=== PATIENT | female | born 1945 | race Caucasian/White ===

== ENCOUNTER 2018-10-02 12:26 | Emergency (ER) | payer MEDICARE, OTHER ==
[~2018-10-02] VITALS: Ht 167.6 cm; Wt 42.9 kg
[~2018-10-02 12:26] MED LIST: ACET325T9 PO; AMLO5TAB4 PO; ASCO500T2 PO; ASPI81TA50 PO; CHOL10003 PO; CHOL4POW2 PO; DIVA125C2 PO; ESCITALOPRAM OX10 MG PO; FOLI1TAB16 PO; LAMO25TA5 PO; LEVO25TA55 PO; MAG355OR17 PO; MAGN2400 PO; MEMA10TA PO; METH29OI TP; MIRT15TA PO; MIRT30TA3 PO; MULT-658 PO; OLAN10TA5 PO; OLAN5TAB5 PO; OLAN7.5T3 PO; POTA500T5 PO; TRAZ-85 PO; VIT1TABL32 PO; VITA1TAB3 PO; VITA80003 PO
[2018-10-02 13:27] LABS: BASO % 1 % (0-3); EOS # 0.1 x10^3/uL (0.0-0.7); EOS % 3 % (0-3); HEMATOCRIT 42.8 % (36.0-47.0); HEMOGLOBIN 14.3 g/dL (12.0-15.5); LYMPH # 0.8 x10^3/uL (1.0-4.8); LYMPH % 22 % (24-48); MEAN CORPUSCULAR HEMOGLOBIN 33 pg (25-35); MEAN CORPUSCULAR HGB CONC 33 g/dL (31-37); MEAN CORPUSCULAR VOLUME 99 fL (79-100); MONO # 0.4 x10^3/uL (0.0-1.1); MONO % 10 % (0-9); NEUT # 2.3 x10^3uL (1.8-7.7); NEUT % 65 % (31-73); PLATELET COUNT 147 x10^3/uL (140-400); RED BLOOD COUNT 4.32 x10^6/uL (3.50-5.40); RED CELL DISTRIBUTION WIDTH 12.6 % (11.5-14.5); WHITE BLOOD COUNT 3.6 x10^3/uL (4.0-11.0)
[2018-10-02 13:37] LABS: BACTERIA,URINE FEW /HPF (0-FEW); BILIRUBIN,URINE NEG (NEG); CLARITY,URINE CLEAR; COLOR,URINE YELLOW; GLUCOSE,URINE NEG (NEG); HYALINE CASTS, URINE OCC /HPF; NITRITE,URINE NEG (NEG); RBC,URINE RARE /HPF (0-2); SQUAMOUS EPITHELIAL CELL,UR OCC /LPF; UROBILINOGEN,URINE 0.2 mg/dL (0.2 mg/dL); WBC,URINE RARE /HPF (0-4)
[2018-10-02 13:40] LABS: ALBUMIN 2.8 g/dL (3.4-5.0); ALBUMIN/GLOBULIN RATIO 0.8 (1.0-1.7); CALCIUM 8.6 mg/dL (8.5-10.1); CREATININE 1.7 mg/dL (0.6-1.0); GFR 29.5; MAGNESIUM 1.6 mg/dL (1.8-2.4); POTASSIUM 3.5 mmol/L (3.5-5.1); TOTAL BILIRUBIN 0.4 mg/dL (0.2-1.0); TOTAL PROTEIN 6.4 g/dL (6.4-8.2)
--- NOTE | 2018-10-02 14:31 | PHYS DOC ---
Past History Past Medical History: Dementia, GERD, High Cholesterol, Hypertension, P.U.D Alcohol Use: None Adult General Chief Complaint Chief Complaint: ALTERED MENTAL STATUS HPI HPI Patient is a 73 year old female patient with history of dementia brought in by her because of increasing confusion for the last few days. Patient called her daughter and her sister more than 20 times yesterday and asking to go home while she was at her home. Patient called her psychiatric recommended to come to ER for evaluation and possible UTI. Patient denies any problem and wants to go home. Review of Systems Review of Systems Constitutional: Denies fever or chills [] Eyes: Denies change in visual acuity, redness, or eye pain [] HENT: Denies nasal congestion or sore throat [] Respiratory: Denies cough or shortness of breath [] Cardiovascular: No additional information not addressed in HPI [] GI: Denies abdominal pain, nausea, vomiting, bloody stools or diarrhea [] : Denies dysuria or hematuria [] Musculoskeletal: Denies back pain or joint pain [] Integument: Denies rash or skin lesions [] Neurologic: Denies headache, focal weakness or sensory changes [] Endocrine: Denies polyuria or polydipsia [] All other systems were reviewed and found to be within normal limits, except as documented in this note. Allergies Allergies Allergies Coded Allergies Type Severity Reaction Last Updated Verified No Known Drug Allergies 11/16/15 No Physical Exam Physical Exam Constitutional: No acute distress, non-toxic appearance, thin. [] HENT: Normocephalic, atraumatic, oropharynx moist, no oral exudates, nose normal. [] Eyes: PERRLA, EOMI, conjunctiva normal, no discharge. [] Neck: Normal range of motion, no tenderness, supple, no stridor. [] Cardiovascular:Heart rate regular rhythm, no murmur [] Lungs & Thorax: Bilateral breath sounds clear to auscultation [] Abdomen: Bowel sounds normal, soft, no tenderness, no masses, no pulsatile masses. [] Skin: Warm, dry, no erythema, no rash. [] Back: No tenderness, no CVA tenderness. [] Extremities: No tenderness, no cyanosis, no clubbing, ROM intact, no edema. [] Neurologic: Alert and oriented X 2, normal motor function, normal sensory function, no focal deficits noted. [] Psychologic: Affect anxious Current Patient Data Vital Signs Vital Signs Date Time Temp Pulse Resp B/P (MAP) Pulse Ox O2 Delivery O2 Flow Rate FiO2 10/02/18 12:26 97.9 66 18 95 Room Air Lab Results Laboratory Tests Test 10/02/18 13:05 White Blood Count 3.6 x10^3/uL (4.0-11.0) L Red Blood Count 4.32 x10^6/uL (3.50-5.40) Hemoglobin 14.3 g/dL (12.0-15.5) Hematocrit 42.8 % (36.0-47.0) Mean Corpuscular Volume 99 fL (79-100) Mean Corpuscular Hemoglobin 33 pg (25-35) Mean Corpuscular Hemoglobin Concent 33 g/dL (31-37) Red Cell Distribution Width 12.6 % (11.5-14.5) Platelet Count 147 x10^3/uL (140-400) Neutrophils (%) (Auto) 65 % (31-73) Lymphocytes (%) (Auto) 22 % (24-48) L Monocytes (%) (Auto) 10 % (0-9) H Eosinophils (%) (Auto) 3 % (0-3) Basophils (%) (Auto) 1 % (0-3) Neutrophils # (Auto) 2.3 x10^3uL (1.8-7.7) Lymphocytes # (Auto) 0.8 x10^3/uL (1.0-4.8) L Monocytes # (Auto) 0.4 x10^3/uL (0.0-1.1) Eosinophils # (Auto) 0.1 x10^3/uL (0.0-0.7) Basophils # (Auto) 0.0 x10^3/uL (0.0-0.2) Urine Collection Type Void Urine Color Yellow Urine Clarity Clear Urine pH 6.0 Urine Specific [place] 1.020 Urine Protein 30 mg/dl (NEG-TRACE) Urine Glucose (UA) Neg mg/dL (NEG) Urine Ketones (Stick) Trace mg/dL (NEG) Urine Blood Neg (NEG) Urine Nitrite Neg (NEG) Urine Bilirubin Neg (NEG) Urine Urobilinogen Dipstick 0.2 mg/dL (0.2 mg/dL) Urine Leukocyte Esterase Neg (NEG) Urine RBC Rare /HPF (0-2) Urine WBC Rare /HPF (0-4) Urine Squamous Epithelial Cells Occ /LPF Urine Bacteria Few /HPF (0-FEW) Urine Hyaline Casts Occ /HPF Urine Mucus Slight /LPF Sodium Level 144 mmol/L (136-145) Potassium Level 3.5 mmol/L (3.5-5.1) Chloride Level 107 mmol/L (98-107) Carbon Dioxide Level 32 mmol/L (21-32) Anion Gap 5 (6-14) L Blood Urea Nitrogen 17 mg/dL (7-20) Creatinine 1.7 mg/dL (0.6-1.0) H Estimated GFR (Cockcroft-Gault) 29.5 BUN/Creatinine Ratio 10 (6-20) Glucose Level 131 mg/dL (70-99) H Lactic Acid Level 1.8 mmol/L (0.4-2.0) Calcium Level 8.6 mg/dL (8.5-10.1) Magnesium Level 1.6 mg/dL (1.8-2.4) L Total Bilirubin 0.4 mg/dL (0.2-1.0) Aspartate Amino Transferase (AST) 22 U/L (15-37) Alanine Aminotransferase (ALT) 15 U/L (14-59) Alkaline Phosphatase 79 U/L (46-116) Total Protein 6.4 g/dL (6.4-8.2) Albumin 2.8 g/dL (3.4-5.0) L Albumin/Globulin Ratio 0.8 (1.0-1.7) L EKG EKG EKG interpreted by me. EKG at 1327 showed normal sinus rhythm at the time of 61 , no acute ST or T-wave abnormalities. Radiology/Procedures Radiology/Procedures [] Course & Med Decision Making Course & Med Decision Making Pertinent Labs reviewed. (See chart for details) Evaluation of patient in ER showed 72-year-old female patient brought in by her because of increasing confusion. Patient had history of dementia and was alert and oriented 2. Labs was unremarkable. After talking to patient and her daughter, they decided to take her home and follow with her psychiatric Dr Singh who increased the dose of Depakote after patient's talked to him by the phone while the patient was in ER. Dragon Disclaimer Dragon Disclaimer This electronic medical record was generated, in whole or in part, using a voice recognition dictation system. Departure Departure: Impression: Primary Impression: Dementia Additional Impressions: Confusion Renal insufficiency Leukopenia Disposition: HOME, SELF-CARE (at 1429) Condition: STABLE Referrals: BANDAR HORTON MD (PCP) Patient Instructions: Dementia Additional Instructions: Follow-up with your primary care physician in 3-5 days Return to ER if not getting better Problem Qualifiers BYRON BRAMBILA MD Oct 02, 2018 14:31
[2018-10-02 14:46] VITALS: BP 140/101
--- NOTE | 2018-10-02 19:31 | EKG ---
[address] [address] Test Date: 2018-10-02 Test Time: 13:27:53 Pat Name: MAXIMUS OJEDA Department: Room: Gender: F Etiologist: : 1945 Requested By: BYRON BRAMBILA Order Number: [id number] Reading MD: Juan Carlos Thrasher Measurements Intervals [place] Rate: 61 P: 75 [place]: 136 QRS: 75 QRSD: 72 T: 85 QT: 368 QTc: 372 Interpretive Statements SINUS RHYTHM NONSPECIFIC ST-T WAVE CHANGES Electronically Signed On 10-07-2018 15:18:04 ASSISTANT PROFESSOR NURSE EDUCATION by Juan Carlos Thrasher
== END 2018-10-02 14:48 | disposition home or self-care (01) ==
LOC: ER 12:26
DX: R41.0 Disorientation, unspecified (principal); F03.90 Unspecified dementia, unspecified severity, without behavioral disturbance, psychotic disturbance, mood disturbance, and anxiety; N28.9 Disorder of kidney and ureter, unspecified; D72.819 Decreased white blood cell count, unspecified; K21.9 Gastro-esophageal reflux disease without esophagitis; E78.00 Pure hypercholesterolemia, unspecified; I10 Essential (primary) hypertension; Z87.11 Personal history of peptic ulcer disease
CPT/HCPCS: 36415; 80053; 81001; 83605; 83735; 85025; 93005; 99284

== ENCOUNTER 2019-08-14 14:23 | Inpatient (IN) | payer MEDICARE, OTHER ==
[~2019-08-14] VITALS: Ht 167.6 cm; Wt 41.7 kg
[~2019-08-14 14:23] MED LIST changes: +TRAZ-120 PO; -TRAZ-85 PO
[2019-08-14] MEDS ORDERED: IV NORMAL SALINE 1,000ML 1,000 ML IV ONE (14:45)
[2019-08-14 15:11] LABS: BASO % 0 % (0-3); EOS # 0.2 x10^3/uL (0.0-0.7); EOS % 3 % (0-3); HEMATOCRIT 46.6 % (36.0-47.0); HEMOGLOBIN 15.1 g/dL (12.0-15.5); LYMPH # 1.5 x10^3/uL (1.0-4.8); LYMPH % 27 % (24-48); MEAN CORPUSCULAR HEMOGLOBIN 32 pg (25-35); MEAN CORPUSCULAR HGB CONC 32 g/dL (31-37); MEAN CORPUSCULAR VOLUME 100 fL (79-100); MONO # 0.4 x10^3/uL (0.0-1.1); MONO % 7 % (0-9); NEUT # 3.6 x10^3uL (1.8-7.7); NEUT % 64 % (31-73); PLATELET COUNT 102 x10^3/uL (140-400); RED BLOOD COUNT 4.66 x10^6/uL (3.50-5.40); RED CELL DISTRIBUTION WIDTH 13.3 % (11.5-14.5); WHITE BLOOD COUNT 5.7 x10^3/uL (4.0-11.0)
[2019-08-14 15:35] LABS: ALBUMIN 3.4 g/dL (3.4-5.0); ALBUMIN/GLOBULIN RATIO 0.9 (1.0-1.7); CALCIUM 9.2 mg/dL (8.5-10.1); CREATININE 1.4 mg/dL (0.6-1.0); GFR 36.8; MAGNESIUM 1.9 mg/dL (1.8-2.4); TOTAL BILIRUBIN 0.6 mg/dL (0.2-1.0); TOTAL PROTEIN 7.3 g/dL (6.4-8.2)
[2019-08-14] MEDS ORDERED: IOHEXOL 350 MG/ML 100 ML VIAL. IV ONE (15:45)
[2019-08-14 15:58] LABS: VAL ACID 35 mcg/mL (50-100)
--- NOTE | 2019-08-14 16:34 | RAD ---
EXAM: CT HEAD WITHOUT IV CONTRAST CLINICAL HISTORY: Headache, dizziness and pain COMPARISON: None. TECHNIQUE: Routine CT of the head without contrast. Soft tissues and bone windows were reviewed. PQRS compliance statement - One or more of the following individualized dose reduction techniques were utilized for this study: 1. Automated exposure control 2. Adjustment of the mA and/or kV according to patient size 3. Use of iterative reconstruction technique FINDINGS: There is no evidence of hemorrhage, mass or extra-axial fluid collection. Subcortical, periventricular and deep white matter hypoattenuation likely changes of chronic small vessel disease. [place]-white differentiation is grossly preserved. There is no mass effect or shift of the intracranial structures. There is prominence of the ventricles and sulci bilaterally consistent with generalized atrophy. The cerebellum and brainstem are unremarkable. The calvarium demonstrates no evidence of fracture or focal lesion. There is normal aeration of the visualized paranasal sinuses and mastoid air cells. The visualized portions of the orbits are normal. Atherosclerotic calcifications of the intracranial internal carotid and vertebral arteries is seen. IMPRESSION: 1. No evidence for acute intracranial process. 2. White matter changes likely from chronic small vessel disease. EXAM: CT CERVICAL SPINE WITHOUT IV CONTRAST CLINICAL HISTORY: Headache, dizziness, pain COMPARISON: None available. TECHNIQUE: Helical CT of the cervical spine was performed. Axial, coronal and sagittal reformatted images were also performed. PQRS compliance statement - One or more of the following individualized dose reduction techniques were utilized for this study: 1. Automated exposure control 2. Adjustment of the mA and/or kV according to patient size 3. Use of iterative reconstruction technique FINDINGS: Vertebral body heights are preserved. Moderate C2-3 disc height loss. Moderate to severe C4-5, C5-6 and C6-7 as well as C7-T1 disc height loss. No evidence for acute fracture. Straightening of the normal cervical lordosis. No spondylolisthesis. Endplate osteophytes are seen at multiple levels most prominent at C4-5 and C5-6. IMPRESSION: 1. No acute fracture or subluxation. 2. Multilevel spondylosis as above C4-5. 3. Biapical emphysematous changes are seen. Electronically signed by: Jayce Lazo MD (08/14/2019 4:31 PM) [place] [id number]
--- NOTE | 2019-08-14 17:02 | RAD ---
CT ANGIO CHEST W ABD PEL W/ Indication: Shortness of breath. Hypoxia. Diarrhea. Technique: After intravenous contrast administration, CT imaging was performed of the chest. MIP reconstructions were obtained. Exposure: One or more of the following individualized dose reduction techniques were utilized for this examination: 1. Automated exposure control 2. Adjustment of the mA and/or kV according to patient size 3. Use of iterative reconstruction technique. CTA chest: No evidence of pulmonary embolism. The ascending thoracic aorta is ectatic at 3.7 cm transverse diameter. No gross aneurysm. The aorta is suboptimally opacified with contrast, cannot evaluate for dissection. Atherosclerotic calcification is seen. No significant lymph node enlargement. No evidence of significant pericardial effusion or pleural effusion. No evidence of thyroid mass. Lungs demonstrate no evidence of consolidating infiltrate. Mild linear markings are identified, likely atelectatic or fibrotic. No evidence of pneumothorax. Mainstem bronchi and trachea are intact. Mild central endplate concavities of thoracic vertebrae may be due to osteoporosis. No acute appearing fracture. Degenerative spondylosis is identified. IMPRESSION: No evidence of pulmonary embolism. Abdomen and pelvis: Right lobe of liver is elongated slightly. No gross hepatomegaly. No evidence of hepatic lesion. Small low-density lesion of the spleen too small to characterize measuring less than 1 cm. Spleen not enlarged. Pancreas unremarkable. No evidence of adrenal mass. Mild gallbladder wall thickening but could be accentuated by nondistention. No evidence of calcified gallstone. Small saccular aneurysm of the infrarenal abdominal aorta measuring about 2 cm wide. No significant lymph node enlargement. No significant pneumoperitoneum. No evidence of ascites. No significant small bowel distention. Mild distal colonic wall thickening could be due to submucosal edema versus mild colitis. No gross focal inflammatory type changes are identified. Bowel evaluation is limited due to the lack of oral contrast. Appendix is not clearly visualized. Urinary bladder demonstrates mild wall thickening. No evidence of pelvic mass. Degenerative changes of the spine. IMPRESSION: 1. Mild gallbladder wall thickening. This could be accentuated by nondistention, but correlate for cholecystitis. 2. No small subcentimeter lesion of the spleen cannot be further characterized but could be a cyst. 3. Small saccular aneurysm of the infrarenal abdominal aorta, measures up to 2 m wide. 4. Mild distal colonic wall thickening, could be due to some mucosal edema or mild colitis. 5. Mild urinary bladder wall thickening, correlate for acute or chronic cystitis. Electronically signed by: Kannan Wong MD (08/14/2019 5:00 PM) [facility]
[2019-08-14 17:08] LABS: BACTERIA,URINE 0 /HPF (0-FEW); BILIRUBIN,URINE NEG (NEG); CLARITY,URINE CLEAR; COLOR,URINE STRAW; GLUCOSE,URINE NEG (NEG); NITRITE,URINE NEG (NEG); RBC,URINE 0 /HPF (0-2); SQUAMOUS EPITHELIAL CELL,UR OCC /LPF; UROBILINOGEN,URINE 0.2 mg/dL (0.2 mg/dL); WBC,URINE OCC /HPF (0-4)
[2019-08-14] MEDS ORDERED: CIPROFLOXACIN HCL 500 MG TABLET PO ONE (17:30)
[2019-08-14] MEDS ORDERED: metroNIDAZOLE 500 MG TABLET PO ONE (17:30)
[2019-08-14] MEDS ORDERED: DEXAMETHASONE SOD PHOS 10 MG/ML VIAL ONE (17:33)
--- NOTE | 2019-08-14 17:40 | PHYS DOC ---
Past History Past Medical History: Bipolar, Dementia, High Cholesterol, Hypertension, Hypothyroid, [place] Additional Past Medical Histor: Limited secondary to dementia Past Surgical History: Appendectomy, Hysterectomy Additional Past Surgical Histo: Limited secondary to dementia Smoking: Non-smoker Alcohol Use: None Drug Use: None Social History Narrative: Limited secondary to dementia Adult General Chief Complaint Chief Complaint: SHORTNESS OF BREATH HPI HPI 74-year-old female presents with 2 day history of generalized weakness, dizziness, dyspnea with exertion, and headache. She has had several day history of diarrhea. Patient is a poor historian secondary to dementia. Family concerned as patient seemed very weak today and felt like she was about to pass out. Patient denies any significant pain. Denies fever or chills. Denies known sick contacts. Denies trauma. Patient also with pmh of COPD. History of present illness limited secondary to dementia Review of Systems Review of Systems Constitutional: Denies fever or chills; reports generalized malaise Respiratory: Denies cough; reports dyspnea on exertion Cardiovascular: Denies chest pain or palpitations GI: Denies nausea or vomiting; reports diarrhea : Denies dysuria or hematuria Integument: Denies rash or skin lesions Neurologic: Reports headache and dizziness Review of systems limited secondary to dementia Current Medications Current Medications Current Medications Medications (Trade) Dose Ordered Sig/Judd Start Time Stop Time Status Last Admin Dose Admin Albuterol/ Ipratropium (Duoneb) 3 ml 1X ONCE 08/14/19 17:45 08/14/19 17:46 Ciprofloxacin (Cipro) 500 mg 1X ONCE 08/14/19 17:30 08/14/19 17:31 DC Dexamethasone Sodium Phosphate (Decadron) 10 mg STK-MED ONCE 08/14/19 17:33 08/14/19 17:33 DC Iohexol (Omnipaque 350 Mg/ml) 75 ml 1X ONCE 08/14/19 15:45 08/14/19 15:46 DC 08/14/19 16:00 75 ML Metronidazole (Flagyl) 500 mg 1X ONCE 08/14/19 17:30 08/14/19 17:31 DC Sodium Chloride 1,000 ml @ 1,000 mls/hr 1X ONCE 08/14/19 14:45 08/14/19 15:44 DC 08/14/19 15:17 1,000 MLS/HR Allergies Allergies Allergies Coded Allergies Type Severity Reaction Last Updated Verified No Known Drug Allergies 11/16/15 No Physical Exam Physical Exam Constitutional: Well developed, well nourished, frail, no acute distress HENT: Normocephalic, atraumatic, oropharynx moist Eyes: PERRL, EOMI, conjunctiva normal, no discharge, no nystagmus Neck: Normal range of motion, no tenderness, supple, no meningeal signs Cardiovascular: Heart rate normal, regular rhythm Lungs & Thorax: Bilateral breath sounds clear to auscultation, no wheezing Abdomen: Soft, diffuse tenderness, no rebound tenderness Skin: Warm, dry, no erythema, no rash Extremities: No tenderness, ROM intact, no edema Neurologic: Alert and oriented X 2, normal motor function, normal sensory function, no focal deficits noted Psychologic: Affect normal, judgement abnormal Current Patient Data Vital Signs Vital Signs Date Time Temp Pulse Resp B/P (MAP) Pulse Ox O2 Delivery O2 Flow Rate FiO2 08/14/19 15:06 98.9 67 18 93 Room Air Lab Results Laboratory Tests Test 08/14/19 14:38 08/14/19 14:41 08/14/19 16:17 White Blood Count 5.7 x10^3/uL (4.0-11.0) Red Blood Count 4.66 x10^6/uL (3.50-5.40) Hemoglobin 15.1 g/dL (12.0-15.5) Hematocrit 46.6 % (36.0-47.0) Mean Corpuscular Volume 100 fL (79-100) Mean Corpuscular Hemoglobin 32 pg (25-35) Mean Corpuscular Hemoglobin Concent 32 g/dL (31-37) Red Cell Distribution Width 13.3 % (11.5-14.5) Platelet Count 102 x10^3/uL (140-400) L Neutrophils (%) (Auto) 64 % (31-73) Lymphocytes (%) (Auto) 27 % (24-48) Monocytes (%) (Auto) 7 % (0-9) Eosinophils (%) (Auto) 3 % (0-3) Basophils (%) (Auto) 0 % (0-3) Neutrophils # (Auto) 3.6 x10^3uL (1.8-7.7) Lymphocytes # (Auto) 1.5 x10^3/uL (1.0-4.8) Monocytes # (Auto) 0.4 x10^3/uL (0.0-1.1) Eosinophils # (Auto) 0.2 x10^3/uL (0.0-0.7) Basophils # (Auto) 0.0 x10^3/uL (0.0-0.2) Sodium Level 148 mmol/L (136-145) H Potassium Level 4.0 mmol/L (3.5-5.1) Chloride Level 106 mmol/L (98-107) Carbon Dioxide Level 31 mmol/L (21-32) Anion Gap 11 (6-14) Blood Urea Nitrogen 20 mg/dL (7-20) Creatinine 1.4 mg/dL (0.6-1.0) H Estimated GFR (Cockcroft-Gault) 36.8 BUN/Creatinine Ratio 14 (6-20) Glucose Level 132 mg/dL (70-99) H Lactic Acid Level 1.6 mmol/L (0.4-2.0) Calcium Level 9.2 mg/dL (8.5-10.1) Magnesium Level 1.9 mg/dL (1.8-2.4) Total Bilirubin 0.6 mg/dL (0.2-1.0) Aspartate Amino Transferase (AST) 39 U/L (15-37) H Alanine Aminotransferase (ALT) 34 U/L (14-59) Alkaline Phosphatase 91 U/L (46-116) Creatine Kinase 51 U/L (26-192) Creatine Kinase MB (Mass) 1.3 ng/mL (0.0-3.6) Creatine Kinase MB Relative Index 2.5 % (0-4) Troponin I Quantitative < 0.017 ng/mL (0-0.055) QR-Ysw-[id number]-Type Natriuretic Peptide 217 pg/mL (0-124) H Total Protein 7.3 g/dL (6.4-8.2) Albumin 3.4 g/dL (3.4-5.0) Albumin/Globulin Ratio 0.9 (1.0-1.7) L Lipase 585 U/L (73-393) H Valproic Acid Level 35 mcg/mL (50-100) L Valproic Acid Last Dose Date 08/14/19 Valproic Acid Last Dose Time 0800 Urine Collection Type Unknown Urine Color Straw Urine Clarity Clear Urine pH 6.5 Urine Specific Orient 1.015 Urine Protein Neg (NEG-TRACE) Urine Glucose (UA) Neg mg/dL (NEG) Urine Ketones (Stick) Neg mg/dL (NEG) Urine Blood Neg (NEG) Urine Nitrite Neg (NEG) Urine Bilirubin Neg (NEG) Urine Urobilinogen Dipstick 0.2 mg/dL (0.2 mg/dL) Urine Leukocyte Esterase Neg (NEG) Urine RBC 0 /HPF (0-2) Urine WBC Occ /HPF (0-4) Urine Squamous Epithelial Cells Occ /LPF Urine Bacteria 0 /HPF (0-FEW) Urine Mucus Slight /LPF EKG EKG @1515 NSR at 60bpm, NO ST elevation, QRS 68ms, QT/QTc 424/428ms Radiology/Procedures Radiology/Procedures PROCEDURE: CT HEAD AND CERVICAL SPINE WO EXAM: CT HEAD WITHOUT IV CONTRAST CLINICAL HISTORY: Headache, dizziness and pain COMPARISON: None. TECHNIQUE: Routine CT of the head without contrast. Soft tissues and bone windows were reviewed. PQRS compliance statement - One or more of the following individualized dose reduction techniques were utilized for this study: 1. Automated exposure control 2. Adjustment of the mA and/or kV according to patient size 3. Use of iterative reconstruction technique FINDINGS: There is no evidence of hemorrhage, mass or extra-axial fluid collection. Subcortical, periventricular and deep white matter hypoattenuation likely changes of chronic small vessel disease. York-white differentiation is grossly preserved. There is no mass effect or shift of the intracranial structures. There is prominence of the ventricles and sulci bilaterally consistent with generalized atrophy. The cerebellum and brainstem are unremarkable. The calvarium demonstrates no evidence of fracture or focal lesion. There is normal aeration of the visualized paranasal sinuses and mastoid air cells. The visualized portions of the orbits are normal. Atherosclerotic calcifications of the intracranial internal carotid and vertebral arteries is seen. IMPRESSION: 1. No evidence for acute intracranial process. 2. White matter changes likely from chronic small vessel disease. EXAM: CT CERVICAL SPINE WITHOUT IV CONTRAST CLINICAL HISTORY: Headache, dizziness, pain COMPARISON: None available. TECHNIQUE: Helical CT of the cervical spine was performed. Axial, coronal and sagittal reformatted images were also performed. PQRS compliance statement - One or more of the following individualized dose reduction techniques were utilized for this study: 1. Automated exposure control 2. Adjustment of the mA and/or kV according to patient size 3. Use of iterative reconstruction technique FINDINGS: Vertebral body heights are preserved. Moderate C2-3 disc height loss. Moderate to severe C4-5, C5-6 and C6-7 as well as C7-T1 disc height loss. No evidence for acute fracture. Straightening of the normal cervical lordosis. No spondylolisthesis. Endplate osteophytes are seen at multiple levels most prominent at C4-5 and C5-6. IMPRESSION: 1. No acute fracture or subluxation. 2. Multilevel spondylosis as above C4-5. 3. Biapical emphysematous changes are seen. Electronically signed by: Jayce Lazo MD (08/14/2019 4:31 PM) [facility] PROCEDURE: CT ANGIO CHEST W ABD PEL W/ CT ANGIO CHEST W ABD PEL W/ Indication: Shortness of breath. Hypoxia. Diarrhea. Technique: After intravenous contrast administration, CT imaging was performed of the chest. MIP reconstructions were obtained. Exposure: One or more of the following individualized dose reduction techniques were utilized for this examination: 1. Automated exposure control 2. Adjustment of the mA and/or kV according to patient size 3. Use of iterative reconstruction technique. CTA chest: No evidence of pulmonary embolism. The ascending thoracic aorta is ectatic at 3.7 cm transverse diameter. No gross aneurysm. The aorta is suboptimally opacified with contrast, cannot evaluate for dissection. Atherosclerotic calcification is seen. No significant lymph node enlargement. No evidence of significant pericardial effusion or pleural effusion. No evidence of thyroid mass. Lungs demonstrate no evidence of consolidating infiltrate. Mild linear markings are identified, likely atelectatic or fibrotic. No evidence of pneumothorax. Mainstem bronchi and trachea are intact. Mild central endplate concavities of thoracic vertebrae may be due to osteoporosis. No acute appearing fracture. Degenerative spondylosis is identified. IMPRESSION: No evidence of pulmonary embolism. Abdomen and pelvis: Right lobe of liver is elongated slightly. No gross hepatomegaly. No evidence of hepatic lesion. Small low-density lesion of the spleen too small to characterize measuring less than 1 cm. Spleen not enlarged. Pancreas unremarkable. No evidence of adrenal mass. Mild gallbladder wall thickening but could be accentuated by nondistention. No evidence of calcified gallstone. Small saccular aneurysm of the infrarenal abdominal aorta measuring about 2 cm wide. No significant lymph node enlargement. No significant pneumoperitoneum. No evidence of ascites. No significant small bowel distention. Mild distal colonic wall thickening could be due to submucosal edema versus mild colitis. No gross focal inflammatory type changes are identified. Bowel evaluation is limited due to the lack of oral contrast. Appendix is not clearly visualized. Urinary bladder demonstrates mild wall thickening. No evidence of pelvic mass. Degenerative changes of the spine. IMPRESSION: 1. Mild gallbladder wall thickening. This could be accentuated by nondistention, but correlate for cholecystitis. 2. No small subcentimeter lesion of the spleen cannot be further characterized but could be a cyst. 3. Small saccular aneurysm of the infrarenal abdominal aorta, measures up to 2 m wide. 4. Mild distal colonic wall thickening, could be due to some mucosal edema or mild colitis. 5. Mild urinary bladder wall thickening, correlate for acute or chronic cystitis. Electronically signed by: Kannan Wong MD (08/14/2019 5:00 PM) [facility] Course & Med Decision Making Course & Med Decision Making Pertinent Labs and Imaging studies reviewed. (See chart for details) Patient with past medical history of dementia and COPD presents with report of generalized weakness, dizziness, dyspnea with exertion and headache. Patient noted to drop O2 sats with exertion. Patient also with history of diarrhea. CT head/cervical spine without acute process. CT chest/abdomen/pelvis with findings of mild colitis. Empiric antibiotics initiated. Labs obtained and posted to chart. EKG stable. Patient requiring supplemental O2 to maintain normal sat despite DuoNeb treatments. Patient requiring admission for further evaluation and treatment. Discussed with Dr. Spring(hospitalist) who is in agreement with admission. Discussed findings and plan with patient and family, who acknowledge understanding and agreement. Dragon Disclaimer Dragon Disclaimer This electronic medical record was generated, in whole or in part, using a voice recognition dictation system. Departure Departure: Impression: Primary Impression: Colitis Additional Impressions: COPD exacerbation Hypoxia Dizziness Disposition: ADMITTED INPATIENT Admitting Physician: Salo Spring Condition: GUARDED Referrals: BANDAR HORTON MD (PCP) Critical Care Time Critical care time was 30 minutes which includes time at bedside, spent in discussion of patient's care with specialists and/or family members, with interpretation of laboratory and/or radiological studies and is exclusive of procedures. Problem Qualifiers KANNAN CASAREZ DO Aug 14, 2019 17:40
[2019-08-14] MEDS ORDERED: ACETAMINOPHEN 325 MG TABLET PO PRN (17:45)
[2019-08-14] MEDS ORDERED: DEXAMETHASONE SOD PHOS 10 MG/ML VIAL IV ONE (17:45)
[2019-08-14] MEDS ORDERED: ONDANSETRON PF 4 MG/2 ML VIAL. IV PRN (17:45)
[2019-08-14] MEDS ORDERED: IPRATRPIUM/ALBUTEROL 0.5/2.5MG 3 ML NEBU. NEB ONE (17:45)
--- NOTE | 2019-08-14 18:02 | EKG ---
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
[2019-08-14 18:28] VITALS: BP 152/88
[2019-08-14 19:30] VITALS: BP 146/81
[2019-08-14] MEDS ORDERED: DONE10TA7 PO (20:52)
[2019-08-14] MEDS ORDERED: VITA80003 PO (20:52)
[2019-08-14] MEDS ORDERED: CARV6.2541 PO (20:52)
[2019-08-14] MEDS ORDERED: SOLI5TAB2 PO (20:52)
--- NOTE | 2019-08-14 21:08 | NUR ---
The patient, MAXIMUS OJEDA, 74 y/o, F admitted by JEREMIE DONNELLY MD, was given written information regarding hospital policies, unit procedures and contact persons. cardiac monitor applied, normal sinus rhythm. Bed locked and in lowest position, call light within reach. Valuables were checked and left in room .
[2019-08-14] MEDS: IPRATRPIUM/ALBUTEROL 0.5/2.5MG 3 ML NEBU. NEB SCH (21:32)
[2019-08-14 23:09] VITALS: BP 93/58
[2019-08-15 03:03] VITALS: BP 143/71
[2019-08-15 03:05] VITALS: BP 95/59
[2019-08-15] MEDS: IPRATRPIUM/ALBUTEROL 0.5/2.5MG 3 ML NEBU. NEB SCH ×3 (05:37→16:54)
[2019-08-15 06:20] VITALS: BP 116/79
[2019-08-15 11:48] VITALS: BP 102/62
[2019-08-15 15:49] LABS: CALCIUM 8.8 mg/dL (8.5-10.1); CREATININE 1.3 mg/dL (0.6-1.0); POTASSIUM 4.6 mmol/L (3.5-5.1)
[2019-08-15 16:16] VITALS: BP 116/63
--- NOTE | 2019-08-15 17:27 | HP ---
ADMIT DATE: 08/14/2019 HISTORY OF PRESENT ILLNESS: The patient is a 74-year-old female patient, who was brought to the Emergency Room with 2 days history of generalized weakness, dizziness, dyspnea with exertion and headache. She has had several day history of diarrhea. The patient is a poor historian secondary to dementia. Family is concerned that the patient seemed to be very weak, felt like she was about to pass out. The patient herself is demented, does not give any useful information. She was extensively investigated and was found to have hypernatremia, impaired kidney function. Also, serum lipase was high at 585. Urinalysis was unremarkable and toxic screen was negative. Her imaging studies showed that her CT scan of the head and neck were unremarkable; however, her CT angio of the chest, abdomen and pelvis showed mild gallbladder wall thickening. This could be accentuated by non-distention, but correlates for cholecystitis. She has small subcentimeter lesion in the spleen cannot be further characterized, small saccular aneurysm of the infrarenal abdominal aorta measures up to 2 cm. Mild distal colonic wall thickening could be due to some mucosal edema and mild colitis, mild urinary bladder wall thickening, correlate for acute on chronic cystitis. The patient was admitted with acute colitis, COPD exacerbation, hypoxia and dizziness. She also had probably acute pancreatitis, although the patient denied any abdominal pain. PAST MEDICAL HISTORY: Significant for chronic obstructive pulmonary disease, hypertension. She has coronary artery disease, status post myocardial infarction, according to her she has dementia, hypothyroidism, overactive bladder. PAST SURGICAL HISTORY: Significant for total abdominal hysterectomy, bilateral salpingo-oophorectomy, appendectomy, tonsillectomy. She has esophagogastroduodenoscopy as well as colonoscopy. ALLERGIES: She has no known drug allergies. MEDICATIONS: She is currently on following medications: She is on Aricept 10 mg at bedtime, carvedilol 6.25 mg twice a day, amlodipine 5 mg once a day, aspirin 81 mg once a day, Tylenol 650 every 6 hours, divalproex for Depakote Sprinkles 500 mg at bedtime, mirtazapine 15 mg at bedtime, olanzapine for Zyprexa Zydis 10 mg at bedtime, Namenda 10 mg twice a day, levothyroxine sodium for Synthroid 25 mcg once a day, solifenacin succinate for VESIcare 1 tablet p.o. daily, vitamin A 8000 units, she takes 3 capsules daily, vitamin B complex 1 tablet once a day, ascorbic acid 1000 mg once a day, vitamin D 50 mcg p.o. daily and multivitamin with mineral 1 tablet once a day. FAMILY HISTORY: She has 3 sisters, 1 at age of 85 because of cerebral aneurysm and 1 brother of Alzheimer disease. Her mother of Alzheimer. Father of throat cancer. SOCIAL HISTORY: She is , has 1 daughter. Quit smoking about 5-10 years ago. She does not drink alcohol or use any recreational drugs. 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 REVIEW OF SYSTEMS: The patient denied any blurring of vision. She has bilateral cataract extraction, but denied any glaucoma or macular degeneration. Denied any earache, tinnitus or sensorineural deafness. Denied any nosebleeds, stuffy nose or postnasal drip. Denied any sore throat, sore tongue, toothache, hoarseness of voice or difficulty swallowing. Denied any nausea or vomiting. Did have diarrhea. Denies any hematemesis, melena or hematochezia. Denies any dysuria or frequency. She does have frequency, but denies any hematuria. Denies any chest pain, did complain of shortness of breath. No cough or phlegm. PHYSICAL EXAMINATION: GENERAL: On arrival to the Emergency Room, the patient looked well and pale, extremely cachectic, but no jaundice, cyanosis or thyromegaly. No jugular venous distention. No limb edema. VITAL SIGNS: Her heart rate was 67, blood pressure was 152/88, temperature was 98.9, respiratory rate was 18 and oxygen saturation was 93% on room air. HEAD, EYES, EARS, NOSE AND THROAT: Showed normocephalic, atraumatic. NECK: Supple. HEART: Showed normal first and second heart sounds with no gallop, rub or murmur. CHEST: Clear to auscultation. No crepitation or rhonchi. ABDOMEN: Distended, soft, nontender. No guarding or rigidity. No organomegaly. All hernial orifice intact. Bowel sounds normal. NEUROLOGIC: She is demented, but without any obvious lateralizing sign. All her cranial nerves intact. EXTREMITIES: She moves extremities without difficulty. LABORATORY DATA: Her lab work on admission showed that her white cell count was 5,700, hemoglobin 15, hematocrit 46, MCV 100, and platelet count of 102,000. Her serum sodium was 148, potassium 4, chloride 106, bicarbonate 31, anion gap of 11, BUN 20, creatinine 1.4, estimated GFR was 37 mL per minute. Her glucose 132, lactic acid was 1.6, calcium was 9.2, magnesium was 1.9. Total bilirubin, AST, ALT, alkaline phosphatase were normal. Total protein was 7.3, albumin was 3.4. Serum lipase was high at 585. Urinalysis was essentially unremarkable. The urine was straw colored, clear with a pH of 6.5, specific gravity 1.015, the urine was negative for protein, glucose, ketones, blood, nitrite and leukocyte esterase. There are no rbc's, no wbc's, and no bacteria. Her toxic screen showed her valproic acid was 35 mcg/mL, which is below the therapeutic range of 50-100. [address] CT scan of the head and cervical spine showed that the patient has no evidence of hemorrhage, mass, or extraaxial fluid collection, subcortical periventricular and deep white matter hypoattenuation likely changes of chronic small vessel disease. York-white differentiation is grossly preserved. There is no mass effect or shift of the intracranial structures. There is prominence of the ventricles and sulci bilaterally consistent with generalized atrophy. The cerebellum and brainstem are unremarkable. The calvarium demonstrates no evidence of fracture or focal lesion. There is normal aeration of the visualized paranasal sinuses and mastoid air cells. The visualized portion of the orbits are normal. Atherosclerotic calcification of the intracranial internal carotid and vertebral arteries seen and examination of the cervical spine showed that the vertebral body heights are preserved. Moderate C2-C3 disk height loss, moderate to severe C4-C5, C5-C6 and C6-C7 as well as C7-T1 disk height loss, no evidence of acute fractures or straightening of the normal cervical lordosis and spondylolisthesis, endplate osteophytes are seen at multiple levels, most prominent at C4-C5, C5-C6. The CT angio of the chest, abdomen and pelvis showed no evidence of pulmonary embolism. The ascending thoracic aorta is ectatic at 3.7 cm transverse diameter. No gross aneurysm. The aorta is suboptimally opacified with contrast cannot evaluate for dissection. Atherosclerotic calcification is seen. No significant lymph node enlargement. No evidence of significant pericardial effusion or pleural effusion, no evidence of thyroid mass. Lungs demonstrate no evidence of consolidating infiltrate, mild linear markings identified, likely atelectatic or fibrotic. No evidence of pneumothorax. Main stem bronchi and trachea are intact. Mild central endplate concavity of the thoracic vertebrae may be due to osteoporosis. No acute appearing fracture, degenerative spondylosis identified. The CT angio of the abdomen and pelvis showed the right lobe of the liver is enlarged slightly, no gross hepatomegaly, no evidence of hepatic lesion. A small low density lesion in the spleen, too small to characterize measuring less than 1 cm. Spleen is not enlarged. Pancreas unremarkable. No evidence of adrenal masses, mild gallbladder wall thickening, which could be accentuated by non-distention. No evidence of calcified gallstones. She has small saccular aneurysm of the infrarenal abdominal aorta measuring about 2 cm wide. No significant lymph node enlargement. No significant pneumoperitoneum, no evidence of ascites. No significant small bowel distention. Mild distal colonic wall thickening could be due to submucosal edema versus mild colitis. No gross focal inflammatory type changes are identified. Bowel evaluation is limited due to lack of oral contrast. Appendix not clearly visualized. Urinary bladder demonstrates mild wall thickening. No evidence of pelvic mass, degenerative changes of the spine. IMPRESSION: Mild gallbladder wall thickening could be accentuated by non-distention, but correlates for cholecystitis. Small subcentimeter lesion in the spleen cannot be further characterized, but could be a cyst. So, in summary, this is a 74-year-old lady who was admitted with acute colitis, questionable acute hypoxic respiratory failure and chronic obstructive pulmonary disease exacerbation as well as she was also found to have hypernatremia, acute kidney injury as well as pancreatitis and thrombocytopenia. PLAN: My plan is to continue with oral antibiotic for her acute colitis. Continue with albuterol and I will repeat her serum lipase as well as arrange for her to have abdominal ultrasound to rule out possibility of acute cholecystitis. JEREMIE DONNELLY MD DR: LILLY/papa JOB#: [id number] / [id number]
[2019-08-15 19:10] VITALS: BP 131/71
[2019-08-15] MEDS: CIPROFLOXACIN HCL 250 MG TABLET PO SCH (20:33)
[2019-08-15] MEDS: methylPREDNISolone SOD SUCC PF 40 MG/ML VIAL. IV SCH (20:34)
[2019-08-15] MEDS: metroNIDAZOLE 250 MG TABLET PO SCH (21:15)
--- NOTE | 2019-08-15 22:42 | PN ---
DATE: 08/15/2019 SUBJECTIVE: The patient is resting slightly propped up in bed, in no apparent respiratory distress. She did have loose bowel movement this morning. Did complain of shortness of breath. No cough or phlegm. PHYSICAL EXAMINATION: GENERAL: When I examined her this afternoon, she looked well and was clearly in no apparent respiratory distress. No pallor, jaundice, cyanosis or thyromegaly. No jugular venous distention. No limb edema. VITAL SIGNS: Her heart rate was 64, blood pressure was 102/62, temperature was 98.1, respiratory rate was 10 and oxygen saturation was 99% on room air. HEAD, EYES, EARS, NOSE AND THROAT: Showed normocephalic, atraumatic. NECK: Supple. HEART: Showed normal first and second heart sounds. No gallop or murmur. CHEST: Clear to auscultation. No crepitation or rhonchi. ABDOMEN: Distended, soft, nontender. NEUROLOGIC: She is awake, alert, although she is demented without any obvious lateralizing sign. All cranial nerves intact. She moves extremities without difficulty. She ambulates without assistance or assistive devices. LABORATORY DATA: No lab works were done this morning. ASSESSMENT: 1. Chronic obstructive pulmonary disease exacerbation. 2. Acute colitis. 3. Acute pancreatitis. 4. Thrombocytopenia. 5. Acute kidney injury. 6. Hypernatremia. PLAN: My plan is to repeat her stat BMP and serum lipase. We will keep her n.p.o. from midnight tonight and we will check a limited abdominal ultrasound. We will continue with oral ciprofloxacin as well as Flagyl and continue with Solu-Medrol. We will evaluate her tomorrow and if she remains stable, she can be discharged on a tapering course of steroids. JEREMIE DONNELLY MD DR: LILLY/papa JOB#: [id number] / [id number]
[2019-08-16] VITALS (9 sets, daily range): BP systolic 98–165; BP diastolic 49–89
[2019-08-16] MEDS: metroNIDAZOLE 250 MG TABLET PO SCH ×3 (05:54→21:48)
[2019-08-16 06:43] LABS: HEMATOCRIT 37.5 % (36.0-47.0); HEMOGLOBIN 12.1 g/dL (12.0-15.5); RED BLOOD COUNT 3.74 x10^6/uL (3.50-5.40); RED CELL DISTRIBUTION WIDTH 13.1 % (11.5-14.5); WHITE BLOOD COUNT 8.2 x10^3/uL (4.0-11.0)
[2019-08-16 06:58] LABS: ALBUMIN 2.9 g/dL (3.4-5.0); ALBUMIN/GLOBULIN RATIO 0.9 (1.0-1.7); CALCIUM 8.9 mg/dL (8.5-10.1); CREATININE 1.3 mg/dL (0.6-1.0); POTASSIUM 5.5 mmol/L (3.5-5.1); TOTAL BILIRUBIN 0.2 mg/dL (0.2-1.0); TOTAL PROTEIN 6.2 g/dL (6.4-8.2)
--- NOTE | 2019-08-16 08:39 | RAD ---
STUDY: Realtime grayscale and color Doppler ultrasonography of the right upper quadrant INDICATION: Abnormal CT. Questioned acute cholecystitis. COMPARISON: CT abdomen/pelvis 08/14/2019. Findings: The gallbladder wall is within normal limits for thickness measuring 3 mm. No gallstones or sludge visualized. 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 The common bile duct is mildly dilated 8 mm without choledocholithiasis or other visualized obstructing process. The pancreas is not well evaluated but the visualized portion is unremarkable. The right kidney is within normal limits measuring up to 10 cm in length and without hydronephrosis. The liver measures up to 19 cm. Parenchymal echogenicity is within normal limits. The main portal vein is patent with hepatopedal flow. The visualized inferior vena cava is patent. There appears to be a small right pleural effusion. Impression: 1. No sonographic evidence for acute cholecystitis. The common bile duct is mildly dilated at 8 mm and at the upper limits of normal taking into consideration patient's age. No choledocholithiasis or other obstructing process identified. 2. There appears to be a small right pleural effusion which was not seen on the 08/14/2019 CT. Electronically signed by: JAQUAN MOLINA MD (08/16/2019 8:37 AM) [facility]
[2019-08-16] MEDS: methylPREDNISolone SOD SUCC PF 40 MG/ML VIAL. IV SCH ×2 (09:37→20:34)
[2019-08-16] MEDS: CIPROFLOXACIN HCL 250 MG TABLET PO SCH ×2 (09:38→20:33)
[2019-08-16 15:11] LABS: CALCIUM 8.6 mg/dL (8.5-10.1); CREATININE 1.3 mg/dL (0.6-1.0); POTASSIUM 4.7 mmol/L (3.5-5.1)
[2019-08-16] MEDS ORDERED: ONDANSETRON ODT 4 MG TAB.RAPDIS PO PRN (16:00)
[2019-08-16] MEDS: IV DEXTROSE 5 %-0.45 % NACL 1,000 ML IV SCH (20:34)
[2019-08-17] MEDS: metroNIDAZOLE 250 MG TABLET PO SCH (05:28)
[2019-08-17 06:30] LABS: HEMATOCRIT 36.3 % (36.0-47.0); RED BLOOD COUNT 3.61 x10^6/uL (3.50-5.40); RED CELL DISTRIBUTION WIDTH 13.1 % (11.5-14.5); WHITE BLOOD COUNT 8.7 x10^3/uL (4.0-11.0)
[2019-08-17 06:36] VITALS: BP 144/78
[2019-08-17 06:45] LABS: ALBUMIN 2.8 g/dL (3.4-5.0); ALBUMIN/GLOBULIN RATIO 0.9 (1.0-1.7); CALCIUM 8.6 mg/dL (8.5-10.1); CREATININE 1.2 mg/dL (0.6-1.0); GFR 43.9; POTASSIUM 4.9 mmol/L (3.5-5.1); TOTAL BILIRUBIN 0.3 mg/dL (0.2-1.0)
--- NOTE | 2019-08-17 08:12 | NUR ---
NURSING NOTE PT DAUGHTER CALLED AND STATED THAT SHE WORKED HERE FOR 11 YEARS AND THAT HER MOTHER IS BEYOND OUR SCOPE OF PRACTICE AND THAT SHE WANTS HER TRANSFERRED TO [facility] TODAY. SPOKE WITH DR DONNELLY, WAITING FOR RESULTS OF HER TESTS THIS AM AND WILL DISCUSS PLAN. GAURANG GARCIA.
[2019-08-17] MEDS ORDERED: NORMAL SALINE IV ONE (08:45)
[2019-08-17] MEDS ORDERED: SINCALIDE IV ONE (08:45)
[2019-08-17] MEDS: methylPREDNISolone SOD SUCC PF 40 MG/ML VIAL. IV SCH (09:52)
[2019-08-17] MEDS: CIPROFLOXACIN HCL 250 MG TABLET PO SCH (09:52)
[2019-08-17] MEDS: IV DEXTROSE 5 %-0.45 % NACL 1,000 ML IV SCH (09:59)
--- NOTE | 2019-08-17 10:12 | RAD ---
Examination: NM HEPATOBILIARY SCAN W PHARM History: Dilated common bile duct and elevated serum lipase, intermittent abdominal pain for one month Comparison/Correlation: 08/24/2019 CTA of the chest abdomen and pelvis Findings: 5.5 mCi technetium 99m Choletec was intravenously administered for purposes of hepatobiliary scintigraphy. Uptake of radiotracer by liver is normal. No significant biliary dilatation. Radiotracer is present within small bowel by 15 minutes. Gallbladder is visualized at 20 minutes. After 60 minutes, 0.83 mcg Kinevac was intravenously administered. Gallbladder ejection fraction is 74 percent. Impression: Normal hepatobiliary scintigraphy. Normal gallbladder ejection fraction. Electronically signed by: Bashir Acuña MD (08/17/2019 10:09 AM) [facility]
[2019-08-17 11:22] VITALS: BP 114/64
--- NOTE | 2019-08-17 11:58 | DS ---
DATE OF DISCHARGE: 08/17/2019 HOSPITAL COURSE: The patient is a 74-year-old female patient who was admitted originally through the Emergency Room with complaint of generalized weakness, dizziness, dyspnea with exertion headache. She has also several days of the history of diarrhea. She was evaluated in the Emergency Room, was found to have hypernatremia, impaired kidney function, serum lipase was high at 585. Urinalysis and tox screen was negative. Her imaging studies showed that CT scans of the head and neck were unremarkable. CT angio of the chest, abdomen and pelvis showed mild gallbladder wall thickening. The patient was denied any abdominal pain, denied any nausea and vomiting and we did start her on Cipro and Flagyl. Unfortunately, her serum lipase continued to rise steadily and has risen from 585 to 695, 1190 and today went up to 1749 despite the fact the patient had not complained of any pain. Her kidney function has steadily improved from 1.4 to 1.2. Her serum sodium also came down 148 to 141. However because of the rising serum lipase, we did actually abdominal ultrasound, which showed no sonographic evidence of acute cholecystitis. The common bile duct is mildly dilated at 8 mm. The upper limit of normal. Taking into consideration the patient's age, no choledocholithiasis or other obstructing process identified. There appeared to be small right-sided pleural effusion, which was not seen on the 08/14/2019. Given that the serum lipase continued to rise, I did also a HIDA scan, which showed that the uptake radiotracer by liver is normal. No significant biliary dilatation. Radiotracer is present within the small bowel by 15 minutes, gallbladder is visualized at 20 minutes. After 60 minutes, 0.83 mcg of Kinevac was intravenously administered and gallbladder ejection fraction was 74%. IMPRESSION: The patient has normal hepatobiliary scintigraphy normal gallbladder ejection fraction. Given that her serum lipase continued to rise, a decision was made to transfer her to [facility] to perhaps arrange for MRCP to see if there is any blockage in the biliary pancreatic duct and to consult the Gastroenterology team. The patient herself is demented; however, she denied any abdominal pain. Did complain of some nausea, has had no further episodes of diarrhea. She did have a very small bowel movement this morning and large liquid stool yesterday. PHYSICAL EXAMINATION: GENERAL: When I examined her, she was pale, but no jaundice or cyanosis. No lymphadenopathy, no thyromegaly. No jugular venous distention. No limb edema. VITAL SIGNS: Her heart rate was 59, blood pressure 144/78, temperature was 98, respiratory rate was 20 and oxygen saturation was 94%. HEAD, EYES, EARS, NOSE AND THROAT: Showed normocephalic, atraumatic. NECK: Supple. HEART: Showed normal first and second heart sounds with no gallop or murmur. CHEST: Clear to auscultation. No crepitation or rhonchi. ABDOMEN: Distended, soft, nontender. No guarding or rigidity. No organomegaly. All hernial orifice intact. Bowel sounds normal. NEUROLOGIC: She is awake, alert, responding appropriately. All her cranial nerves intact. She moves extremities without difficulty. She ambulates without assistance or assistive devices. Her intake was 08/25/2019, no output was recorded. LABORATORY DATA: This morning showed a white cell count of 8700, hemoglobin 12, hematocrit 36, MCV 101 and platelet count of 131,000. Her chemistry showed a serum sodium 141, potassium 4.9, chloride 105, bicarbonate 31, anion gap of 5, BUN 24, creatinine 1.2, estimated GFR was 43 mL per minute. Her glucose 125, calcium was 8.6. Total bilirubin, AST, ALT, alkaline phosphatase were normal. Total protein was 6, albumin was 2.8. Her serum lipase has risen further today to 1749. Her urinalysis was essentially unremarkable, toxic screen was unremarkable and her blood cultures showed no growth after 2 days. DISCHARGE MEDICATIONS: The patient was transferred to [facility] to continue on her lactobacillus, rhamnosus 1 capsule twice a day and D5W with half normal saline at 175 mL per hour, ondansetron 4 mg, Flagyl 250 mg every 8 hours, methylprednisone 40 mg IV q. 8 hourly, ciprofloxacin 250 mg twice a day. FINAL DISCHARGE DIAGNOSES: 1. Worsening pancreatitis that is painless with serum lipase has risen today further to almost 1700. 2. Acute colitis. 3. Chronic obstructive pulmonary disease exacerbation. 4. Thrombocytopenia. 5. Acute kidney injury. 6. Hypernatremia, this improved. JEREMIE DONNELLY MD DR: LILLY/papa JOB#: [id number] / [id number]
--- NOTE | 2019-08-17 12:39 | NUR ---
NURSING NOTE PT TRANSFERRED TO [facility] FOR GI CONSULT VIA EMS AT 1238. REPORT CALLED TO [facility]. WRITTEN COPY OF CHART SENT WITH EMS. NO COMPLICATIONS. GAURANG GARCIA.
[2019-08-17] MEDS ORDERED: LACTOBACILLUS RHAMNOSUS GG 1 CAPSULE. PO SCH (21:00)
== END 2019-08-17 12:38 | disposition short-term general hospital (02) | DRG 438 ==
LOC: ER 14:23 → ICU 17:43 → 1 SOUTH 08-16 19:00
PROVIDERS: ADMIT Internal Medicine; ATTEND Internal Medicine
DX: K85.90 Acute pancreatitis without necrosis or infection, unspecified (principal); J96.01 Acute respiratory failure with hypoxia; N17.9 Acute kidney failure, unspecified; J44.1 Chronic obstructive pulmonary disease with (acute) exacerbation; E87.0 Hyperosmolality and hypernatremia; K52.9 Noninfective gastroenteritis and colitis, unspecified; E03.9 Hypothyroidism, unspecified; E78.00 Pure hypercholesterolemia, unspecified; F03.90 Unspecified dementia, unspecified severity, without behavioral disturbance, psychotic disturbance, mood disturbance, and anxiety; F31.9 Bipolar disorder, unspecified; I25.2 Old myocardial infarction; I10 Essential (primary) hypertension; I25.10 Atherosclerotic heart disease of native coronary artery without angina pectoris; D69.6 Thrombocytopenia, unspecified; K83.8 Other specified diseases of biliary tract; Z90.49 Acquired absence of other specified parts of digestive tract; Z90.710 Acquired absence of both cervix and uterus; Z82.0 Family history of epilepsy and other diseases of the nervous system; Z80.0 Family history of malignant neoplasm of digestive organs; Z87.891 Personal history of nicotine dependence
CPT/HCPCS: 36415; 70450; 71275; 72125; 74177; 76705; 78227; 80048; 80053; 80164; 81001; 82553; 83605; 83690; 83735; 83880; 84484; 85025; 85027; 87040; 93005; 94640; 96361; 96374; A9537; J1100; J2805; J2920; J7620; Q0162; Q9967; 99285-25; J7030

== ENCOUNTER 2019-08-20 15:21 | Emergency (ER) | payer MEDICARE, OTHER ==
[~2019-08-20] VITALS: Ht 167.6 cm; Wt 54.4 kg
[~2019-08-20 15:21] MED LIST changes: +CARV6.2541 PO; +DONE10TA7 PO; +SOLI5TAB2 PO
[2019-08-20] MEDS ORDERED: IV NORMAL SALINE 1,000ML 1,000 ML IV SCH (16:07)
[2019-08-20] MEDS ORDERED: TETANUS AND DIPHTHERIA TOX/PF 0.5 ML VIAL. VAX IM ONE (16:30)
[2019-08-20] MEDS ORDERED: NEOMY/BACITR/POLYMYXIN OINT PACKET. TP ONE (16:30)
[2019-08-20 16:41] LABS: BASO % 0 % (0-3); EOS % 0 % (0-3); HEMATOCRIT 41.5 % (36.0-47.0); HEMOGLOBIN 13.2 g/dL (12.0-15.5); LYMPH # 0.3 x10^3/uL (1.0-4.8); LYMPH % 5 % (24-48); MEAN CORPUSCULAR HEMOGLOBIN 32 pg (25-35); MEAN CORPUSCULAR HGB CONC 32 g/dL (31-37); MEAN CORPUSCULAR VOLUME 101 fL (79-100); MONO # 0.3 x10^3/uL (0.0-1.1); MONO % 4 % (0-9); NEUT # 6.2 x10^3uL (1.8-7.7); NEUT % 91 % (31-73); PLATELET COUNT 164 x10^3/uL (140-400); RED BLOOD COUNT 4.09 x10^6/uL (3.50-5.40); RED CELL DISTRIBUTION WIDTH 13.6 % (11.5-14.5); WHITE BLOOD COUNT 6.8 x10^3/uL (4.0-11.0)
--- NOTE | 2019-08-20 17:02 | RAD ---
PORTABLE CHEST 1V History: Fall, pain Comparison: June 21, 2012 Findings: Single view of the chest is submitted. There is suspected emphysema. There is no pneumothorax or dependent pleural fluid. Heart size is within normal limits. There is mild left base opacity likely mild atelectasis. There is atherosclerotic calcification near the aortic arch. Impression: 1. No acute radiographic abnormality is identified although than likely mild left base atelectasis. Electronically signed by: Shawn Gerardo MD (08/20/2019 4:58 PM) [facility]
--- NOTE | 2019-08-20 17:06 | PHYS DOC ---
Past History Past Medical History: Bipolar, COPD, Dementia, High Cholesterol, Hypertension, Hypothyroid, PR, Pancreatitis Additional Past Medical Histor: Limited secondary to dementia Past Surgical History: Appendectomy, Hysterectomy Additional Past Surgical Histo: Limited secondary to dementia Smoking: Non-smoker Alcohol Use: None Drug Use: None Social History Narrative: Limited secondary to dementia Adult General Chief Complaint Chief Complaint: LOWER EXT PAIN HPI HPI Patient is a 74 y/o female with a history of Alzheimer's Dz, COPD, bipolar, PR, and recent admission for 4-5 days (08/16/15) at [facility] for pancreatitis who p resents to the ED w/ left hip and left elbow pain after she fell earlier today. Per pt's they were getting out of the car when she fell with her waist up on the grass and waist down on concrete. Pt's reports that she is acting at her baseline and does not know if she had LOC. Pt was on her way home from her admission to the hospital from pancreatitis when this fall occurred. HPI limited secondary to dementia. Review of Systems Review of Systems Musculoskeletal: Endorses left hip pain, left elbow pain. Integument: Left elbow abrasion Neurologic: Denies headache, focal weakness or sensory changes Review of systems limited due to dementia. Current Medications Current Medications Current Medications Medications (Trade) Dose Ordered Sig/Judd Start Time Stop Time Status Last Admin Dose Admin Fentanyl Citrate (Fentanyl 2ml Vial) 50 mcg 1X ONCE 08/20/19 16:30 08/20/19 16:31 DC 08/20/19 16:34 50 MCG Neomycin/ Polymyxin/ Bacitracin (Triple Antibiotic Ointment) 1 pkt 1X ONCE 08/20/19 16:30 08/20/19 16:31 DC 08/20/19 16:34 1 PKT Sodium Chloride 1,000 ml @ 1,000 mls/hr Q1H 08/20/19 16:07 08/20/19 17:06 08/20/19 16:33 1,000 MLS/HR Tetanus/ Diphtheria Toxoids Adsorbed (Tenivac Vial) 0.5 ml ONCE ONCE 08/20/19 16:30 08/20/19 16:31 DC 08/20/19 16:40 0.5 ML Allergies Allergies Allergies Coded Allergies Type Severity Reaction Last Updated Verified No Known Drug Allergies 11/16/15 No Physical Exam Physical Exam Constitutional: Well developed, well nourished, no acute distress, non-toxic appearance HENT: Normocephalic, atraumatic, oropharynx moist Cardiovascular: Heart rate normal, regular rhythm Lungs & Thorax: Bilateral breath sounds clear to auscultation, no wheezing Abdomen: Soft, no tenderness Skin: Warm, dry: left elbow abrasion Back: No tenderness, no CVA tenderness Extremities: Left hip and leg externally rotated with pain on movement, DP and PT +2, CR < 2 sec Psychologic: Affect normal, judgement normal Current Patient Data Vital Signs Vital Signs Date Time Temp Pulse Resp B/P (MAP) Pulse Ox O2 Delivery O2 Flow Rate FiO2 08/20/19 16:00 97.7 60 16 93 Room Air Lab Results Laboratory Tests Test 08/20/19 16:22 White Blood Count 6.8 x10^3/uL (4.0-11.0) Red Blood Count 4.09 x10^6/uL (3.50-5.40) Hemoglobin 13.2 g/dL (12.0-15.5) Hematocrit 41.5 % (36.0-47.0) Mean Corpuscular Volume 101 fL (79-100) H Mean Corpuscular Hemoglobin 32 pg (25-35) Mean Corpuscular Hemoglobin Concent 32 g/dL (31-37) Red Cell Distribution Width 13.6 % (11.5-14.5) Platelet Count 164 x10^3/uL (140-400) Neutrophils (%) (Auto) 91 % (31-73) H Lymphocytes (%) (Auto) 5 % (24-48) L Monocytes (%) (Auto) 4 % (0-9) Eosinophils (%) (Auto) 0 % (0-3) Basophils (%) (Auto) 0 % (0-3) Neutrophils # (Auto) 6.2 x10^3uL (1.8-7.7) Lymphocytes # (Auto) 0.3 x10^3/uL (1.0-4.8) L Monocytes # (Auto) 0.3 x10^3/uL (0.0-1.1) Eosinophils # (Auto) 0.0 x10^3/uL (0.0-0.7) Basophils # (Auto) 0.0 x10^3/uL (0.0-0.2) EKG EKG @1840 NSR at 61bpm, NO ST elevation, low limb lead voltage Radiology/Procedures Radiology/Procedures PROCEDURE: CT HEAD AND CERVICAL SPINE WO Exam: CT head and cervical spine without contrast INDICATION: Fall TECHNIQUE: Sequential axial images through the head and cervical spine 08/14/2019 were obtained without the administration of IV contrast. Comparisons: None FINDINGS: Head: No focal parenchymal lesion or hemorrhage is identified. There is no midline shift or sulcal effacement. Patchy hypodensity in the periventricular white matter which is similar when compared to the prior exam. No acute vascular territory infarction is identified. York-white distinction is preserved. The ventricular system is within normal limits without compression hydrocephalus. The basal cisterns are well maintained. The visualized portions of the paranasal sinuses and mastoid air cells are well-pneumatized. No acute fractures. Cervical spine: Vertebral body heights and alignment are well-maintained. Fracture through the cervical spine is not identified. There is a mildly displaced fracture through the proximal left clavicle. Surrounding soft tissue edema and likely hematoma is noted. Hematoma extends up the left lateral neck. Multilevel spondylotic change in the cervical spine with degenerative disc disease greatest at C4-C5, C5-C6 and C6-C7. There is mild bilateral facet arthropathy noted throughout the cervical spine. Varying degrees of neural foraminal and spinal canal stenosis is noted greatest at C5-C6 with at least moderate right-sided neural foraminal stenosis. Visualized soft tissues are otherwise unremarkable. IMPRESSION: 1. No acute intracranial abnormality. 2. Mildly displaced fracture through the medial left clavicle with surrounding edema and hematoma which extends up into the left lateral neck superficial subcutaneous fat. 3. Otherwise, no fracture or malalignment identified in the cervical spine. Exposure: One or more of the following in the visualized dose reduction techniques were utilized for this examination: 1. Automated exposure control 2. Adjustment of the MA and/or KV according to patient size Use of iterative of reconstructive technique Electronically signed by: Yvette Maradiaga MD (08/20/2019 5:34 PM) [facility] PROCEDURE: ELBOW LEFT 3V Examination: 2 views of the left elbow HISTORY: History of fall COMPARISON: None available. Findings/ impression: There is elevation of the anterior fat pad of the elbow likely elbow joint effusion probably occult fracture possibly of the radius head. Electronically signed by: Jose Campos MD (08/20/2019 5:29 PM) [facility] PROCEDURE: PORTABLE CHEST 1V PORTABLE CHEST 1V History: Fall, pain Comparison: June 21, 2012 Findings: Single view of the chest is submitted. There is suspected emphysema. There is no pneumothorax or dependent pleural fluid. Heart size is within normal limits. There is mild left base opacity likely mild atelectasis. There is atherosclerotic calcification near the aortic arch. Impression: 1. No acute radiographic abnormality is identified although than likely mild left base atelectasis. Electronically signed by: Shawn Gerardo MD (08/20/2019 4:58 PM) [facility] PROCEDURE: HIP LEFT 2V WITH PELVIS Examination: 2 views of the left hip with frontal view the pelvis HISTORY: History of pain, deformity COMPARISON: None available. FINDINGS: The bilateral femoral heads within the acetabula. There is mild lateral posterior displaced intertrochanteric fracture of the left femur. IMPRESSION: Mild displaced intertrochanteric fracture left femur. Electronically signed by: Jose Campos MD (08/20/2019 5:26 PM) [facility] Course & Med Decision Making Course & Med Decision Making Pt presents w/ left hip pain and left elbow abrasion status post a fall when getting out of the car. Due to pt's history of Alzheimer she does not know if she had LOC. Hip x-ray shows mild displaced intertrochanteric fracture left femur will plan for admission to [facility] for surgery. Pain addressed. Labs obtained and posted to chart. CT head/cervical spine without acute process. Discussed case with Dr. Sprign (hospitalist) who is in agreement with admission to [facility]. Discussed findings and plan with patient and family, who acknowledge understanding and agreement. Dragon Disclaimer Dragon Disclaimer This electronic medical record was generated, in whole or in part, using a voice recognition dictation system. Departure Departure: Impression: Primary Impression: Femoral neck fracture Additional Impressions: Fall Dementia Skin tear Closed left clavicular fracture Disposition: 05 TRANSFER OTHER ([facility]) Admitting Physician: [place] Condition: STABLE Referrals: BANDAR HORTON MD (PCP) Problem Qualifiers Primary Impression: Femoral neck fracture Encounter type: initial encounter Fracture type: closed Laterality: left Qualified Codes: S72.002A - Fracture of unspecified part of neck of left femur, initial encounter for closed fracture Additional Impressions: Fall Encounter type: initial encounter Qualified Codes: W19.XXXA - Unspecified fall, initial encounter Dementia Dementia type: unspecified type Dementia behavioral disturbance: without behavioral disturbance Qualified Codes: F03.90 - Unspecified dementia without behavioral disturbance Closed left clavicular fracture Encounter type: initial encounter Clavicle location: sternal end Fracture alignment: anteriorly displaced Qualified Codes: S42.012A - Anterior displaced fracture of sternal end of left clavicle, initial encounter for closed fracture PEDRO CASAREZ DO Aug 20, 2019 17:06
--- NOTE | 2019-08-20 17:08 | EKG ---
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
[2019-08-20 17:17] LABS: ALBUMIN 2.8 g/dL (3.4-5.0); ALBUMIN/GLOBULIN RATIO 0.9 (1.0-1.7); CALCIUM 8.7 mg/dL (8.5-10.1); CREATININE 1.7 mg/dL (0.6-1.0); GFR 29.4; POTASSIUM 5.1 mmol/L (3.5-5.1); TOTAL BILIRUBIN 0.3 mg/dL (0.2-1.0)
--- NOTE | 2019-08-20 17:29 | RAD ---
Examination: 2 views of the left hip with frontal view the pelvis HISTORY: History of pain, deformity COMPARISON: None available. FINDINGS: The bilateral femoral heads within the acetabula. There is mild lateral posterior displaced intertrochanteric fracture of the left femur. IMPRESSION: Mild displaced intertrochanteric fracture left femur. Electronically signed by: Jose Campos MD (08/20/2019 5:26 PM) [facility]
--- NOTE | 2019-08-20 17:32 | RAD ---
Examination: 2 views of the left elbow HISTORY: History of fall COMPARISON: None available. Findings/ impression: There is elevation of the anterior fat pad of the elbow likely elbow joint effusion probably occult fracture possibly of the radius head. Electronically signed by: Jose Campos MD (08/20/2019 5:29 PM) [facility]
--- NOTE | 2019-08-20 17:37 | RAD ---
Exam: CT head and cervical spine without contrast INDICATION: Fall TECHNIQUE: Sequential axial images through the head and cervical spine 08/14/2019 were obtained without the administration of IV contrast. Comparisons: None FINDINGS: Head: No focal parenchymal lesion or hemorrhage is identified. There is no midline shift or sulcal effacement. Patchy hypodensity in the periventricular white matter which is similar when compared to the prior exam. No acute vascular territory infarction is identified. York-white distinction is preserved. The ventricular system is within normal limits without compression hydrocephalus. The basal cisterns are well maintained. The visualized portions of the paranasal sinuses and mastoid air cells are well-pneumatized. No acute fractures. Cervical spine: Vertebral body heights and alignment are well-maintained. Fracture through the cervical spine is not identified. There is a mildly displaced fracture through the proximal left clavicle. Surrounding soft tissue edema and likely hematoma is noted. Hematoma extends up the left lateral neck. Multilevel spondylotic change in the cervical spine with degenerative disc disease greatest at C4-C5, C5-C6 and C6-C7. There is mild bilateral facet arthropathy noted throughout the cervical spine. Varying degrees of neural foraminal and spinal canal stenosis is noted greatest at C5-C6 with at least moderate right-sided neural foraminal stenosis. Visualized soft tissues are otherwise unremarkable. IMPRESSION: 1. No acute intracranial abnormality. 2. Mildly displaced fracture through the medial left clavicle with surrounding edema and hematoma which extends up into the left lateral neck superficial subcutaneous fat. 3. Otherwise, no fracture or malalignment identified in the cervical spine. Exposure: One or more of the following in the visualized dose reduction techniques were utilized for this examination: 1. Automated exposure control 2. Adjustment of the MA and/or KV according to patient size Use of iterative of reconstructive technique Electronically signed by: Yvette Maradiaga MD (08/20/2019 5:34 PM) [facility]
--- NOTE | 2019-08-20 19:22 | RAD ---
Exam: Left clavicle 2 views INDICATION: Pain TECHNIQUE: Frontal and axillary views of the right clavicle Comparisons: CT same day FINDINGS: There is redemonstration of a mildly displaced fracture through the medial left clavicle. No other fractures are seen. Soft tissues are unremarkable. Joint spaces are well-maintained. IMPRESSION: Redemonstration of mildly displaced fracture through the medial left clavicle. Electronically signed by: Yvette Maradiaga MD (08/20/2019 7:19 PM) [facility]
[2019-08-20 20:16] LABS: BACTERIA,URINE 0 /HPF (0-FEW); BILIRUBIN,URINE NEG (NEG); CLARITY,URINE HAZY; COLOR,URINE YELLOW; GLUCOSE,URINE NEG (NEG); NITRITE,URINE NEG (NEG); RBC,URINE RARE /HPF (0-2); SQUAMOUS EPITHELIAL CELL,UR OCC /LPF; UROBILINOGEN,URINE 0.2 mg/dL (0.2 mg/dL); WBC,URINE OCC /HPF (0-4)
[2019-08-20 20:17] LABS: AMORPHOUS SEDIMENT,UR PRESENT /HPF
[2019-08-20 20:44] VITALS: BP 131/83
[2019-10-02] MEDS ORDERED: AMOX1TAB58 PO (14:08)
== END 2019-08-20 20:56 | disposition short-term general hospital (02) ==
LOC: ER 15:21
DX: S72.002A Fracture of unspecified part of neck of left femur, initial encounter for closed fracture (principal); S42.002A Fracture of unspecified part of left clavicle, initial encounter for closed fracture; S50.312A Abrasion of left elbow, initial encounter; F03.90 Unspecified dementia, unspecified severity, without behavioral disturbance, psychotic disturbance, mood disturbance, and anxiety; F31.9 Bipolar disorder, unspecified; J44.9 Chronic obstructive pulmonary disease, unspecified; E78.00 Pure hypercholesterolemia, unspecified; I10 Essential (primary) hypertension; E03.9 Hypothyroidism, unspecified; I25.2 Old myocardial infarction; W17.89XA Other fall from one level to another, initial encounter; Y93.89 Activity, other specified; Y92.89 Other specified places as the place of occurrence of the external cause; Y99.8 Other external cause status
CPT/HCPCS: 36415; 51702; 70450; 71045; 72125; 73000; 73080; 73502; 80053; 81001; 82553; 83690; 83735; 84484; 85025; 85610; 85730; 87086; 90471; 90714; 93005; 96361; 96374; 96376; 99285; J3010; J7030

== ENCOUNTER 2019-09-01 16:51 | Emergency (ER) | payer MEDICARE, OTHER ==
[~2019-09-01] VITALS: Ht 167.6 cm; Wt 42.9 kg
--- NOTE | 2019-09-01 17:09 | PHYS DOC ---
Past History Past Medical History: Bipolar, COPD, Dementia, High Cholesterol, Hypertension, Hypothyroid, [place], Pancreatitis Additional Past Medical Histor: Limited secondary to dementia Past Surgical History: Appendectomy, Hysterectomy Additional Past Surgical Histo: Limited secondary to dementia Smoking: Non-smoker Alcohol Use: None Drug Use: None Adult General Chief Complaint Chief Complaint: MECHANICAL FALL HPI HPI Patient is a 74-year-old female who presents with report of left elbow pain after falling this evening at rehabilitation facility. Patient reportedly had been hospitalized and put in rehabilitation after fracturing her left hip and left clavicle. Patient's daughter indicates that she also has a radial head fracture on the left. Patient reportedly had been trying to get out of bed when she took the fall. long term staff indicates that they went in and found her on her knees in the room. Patient does not recall how injury occurred.[] Review of Systems Review of Systems Constitutional: Denies fever or chills [] Respiratory: Denies cough or shortness of breath [] Cardiovascular: No additional information not addressed in HPI [] Musculoskeletal: Positive left elbow pain [] Integument: Denies rash or skin lesions [] Allergies Allergies Allergies Coded Allergies Type Severity Reaction Last Updated Verified No Known Drug Allergies 11/16/15 No Physical Exam Physical Exam Constitutional: Well developed, well nourished, no acute distress, non-toxic appearance. [] Neck: Normal range of motion, no tenderness, supple, no stridor. [] Cardiovascular:Heart rate regular rhythm, no murmur [] Lungs & Thorax: Bilateral breath sounds clear to auscultation [] Extremities: Left arm is in sling. Patient does have tenderness to palpation around the bilateral epicondylar region of the elbow. [] Neurologic: Awake and alert, no focal deficits noted. [] EKG EKG [] Radiology/Procedures Radiology/Procedures [] Impressions: X-ray imaging of left humerus, elbow and forearm demonstrate no acute bony abnormalities. Course & Med Decision Making Course & Med Decision Making Pertinent Labs and Imaging studies reviewed. (See chart for details) [] Dragon Disclaimer Dragon Disclaimer This electronic medical record was generated, in whole or in part, using a voice recognition dictation system. Departure Departure: Impression: Primary Impression: Contusion of left elbow Disposition: 01 HOME, SELF-CARE Condition: STABLE Referrals: BANDAR HORTON MD (PCP) Patient Instructions: Elbow Contusion Problem Qualifiers Primary Impression: Contusion of left elbow Encounter type: initial encounter Qualified Codes: S50.02XA - Contusion of left elbow, initial encounter CAROLANN WILLIS Jr. DO Sep 01, 2019 17:09
[2019-09-01 18:02] VITALS: BP 115/75
--- NOTE | 2019-09-01 20:10 | RAD ---
Exam: Left elbow 3 views INDICATION: Fall TECHNIQUE: Frontal, lateral and oblique views of the left elbow Comparisons: None FINDINGS: Bone mineralization is normal. No acute or healed fractures. Soft tissues are unremarkable. Joint spaces are well-maintained. IMPRESSION: No acute osseous abnormality. Electronically signed by: Yvette Maradiaga MD (09/01/2019 8:07 PM) [facility]
--- NOTE | 2019-09-01 20:11 | RAD ---
Exam: Left forearm 2 views INDICATION: Fall TECHNIQUE: Frontal and lateral views of the left forearm Comparisons: None FINDINGS: Bone mineralization is normal. No acute or healed fractures. Soft tissues are unremarkable. Joint spaces are well-maintained. IMPRESSION: No acute osseous abnormality. Electronically signed by: Yvette Maradiaga MD (09/01/2019 8:08 PM) [facility]
--- NOTE | 2019-09-01 20:13 | RAD ---
Exam: Left humerus 2 views INDICATION: Fall TECHNIQUE: Frontal and lateral views the left humerus Comparisons: None FINDINGS: Bone mineralization is normal. No acute or healed fractures. Soft tissues are unremarkable. Joint spaces are well-maintained. IMPRESSION: No acute osseous abnormality. Electronically signed by: Yvette Maradiaga MD (09/01/2019 8:10 PM) [facility]
== END 2019-09-01 18:40 | disposition home or self-care (01) ==
LOC: ER 16:51
DX: S50.02XA Contusion of left elbow, initial encounter (principal); J44.9 Chronic obstructive pulmonary disease, unspecified; E78.00 Pure hypercholesterolemia, unspecified; I10 Essential (primary) hypertension; E03.9 Hypothyroidism, unspecified; I25.2 Old myocardial infarction; F03.90 Unspecified dementia, unspecified severity, without behavioral disturbance, psychotic disturbance, mood disturbance, and anxiety; W18.39XA Other fall on same level, initial encounter; Y93.89 Activity, other specified; Y92.89 Other specified places as the place of occurrence of the external cause; Y99.8 Other external cause status
CPT/HCPCS: 73060; 73080; 73090; 99284

== ENCOUNTER 2019-09-07 19:24 | Emergency (ER) | payer MEDICARE, OTHER ==
[~2019-09-07] VITALS: Ht 167.6 cm; Wt 42.9 kg
--- NOTE | 2019-09-07 20:05 | PHYS DOC ---
Past History Past Medical History: CAD, COPD, Dementia, Heart Disease, Hip Fracture, Hypertension, Hypothyroid, [place], Pancreatitis Additional Past Medical Histor: Limited secondary to dementia, kidney disease, mi 2008 Past Surgical History: Appendectomy, Hysterectomy, Other Additional Past Surgical Histo: left hip repair Smoking: Non-smoker Alcohol Use: None Drug Use: None Adult General Chief Complaint Chief Complaint: SHORTNESS OF BREATH HPI HPI 74-year-old female presents to EMS with increasing shortness of breath. The patient is on 2 L of oxygen at baseline. For the last 2 days, the patient has been feeling more short of breath. Today seems to be a little bit worse. She does have dementia, but is aware of her surroundings and seems to have more difficulty with long-term memory. Her family at accompanies her and is concerned that she has looked more short of breath today and yesterday. They've been visiting her daily. She recently had a fall which resulted in a hip fracture, possible fracture, and radius fracture. She was placed on Coumadin, but her INR did not stabilize. She was started on Lovenox yesterday. Family is concerned about possible PE. She does have increased lower extremity swelling of the left leg, but this is also the leg that had surgery. She denies fever or chills. Review of Systems Review of Systems Constitutional: Denies fever or chills [] Eyes: Denies change in visual acuity, redness, or eye pain [] HENT: Denies nasal congestion or sore throat [] Respiratory: shortness of breath [] Cardiovascular: No additional information not addressed in HPI [] GI: Denies abdominal pain, nausea, vomiting, bloody stools or diarrhea [] : Denies dysuria or hematuria [] Musculoskeletal: Recent left hip fracture, clavicle fracture, radius fracture[] Integument: Denies rash or skin lesions [] Neurologic: Denies headache, focal weakness or sensory changes [] Endocrine: Denies polyuria or polydipsia [] All other systems were reviewed and found to be within normal limits, except as documented in this note. Allergies Allergies Allergies Coded Allergies Type Severity Reaction Last Updated Verified No Known Drug Allergies 11/16/15 No Physical Exam Physical Exam Constitutional: Well developed, well nourished, no acute distress, non-toxic appearance. [] HENT: Normocephalic, atraumatic, bilateral external ears normal, oropharynx moist, no oral exudates, nose normal. [] Eyes: PERRLA, EOMI, conjunctiva normal, no discharge. [] Neck: Normal range of motion, no tenderness, supple, no stridor. [] Cardiovascular:Heart rate regular rhythm, no murmur [] Lungs & Thorax: Bilateral breath sounds clear to auscultation [] Abdomen: Bowel sounds normal, soft, no tenderness, no masses, no pulsatile masses. [] Skin: Warm, dry, no erythema, no rash. [] Back: No tenderness, no CVA tenderness. [] Extremities: In a left shoulder sling, 2+ pitting edema left lower leg, 1+ pitting edema right lower leg.[] Neurologic: Alert and oriented X 3, normal motor function, normal sensory function, no focal deficits noted. [] Psychologic: Affect normal, judgement normal, mood normal. [] Current Patient Data Vital Signs Vital Signs Date Time Temp Pulse Resp B/P (MAP) Pulse Ox O2 Delivery O2 Flow Rate FiO2 09/07/19 19:24 98.6 64 22 97 Room Air EKG EKG Sinus rhythm, rate 65, normal axis, no ST elevations or depressions.[] Radiology/Procedures Radiology/Procedures [] Impressions: Exam: CTA chest INDICATION: Shortness of breath TECHNIQUE: Sequential axial images through the chest obtained following the administration of 75 mL of Omni 350 IV contrast. Sagittal and coronal reformatted images were reconstructed from the axial data and reviewed. 3-D reformatted images were reconstructed from the axial data and reviewed. Comparisons: None FINDINGS: Visualized portions of the thyroid are unremarkable. No enlarged mediastinal lymph nodes are identified. Heart size is normal. No pericardial effusion. Thoracic aorta has a normal course and caliber. Pulmonary artery is not enlarged. No pulmonary embolus identified within the main, lobar or segmental pulmonary arteries. Airways are patent. No consolidation or pneumothorax. There is mild to moderate centrilobular emphysematous change noted predominantly at the upper lungs. No suspicious lung nodules are identified. No pleural effusion or thickening. No suspicious osseous lesions or acute fractures. IMPRESSION: 1. No pulmonary embolus identified within the main, lobar or segmental pulmonary arteries. 2. Moderate centrilobular emphysematous change. Consider annual lung cancer screening. Exposure: One or more of the following in the visualized dose reduction techniques were utilized for this examination: 1. Automated exposure control 2. Adjustment of the MA and/or KV according to patient size 3. Use of iterative of reconstructive technique Electronically signed by: Geovanna Copeland MD (09/07/2019 10:45 PM) [facility] DICTATED AND SIGNED BY: GEOVANNA COPELAND MD DATE: 09/07/19 2240 CC: DAVID MISTRY DO; BANDAR HORTON MD ~ Course & Med Decision Making Course & Med Decision Making Pertinent Labs and Imaging studies reviewed. (See chart for details) The patient's labs are significant for anemia. This is a decrease from her previous hemoglobins. This could be due to recent surgery. I do not have evidence of an active bleed. She also has an elevated alkaline phosphatase. Her INR is 1.8. This is nearly therapeutic. Her urinalysis is unremarkable. CT angiography of the chest is pending. The CT angiogram of the chest was negative for PE. She does have moderate emphysematous change. See official report for more details. I suspect the patient's shortness of breath and decreased energy is more related to her anemia then a lung finding. She is stable for discharge at this time to collect her rehabilitation facility. [] Dragon Disclaimer Dragon Disclaimer This electronic medical record was generated, in whole or in part, using a voice recognition dictation system. Departure Departure: Impression: Primary Impression: Shortness of breath Additional Impression: Anemia Disposition: HOME/RESIDENCE PRIOR TO ADM Condition: STABLE Referrals: BANDAR HORTON MD (PCP) Patient Instructions: Hemolytic Anemia Problem Qualifiers Additional Impression: Anemia Anemia type: acquired or hereditary hemolytic anemia Hemolytic anemia type: acquired, other Qualified Codes: D59.8 - Other acquired hemolytic anemias DAVID MISTRY DO Sep 07, 2019 20:05
[2019-09-07 21:06] LABS: BASO % 1 % (0-3); EOS # 0.2 x10^3/uL (0.0-0.7); EOS % 4 % (0-3); HEMATOCRIT 28.4 % (36.0-47.0); HEMOGLOBIN 9.2 g/dL (12.0-15.5); LYMPH # 1.5 x10^3/uL (1.0-4.8); LYMPH % 41 % (24-48); MEAN CORPUSCULAR HEMOGLOBIN 33 pg (25-35); MEAN CORPUSCULAR HGB CONC 33 g/dL (31-37); MEAN CORPUSCULAR VOLUME 101 fL (79-100); MONO # 0.4 x10^3/uL (0.0-1.1); MONO % 12 % (0-9); NEUT # 1.5 x10^3uL (1.8-7.7); NEUT % 42 % (31-73); PLATELET COUNT 292 x10^3/uL (140-400); RED BLOOD COUNT 2.82 x10^6/uL (3.50-5.40); RED CELL DISTRIBUTION WIDTH 13.7 % (11.5-14.5); WHITE BLOOD COUNT 3.7 x10^3/uL (4.0-11.0)
[2019-09-07 21:23] LABS: ALBUMIN 2.8 g/dL (3.4-5.0); ALBUMIN/GLOBULIN RATIO 0.8 (1.0-1.7); CALCIUM 8.7 mg/dL (8.5-10.1); CREATININE 0.9 mg/dL (0.6-1.0); GFR 61.2; POTASSIUM 4.7 mmol/L (3.5-5.1); TOTAL BILIRUBIN 0.4 mg/dL (0.2-1.0); TOTAL PROTEIN 6.4 g/dL (6.4-8.2)
[2019-09-07] MEDS ORDERED: IV NORMAL SALINE 1,000ML 1,000 ML IV ONE (21:30)
[2019-09-07] MEDS ORDERED: IOHEXOL 350 MG/ML 100 ML VIAL. IV ONE (21:45)
[2019-09-07 22:42] LABS: BACTERIA,URINE FEW /HPF (0-FEW); BILIRUBIN,URINE NEG (NEG); CLARITY,URINE CLEAR; COLOR,URINE YELLOW; GLUCOSE,URINE NEG (NEG); HYALINE CASTS, URINE OCC /HPF; NITRITE,URINE NEG (NEG); RBC,URINE 0 /HPF (0-2); SQUAMOUS EPITHELIAL CELL,UR OCC /LPF; UROBILINOGEN,URINE 0.2 mg/dL (0.2 mg/dL)
--- NOTE | 2019-09-07 22:47 | RAD ---
Exam: CTA chest INDICATION: Shortness of breath TECHNIQUE: Sequential axial images through the chest obtained following the administration of 75 mL of Omni 350 IV contrast. Sagittal and coronal reformatted images were reconstructed from the axial data and reviewed. 3-D reformatted images were reconstructed from the axial data and reviewed. Comparisons: None FINDINGS: Visualized portions of the thyroid are unremarkable. No enlarged mediastinal lymph nodes are identified. Heart size is normal. No pericardial effusion. Thoracic aorta has a normal course and caliber. Pulmonary artery is not enlarged. No pulmonary embolus identified within the main, lobar or segmental pulmonary arteries. Airways are patent. No consolidation or pneumothorax. There is mild to moderate centrilobular emphysematous change noted predominantly at the upper lungs. No suspicious lung nodules are identified. No pleural effusion or thickening. No suspicious osseous lesions or acute fractures. IMPRESSION: 1. No pulmonary embolus identified within the main, lobar or segmental pulmonary arteries. 2. Moderate centrilobular emphysematous change. Consider annual lung cancer screening. Exposure: One or more of the following in the visualized dose reduction techniques were utilized for this examination: 1. Automated exposure control 2. Adjustment of the MA and/or KV according to patient size 3. Use of iterative of reconstructive technique Electronically signed by: Yvette Maradiaga MD (09/07/2019 10:45 PM) [facility]
[2019-09-07 23:34] VITALS: BP 144/96
--- NOTE | 2019-09-08 07:48 | RAD ---
CHEST AP ONLY INDICATION: Dyspnea. COMPARISON STUDY: 08/20/2019. FINDINGS: Lungs: Hyperinflated lung volume. No pulmonary mass or consolidation. The tracheobronchial tree and hilar structures are normal. Pleura: No pleural effusion or pneumothorax. Heart and Mediastinum: The cardiomediastinal silhouette is normal. Atherosclerotic thoracic aorta. IMPRESSION: Hyperinflated lung volume. No consolidation. Electronically signed by: Shawn Silverman MD (09/08/2019 7:45 AM) [facility]
--- NOTE | 2019-09-10 08:13 | EKG ---
[address] [address] Test Date: 2019-09-07 Test Time: 20:42:35 Pat Name: MAXIMUS OJEDA Department: Room: Gender: F Roller Skater: : 1945 Requested By: DAVID MISTRY Order Number: [id number] Reading MD: Measurements Intervals [place] Rate: 65 P: 90 DC: 140 QRS: 81 QRSD: 68 T: 74 QT: 390 QTc: 406 Interpretive Statements SINUS RHYTHM NORMAL ECG RI6.01 No previous ECG available for comparison
== END 2019-09-07 23:20 | disposition home or self-care (01) ==
LOC: ER 19:24
DX: D59.8 Other acquired hemolytic anemias (principal); R06.02 Shortness of breath; I25.10 Atherosclerotic heart disease of native coronary artery without angina pectoris; J44.9 Chronic obstructive pulmonary disease, unspecified; F03.90 Unspecified dementia, unspecified severity, without behavioral disturbance, psychotic disturbance, mood disturbance, and anxiety; I11.0 Hypertensive heart disease with heart failure; E03.9 Hypothyroidism, unspecified; I25.2 Old myocardial infarction; R22.42 Localized swelling, mass and lump, left lower limb
CPT/HCPCS: 36415; 71045; 71275; 80053; 81001; 84484; 85025; 85610; 85730; 93005; 99285; Q9967; J7030

== ENCOUNTER 2019-09-20 18:16 | Inpatient (IN) | payer MEDICARE, OTHER ==
[~2019-09-20] VITALS: Ht 167.6 cm; Wt 43.7 kg
[2019-09-20] MEDS ORDERED: IV NORMAL SALINE 1,000ML 1,000 ML IV SCH (18:37)
--- NOTE | 2019-09-20 18:43 | PHYS DOC ---
Past History Past Medical History: CAD, COPD, Dementia, Heart Disease, Hip Fracture, Hypertension, Hypothyroid, [place], Pancreatitis Additional Past Medical Histor: Limited secondary to dementia, kidney disease, mi 2008 Past Surgical History: Appendectomy, Hysterectomy, Other Additional Past Surgical Histo: left hip repair Smoking: Non-smoker Alcohol Use: None Drug Use: None Adult General Chief Complaint Chief Complaint: WEAKNESS/GENERALIZED HPI HPI Patient is a 74-year-old female presents from rehabilitation facility with fever, tachycardia, cough, and shortness of breath. History is limited from the patient due to her known history of dementia. History from nathalie and daughter, she has had a cough today. She did receive the flu vaccine this season. Patient is denying any complaints. Family reports the patient is DNR.[] Review of Systems Review of Systems Constitutional: See history of present illness[] Eyes: Denies change in visual acuity, redness, or eye pain [] HENT: Denies nasal congestion or sore throat [] Respiratory: Denies hemoptysis or shortness of breath [] Cardiovascular: No chest pain or palpitations[] GI: Denies abdominal pain, nausea, vomiting, bloody stools or diarrhea [] : Denies dysuria or hematuria [] Musculoskeletal: Denies back pain or joint pain [] Integument: Denies rash or skin lesions [] Neurologic: Denies headache, focal weakness or sensory changes [] Endocrine: Denies polyuria or polydipsia [] All other systems were reviewed and found to be within normal limits, except as documented in this note. Allergies Allergies Allergies Coded Allergies Type Severity Reaction Last Updated Verified No Known Drug Allergies 11/16/15 No Physical Exam Physical Exam Constitutional: Well developed, well nourished, no acute distress, non-toxic appearance. [] HENT: Normocephalic, atraumatic, bilateral external ears normal, oropharynx moist, no oral exudates, nose normal. [] Eyes: PERRLA, EOMI, conjunctiva normal, no discharge. [] Neck: Normal range of motion, no tenderness, supple, no stridor. [] Cardiovascular:Heart rate regular rhythm, no murmur [] Lungs & Thorax: Bilateral breath sounds clear to auscultation [] Abdomen: Bowel sounds normal, soft, no tenderness, no masses, no pulsatile masses. [] Skin: Warm, dry, no erythema, no rash. [] Back: No tenderness, no CVA tenderness. [] Extremities: Left arm sling in place due to recent elbow fracture. No tenderness, no cyanosis, no clubbing, ROM intact, no edema. [] Neurologic: Alert and oriented X 2, normal motor function, normal sensory function, no focal deficits noted. [] Psychologic: Affect normal, mood normal. [] Current Patient Data Lab Results Laboratory Tests Test 09/20/19 18:42 09/20/19 19:30 09/20/19 19:45 White Blood Count 10.7 x10^3/uL Red Blood Count 3.47 x10^6/uL Hemoglobin 11.1 g/dL Hematocrit 34.4 % Mean Corpuscular Volume 99 fL Mean Corpuscular Hemoglobin 32 pg Mean Corpuscular Hemoglobin Concent 32 g/dL Red Cell Distribution Width 14.0 % Platelet Count 193 x10^3/uL Neutrophils (%) (Auto) 79 % Lymphocytes (%) (Auto) 13 % Monocytes (%) (Auto) 7 % Eosinophils (%) (Auto) 0 % Basophils (%) (Auto) 1 % Neutrophils # (Auto) 8.5 x10^3uL Lymphocytes # (Auto) 1.4 x10^3/uL Monocytes # (Auto) 0.8 x10^3/uL Eosinophils # (Auto) 0.0 x10^3/uL Basophils # (Auto) 0.1 x10^3/uL Sodium Level 138 mmol/L Potassium Level 4.1 mmol/L Chloride Level 102 mmol/L Carbon Dioxide Level 29 mmol/L Anion Gap 7 Blood Urea Nitrogen 19 mg/dL Creatinine 1.4 mg/dL Estimated GFR (Cockcroft-Gault) 36.8 BUN/Creatinine Ratio 14 Glucose Level 101 mg/dL Lactic Acid Level 1.3 mmol/L Calcium Level 8.4 mg/dL Total Bilirubin 0.5 mg/dL Aspartate Amino Transf (AST/SGOT) 32 U/L Alanine Aminotransferase (ALT/SGPT) 27 U/L Alkaline Phosphatase 189 U/L Troponin I Quantitative < 0.017 ng/mL Total Protein 7.0 g/dL Albumin 3.3 g/dL Albumin/Globulin Ratio 0.9 Influenza Type A (Rapid) Negative Influenza Type B (Rapid) Negative Urine Collection Type U cath Urine Color Yellow Urine Clarity Clear Urine pH 5.5 Urine Specific [place] >=1.030 Urine Protein 30 mg/dl Urine Glucose (UA) Neg mg/dL Urine Ketones (Stick) Neg mg/dL Urine Blood Neg Urine Nitrite Neg Urine Bilirubin Neg Urine Urobilinogen Dipstick 0.2 mg/dL Urine Leukocyte Esterase Neg Urine RBC 1-2 /HPF Urine WBC Occ /HPF Urine Squamous Epithelial Cells Few /LPF Urine Transitional Epithelial Cells Few /LPF Urine Amorphous Sediment Present /HPF Urine Bacteria 0 /HPF Urine Hyaline Casts Occ /HPF Current Medications Medications (Trade) Dose Ordered Sig/Judd Route PRN Reason Start Time Stop Time Status Last Admin Dose Admin Acetaminophen (Tylenol) 650 mg 1X ONCE PO 09/20/19 18:45 09/20/19 18:46 DC 09/20/19 19:53 Sodium Chloride 1,000 ml @ 1,000 mls/hr Q1H IV 09/20/19 18:37 09/20/19 19:36 DC 09/20/19 19:53 EKG EKG EKG shows a sinus rhythm at 78 bpm, normal axis, QTC of 423 ms, no ST elevations. Interpreted by me at 1906[] Radiology/Procedures Radiology/Procedures X-ray shows no evidence of an infiltrate, no effusion, no pneumothorax[] Course & Med Decision Making Course & Med Decision Making Pertinent Labs and Imaging studies reviewed. (See chart for details) Emergency department course: Patient arrived, was placed in bed, and tolerated exam well. After the return of laboratory and imaging finds, these were discussed with the patient and family who voiced understanding. Options including discharge and aggressive oral hydration and follow up as an outpatient versus admission were discussed with family. They elected for admission. Patient was admitted in improved condition after discussion with the hospitalist who graciously accepted. Medical decision making: There is no evidence of pneumonia, no urinary tract infection. Patient appears to have had a acute febrile illness. This is not influenza. No evidence of meningitis or encephalitis. Potentially as a result of dehydration with the febrile illness appears that acute kidney injury has happened. This was compared with old records, earlier this month.[] Dragon Disclaimer Dragon Disclaimer This electronic medical record was generated, in whole or in part, using a voice recognition dictation system. Departure Departure: Impression: Primary Impression: Weakness Additional Impressions: Acute kidney injury Febrile illness Dementia Disposition: ADMITTED INPATIENT Admitting Physician: Raghav Grande Condition: IMPROVED Referrals: BANDAR HORTON MD (PCP) Problem Qualifiers Additional Impressions: Dementia Dementia type: unspecified type Dementia behavioral disturbance: without behavioral disturbance Qualified Codes: F03.90 - Unspecified dementia without behavioral disturbance POLLY MORALES DO Sep 20, 2019 18:43
[2019-09-20] MEDS ORDERED: ACETAMINOPHEN 325 MG TABLET PO ONE (18:45)
[2019-09-20 18:58] LABS: BASO # 0.1 x10^3/uL (0.0-0.2); BASO % 1 % (0-3); EOS % 0 % (0-3); HEMATOCRIT 34.4 % (36.0-47.0); HEMOGLOBIN 11.1 g/dL (12.0-15.5); LYMPH # 1.4 x10^3/uL (1.0-4.8); LYMPH % 13 % (24-48); MEAN CORPUSCULAR HEMOGLOBIN 32 pg (25-35); MEAN CORPUSCULAR HGB CONC 32 g/dL (31-37); MEAN CORPUSCULAR VOLUME 99 fL (79-100); MONO # 0.8 x10^3/uL (0.0-1.1); MONO % 7 % (0-9); NEUT # 8.5 x10^3uL (1.8-7.7); NEUT % 79 % (31-73); PLATELET COUNT 193 x10^3/uL (140-400); RED BLOOD COUNT 3.47 x10^6/uL (3.50-5.40); WHITE BLOOD COUNT 10.7 x10^3/uL (4.0-11.0)
[2019-09-20 19:14] LABS: ALBUMIN 3.3 g/dL (3.4-5.0); ALBUMIN/GLOBULIN RATIO 0.9 (1.0-1.7); CALCIUM 8.4 mg/dL (8.5-10.1); CREATININE 1.4 mg/dL (0.6-1.0); GFR 36.8; POTASSIUM 4.1 mmol/L (3.5-5.1); TOTAL BILIRUBIN 0.5 mg/dL (0.2-1.0)
[2019-09-20 20:12] LABS: INFLUENZA A PATIENT NEGATIVE (NEGATIVE); INFLUENZA B PATIENT NEGATIVE (NEGATIVE)
[2019-09-20 20:22] LABS: BILIRUBIN,URINE NEG (NEG); CLARITY,URINE CLEAR; COLOR,URINE YELLOW; GLUCOSE,URINE NEG (NEG)
[2019-09-20 20:23] LABS: BACTERIA,URINE 0 /HPF (0-FEW); NITRITE,URINE NEG (NEG); SQUAMOUS EPITHELIAL CELL,UR FEW /LPF; UROBILINOGEN,URINE 0.2 mg/dL (0.2 mg/dL); WBC,URINE OCC /HPF (0-4)
[2019-09-20 20:24] LABS: AMORPHOUS SEDIMENT,UR PRESENT /HPF; HYALINE CASTS, URINE OCC /HPF
[2019-09-20] MEDS: IV NORMAL SALINE 1,000ML 1,000 ML IV SCH (21:02)
[2019-09-20] MEDS ORDERED: ACETAMINOPHEN 325 MG TABLET PO PRN (21:15)
[2019-09-20] MEDS ORDERED: ONDANSETRON PF 4 MG/2 ML VIAL. IV PRN (21:15)
[2019-09-20 23:10] VITALS: BP 100/64
[2019-09-20] MEDS ORDERED: TRAZ-120 PO (23:41)
[2019-09-20] MEDS ORDERED: ONDA4TAB7 PO (23:41)
[2019-09-20] MEDS ORDERED: HYDR-3165 PO (23:41)
[2019-09-20] MEDS ORDERED: BUSP10TA PO (23:41)
[2019-09-20] MEDS ORDERED: MELA3TAB56 PO (23:41)
[2019-09-20] MEDS ORDERED: FERR325T14 PO (23:41)
[2019-09-20] MEDS ORDERED: SODI104S NS (23:41)
--- NOTE | 2019-09-21 02:04 | RAD ---
PORTABLE CHEST 1V INDICATION: Fever, cough. COMPARISON STUDY: 09/07/2019. FINDINGS: Lungs: Hyperexpanded lung volume. No pulmonary mass or consolidation. The tracheobronchial tree and hilar structures are normal. Pleura: No pleural effusion or pneumothorax. Heart and Mediastinum: The cardiomediastinal silhouette is normal. The great vessels of the thorax are normal. Bones and Soft Tissues: The bones and soft tissues are within normal limits. IMPRESSION: Hyperexpanded lung volume. No consolidation. Electronically signed by: Shawn Silverman MD (09/21/2019 2:02 AM) [facility]
[2019-09-21] MEDS: IV NORMAL SALINE 1,000ML 1,000 ML IV SCH (05:07)
[2019-09-21 05:16] VITALS: BP 128/78
[2019-09-21 06:14] LABS: CALCIUM 8.2 mg/dL (8.5-10.1); CREATININE 1.2 mg/dL (0.6-1.0); GFR 43.9; POTASSIUM 3.7 mmol/L (3.5-5.1)
[2019-09-21 06:18] LABS: BASO % 0 % (0-3); EOS % 0 % (0-3); HEMATOCRIT 30.1 % (36.0-47.0); HEMOGLOBIN 9.8 g/dL (12.0-15.5); LYMPH % 27 % (24-48); MEAN CORPUSCULAR HEMOGLOBIN 32 pg (25-35); MEAN CORPUSCULAR HGB CONC 33 g/dL (31-37); MEAN CORPUSCULAR VOLUME 99 fL (79-100); MONO # 0.7 x10^3/uL (0.0-1.1); MONO % 9 % (0-9); NEUT # 4.8 x10^3uL (1.8-7.7); NEUT % 64 % (31-73); PLATELET COUNT 149 x10^3/uL (140-400); RED BLOOD COUNT 3.04 x10^6/uL (3.50-5.40); RED CELL DISTRIBUTION WIDTH 13.9 % (11.5-14.5); WHITE BLOOD COUNT 7.6 x10^3/uL (4.0-11.0)
[2019-09-21] MEDS ORDERED: SODIUM CHLORIDE 0.65% NASAL SPRAY 45ML BOTTLE. NS PRN (08:45)
[2019-09-21] MEDS ORDERED: HYDROcodone/APAP 5/325MG 1 TAB TABLET PO PRN (08:45)
[2019-09-21] MEDS ORDERED: ACETAMINOPHEN 325 MG TABLET PO PRN (08:45)
[2019-09-21] MEDS ORDERED: MELATONIN 3 MG TABLET PO PRN (08:45)
[2019-09-21] MEDS ORDERED: ONDANSETRON ODT 4 MG TAB.RAPDIS PO PRN (09:00)
[2019-09-21] MEDS: LEVOTHYROXINE 25 MCG TABLET. PO SCH (09:00)
[2019-09-21] MEDS ORDERED: FERROUS SULFATE 325 MG TABLET. PO SCH (09:00)
[2019-09-21] MEDS: VITAMIN B COMPLEX CAPSULE. PO SCH (09:10)
[2019-09-21] MEDS: ASCORBIC ACID 500 MG TABLET PO SCH ×2 (09:10→21:24)
[2019-09-21] MEDS: amLODIPine BESYLATE 5 MG TABLET PO SCH (09:10)
[2019-09-21] MEDS: MULTIVITAMIN with MINERAL TABLET. PO SCH (09:10)
[2019-09-21] MEDS: CARVEDILOL 6.25 MG TABLET PO SCH ×2 (09:11→16:30)
[2019-09-21] MEDS: busPIRone 10 MG TABLET. PO SCH ×2 (09:11→21:23)
[2019-09-21] MEDS: IPRATRPIUM/ALBUTEROL 0.5/2.5MG 3 ML NEBU. NEB SCH ×4 (09:16→20:44)
[2019-09-21 10:38] VITALS: BP 106/62
--- NOTE | 2019-09-21 11:04 | HP ---
ADMIT DATE: HISTORY OF PRESENT ILLNESS: This is a 74-year-old female patient, a resident at [facility], who apparently was noted to be very lethargic, sleepy. She also complained of a sore throat, shortness of breath, cough and her temperature went up to 103 Fahrenheit according to nursing staff there when they checked her temperature around 5:00 in the afternoon. Her was there and he requested the patient to be transferred to the hospital for further evaluation and treatment. The patient herself is very demented and the history is limited from her point of view. She was extensively investigated in the Emergency Room. Her lab work showed a white cell count was 10,700. Her chemistry showed that her creatinine was slightly elevated to 1.4. His coagulation was normal. Urinalysis was essentially unremarkable and her influenza A and B were negative. She did have a chest x-ray, which also showed hyperexpanded lung volumes, but no consolidation. She was started on IV fluid and continued on all her other medications and was admitted for further evaluation and treatment. PAST MEDICAL HISTORY: Significant for chronic obstructive pulmonary disease; hypertension; coronary artery disease, status post myocardial infarction. According to , she has dementia, hypothyroidism, and overactive bladder. PAST SURGICAL HISTORY: Significant for total abdominal hysterectomy, bilateral salpingo-oophorectomy, appendectomy, tonsillectomy. She did have also history of esophagogastroduodenoscopy and colonoscopy and most recently fall with left hip fracture, status post open reduction and internal fixation. She also has pancreatitis attributed to her dementia medicine including Aricept and Namenda as well as Depakote. ALLERGIES: She has no known drug allergies. MEDICATIONS: She is currently on following medications: She is on ferrous sulfate 325 mg twice a day, carvedilol 6.25 mg twice a day with meals, amlodipine 5 mg once a day, aspirin 81 mg once a day, hydrocodone/APAP 5/325 one tablet every 6 hours, Tylenol 650 mg every 4 hours, trazodone 50 mg at bedtime, buspirone 10 mg twice a day. She is on Ness spray every 4 hours to both nostrils, ondansetron 4 mg every 6 hours, levothyroxine sodium 25 mcg daily, vitamin B complex one tablet p.o. daily, ascorbic acid 500 mg twice a day, multivitamin with mineral for Centrum Silver tablet 1 tablet once a day, melatonin 3 mg tablet p.o. at bedtime. FAMILY HISTORY: Noncontributory. SOCIAL HISTORY: She is , has 1 daughter. She does not smoke, drink alcohol or use any recreational drugs. PHYSICAL EXAMINATION: GENERAL: On arrival to the Emergency Room, she looked somewhat pale, but no jaundice, cyanosis or thyromegaly. No jugular venous distention. She has mild bilateral lower limb edema, mostly around the ankle joint. VITAL SIGNS: Her heart rate on arrival was 91, blood pressure was 116/70, temperature was 98.6, respiratory rate was 18 and oxygen saturation was 97% on 2 liters of oxygen. HEAD, EYES, EARS, NOSE AND THROAT: Showed normocephalic, atraumatic. NECK: Supple. HEART: Showed normal first and second heart sounds. No gallop or murmur. CHEST: Clear to auscultation. No crepitation or rhonchi. ABDOMEN: Distended, soft, nontender. NEUROLOGIC: She was demented, but without any obvious lateralizing sign. All her cranial nerves intact. She moves extremities without difficulty; however, she continued to have difficulty walking given her recent hip surgery, although she is weightbearing as tolerated. LABORATORY DATA: Her lab work on admission showed a white cell count of 10,700, hemoglobin 11, hematocrit 34, MCV 99 and platelet count of 193,000 with normal manual differential. Her chemistry showed a serum sodium of 138, potassium 4.1, chloride 102, bicarbonate 29, anion gap of 7, BUN 19, creatinine was 1.4, estimated GFR was 37 mL per minute. Her glucose 101, calcium was 8.4. Total bilirubin and AST were normal. Alkaline phosphatase slightly elevated. Her first set of cardiac enzymes showed troponin to be less than 0.017. Her total protein was 7, albumin 3.3. Her prothrombin time was 13, INR 1.3. Urinalysis showed the urine was yellow, clear with a pH of 5.5, specific gravity more than 1.030. There is small amount of protein. The urine was negative for glucose, ketones, blood, nitrite, leukocyte esterase, 1-2 rbc's, occasional wbc's, and no bacteria. Her influenza A and B were negative. Her chest x-ray showed that the lungs are hyperexpanded. No pulmonary mass or consolidation. The tracheobronchial tree and hilar structures are normal. There is no pleural effusion or pneumothorax. The cardiomediastinal silhouette is normal. The great vessels of the thorax are normal. Bones and soft tissues are within normal limits. ASSESSMENT AND PLAN: The patient was actually admitted for altered mental status, cough, shortness of breath and fever up to 103 Fahrenheit. She was started on IV fluid in the form of normal saline and continued on all her other medications. We will monitor her closely and she was afebrile by the time she arrived to the Emergency Room, her white cell count was normal, her urinalysis was bland and her chest x-ray was unremarkable. JEREMIE DONNELLY MD DR: LILLY/papa JOB#: [id number] / [id number]
--- NOTE | 2019-09-21 12:54 | PN ---
DATE: 09/21/2019 SUBJECTIVE: The patient is resting flat comfortably, in no apparent distress. She is awake, alert, continued to complain of a sore throat. Unfortunately, the rapid streptococcus test was not done yesterday; however, she continued to be afebrile and her white cell count was actually if anything normal this morning. PHYSICAL EXAMINATION: GENERAL: On examining her, she looked pale, but no jaundice, cyanosis. No lymphadenopathy or thyromegaly. No jugular venous distension. She has bilateral lower limb edema, more so on the left than the right. VITAL SIGNS: Her heart rate was 74, blood pressure was 100/57, temperature was 98.6, respiratory rate was 18 and oxygen saturation was 98% on 2 liters of oxygen. HEAD, EYES, EARS, NOSE AND THROAT: Normocephalic, atraumatic. NECK: Supple. HEART: Showed normal first and second heart sounds with no gallop or murmur. CHEST: Clear to auscultation. No crepitation or rhonchi. ABDOMEN: Distended, soft, nontender. No guarding or rigidity. No organomegaly. All hernial orifice intact. Bowel sounds normal. NEUROLOGIC: She was demented, but without any obvious lateralizing sign. All her cranial nerves intact. She moves extremities without difficulty. I did examine the surgical incisions on the upper outer aspect of the left thigh, showed that they are healing nicely with no redness, tenderness or discharge. Her intake and output are incompletely recorded. LABORATORY DATA: Her lab work this morning showed a white cell count 7600, hemoglobin 9.8, hematocrit 30, MCV 99, and platelet count of 149,000. Her chemistry showed a serum sodium 140, potassium 3.7, chloride 105, bicarbonate 28, anion gap of 7, BUN 20, creatinine 1.2, estimated GFR was 43 mL per minute. Glucose was 77 and calcium was 8.2. Her prothrombin time and INR are normal at 13 and 1.3 respectively. ASSESSMENT: Altered mental status, resolved. The patient continued to have complaint of sore throat, although she continued to be afebrile with normal white cell count and she seemed to be hemodynamically stable. PLAN: My plan is to get the throat swab for rapid strep test and also a venous Doppler ultrasound in the left lower extremity. I will cut down or discontinue her IV fluid. This seemed to be probably fluid overloaded. We will consult physical and occupational therapy. JEREMIE DONNELLY MD DR: LILLY/papa JOB#: [id number] / [id number]
--- NOTE | 2019-09-21 14:05 | RAD ---
EXAM: Left lower extremity venous Doppler. HISTORY: Left lower extremity pain/swelling. COMPARISON: None. FINDINGS: Grayscale and Doppler analysis of the left lower extremity deep venous system was performed with graded compression and augmentation. The common femoral, greater saphenous, superficial femoral, popliteal and calf veins were assessed. There is no evidence of deep venous thrombosis. IMPRESSION: 1. No evidence of deep venous thrombosis. Electronically signed by: Haydee Seth MD (09/21/2019 2:02 PM) [facility]
[2019-09-21 14:52] VITALS: BP 114/61
[2019-09-21 18:42] VITALS: BP 129/75
--- NOTE | 2019-09-21 20:49 | PDOC ---
Exam Note: Piyush Note: Please also refer to the separate dictated note~for this date of service dictated separately.~Patient seen individually. Discussed the patient with Nursing staff reviewed the chart.~Reviewed interim history and current functioning. Reviewed vital signs,~Labs/ Radiology~and current medications noted below. Continue current treatment with the changes noted in the dictated addendum note Assessment: Vital Signs/I&O: Vital Signs Date Time Temp Pulse Resp B/P (MAP) Pulse Ox O2 Delivery O2 Flow Rate FiO2 09/21/19 19:50 Room Air 09/21/19 18:42 97.8 67 20 129/75 (93) 96 2.0 I & O 09/20/19 09/20/19 09/21/19 14:59 22:59 06:59 Intake Total 200 ml 100 ml Balance 200 ml 100 ml Labs: Laboratory Tests Test 09/20/19 23:20 09/21/19 05:42 09/21/19 08:30 09/21/19 10:40 Nasal Screen MRSA (PCR) Negative (Negative) White Blood Count 7.6 x10^3/uL (4.0-11.0) Red Blood Count 3.04 x10^6/uL (3.50-5.40) L Hemoglobin 9.8 g/dL (12.0-15.5) L Hematocrit 30.1 % (36.0-47.0) L Mean Corpuscular Volume 99 fL (79-100) Mean Corpuscular Hemoglobin 32 pg (25-35) Mean Corpuscular Hemoglobin Concent 33 g/dL (31-37) Red Cell Distribution Width 13.9 % (11.5-14.5) Platelet Count 149 x10^3/uL (140-400) Neutrophils (%) (Auto) 64 % (31-73) Lymphocytes (%) (Auto) 27 % (24-48) Monocytes (%) (Auto) 9 % (0-9) Eosinophils (%) (Auto) 0 % (0-3) Basophils (%) (Auto) 0 % (0-3) Neutrophils # (Auto) 4.8 x10^3uL (1.8-7.7) Lymphocytes # (Auto) 2.0 x10^3/uL (1.0-4.8) Monocytes # (Auto) 0.7 x10^3/uL (0.0-1.1) Eosinophils # (Auto) 0.0 x10^3/uL (0.0-0.7) Basophils # (Auto) 0.0 x10^3/uL (0.0-0.2) Sodium Level 140 mmol/L (136-145) Potassium Level 3.7 mmol/L (3.5-5.1) Chloride Level 105 mmol/L (98-107) Carbon Dioxide Level 28 mmol/L (21-32) Anion Gap 7 (6-14) Blood Urea Nitrogen 20 mg/dL (7-20) Creatinine 1.2 mg/dL (0.6-1.0) H Estimated GFR (Cockcroft-Gault) 43.9 Glucose Level 77 mg/dL (70-99) Calcium Level 8.2 mg/dL (8.5-10.1) L Prothrombin Time 13.0 SEC (9.4-11.4) H Prothrombin Time INR 1.3 (0.9-1.1) H Group A Streptococcus Rapid Negative (NEGATIVE) Current Medications: Meds: Current Medications Medications (Trade) Dose Ordered Sig/Judd Route PRN Reason Start Time Stop Time Status Last Admin Dose Admin Sodium Chloride 1,000 ml @ 125 mls/hr Q8H IV 09/20/19 21:02 09/21/19 10:37 DC 09/21/19 05:07 Acetaminophen (Tylenol) 650 mg PRN Q4HRS PRN PO PAIN / TEMP 09/21/19 08:45 09/21/19 09:12 Amlodipine Besylate (Norvasc) 5 mg DAILY PO 09/21/19 09:00 09/21/19 09:10 Ascorbic Acid (Vitamin C) 1,000 mg BID PO 09/21/19 09:00 09/21/19 09:10 Buspirone HCl (Buspar) 10 mg BID PO 09/21/19 09:00 09/21/19 09:11 Carvedilol (Coreg) 6.25 mg BIDWMEALS PO 09/21/19 09:00 09/21/19 16:30 Multivitamins/ Calcium (Thera-M Plus) 1 tab DAILY PO 09/21/19 09:00 09/21/19 09:10 Vitamin B Complex 1 cap DAILY PO 09/21/19 09:00 09/21/19 09:10 Albuterol/ Ipratropium (Duoneb) 3 ml RTQID NEB 09/21/19 09:00 09/21/19 20:44 Olanzapine (ZyPREXA ZYDIS) 2.5 mg PRN Q4HRS PRN PO ANXIETY / AGITATION 09/21/19 16:15 09/21/19 16:29 I have reviewed the current psychotropics carefully including drug interactions. Risk benefit ratio favors no change other than as noted in my dictated progress note. Diagnosis: Problems: (1) Femoral neck fracture (2) Fall (3) Skin tear (4) Closed left clavicular fracture (5) Weakness (6) Febrile illness (7) Acute kidney injury (8) Dementia DEB BELL MD Sep 21, 2019 20:49
[2019-09-21] MEDS ORDERED: ASPIRIN ENTERIC COATED 81 MG TABLET.DR. PO SCH (21:00)
[2019-09-21] MEDS ORDERED: traZODone 50 MG TABLET. PO SCH (21:00)
[2019-09-21] MEDS: FERROUS SULFATE 325 MG TABLET. PO SCH (21:24)
[2019-09-21 23:12] VITALS: BP 159/70
[2019-09-22 05:41] VITALS: BP 120/78
[2019-09-22 06:43] LABS: RED BLOOD COUNT 3.43 x10^6/uL (3.50-5.40); RED CELL DISTRIBUTION WIDTH 13.4 % (11.5-14.5); WHITE BLOOD COUNT 6.9 x10^3/uL (4.0-11.0)
[2019-09-22 06:50] LABS: GFR 54.2; POTASSIUM 3.7 mmol/L (3.5-5.1)
[2019-09-22] MEDS: VITAMIN B COMPLEX CAPSULE. PO SCH (08:51)
[2019-09-22] MEDS: amLODIPine BESYLATE 5 MG TABLET PO SCH (08:53)
[2019-09-22] MEDS: MULTIVITAMIN with MINERAL TABLET. PO SCH (08:54)
[2019-09-22] MEDS: ASCORBIC ACID 500 MG TABLET PO SCH (08:54)
[2019-09-22] MEDS: LEVOTHYROXINE 25 MCG TABLET. PO SCH (08:54)
[2019-09-22] MEDS: CARVEDILOL 6.25 MG TABLET PO SCH (08:55)
[2019-09-22] MEDS: IPRATRPIUM/ALBUTEROL 0.5/2.5MG 3 ML NEBU. NEB SCH ×2 (08:55→09:04)
[2019-09-22] MEDS: busPIRone 10 MG TABLET. PO SCH (08:55)
[2019-09-22] MEDS: FERROUS SULFATE 325 MG TABLET. PO SCH (08:55)
[2019-09-22 10:45] VITALS: BP 124/85
--- NOTE | 2019-09-22 15:15 | DISCH ---
DISCHARGE ORDERS DISCHARGE DATE: Sep 22, 2019 FINAL DIAGNOSIS generalized weakness febrile illness resolved CONDITION AT DISCHARGE: Stable Code Status: DNR/DNI SNF STAY <30 DAYS: Yes POST DISCHARGE ORDERS: ACTIVITY ORDERS: Resume previous activity DIET AFTER DISCHARGE: Regular DISCHARGE MEDICATIONS: Home Meds Reported Medications Ondansetron Hcl (ZOFRAN) 4 Mg Tablet, 1 TAB PO Q6HRS for NAUSEA, #20 TAB 09/20/19 Trazodone Hcl (TRAZODONE HCL) 50 Mg Tablet, 1 TAB PO QHS for INSOMNIA, #30 TAB 1 Refill 09/20/19 Hydrocodone Bit/Acetaminophen (NORCO 5-325 TABLET) 1 Each Tablet, 1 TAB PO PRN Q6HRS PRN for PAIN, TAB 0 Refills 09/20/19 Melatonin (MELATONIN) 3 Mg Tablet, 1 TAB PO PRN QHS PRN for INSOMNIA, #30 TAB 2 Refills 09/20/19 Ferrous Sulfate (FERROUS SULFATE) 325 Mg Tablet, 1 TAB PO BID for SUPPLEMENT, #60 TAB 3 Refills 09/20/19 Sodium Chloride (OCEAN) 104 Ml [place], 104 ML NS PRN Q4HRS PRN for , SPRAY 09/20/19 Buspirone Hcl (BUSPIRONE HCL) 10 Mg Tablet, 1 TAB PO BID for depression, #60 TAB 1 Refill 09/20/19 Carvedilol (CARVEDILOL ) 6.25 Mg Tablet, 6.25 MG PO BIDWMEALS for CARDIAC, TAB 08/14/19 Levothyroxine Sodium (SYNTHROID) 25 Mcg Tablet, 25 MCG PO DAILYAC for thyroid, #30 TAB 0 Refills 11/27/15 Acetaminophen (TYLENOL) 325 Mg Tablet, 650 MG PO PRN Q4HRS PRN for PAIN / TEMP 11/27/15 Aspirin (ASPIR-LOW) 81 Mg Tablet.dr, 81 MG PO QHS for Heart Health 11/16/15 Amlodipine Besylate (NORVASC) 5 Mg Tablet, 5 MG PO DAILY for HTN 11/16/15 Vitamin B Complex (VITAMIN B COMPLEX) 1 Each Tablet, 1 TAB PO DAILY for Supplement 11/16/15 Ascorbic Acid (VITAMIN C) 500 Mg Tablet, 1000 MG PO BID for Supplement 11/16/15 Multivits-Min/Fa/Lycopene/Lut (CENTRUM SILVER TABLET) 1 Each Tablet, 1 TAB PO DAILY for Supplement 11/16/15 Discontinued Reported Medications Vitamin A (VITAMIN A) 8,000 Unit Capsule, 3 CAP PO DAILY for supplement, CAP 0 Refills 08/14/19 Solifenacin Succinate (VESICARE) 5 Mg Tablet, 1 TAB PO DAILY for overactive bladder for 30 Days, #30 TAB 0 Refills 08/14/19 Donepezil Hcl (DONEPEZIL HCL) 10 Mg Tablet, 1 TAB PO QHS for memory 08/14/19 Olanzapine (ZYPREXA ZYDIS) 10 Mg Tab.rapdis, 10 MG PO QHS for PSYCHOSIS 11/27/15 Mirtazapine (REMERON) 15 Mg Tablet, 15 MG PO QHS for INSOMNIA 11/27/15 Divalproex Sodium (DEPAKOTE SPRINKLE) 125 Mg Cap.sprink, 500 MG PO QHS for mood stabilizer 11/27/15 Memantine Hcl (NAMENDA) 10 Mg Tablet, 10 MG PO BID for Dementia 11/16/15 Cholecalciferol (Vitamin D3) (VITAMIN D3) 1,000 Unit Tablet, 50 MCG PO DAILY for Supplement 11/16/15 JEREMIE DONNELLY MD Sep 22, 2019 15:15
--- NOTE | 2019-09-22 17:54 | DS ---
DATE OF DISCHARGE: 09/22/2019 HOSPITAL COURSE: The patient is a 74-year-old female patient who was admitted from [facility] where she was noted to have fever with temperature up to 103. She also complained of a sore throat, shortness of breath, cough according to nursing staff, they checked her temperature and her was there and requested the patient be transferred to the hospital for further evaluation and treatment. The patient herself is very demented and does not give any useful information. She was extensively investigated in the Emergency Room and her lab work was unrevealing. Her chest x-ray also showed hyperexpanded lung volumes, but no consolidation. She was started on IV fluid, continued all her other medications. Her urinalysis was unremarkable. Her influenza A and B as well as group A streptococcus rapid testing was negative. Nasal screen for MRSA with PCR was negative. Her white cell count was normal throughout her stay here and she initially was dehydrated; however, her kidney function has improved such that her BUN came down from 19 to 15, creatinine 1.4-1. The patient was very restless, agitated and we did consider transferring up to [facility]; however, her does not have the DPOA and she is demented, cannot sign herself in and therefore, a decision was made to transfer her to the [facility] and for her to work on DPOA so that she can be admitted directly from there to [facility] if he has completed all his DPOA paperwork. PHYSICAL EXAMINATION: GENERAL: When I saw her this afternoon, she was pale, somewhat cachectic, but no jaundice, cyanosis, or thyromegaly. No jugular venous distention. No limb edema. VITAL SIGNS: Her heart rate was 75, blood pressure was 124/85, temperature was 97.9, respiratory rate was 18 and oxygen saturation was 96% on room air. HEAD, EYES, EARS, NOSE AND THROAT: Showed normocephalic, atraumatic. NECK: Supple. HEART: Showed normal first and second heart sounds. No gallop, rub or murmur. CHEST: Clear to auscultation. No crepitation or rhonchi. ABDOMEN: Distended, soft, nontender. No guarding or rigidity. No organomegaly. All hernial orifices intact. Bowel sounds normal. NEUROLOGIC: She was demented, but without any obvious lateralizing sign. She has recently fell and broke her hip and she continued to have poor mobility. She is mostly wheelchair bound. LABORATORY DATA: Showed a white cell count of 6900, hemoglobin 11, hematocrit 34, MCV 99 and platelet count of 160,000. Her chemistry showed a serum sodium 140, potassium 3.7, chloride 104, bicarbonate 28, anion gap of 8, BUN 15, creatinine 1, estimated GFR was 54 mL per minute. Her glucose was 89, calcium was 9. Her prothrombin time was 13, INR 1.3. Urinalysis was unremarkable. DISCHARGE MEDICATIONS: She will be discharged back to [facility] to continue on Tylenol 650 mg every 4 hours, amlodipine 5 mg once a day, ascorbic acid 1000 mg twice a day, aspirin 81 mg once a day, buspirone 10 mg twice a day, carvedilol 6.25 mg twice a day, ferrous sulfate 325 mg twice a day, hydrocodone/APAP 5/325 one tablet every 6 hours, levothyroxine sodium 25 mcg once a day, melatonin 3 mg at bedtime as needed, multivitamin with mineral 1 tablet once a day, ondansetron 4 mg every 6 hours, sodium chloride, [place] spray one spray to each nostril every 4 hours, trazodone 50 mg once a day at bedtime, vitamin B complex 1 tablet once a day. FINAL DISCHARGE DIAGNOSES: Febrile illness, resolved. All her cultures, urinalysis, chest x-ray were unrevealing. She has multiple other medical problems including chronic obstructive pulmonary disease, hypertension, coronary artery disease, status post myocardial infarction. She has dementia, hypothyroidism, and overactive bladder. JEREMIE DONNELLY MD DR: LILLY/papa JOB#: [id number] / [id number]
--- NOTE | 2019-09-22 22:25 | CONS ---
DATE OF CONSULTATION: 09/21/2019 PSYCHIATRIC CONSULATION This late entry date of service 09/21/2019 covers elements not covered in my initial note. I met with the patient evening of 09/21/2019, room 125, [facility], for a psychiatric consult requested by Dr. Spring/Dr. Grande on account of the patient's confusion, anxiety, being exit seeking, restless, agitated within the context of her diagnosis of dementia and a past diagnosis of bipolar disorder. IDENTIFYING DATA: The patient is a 74-year-old female. CHIEF COMPLAINT: "Nice to see you again. Yes, I get confused." HISTORY OF PRESENT ILLNESS: The patient has a history of dementia, Alzheimer's vascular type and a prior diagnosis of bipolar disorder. I have followed her at my office and she has been an inpatient on the Psychiatry Service in the past. She is a resident currently at [facility] and was noted to be very lethargic and sleepy. She also complained of sore throat, shortness of breath and was febrile and then brought to the hospital. She has been extremely confused, restless, agitated, anxious, exit seeking, thus prompting this referral. No active suicidal or homicidal ideation. She does have a history of mood swings, consistent with her prior diagnosis of bipolar disorder. PAST PSYCHIATRIC HISTORY: As above. MEDICAL HISTORY: Positive for COPD, hypertension, coronary artery disease, status post RI, hypothyroidism, overactive bladder. PAST SURGICAL HISTORY: Total abdominal hysterectomy, appendectomy, tonsillectomy, history of EGD and colonoscopy, status post hip fracture, treated surgically. Also has a history of pancreatitis. ALLERGIES: Negative. CURRENT PSYCHOTROPICS: Trazodone 50 mg at bedtime, BuSpar 10 mg twice a day, melatonin 3 mg at bedtime. FAMILY HISTORY: Noncontributory. SOCIAL HISTORY: The patient is , has 1 daughter. No alcohol or drug abuse. MENTAL STATUS EXAMINATION: The patient was seen individually evening of 09/21/2019. She is lying in bed, oriented to herself, pleasant. Insight, judgment, recent and remote memory, attention, concentration, fund of knowledge poor, consistent with her diagnosis. REVIEW OF SYSTEMS: No CV, , pulmonary, eye system symptoms on review. Reliability poor. IMPRESSION: Major neurocognitive disorder, Alzheimer, vascular with delusion, depression, behavioral disturbance; anxiety disorder, unspecified; impulse control disorder, unspecified. Rest as above. RECOMMENDATIONS: From a psychiatric standpoint, I would not change anything, just at this time. When she is medically stable if the above behaviors persist, we may adjust her psychotropics. Dr. Spring/Dr. Grande, thank you for the opportunity to participate in your patient's care. We will follow with you. DEB BELL MD DR: DINORA/nts JOB#: [id number] / [id number]
== END 2019-09-22 15:49 | DRG 682 ==
LOC: ER 18:16 → 1 SOUTH 20:58
PROVIDERS: ADMIT Family Medicine; ATTEND Internal Medicine
DX: N17.0 Acute kidney failure with tubular necrosis (principal); G93.41 Metabolic encephalopathy; J44.9 Chronic obstructive pulmonary disease, unspecified; N17.9 Acute kidney failure, unspecified; I25.10 Atherosclerotic heart disease of native coronary artery without angina pectoris; I10 Essential (primary) hypertension; E03.9 Hypothyroidism, unspecified; I25.2 Old myocardial infarction; F02.80 Dementia in other diseases classified elsewhere, unspecified severity, without behavioral disturbance, psychotic disturbance, mood disturbance, and anxiety; F01.50 Vascular dementia, unspecified severity, without behavioral disturbance, psychotic disturbance, mood disturbance, and anxiety; Z66 Do not resuscitate; F41.9 Anxiety disorder, unspecified; F31.9 Bipolar disorder, unspecified; G30.9 Alzheimer's disease, unspecified; N32.81 Overactive bladder; E86.0 Dehydration; F63.9 Impulse disorder, unspecified; Z90.710 Acquired absence of both cervix and uterus; Z90.49 Acquired absence of other specified parts of digestive tract
CPT/HCPCS: 36415; 71045; 80048; 80053; 81001; 83605; 84484; 85025; 85027; 85610; 87040; 87070; 87641; 87804; 87880; 93971; 94640; 96360; 96361; J7620; P9612; 97530; 99285-25; J7030

== ENCOUNTER 2019-09-23 13:32 | Inpatient (IN) | payer MEDICARE, OTHER ==
[~2019-09-23] VITALS: Ht 167.6 cm; Wt 41.7 kg
[~2019-09-23 13:32] MED LIST changes: +BUSP10TA PO; +FERR325T14 PO; +HYDR-3165 PO; +MELA3TAB56 PO; +ONDA4TAB7 PO; +SODI104S NS
--- NOTE | 2019-09-23 14:24 | PHYS DOC ---
Past History Past Medical History: Dementia, Hypertension Additional Past Medical Histor: Limited secondary to dementia, kidney disease, mi 2008 Past Surgical History: Appendectomy, Hysterectomy, Other Additional Past Surgical Histo: unknown Smoking: Non-smoker Alcohol Use: None Drug Use: None Adult General Chief Complaint Chief Complaint: MEDICAL CLEARANCE [facility] HPI Patient is a 74-year-old female presents for mental health clearance. Patient has been increasingly aggressive and agitated at the assisted care facility/ rehabilitation where she is currently residing. She is been accusing staff of stealing. They have tried redirection and treating her with trazodone. This has not worked. She has recently been admitted due to hip and elbow injury. Most recently she was admitted to the hospital on Friday, 3 days ago, for acute kidney injury. History is limited from the patient due to her history of d ementia.[] Review of Systems Review of Systems Constitutional: Denies fever or chills [] Eyes: Denies change in visual acuity, redness, or eye pain [] HENT: Denies nasal congestion or sore throat [] Respiratory: Denies cough or shortness of breath [] Cardiovascular: No additional information not addressed in HPI [] GI: Denies abdominal pain, nausea, vomiting, bloody stools or diarrhea [] : Denies dysuria or hematuria [] Musculoskeletal: Denies back pain or joint pain [] Integument: Denies rash or skin lesions [] Neurologic: Denies headache, focal weakness or sensory changes [] Endocrine: Denies polyuria or polydipsia [] All other systems were reviewed and found to be within normal limits, except as documented in this note. Allergies Allergies Allergies Coded Allergies Type Severity Reaction Last Updated Verified No Known Drug Allergies 11/16/15 No Physical Exam Physical Exam Constitutional: Well developed, well nourished, no acute distress, non-toxic appearance. [] HENT: Normocephalic, atraumatic, bilateral external ears normal, oropharynx dry, no oral exudates, nose normal. [] Eyes: PERRLA, EOMI, conjunctiva normal, no discharge. [] Neck: Normal range of motion, no tenderness, supple, no stridor. [] Cardiovascular:Heart rate regular rhythm, no murmur [] Lungs & Thorax: Bilateral breath sounds clear to auscultation [] Abdomen: Bowel sounds normal, soft, no tenderness, no masses, no pulsatile masses. [] Skin: Warm, dry, no erythema, no rash. [] Back: No tenderness, no CVA tenderness. [] Extremities: No tenderness, no cyanosis, no clubbing, ROM intact, no edema. [] Neurologic: Alert and oriented X person and place, normal motor function, normal sensory function, no focal deficits noted. [] Psychologic: Affect normal, judgement normal, mood normal. [] EKG EKG EKG shows a sinus rhythm with some premature atrial complexes. Rate of 96 bpm, normal axis, QTC of 443 ms, no ST elevations. Interpreted by me at 1554[] Radiology/Procedures Radiology/Procedures [] Course & Med Decision Making Course & Med Decision Making Pertinent Labs and Imaging studies reviewed. (See chart for details) ED course: Patient arrived, was placed in bed, and tolerated exam well. She was evaluated by remote/tele-psychiatry. They also felt the patient meets criteria for possible involuntary commitment. The recommendation was to admit for inpatient psychiatry service. Patient was medically stable for admission. She was oral intake tolerant while in the emergency department but did not want much to drink. She was admitted in improved condition. Medical decision makin-year-old female with dementia who is been having behavioral issues. She is noted to be mildly hypomagnesemic. Do not believe that that is causing today's issues. She does not have any other significant electrolyte abnormality. No evidence of a urinary tract infection.[] Dragon Disclaimer Dragon Disclaimer This electronic medical record was generated, in whole or in part, using a voice recognition dictation system. Departure Departure: Impression: Primary Impression: Dementia Additional Impression: Medical clearance for psychiatric admission Disposition: ADMITTED INPATIENT Admitting Physician: Other Condition: IMPROVED Referrals: BANDAR HORTON MD (PCP) Problem Qualifiers POLLY MORALES DO Sep 23, 2019 14:24
[2019-09-23 14:44] LABS: BASO % 0 % (0-3); EOS % 0 % (0-3); HEMOGLOBIN 12.2 g/dL (12.0-15.5); LYMPH # 1.5 x10^3/uL (1.0-4.8); LYMPH % 17 % (24-48); MEAN CORPUSCULAR HEMOGLOBIN 32 pg (25-35); MEAN CORPUSCULAR HGB CONC 33 g/dL (31-37); MEAN CORPUSCULAR VOLUME 96 fL (79-100); MONO # 0.6 x10^3/uL (0.0-1.1); MONO % 7 % (0-9); NEUT # 6.6 x10^3uL (1.8-7.7); NEUT % 76 % (31-73); PLATELET COUNT 193 x10^3/uL (140-400); RED BLOOD COUNT 3.84 x10^6/uL (3.50-5.40); WHITE BLOOD COUNT 8.7 x10^3/uL (4.0-11.0)
[2019-09-23 14:51] LABS: CALCIUM 9.6 mg/dL (8.5-10.1); CREATININE 1.1 mg/dL (0.6-1.0); GFR 48.6; POTASSIUM 3.6 mmol/L (3.5-5.1)
[2019-09-23 15:00] LABS: ALBUMIN 3.7 g/dL (3.4-5.0); ALBUMIN/GLOBULIN RATIO 0.8 (1.0-1.7); MAGNESIUM 1.6 mg/dL (1.8-2.4); TOTAL BILIRUBIN 0.7 mg/dL (0.2-1.0); TOTAL PROTEIN 8.1 g/dL (6.4-8.2)
[2019-09-23 15:06] LABS: BACTERIA,URINE 0 /HPF (0-FEW); BILIRUBIN,URINE NEG (NEG); CLARITY,URINE CLEAR; COLOR,URINE YELLOW; GLUCOSE,URINE NEG (NEG); NITRITE,URINE NEG (NEG); SQUAMOUS EPITHELIAL CELL,UR FEW /LPF; UROBILINOGEN,URINE 0.2 mg/dL (0.2 mg/dL); WBC,URINE OCC /HPF (0-4)
[2019-09-23 16:20] LABS: % ATYL 2 % (0-0); % BANDS 1 % (0-9); % EOS 1 % (0-5); % LYMPHS 7 % (24-48); % MONOS 9 % (0-10); % SEGS 80 % (35-66)
[2019-09-23 16:22] LABS: PLT ESTIMATE ADEQUATE (ADEQUATE)
--- NOTE | 2019-09-23 16:45 | NUR ---
Admission Note with Justification for Admission to [facility] Patient admitted to [facility] for protective oversight for emergency stabilization of acute psychiatric crisis. Pt admitted from: SNF Mode of arrival: EMS Accompanied By: Family Precipitating behaviors that initiated intake and admission:Verbally aggressive, manic, agitated, delusional, thinks she needs to go home and will call her mom, restless, anxious, exit seeking, accusing staff of stealing Description of failure of out patient attempts at stabilization in previous setting list behavior and medication trials: recent medical hospitalization, trazadone, prn trazadone Behaviors and assessment findings upon admission: Patient was accompanied by her . She is pleasant and cooperative. Disorganized, confused. Speaks in a whisper. Hard of hearing but does not wear hearing aids. Patient has an old healing bruise on her left hip from a recent fracture and surgical repair. Also has fractured left elbow and clavicle. Plan: Admit for protective oversight for adjustment and stabilization of medications, behaviors and mood. Intense treatment regimen including groups, medication adjustments, therapy, consistent regimen for ADL's, self care, and sleep hygiene. Daily monitoring by Inpatient staff, Psychiatry, and Medical Physician.
[2019-09-23] MEDS ORDERED: MELATONIN 3 MG TABLET PO PRN (19:45)
[2019-09-23] MEDS ORDERED: ACETAMINOPHEN 325 MG TABLET PO PRN (20:00)
[2019-09-23] MEDS ORDERED: SODIUM CHLORIDE 0.65% NASAL SPRAY 45ML BOTTLE. NS PRN (20:00)
--- NOTE | 2019-09-23 20:48 | PDOC ---
Exam Note: Piyush Note: Please also refer to the separate dictated note~for this date of service dictated separately. Discussed the patient with Nursing staff reviewed the chart.~Reviewed interim history and current functioning. Reviewed vital signs,~Labs/ Radiology~and current medications noted below. Continue current treatment with the changes noted in the dictated addendum note Assessment: Vital Signs/I&O: Vital Signs Date Time Temp Pulse Resp B/P (MAP) Pulse Ox O2 Delivery O2 Flow Rate FiO2 09/23/19 14:00 98.0 96 20 97 Room Air Labs: Laboratory Tests Test 09/23/19 14:00 09/23/19 14:10 Urine Collection Type Unknown Urine Color Yellow Urine Clarity Clear Urine pH 6.0 Urine Specific [place] >=1.030 Urine Protein 100 mg/dl (NEG-TRACE) Urine Glucose (UA) Neg mg/dL (NEG) Urine Ketones (Stick) 15 mg/dL (NEG) Urine Blood Neg (NEG) Urine Nitrite Neg (NEG) Urine Bilirubin Neg (NEG) Urine Urobilinogen Dipstick 0.2 mg/dL (0.2 mg/dL) Urine Leukocyte Esterase Neg (NEG) Urine RBC 1-2 /HPF (0-2) Urine WBC Occ /HPF (0-4) Urine Squamous Epithelial Cells Few /LPF Urine Bacteria 0 /HPF (0-FEW) Sodium Level 141 mmol/L (136-145) Potassium Level 3.6 mmol/L (3.5-5.1) Chloride Level 102 mmol/L (98-107) Carbon Dioxide Level 29 mmol/L (21-32) Anion Gap 10 (6-14) Blood Urea Nitrogen 14 mg/dL (7-20) Creatinine 1.1 mg/dL (0.6-1.0) H Estimated GFR (Cockcroft-Gault) 48.6 BUN/Creatinine Ratio 13 (6-20) Glucose Level 92 mg/dL (70-99) Calcium Level 9.6 mg/dL (8.5-10.1) Magnesium Level 1.6 mg/dL (1.8-2.4) L Total Bilirubin 0.7 mg/dL (0.2-1.0) Aspartate Amino Transferase (AST) 35 U/L (15-37) Alanine Aminotransferase (ALT) 26 U/L (14-59) Alkaline Phosphatase 188 U/L (46-116) H Total Protein 8.1 g/dL (6.4-8.2) Albumin 3.7 g/dL (3.4-5.0) Albumin/Globulin Ratio 0.8 (1.0-1.7) L White Blood Count 8.7 x10^3/uL (4.0-11.0) Red Blood Count 3.84 x10^6/uL (3.50-5.40) Hemoglobin 12.2 g/dL (12.0-15.5) Hematocrit 37.0 % (36.0-47.0) Mean Corpuscular Volume 96 fL (79-100) Mean Corpuscular Hemoglobin 32 pg (25-35) Mean Corpuscular Hemoglobin Concent 33 g/dL (31-37) Red Cell Distribution Width 14.0 % (11.5-14.5) Platelet Count 193 x10^3/uL (140-400) Neutrophils (%) (Auto) 76 % (31-73) H Lymphocytes (%) (Auto) 17 % (24-48) L Monocytes (%) (Auto) 7 % (0-9) Eosinophils (%) (Auto) 0 % (0-3) Basophils (%) (Auto) 0 % (0-3) Neutrophils # (Auto) 6.6 x10^3uL (1.8-7.7) Lymphocytes # (Auto) 1.5 x10^3/uL (1.0-4.8) Monocytes # (Auto) 0.6 x10^3/uL (0.0-1.1) Eosinophils # (Auto) 0.0 x10^3/uL (0.0-0.7) Basophils # (Auto) 0.0 x10^3/uL (0.0-0.2) Segmented Neutrophils % 80 % (35-66) H Band Neutrophils % 1 % (0-9) Lymphocytes % 7 % (24-48) L Atypical Lymphocytes % (Manual) 2 % (0-0) H Monocytes % 9 % (0-10) Eosinophils % 1 % (0-5) Platelet Estimate Adequate (ADEQUATE) Current Medications: I have reviewed the current psychotropics carefully including drug interactions. Risk benefit ratio favors no change other than as noted in my dictated progress note. Diagnosis: Problems: (1) Anxiety disorder (2) Dementia, vascular, with depression (3) Dementia, vascular, with delusions (4) Dementia in Alzheimer's disease with depression (5) Dementia in Alzheimer's disease with delusions (6) Impulse control disorder DEB BELL MD Sep 23, 2019 20:48
[2019-09-23] MEDS ORDERED: ONDANSETRON ODT 4 MG TAB.RAPDIS PO PRN (21:00)
[2019-09-23] MEDS: ASPIRIN ENTERIC COATED 81 MG TABLET.DR. PO SCH (21:20)
[2019-09-23] MEDS: traZODone 50 MG TABLET. PO SCH (21:20)
[2019-09-23] MEDS: FERROUS SULFATE 325 MG TABLET. PO SCH (21:20)
[2019-09-23] MEDS: ASCORBIC ACID 500 MG TABLET PO SCH (21:20)
[2019-09-23] MEDS: busPIRone 10 MG TABLET. PO SCH (21:20)
--- NOTE | 2019-09-23 22:32 | NUR ---
Nursing Note The patient was located in the day room for her medication pass and assessment. The patient was very disoriented and confused about cares and medication. The patient was initially hesitant to take her medications but complied after this nurse explained what they were. The patient is currently located in her room awake.
[2019-09-24] MEDS ORDERED: ACETAMINOPHEN 325 MG TABLET PO PRN (01:15)
[2019-09-24] MEDS ORDERED: METHYL SALICYLATE/MENTHOL TOPICAL OINTMENT 57GM TUBE. TP PRN (01:15)
[2019-09-24] MEDS ORDERED: MAGNESIUM HYDROXIDE 2,400 MG/30 ML ORAL.SUSP. PO PRN (01:15)
[2019-09-24] MEDS ORDERED: MAG HYDROX/AL HYDROX/SIMETH 30 ML ORAL.SUSP PO PRN (01:15)
[2019-09-24 05:04] VITALS: BP 124/84
[2019-09-24] MEDS: LEVOTHYROXINE 25 MCG TABLET. PO SCH (05:33)
[2019-09-24] MEDS: CARVEDILOL 6.25 MG TABLET PO SCH ×2 (08:02→17:00)
[2019-09-24] MEDS: VITAMIN B COMPLEX CAPSULE. PO SCH (08:02)
[2019-09-24] MEDS: FERROUS SULFATE 325 MG TABLET. PO SCH ×2 (08:02→20:41)
[2019-09-24] MEDS: ASCORBIC ACID 500 MG TABLET PO SCH ×2 (08:02→20:41)
[2019-09-24] MEDS: busPIRone 10 MG TABLET. PO SCH ×2 (08:02→20:41)
[2019-09-24] MEDS: MULTIVITAMIN with MINERAL TABLET. PO SCH (08:03)
[2019-09-24] MEDS: amLODIPine BESYLATE 5 MG TABLET PO SCH (08:03)
[2019-09-24 13:11] LABS: THYROID STIM HORMONE (TSH) 5.305 uIU/mL (0.358-3.740)
[2019-09-24 16:17] VITALS: BP 153/88
[2019-09-24 18:06] LABS: THYROXINE 8.9 ug/dL (4.5-12.0)
--- NOTE | 2019-09-24 19:00 | NUR ---
Pt up for meals. Restless after lunch. Order received for PRN zydis. Pt keeps pulling off O2 and sats at 88/89%. pt has significant COPD. Attached canula to face. mitts applied. Pt calmer by supper.
--- NOTE | 2019-09-24 20:10 | HP ---
ADMIT DATE: 09/23/2019 ADMISSION HISTORY AND EVALUATION This late entry 09/23/2019 covers elements not covered in my initial note, met with the patient evening of 09/23/2019. Discussed with nursing staff, reviewed the chart. Also discussed with Ora Hines, emergency preparedness coordinator. IDENTIFYING DATA: The patient is a 74-year-old female referred to us from [facility] where she returned to after a brief inpatient hospitalization on the medical/surgical floor. She has a history of progressive dementia, Alzheimer's vascular type and has been getting increasingly agitated, delusional, exit seeking, restless, needing to go home, verbally aggressive, unmanageable at the facility. Behaviors have failed outpatient psychiatric interventions resulting in this referral. CHIEF COMPLAINT: "I am okay." HISTORY OF PRESENT ILLNESS: The patient has a history of bipolar disorder, major neurocognitive disorder, Alzheimer vascular, with delusion, depression. I have followed her as an outpatient, but recently, she has deteriorated to a point where she had to be in a nursing facility and has been at [facility] for some time. She has been increasingly agitated, anxious, restless, paranoid, delusional even more confused. She has had some sleep and appetite changes. No active suicidal or homicidal ideation. PAST PSYCHIATRIC HISTORY: As above. MEDICAL HISTORY: Positive for status post femoral neck fracture, repeated falls, closed left clavicular fracture, hypertension, COPD, hypothyroidism. She has been an inpatient on this unit in the past, diagnosed with bipolar disorder at that time and the dementia has progressed progressively since then. . ACCU-CHEKS: None. CODE STATUS: DNR. ALLERGIES: Negative. DIET: Regular. Takes medications whole, ambulates in wheelchair. UA was positive on 09/23/2019, culture is pending. CURRENT PSYCHOTROPICS: BuSpar 10 mg b.i.d., trazodone 50 mg at bedtime, melatonin p.r.n. FAMILY HISTORY: Noncontributory. SOCIAL HISTORY: No history of alcohol, drug abuse, physical, sexual or elder abuse. She is not known to be a perpetrator. MENTAL STATUS EXAMINATION: The patient was seen individually evening of 09/23/2019. She is oriented to herself, anxious, restless. Insight, judgment, recent and remote memory, attention, concentration, fund of knowledge poor, consistent with her diagnoses. IMPRESSION: Major neurocognitive disorder, Alzheimer, vascular with delusion, depression, behavioral disturbance; bipolar disorder, unspecified; anxiety disorder, unspecified; probable urinary tract infection. Rest diagnoses as above. PLAN: Admit to Geropsychiatry Unit at [facility]. I will see the patient daily individually from a psychiatric standpoint. Medical followup with Dr. Spring. Continue the patient on her current psychotropics. Observe baseline, then adjust as clinically indicated. Estimated length of stay 10-12 days. DISPOSITION: Plans back to group home when stable. MAN Clay BELL MD DR: DINORA/papa JOB#: [id number] / [id number]
[2019-09-24] MEDS: traZODone 50 MG TABLET. PO SCH (20:41)
[2019-09-24] MEDS: ASPIRIN ENTERIC COATED 81 MG TABLET.DR. PO SCH (20:41)
--- NOTE | 2019-09-24 21:37 | PDOC ---
Exam Note: Piyush Note: Please also refer to the separate dictated note~for this date of service dictated separately.~Patient seen individually. Discussed the patient with Nursing staff reviewed the chart.~Reviewed interim history and current functioning. Reviewed vital signs,~Labs/ Radiology~and current medications noted below. Continue current treatment with the changes noted in the dictated addendum note Assessment: Vital Signs/I&O: Vital Signs Date Time Temp Pulse Resp B/P (MAP) Pulse Ox O2 Delivery O2 Flow Rate FiO2 09/24/19 17:00 105 153/88 09/24/19 16:17 97.8 20 92 2.0 09/24/19 05:04 Room Air I & O 09/23/19 09/23/19 09/24/19 15:00 23:00 07:00 Intake Total 60 ml Balance 60 ml Current Medications: Meds: Current Medications Medications (Trade) Dose Ordered Sig/Judd Route PRN Reason Start Time Stop Time Status Last Admin Dose Admin Amlodipine Besylate (Norvasc) 5 mg DAILY PO 09/24/19 09:00 09/24/19 08:03 Carvedilol (Coreg) 6.25 mg BIDWMEALS PO 09/24/19 08:00 09/24/19 17:00 Levothyroxine Sodium (Synthroid) 25 mcg DAILY06 PO 09/24/19 06:00 09/24/19 05:33 Multivitamins/ Calcium (Thera-M Plus) 1 tab DAILY PO 09/24/19 09:00 09/24/19 08:03 Vitamin B Complex 1 cap DAILY PO 09/24/19 09:00 09/24/19 08:02 Olanzapine (ZyPREXA ZYDIS) 2.5 mg PRN Q2HR PRN PO PSYCHOSIS 09/24/19 15:00 09/24/19 15:01 I have reviewed the current psychotropics carefully including drug interactions. Risk benefit ratio favors no change other than as noted in my dictated progress note. Diagnosis: Problems: (1) Anxiety disorder (2) Dementia, vascular, with depression (3) Dementia, vascular, with delusions (4) Dementia in Alzheimer's disease with depression (5) Dementia in Alzheimer's disease with delusions (6) Impulse control disorder DEB BELL MD Sep 24, 2019 21:37
--- NOTE | 2019-09-24 22:16 | NUR ---
Nursing Note The patient was resistive with medications again this shift and attempted to spit her medications into her water cup several times. The patient did eventually take her mediations whole. The patient was compliant with HS cares. The patient is currently sleeping in her room.
[2019-09-25 00:06] LABS: HEMOGLOBIN A1C 4.7 % (4.8-5.6)
[2019-09-25 04:58] VITALS: BP 165/95
[2019-09-25] MEDS: LEVOTHYROXINE 25 MCG TABLET. PO SCH (05:25)
--- NOTE | 2019-09-25 05:40 | CONS ---
DATE OF CONSULTATION: REASON FOR CONSULTATION: Medical management. HISTORY OF PRESENT ILLNESS: The patient is a 74-year-old female patient, resident at [facility], who was noted by the nursing staff there to being increasingly aggressive, agitated at the facility where she is currently residing. She has been accusing staff of stealing, difficult to redirect her. She has been recently admitted for hip and elbow fracture, and more recently, admitted for acute kidney injury. All these behaviors are on a background of advanced dementia. PAST MEDICAL HISTORY: Her past medical history is significant for hypertension and chronic obstructive pulmonary disease. She also has hypothyroidism as well as anemia. PAST SURGICAL HISTORY: Significant for total abdominal hysterectomy, bilateral salpingo-oophorectomy, appendectomy, and tonsillectomy. She also has history of esophagogastroduodenoscopy and colonoscopy and most recently fall with left hip fracture, status post open reduction and internal fixation. She also has pancreatitis attributed to her dementia. MEDICATIONS: Including Aricept and Namenda as well as Depakote. ALLERGIES: She has no known drug allergies. FAMILY HISTORY: Noncontributory. SOCIAL HISTORY: She is , has 1 daughter. She does not smoke, drink alcohol, or use any recreational drugs. MEDICATIONS: She is currently on the following medications: She is on ferrous sulfate 325 mg twice a day, carvedilol 6.25 mg twice a day, amlodipine besylate 5 mg daily, aspirin 81 mg once a day, hydrocodone/APAP 5/325 one tablet every 6 hours, Tylenol 650 mg every 4 hours, trazodone 50 mg at bedtime, buspirone 10 mg twice a day, nasal [place] spray one spray to each nostril every 4 hours, ondansetron 4 mg every 6 hours, levothyroxine sodium 25 mcg once a day and vitamin B complex 1 tablet once a day, ascorbic acid 500 mg once a day, multivitamin with mineral one tablet once a day and melatonin 3 mg at bedtime. PHYSICAL EXAMINATION: GENERAL: On examining her, she was pale, extremely cachectic, but no jaundice, cyanosis, or thyromegaly. No jugular venous distension. No limb edema. VITAL SIGNS: Her heart rate was 105, blood pressure 153/88, temperature was 97.8, respiratory rate 20, and oxygen saturation was 92% on 2 liters of oxygen. HEAD, EYES, EARS, NOSE AND THROAT: Showed normocephalic, atraumatic. NECK: Supple. HEART: Showed normal first and second heart sounds. No gallop, rub or murmur. CHEST: Shows central trachea, equal bilateral expansion air entry. No crepitation or rhonchi. ABDOMEN: Scaphoid, soft, and nontender. NEUROLOGIC: She is demented, but without any obvious lateralizing sign. Her left upper extremity is in a sling. She is mostly bedbound, chair bound. She has recently had fracture of the left hip, status post open reduction and internal fixation. LABORATORY DATA: Showed a white cell count of 8700, hemoglobin 12, hematocrit 37, MCV 96, and platelet count of 193,000. Her chemistry showed a serum sodium 141, potassium 3.6, chloride 102, bicarbonate 29, anion gap of 10, BUN 14, creatinine 1.1, estimated GFR was 48 mL per minute. Her glucose 92, calcium was 9.6, magnesium was 1.6. Serum iron, TIBC and iron saturation are all consistent with anemia of chronic disease. Total bilirubin, AST, ALT were normal. Alkaline phosphatase slightly elevated. Her total protein was 8.1, albumin was 3.7. Her serum triglycerides were 87, total cholesterol was 203, LDL was 115, VLDL was 17, HDL cholesterol was 71, the ratio was 2. Her vitamin B12 was 541 pg/mL, 25-hydroxyvitamin D was 41, and TSH was 5.3, was slightly elevated. Urinalysis was essentially unremarkable and treponema pallidum antibodies were nonreactive. Her chest x-ray done on about 4 days ago showed that there is hyperexpanded lung volume with no consolidation. IMPRESSION AND PLAN: In summary, this is a 74-year-old female patient who was admitted on account of being increasingly aggressive and agitated at the [facility]. She has been accusing staff of stealing and was difficult to direct and all this in a background of advanced dementia, and therefore, she was admitted for inpatient psychiatric stabilization. Medically, she is known to have hypertension, hypothyroidism, chronic obstructive pulmonary disease, osteoporosis, and osteoarthritis. She has recently had fracture of her left hip and left shoulder. Her vital signs are stable. I reviewed all her medications and seemed to be appropriate and her lab works are all within acceptable range. I will obviously follow all her lab work. I will order T3, T4, and free T4. I might have to increase her Synthroid to perhaps to 50 mcg if deemed necessary. Thank you, Dr. Alva, for allowing me to participate in the care of this patient. JEREMIE DONNELLY MD DR: LILLY/papa JOB#: [id number] / [id number]
[2019-09-25] MEDS: ASCORBIC ACID 500 MG TABLET PO SCH ×2 (08:31→20:17)
[2019-09-25] MEDS: amLODIPine BESYLATE 5 MG TABLET PO SCH (08:31)
[2019-09-25] MEDS: FERROUS SULFATE 325 MG TABLET. PO SCH ×2 (08:31→20:17)
[2019-09-25] MEDS: CARVEDILOL 6.25 MG TABLET PO SCH ×2 (08:31→17:00)
[2019-09-25] MEDS: busPIRone 10 MG TABLET. PO SCH ×2 (08:31→20:16)
[2019-09-25] MEDS: VITAMIN B COMPLEX CAPSULE. PO SCH (08:31)
[2019-09-25] MEDS: MULTIVITAMIN with MINERAL TABLET. PO SCH (08:31)
[2019-09-25] MEDS: HYDROcodone/APAP 5/325MG 1 TAB TABLET PO PRN (15:45)
[2019-09-25 16:13] VITALS: BP 137/89
--- NOTE | 2019-09-25 16:52 | NUR ---
Pt up in wc for meals. compliant with meds. appetite poor. Pt spoke with dtr on phone. Pt told dtr that she has been in pain all day and no one has given her any meds. Pt has no asked for any meds per staff. Lortab given at that time.
[2019-09-25] MEDS: ASPIRIN ENTERIC COATED 81 MG TABLET.DR. PO SCH (20:16)
[2019-09-25] MEDS: ACETAMINOPHEN 500 MG TABLET PO SCH (20:17)
[2019-09-25] MEDS: traZODone 50 MG TABLET. PO SCH (20:17)
--- NOTE | 2019-09-25 21:34 | PDOC ---
Exam Note: Piyush Note: Please also refer to the separate dictated note~for this date of service dictated separately.~Patient seen individually. Discussed the patient with Nursing staff reviewed the chart.~Reviewed interim history and current functioning. Reviewed vital signs,~Labs/ Radiology~and current medications noted below. Continue current treatment with the changes noted in the dictated addendum note Assessment: Vital Signs/I&O: Vital Signs Date Time Temp Pulse Resp B/P (MAP) Pulse Ox O2 Delivery O2 Flow Rate FiO2 09/25/19 17:00 91 137/89 09/25/19 16:13 97.6 16 88 09/25/19 04:58 Nasal Cannula 2.0 I & O 0 09/24/19 09/24/19 09/25/19 15:00 23:00 07:00 Intake Total 480 ml 360 ml Balance 480 ml 360 ml Current Medications: Meds: Current Medications Medications (Trade) Dose Ordered Sig/Judd Route PRN Reason Start Time Stop Time Status Last Admin Dose Admin Acetaminophen (Tylenol) 1,000 mg BID PO 09/25/19 21:00 09/25/19 20:17 I have reviewed the current psychotropics carefully including drug interactions. Risk benefit ratio favors no change other than as noted in my dictated progress note. Diagnosis: Problems: (1) Anxiety disorder (2) Dementia, vascular, with depression (3) Dementia, vascular, with delusions (4) Dementia in Alzheimer's disease with depression (5) Dementia in Alzheimer's disease with delusions (6) Impulse control disorder (7) Dementia DEB BELL MD Sep 25, 2019 21:34
--- NOTE | 2019-09-25 21:45 | EKG ---
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
--- NOTE | 2019-09-25 23:40 | NUR ---
Pt located in the dayroom this evening. Pt A/O to name and . Pt has poor STM. Circular conversations. Pt compliant with whole medications with much resistance. Pt stating that she needs to leave tonight and will only take her pills if she can leave. Pt encouraged to speak with Dr. Alva during rounds.
[2019-09-26 05:38] VITALS: BP 116/73
[2019-09-26] MEDS: LEVOTHYROXINE 25 MCG TABLET. PO SCH (06:02)
[2019-09-26] MEDS: busPIRone 10 MG TABLET. PO SCH ×2 (08:15→19:49)
[2019-09-26] MEDS: CARVEDILOL 6.25 MG TABLET PO SCH ×2 (08:15→17:08)
[2019-09-26] MEDS: FERROUS SULFATE 325 MG TABLET. PO SCH ×2 (08:15→19:49)
[2019-09-26] MEDS: VITAMIN B COMPLEX CAPSULE. PO SCH (08:15)
[2019-09-26] MEDS: ACETAMINOPHEN 500 MG TABLET PO SCH ×2 (08:16→19:50)
[2019-09-26] MEDS: ASCORBIC ACID 500 MG TABLET PO SCH ×2 (08:16→19:50)
[2019-09-26] MEDS: amLODIPine BESYLATE 5 MG TABLET PO SCH (08:16)
[2019-09-26] MEDS: MULTIVITAMIN with MINERAL TABLET. PO SCH (08:16)
[2019-09-26] MEDS: SERTRALINE 25 MG TABLET. PO SCH (08:16)
--- NOTE | 2019-09-26 10:48 | NUR ---
Patient was in the dining room during morning rounding, took medications whole, mentioned to the nurse that she "needed to leave." Patient is now sitting quietly in the dayroom. No agitation noted, pt denies pain. Will continue to monitor.
[2019-09-26 15:39] VITALS: BP 136/86
[2019-09-26] MEDS: ASPIRIN ENTERIC COATED 81 MG TABLET.DR. PO SCH (19:49)
[2019-09-26] MEDS: traZODone 50 MG TABLET. PO SCH (19:50)
--- NOTE | 2019-09-26 21:09 | PDOC ---
Exam Note: Piyush Note: Please also refer to the separate dictated note~for this date of service dictated separately.~Patient seen individually. Discussed the patient with Nursing staff reviewed the chart.~Reviewed interim history and current functioning. Reviewed vital signs,~Labs/ Radiology~and current medications noted below. Continue current treatment with the changes noted in the dictated addendum note Assessment: Vital Signs/I&O: Vital Signs Date Time Temp Pulse Resp B/P (MAP) Pulse Ox O2 Delivery O2 Flow Rate FiO2 09/26/19 17:08 73 136/86 09/26/19 15:39 97.0 16 98 09/26/19 05:38 2.0 09/25/19 04:58 Nasal Cannula I & O 09/25/19 09/25/19 09/26/19 14:59 22:59 06:59 Intake Total 600 ml 120 ml 180 ml Balance 600 ml 120 ml 180 ml Current Medications: Meds: Current Medications Medications (Trade) Dose Ordered Sig/Judd Route PRN Reason Start Time Stop Time Status Last Admin Dose Admin Sertraline HCl (Zoloft) 25 mg DAILY PO 09/26/19 09:00 09/28/19 09:01 09/26/19 08:16 I have reviewed the current psychotropics carefully including drug interactions. Risk benefit ratio favors no change other than as noted in my dictated progress note. Diagnosis: Problems: (1) Anxiety disorder (2) Dementia, vascular, with depression (3) Dementia, vascular, with delusions (4) Dementia in Alzheimer's disease with depression (5) Dementia in Alzheimer's disease with delusions (6) Impulse control disorder DEB BELL MD Sep 26, 2019 21:09
--- NOTE | 2019-09-26 23:52 | NUR ---
Pt has been highly confused this evening. Pt repeatedly taking off her oxygen and asking staff members for her keys. Pt stating that she is leaving tonight and becomes agitated when told that her keys are not here. Pt stated "You guys are going to be in trouble. Dadwilliam's going to be really mad when he can't drive his Buick tomorrow." Pt argumentative, sarcastic and snarky. Once in bed, pt restless. PRN Lortab and Zydis administered at 0100. Will continue to monitor.
[2019-09-27] MEDS: HYDROcodone/APAP 5/325MG 1 TAB TABLET PO PRN (01:06)
--- NOTE | 2019-09-27 04:13 | NUR ---
Pt has been restless and slept very little throughout the night. Pt delusional; stating that she needs to get to [place] because she is singing in a wedding. Pt also appears to be hallucinating. Pt has been seen laying in bed talking to the ceiling. Pt also states that she sees a little girl. Pt states that the little girl is looking for her father and we need to help her find him. Will continue to monitor.
[2019-09-27] MEDS: LEVOTHYROXINE 25 MCG TABLET. PO SCH (05:05)
[2019-09-27 05:35] VITALS: BP 134/84
[2019-09-27] MEDS: SERTRALINE 25 MG TABLET. PO SCH (07:51)
[2019-09-27] MEDS: FERROUS SULFATE 325 MG TABLET. PO SCH ×2 (07:51→20:49)
[2019-09-27] MEDS: ACETAMINOPHEN 500 MG TABLET PO SCH ×2 (07:51→20:49)
[2019-09-27] MEDS: MULTIVITAMIN with MINERAL TABLET. PO SCH (07:52)
[2019-09-27] MEDS: ASCORBIC ACID 500 MG TABLET PO SCH ×2 (07:52→20:49)
[2019-09-27] MEDS: CARVEDILOL 6.25 MG TABLET PO SCH ×2 (07:53→17:36)
[2019-09-27] MEDS: busPIRone 10 MG TABLET. PO SCH ×2 (07:53→20:46)
[2019-09-27] MEDS: amLODIPine BESYLATE 5 MG TABLET PO SCH (07:53)
[2019-09-27] MEDS: VITAMIN B COMPLEX CAPSULE. PO SCH (07:53)
--- NOTE | 2019-09-27 10:36 | NUR ---
PSYCHOSOCIAL ASSESSMENT ADMISSION DATE: 09/23/19 CONTACT INFORMATION: DPOA/Guardian Contact Name: Shiva Huffman YI Contact Address: [address] Contact Phone #: [phone] or [phone] ETHNIC ORIGIN: REASONS FOR ADMISSION: Aggressive, Agitated. Anxiety/Panic, Delusions, ADDITIONAL ADMISSION COMMENTS: Per pt. intake, pt. was manic, agitated, delusional, thinks she needs to go home and call her mom, restless, anxious, exit seeking, accusing staff of stealing, and verbally aggressive. REASON FOR ADMISSION IN PATIENT/FAMILY'S OWN WORDS: Per pt. "You know I can't remember." "It's been while." Pt. then said something about her left foot. Pt. shared pt. had "pancreatitis" and was at "[place]" for several days. When pt. returned home, she fell and broke her "left hip, left elbow, and left collar bone." Pt. then went to rehab where she "started getting a little manic." She "started going juan high." PATIENT/FAMILY EXPECTATIONS FOR ADMISSION: Per. pt., "To get out." "You wouldn't want to know them." Pt. stated, "I hope they get some good drugs in her" to help with her behaviors. He also hopes "physical therapy" can "get her to walk" "to get her home." LIVING SITUATION: Patient lives with: Spouse Contact Name: Shiva Huffman Contact Address: [address] Contact Phone #: [phone] or [phone] FAMILY RELATIONS: Marital Status: # of Marriages: 1 Pt. has been to her for 50 years. Pt. and her twice. Pt. shared "a few years ago pt. got really manic" and him. After about 5 years they were remarried. # of Children: 1 Pt. has one daughter, Danielle Salinas, and three grandchildren. [facility] Family Support: Concerned and Cooperative Additional Comments r/t Family: Pt. would like to be contacted for treatment team. SIGNIFICANT PSYCHIATRIC/MEDICAL HISTORY: Psychiatric/Treatment History: According to pt. she was "never" given any psychiatric diagnoses. Pt. then went on to shared she was once treated "for my depression." "It's been so long ago." Pt. reports pt. was diagnosed with "Bipolar" disorder "years ago" and is also diagnosed with "Alzheimers" "three to three and a half years ago". According to pt. intake pt. has Dementia and Bipolar Disorder. Pt. was inpatient in [facility] in November 2015. Pertinent Family History: Per pt. "My mom had" pt. couldn't recall what her mother's diagnosis was. Pt. shared pt. "mother and brother" were diagnosed with "Alzheimers", and her "older sister exhibited signs of Alzheimer" prior to passing away. HISTORICAL DATA: Childhood Environment: Per pt. "good." Pt. grew up with her mother, father, one older brother, and three older sisters. Psychological Abuse: None Drug Abuse History last 12 months: No PERSONAL HISTORY: Vocational history: Pt. 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 graduated from high school. Past/Present Interests/Hobbies: Pt. stated, "I like all hobbies." According to pt. , pt. enjoyed "knitting" and "painting." Financial support/resources: Social Security Monthly income: $684.20 Person handling finances: Shiva Huffman Do you have a history of legal problems: N Cultural considerations: "No" SOCIAL RELATIONSHIPS-CURRENT/PAST: Psychiatrist: Dr. Alva PCP: Dr. Spring Counselor/Therapist: None Veterans[facility] Administration: None Support Group: None Maintenance Mechanic Technician/Physician Underwriter: None Other relationships: None STRENGTHS & WEAKNESSES: Patient's strengths: Good family support and Stable living arrangement Patient's weaknesses: Verbally Aggressive and Delusional PRELIMINARY PLAN OF TREATMENT: Preliminary plan: Decrease Anxiety/Panic, Decrease Hallucination/Delusions, Promote Coping Skill, Medication Stabilization, Monitor Med Effects, Decrease Aggression DISCHARGE PLANNING: Discharge planning/disposition: Current Living Arrangement Additional discharge needs identified: Pt. will either return to [place] to continue rehab or return home. ADDITIONAL INFORMATION: Pt. was able to supply some of the information for this assessment. Pt. , Shiva, was contacted for clarification and verification of the information. Pt. stated, "I would like you to try to get her to eat more." "She likes to snack."
--- NOTE | 2019-09-27 14:39 | PN ---
DATE: 09/26/2019 PSYCHIATRIC PROGRESS NOTE This late entry 09/26/2019 covers elements not covered in my initial note. SUBJECTIVE: I met with the patient in the evening. The patient slept 6-3/4 hours previous night. She remains somewhat confused, anxious, irritable, obsessive, looking for . REVIEW OF SYSTEMS: Shortness of breath, impaired ambulation in wheelchair. No CV, GI, system symptoms on review. Reliability poor. She has been restless, wanting to leave, does redirect. MENTAL STATUS EXAM: Oriented to herself. Insight, judgment, recent and remote memory, attention, concentration, fund of knowledge poor, consistent with her diagnosis mentioned in my initial note. PLAN: No change from initial note. MAN Clay BELL MD DR: DINORA/papa JOB#: [id number] / [id number]
--- NOTE | 2019-09-27 14:43 | PN ---
DATE: 09/25/2019 PSYCHIATRIC PROGRESS NOTE This late entry 09/25/2019 covers the elements not covered in my initial note. SUBJECTIVE: I met with the patient in the evening. The patient slept 5 hours previous night. Previous night, she was resistive to medications, but oriented to her date of , unaware of where she is or the date, who the president is, as I questioned her. REVIEW OF SYSTEMS: Shortness of breath on O2 supplements, impaired ambulation in wheelchair. No CV, GI, , ENT system symptoms on review. MENTAL STATUS EXAM: Oriented to herself. Insight, judgment, recent and remote memory, attention, concentration, fund of knowledge poor, consistent with her diagnoses. IMPRESSION: Major neurocognitive disorder, Alzheimer, vascular with delusion, depression, behavioral disturbance; bipolar disorder, unspecified. Rest unchanged. PLAN: Start Zoloft 25 mg a day for 3 days, then 50 mg a day; maintain BuSpar, trazodone, melatonin for now. DEB BELL MD DR: DINORA/papa JOB#: [id number] / [id number]
--- NOTE | 2019-09-27 14:51 | PN ---
DATE: 09/24/2019 This late entry, 09/24/2019, covers the elements not covered in my initial note. SUBJECTIVE: I met with the patient on evening of 09/24/2019 and staffed at a treatment team meeting earlier in the day on 09/24/2019. The patient slept for 3/4 hours previous night, per GAURANG Wiseman. Appetite 50-75%, remains confused, and resistive to medications. REVIEW OF SYSTEMS: Ambulation is impaired. No CV, , pulmonary, or eye system symptoms on review. Does have shortness of breath, on O2 supplements. Reliability is poor. MENTAL STATUS EXAM: Oriented to herself. Insight, judgment, and recent and remote memory, attention, concentration, and fund of knowledge are poor, consistent with her diagnoses. IMPRESSION: Major neurocognitive disorder, Alzheimer, vascular with delusion, depression, behavioral disturbance; bipolar 1 disorder, mixed; anxiety disorder, unspecified; and impulse control disorder, unspecified. Rest is unchanged. PLAN: No change from initial note. Maintain BuSpar, trazodone, and melatonin for now. Consider adding Zoloft as an antidepressant and antianxiety agent to help her agitation. DEB BELL MD DR: DINORA/papa JOB#: [id number] / [id number]
--- NOTE | 2019-09-27 15:21 | TX PLAN ---
Interdisciplinary Tx Plan Admission Information Sep 23, 2019 at 16:33 Legal Status (on Admission): Voluntary, DPOA DPOA/Guardian Name: Shiva Huffman, DPAUDRA Contact or [phone] Verified Code Status: DNR Allergies: Coded Allergies: No Known Drug Allergies (Unverified , 11/16/15) Estimated Length of Stay: 10 Diagnoses Primary Diagnosis: Major Neurocognitive Disorder, Vascular Alzheimers with Delusions, Depression BD, Anxiety Disorder Unspecified, and Impulse Control Disorder Reasons for Admission: Aggressive, Delusions, Agitated, Anxiety/Panic Problem in Patient's Words: Per pt. "You know I can't remember." "It's been while." Pt. then said something about her left foot. Pt. shared pt. had "pancreatitis" and was a "[place]" for several days. When pt. returned home, she fell and broke her "left hip, left elbow, and left collar bone." Pt. then went to rehab where she "started getting a little manic." She "started going juan high." Problems Active Problems: Per pt. intake, pt. was manic, agitated, delusional, things she needs to go home and call her mom, restless, anxious, exit seeking, accusing staff of stealing, and verbally aggressive. Inactive Problems: Pt. is compliant with medications. Pt Strengths/Limitations Ability for [place]: Poor Cognitive Functioning/Ability: Poor Communication Skills/Ability: Fair Financial Resources: Fair Insight/Judgement: Poor Intellectual Ability: Fair Physical Health: Poor Social Skills: Fair Stability in Family: Good Verbal Skills: Fair Discharge Criteria Discharge Criteria: Able meet basic life need, Able to meet health needs, OP monitor medical prob, Adequate arrangements @DC, Improved behavior, Improved mood/thought Preliminary Discharge Plan Preliminary DC Plan: Current Living Arrange. Special Precautions Special Precautions: Agitation/Assault Fall Risk: High Initial D/C Plan Pt. with either return to [place] for rehab or home with . Identified Discharge Needs: Pt. may need home health if returning home. Currently Utilized Resources Currently Utilized Resources/P: PCP Jayro Atkinson Identified Problems/Hx/Goals Objectives/Short-Term Goals Short Term Goals: Dec. Aggression, Dec. Anxiety/Panic, Dec. Hallucination/Delus, Medication Stabilization, Monitor Med Effects, Promote Coping Skill Short Term Goals in Patient's: Per. pt., "To get out." "You wouldn't want to know them." Pt. stated, "I hope they get some good drugs in her" to help with her behaviors. He also hopes "physical therapy" can "get her to walk" "to get her home." Interventions/Frequency Staff Interventions/Frequency&: Psychatrist - Daily Nursing - Daily RT - 2 to 3 times weekly SW - 2 to 3 times weekly History Vocational History: Pt. 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 graduated from high school. Community Follow-up Follow up with PCP and Jayro Atkinson Treatment Plan Explained Patient/Call Center Agent had this treatment plan explained to him/her as indicated by the signature below and has been given the opportunity to ask questions and make suggestions: Date: Patient/Call Center Agent Signature: Patient/Call Center Agent Decline: No Additional Comments Pt. would like to be contacted for treatment team. LISHA WREN Sep 27, 2019 15:21
--- NOTE | 2019-09-27 15:33 | NUR ---
Patient is in the dining room for assessment and medications. She is confused, disorganized, suspicious. Given her meds crushed and mixed with pudding, which she spit out. She continues to take off her nasal cannula repeatedly. PRN Zydis given at 0800 for agitation, with moderate effect. Patient is hyperverbal, speaks in a whisper. She does not retain any information [facility], asking the same things over and over again. Denies pain and discomfort. Denies SI.
--- NOTE | 2019-09-27 15:54 | NUR ---
Patient is in the day room, continuously removing her nasal cannula. She is delusional, stating "You need to get out of this house, it's time for us to go. My parents are here to get me." Despite multiple attempts at redirection, she continues to perseverate on leaving with her parents. Refuses to leave her oxygen on. Medicated with PRN Zydis 2.5mg at 1545, pending effect at this time.
[2019-09-27 16:20] VITALS: BP 140/79
[2019-09-27] MEDS ORDERED: traZODone 50 MG TABLET. PO PRN (17:45)
[2019-09-27] MEDS: traZODone 50 MG TABLET. PO SCH (20:46)
[2019-09-27] MEDS: ASPIRIN ENTERIC COATED 81 MG TABLET.DR. PO SCH (20:49)
[2019-09-27] MEDS ORDERED: MIRTAZAPINE 7.5 MG TABLET. PO SCH (21:00)
--- NOTE | 2019-09-27 21:31 | PDOC ---
Exam Note: Piyush Note: Please also refer to the separate dictated note~for this date of service dictated separately.~Patient seen individually. Discussed the patient with Nursing staff reviewed the chart.~Reviewed interim history and current functioning. Reviewed vital signs,~Labs/ Radiology~and current medications noted below. Continue current treatment with the changes noted in the dictated addendum note Assessment: Vital Signs/I&O: Vital Signs Date Time Temp Pulse Resp B/P (MAP) Pulse Ox O2 Delivery O2 Flow Rate FiO2 09/27/19 17:36 93 140/79 09/27/19 16:20 97.5 16 81 09/26/19 05:38 2.0 09/25/19 04:58 Nasal Cannula I & O 09/26/19 09/26/19 09/27/19 15:00 23:00 07:00 Intake Total 600 ml 120 ml Balance 600 ml 120 ml Current Medications: Meds: Current Medications Medications (Trade) Dose Ordered Sig/Judd Route PRN Reason Start Time Stop Time Status Last Admin Dose Admin Mirtazapine (Remeron) 7.5 mg QHS PO 09/27/19 21:00 09/27/19 20:50 I have reviewed the current psychotropics carefully including drug interactions. Risk benefit ratio favors no change other than as noted in my dictated progress note. Diagnosis: Problems: (1) Anxiety disorder (2) Dementia, vascular, with depression (3) Dementia, vascular, with delusions (4) Dementia in Alzheimer's disease with depression (5) Dementia in Alzheimer's disease with delusions (6) Impulse control disorder DEB BELL MD Sep 27, 2019 21:31
--- NOTE | 2019-09-27 23:17 | NUR ---
Nursing Note The patient was located in the day room for her medication and assessment. the patient took her medication whole and was compliant with HS cares. The patient was very disorganized and was unable to hold a coherent conversation during interactions. The patient is currently sleeping in her room.
[2019-09-28] MEDS: LEVOTHYROXINE 25 MCG TABLET. PO SCH (05:18)
[2019-09-28 05:35] VITALS: BP 157/89
[2019-09-28] MEDS: CARVEDILOL 6.25 MG TABLET PO SCH ×2 (08:00→12:29)
--- NOTE | 2019-09-28 08:17 | NUR ---
SOBEIDA spoke to pt. , Shiva, regarding treatment team on 10/01/2019. Shiva would like to be contacted for this meeting. SOBEIDA and Shiva also discussed pt. going back to [facility] and the hospitalist possibly being able to consult with Dr. Atkinson (Ortho) regarding pt. weight bearing status.
[2019-09-28] MEDS: MULTIVITAMIN with MINERAL TABLET. PO SCH (09:00)
[2019-09-28] MEDS: FERROUS SULFATE 325 MG TABLET. PO SCH (09:00)
[2019-09-28] MEDS: ASCORBIC ACID 500 MG TABLET PO SCH (09:00)
[2019-09-28] MEDS: ACETAMINOPHEN 500 MG TABLET PO SCH (09:00)
[2019-09-28] MEDS: busPIRone 10 MG TABLET. PO SCH ×2 (09:00→12:29)
[2019-09-28] MEDS: SERTRALINE 25 MG TABLET. PO SCH ×2 (09:00→12:29)
[2019-09-28] MEDS: VITAMIN B COMPLEX CAPSULE. PO SCH (09:00)
[2019-09-28] MEDS: amLODIPine BESYLATE 5 MG TABLET PO SCH ×2 (09:00→12:30)
[2019-09-28 09:03] LABS: BASO # 0.1 x10^3/uL (0.0-0.2); BASO % 1 % (0-3); EOS # 0.1 x10^3/uL (0.0-0.7); EOS % 1 % (0-3); HEMATOCRIT 36.7 % (36.0-47.0); HEMOGLOBIN 11.8 g/dL (12.0-15.5); LYMPH # 1.9 x10^3/uL (1.0-4.8); LYMPH % 18 % (24-48); MEAN CORPUSCULAR HEMOGLOBIN 32 pg (25-35); MEAN CORPUSCULAR HGB CONC 32 g/dL (31-37); MEAN CORPUSCULAR VOLUME 98 fL (79-100); MONO # 0.7 x10^3/uL (0.0-1.1); MONO % 7 % (0-9); NEUT # 7.9 x10^3uL (1.8-7.7); NEUT % 75 % (31-73); PLATELET COUNT 369 x10^3/uL (140-400); RED BLOOD COUNT 3.73 x10^6/uL (3.50-5.40); WHITE BLOOD COUNT 10.6 x10^3/uL (4.0-11.0)
[2019-09-28 09:15] LABS: CALCIUM 9.4 mg/dL (8.5-10.1); CREATININE 1.1 mg/dL (0.6-1.0); GFR 48.6; POTASSIUM 3.9 mmol/L (3.5-5.1)
[2019-09-28 09:18] LABS: ALBUMIN 3.4 g/dL (3.4-5.0); ALBUMIN/GLOBULIN RATIO 0.7 (1.0-1.7); TOTAL BILIRUBIN 0.8 mg/dL (0.2-1.0); TOTAL PROTEIN 8.1 g/dL (6.4-8.2)
--- NOTE | 2019-09-28 09:34 | RAD ---
CHEST AP ONLY 09/28/2019 8:20 AM INDICATION: Wheezing, shortness of breath COMPARISON: 09/20/2019 TECHNIQUE: Portable frontal view of the chest is provided. FINDINGS: The cardiomediastinal silhouette is similar in appearance. Lungs are clear. Portions of the left hemithorax are excluded from this radiograph. There is persistent hyperexpansion of the lungs. There are no significant pleural effusions. There is no pulmonary vascular congestion. No pneumothorax. IMPRESSION: Aeration of the lungs appears similar to the prior examination. Electronically signed by: Adriana Gaona MD (09/28/2019 9:31 AM) [id number]
--- NOTE | 2019-09-28 09:48 | NUR ---
Activity Therapy Assessment Complete based on observation and notes, as patient is unable to answer assessment questions at this time. Pt. uses a wheelchair to ambulate due to a broken hip, has her arm in a sling, and uses oxygen. Pt. is confused, disoriented, restless, and experiencing hallucinations. Pt. continually tries to take of her oxygen and stand up from her wheelchair. Pt. speaks rapidly in a whisper and is very difficult to understand. Her sentences are nonsensical or seem 'stuck' in memories, often making her conversations circular. Pt. is also hard of hearing and has very limited short term memory. Pt. responds to her name and knows her date of but she is unaware of the hospital or her reason for admission. Pt. is resistant to her medication and is often fixated on leaving with her parents. Pt. does not sleep or eat well either. Pt. , Shiva, is DPOA. Pt. has one daughter, Danielle Salinas, and three grandchildren. 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 Pt. is often around group but has yet to engage as her focus is on leaving or standing unassisted. Initial goal aimed to increase engagement: Pt. will engage in one Activity Therapy group or individual session before discharge.
[2019-09-28] MEDS ORDERED: IOHEXOL 350 MG/ML 100 ML VIAL. IV ONE (10:00)
[2019-09-28 10:06] LABS: % ATYL 2 % (0-0); % BANDS 1 % (0-9); % LYMPHS 12 % (24-48); % MONOS 10 % (0-10); % SEGS 75 % (35-66); PLT ESTIMATE ADEQUATE (ADEQUATE)
--- NOTE | 2019-09-28 11:49 | RAD ---
Examination: CT angiography chest HISTORY: History of shortness of breath, wheezing COMPARISON: 09/07/2019 Technique: Axial CT and radiographic images of chest were performed with IV contrast. Coronal and sagittal 3-D MIP reformats are performed. Exposure: One or more of the following individualized dose reduction techniques were utilized for this examination: 1. Automated exposure control 2. Adjustment of the mA and/or kV according to patient size 3. Use of iterative reconstruction technique FINDINGS: The central airways are patent. The ascending aorta measures 3.2 cm in transverse dimension. There is no evidence of filling defect identified in the main pulmonary arterial trunk and right and left main pulmonary arteries and the visualized lobar, segmental branches of the pulmonary arteries. Moderate lung emphysematous changes. Patchy airspace opacities identified in the right middle lobe, right lower lobe and left lower lobe of the lung likely atelectasis or infiltrates there is filling and opacification of the right lower lobe bronchial branches could be secondary to secretions. The liver, spleen, adrenals grossly appears unremarkable. Mild aortic atherosclerosis. Mild degenerative changes identified in the thoracic spine. There is cortical step-off identified in the proximal sternum probably due to motion artifact or sternal fracture. Prominent nodule or breast tissue identified in the right breast in the retroareolar region measuring 2.2 cm. IMPRESSION: 1. No evidence of pulmonary embolism. 2. Patchy airspace opacities identified in the right middle lobe, right lower lobe and left lower lobe of the lung likely atelectasis or infiltrates. Follow-up to resolution. There is filling and opacification of the right lower lobe bronchial branches could be secondary to secretions. 3. There is cortical step-off identified in the proximal sternum probably due to motion artifact or sternal fracture. Correlate clinically. 4. Prominent nodule or breast tissue identified in the right breast in the retroareolar region measuring 2.2 cm. Recommend follow-up nonemergent mammogram and ultrasound. Electronically signed by: Jose Campos MD (09/28/2019 11:45 AM) [id number]
[2019-09-28 12:30] VITALS: BP 157/89
--- NOTE | 2019-09-28 13:54 | NUR ---
Patient was in the dining room during morning rounding, told staff she felt SOB. Pulse ox applied, pt's SP02% was 76. The nurse paged Dr. Spring, stat labs and imaging ordered. The results came back normal. Morning medications were held until lunch time.The nurse will let Dr. Spring know upon rounding. Patient is currently on 3 L NC and is sating around 85%. Patient is asymptomatic and is resting listening to group in the day room. No agitation noted, pt was a little anxious this am, PRN zyprexa given @1037. Will continue to monitor.
[2019-09-28] MEDS ORDERED: ACET500T68 PO (14:30)
[2019-09-28] MEDS ORDERED: MAG355OR11 PO (14:33)
[2019-09-28] MEDS ORDERED: METH28OI2 TP (14:34)
[2019-09-28] MEDS ORDERED: MAGN2400 PO (14:34)
[2019-09-28] MEDS ORDERED: MIRT15TA PO (14:35)
[2019-09-28] MEDS ORDERED: OLAN5TAB5 PO (14:37)
[2019-09-28] MEDS ORDERED: SERT50TA PO (14:38)
[2019-09-28] MEDS ORDERED: TRAZ-120 PO (14:38)
[2019-09-28] MEDS ORDERED: MIRT7.5T8 PO (14:39)
--- NOTE | 2019-09-28 15:00 | NUR ---
Transition Record was faxed to follow-up provider with the following elements: Reason for admission, procedures, tests, principal diagnosis, pending studies, patient instructions, 28/04 contact information for unit, phone number to obtain pending test results, plan for follow-up care, physician follow-up, advanced directive information, and medication list with dose, duration and instructions. This information was included in the following documents: History and physical, lab results, study results, progress notes, social work planning form, DC instruction form, patient visit summary, and medication reconciliation form. Date & time record faxed: 09/28/19 @1444 Record faxed to: 1 [facility] Record discussed with/ report given to: Tuan
--- NOTE | 2019-09-28 21:22 | PDOC ---
Exam Note: Piyush Note: Please also refer to the separate dictated note~for this date of service dictated separately.~Patient seen individually. Discussed the patient with Nursing staff reviewed the chart.~Reviewed interim history and current functioning. Reviewed vital signs,~Labs/ Radiology~and current medications noted below. Continue current treatment with the changes noted in the dictated addendum note Assessment: Vital Signs/I&O: Vital Signs Date Time Temp Pulse Resp B/P (MAP) Pulse Ox O2 Delivery O2 Flow Rate FiO2 09/28/19 12:30 81 157/89 09/28/19 05:35 97.8 20 90 09/26/19 05:38 2.0 09/25/19 04:58 Nasal Cannula I & O 09/27/19 09/27/19 09/28/19 15:00 23:00 07:00 Intake Total 0 ml 240 ml Balance 0 ml 240 ml Labs: Laboratory Tests Test 09/28/19 08:50 White Blood Count 10.6 x10^3/uL (4.0-11.0) Red Blood Count 3.73 x10^6/uL (3.50-5.40) Hemoglobin 11.8 g/dL (12.0-15.5) L Hematocrit 36.7 % (36.0-47.0) Mean Corpuscular Volume 98 fL (79-100) Mean Corpuscular Hemoglobin 32 pg (25-35) Mean Corpuscular Hemoglobin Concent 32 g/dL (31-37) Red Cell Distribution Width 14.0 % (11.5-14.5) Platelet Count 369 x10^3/uL (140-400) Neutrophils (%) (Auto) 75 % (31-73) H Lymphocytes (%) (Auto) 18 % (24-48) L Monocytes (%) (Auto) 7 % (0-9) Eosinophils (%) (Auto) 1 % (0-3) Basophils (%) (Auto) 1 % (0-3) Neutrophils # (Auto) 7.9 x10^3uL (1.8-7.7) H Lymphocytes # (Auto) 1.9 x10^3/uL (1.0-4.8) Monocytes # (Auto) 0.7 x10^3/uL (0.0-1.1) Eosinophils # (Auto) 0.1 x10^3/uL (0.0-0.7) Basophils # (Auto) 0.1 x10^3/uL (0.0-0.2) Segmented Neutrophils % 75 % (35-66) H Band Neutrophils % 1 % (0-9) Lymphocytes % 12 % (24-48) L Atypical Lymphocytes % (Manual) 2 % (0-0) H Monocytes % 10 % (0-10) Platelet Estimate Adequate (ADEQUATE) D-Dimer (Grace) 0.95 mg/L (0.00-0.50) H Sodium Level 142 mmol/L (136-145) Potassium Level 3.9 mmol/L (3.5-5.1) Chloride Level 102 mmol/L (98-107) Carbon Dioxide Level 29 mmol/L (21-32) Anion Gap 11 (6-14) Blood Urea Nitrogen 30 mg/dL (7-20) H Creatinine 1.1 mg/dL (0.6-1.0) H Estimated GFR (Cockcroft-Gault) 48.6 BUN/Creatinine Ratio 27 (6-20) H Glucose Level 89 mg/dL (70-99) Calcium Level 9.4 mg/dL (8.5-10.1) Total Bilirubin 0.8 mg/dL (0.2-1.0) Aspartate Amino Transferase (AST) 31 U/L (15-37) Alanine Aminotransferase (ALT) 28 U/L (14-59) Alkaline Phosphatase 159 U/L (46-116) H Total Protein 8.1 g/dL (6.4-8.2) Albumin 3.4 g/dL (3.4-5.0) Albumin/Globulin Ratio 0.7 (1.0-1.7) L Current Medications: Meds: Current Medications Medications (Trade) Dose Ordered Sig/Judd Route PRN Reason Start Time Stop Time Status Last Admin Dose Admin Iohexol (Omnipaque 350 Mg/ml) 100 ml 1X ONCE IV 09/28/19 10:00 09/28/19 10:01 DC 09/28/19 11:14 I have reviewed the current psychotropics carefully including drug interactions. Risk benefit ratio favors no change other than as noted in my dictated progress note. 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
[2019-09-29] MEDS ORDERED: SERTRALINE 25 MG TABLET. PO SCH (09:00)
--- NOTE | 2019-09-29 18:14 | DS ---
DATE OF DISCHARGE: 09/28/2019 DISCHARGE SUMMARY/PSYCHIATRIC PROGRESS NOTE This late entry 09/28/2019 covers elements not covered in my initial note. REASON FOR ADMISSION: Please refer to the admission history for details. Briefly, the patient is a 74-year-old female referred from [facility] by her primary care physician, Dr. Spring after she returned there post-medical stabilization from [address] [place] [address]. She was verbally aggressive, agitated, delusional, needing to go home, exit seeking, restless, unmanageable at the facility within the context of her dementia, Alzheimer's, vascular with delusion, depression, behavioral disturbance. She had failed outpatient psychiatric interventions resulting in this admission. SIGNIFICANT FINDINGS AND CLINICAL COURSE: Following admission, the patient was seen daily individually by myself from a psychiatric standpoint, medical followup with Dr. Spring. The patient remained confused, anxious, restless, remained on O2 supplements and she would repeatedly remove her O2. She was obsessive, anxious, confused. Adjustments were made in her psychotropics. She seemed to be responding to a combination of BuSpar 10 mg b.i.d., trazodone 50 mg at bedtime, Remeron 7.5 mg at bedtime, Zoloft 25 mg a day, trazodone 50 mg at bedtime, may repeat x 1 for insomnia. At this stage, she developed pneumonia, was transferred to the Medical/Surgical floor per Dr. Spring. We would be happy to reassess whether she needs repeat admission on the inpatient psychiatry service when she is medically stable. REVIEW OF SYSTEMS: Prior to discharge, 09/28/2019, ambulation impaired, in wheelchair, difficulty breathing, on O2 supplements. No CV, GI, system symptoms on review. Reliability poor. MENTAL STATUS EXAM: Oriented to herself. Insight, judgment, recent and remote memory, attention, concentration, fund of knowledge poor, consistent with her diagnosis mentioned in my initial note. CONDITION AT DISCHARGE: Improved from a psychiatric standpoint, medically compromised. FINAL DIAGNOSES: Major neurocognitive disorder, Alzheimer, vascular with delusion, depression, behavioral disturbance; anxiety disorder, unspecified; impulse control disorder, unspecified; pneumonia. Rest unchanged from admission. DISCHARGE MEDICATIONS: Please refer to MRAD. DISCHARGE INSTRUCTIONS: Psychiatric medical followup on . Time for discharge day management greater than 30 minutes. MAN Clay BELL MD DR: Juan Jose JOB#: [id number] / [id number]
--- NOTE | 2019-09-29 18:49 | PN ---
DATE: 09/27/2019 PSYCHIATRIC PROGRESS NOTE This late entry 09/27/2019 covers elements not covered in my initial note. SUBJECTIVE: I met with the patient in the evening. The patient slept 4 hours previous night per GAURANG Cardenas. She does have significant short-term memory deficits, repeatedly takes her oxygen off, refused the a.m. medications, spit them out, took them later. She slept poorly. We will start Remeron 7.5 mg at bedtime, trazodone 50 mg at bedtime, may repeat x 1 for insomnia. REVIEW OF SYSTEMS: Shortness of breath on O2 supplements, impaired ambulation in wheelchair. No CV, GI, , eye system symptoms on review. Reliability poor. MENTAL STATUS EXAM: Oriented to herself. Insight, judgment, recent and remote memory, attention, concentration, fund of knowledge poor, consistent with her diagnosis mentioned in my initial note. PLAN: No change from initial note. DEB BELL MD DR: DINORA/papa JOB#: [id number] / [id number]
--- NOTE | 2019-09-29 21:55 | PDOC ---
Exam Note: Piyush Note: Please also refer to the separate dictated note~for this date of service dictated separately.~Patient seen individually. Discussed the patient with Nursing staff reviewed the chart.~Reviewed interim history and current functioning. Reviewed vital signs,~Labs/ Radiology~and current medications noted below. Continue current treatment with the changes noted in the dictated addendum note Assessment: Vital Signs/I&O: Vital Signs Date Time Temp Pulse Resp B/P (MAP) Pulse Ox O2 Delivery O2 Flow Rate FiO2 09/28/19 12:30 81 157/89 09/28/19 05:35 97.8 20 90 09/26/19 05:38 2.0 09/25/19 04:58 Nasal Cannula I & O 09/28/19 09/28/19 09/29/19 15:00 23:00 07:00 Intake Total 120 ml Balance 120 ml Current Medications: I have reviewed the current psychotropics carefully including drug interactions. Risk benefit ratio favors no change other than as noted in my dictated progress note. 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
[2019-10-02] MEDS ORDERED: AMOX1TAB58 PO (14:08)
== END 2019-09-28 15:01 | disposition short-term general hospital (02) | DRG 886 ==
LOC: ER 13:32 → 1 SOUTH 16:33 → UNDOADMIN 16:33 → GEROPSY 16:33
PROVIDERS: ADMIT Psychiatry & Neurology Psychiatry; ATTEND Psychiatry & Neurology Psychiatry
DX: F63.9 Impulse disorder, unspecified (principal); J18.9 Pneumonia, unspecified organism; F01.51 Vascular dementia, unspecified severity, with behavioral disturbance; F02.81 Dementia in other diseases classified elsewhere, unspecified severity, with behavioral disturbance; J44.0 Chronic obstructive pulmonary disease with (acute) lower respiratory infection; F31.60 Bipolar disorder, current episode mixed, unspecified; E03.9 Hypothyroidism, unspecified; E83.42 Hypomagnesemia; F41.9 Anxiety disorder, unspecified; G30.9 Alzheimer's disease, unspecified; I10 Essential (primary) hypertension; M19.90 Unspecified osteoarthritis, unspecified site; Z66 Do not resuscitate; R29.6 Repeated falls; I25.2 Old myocardial infarction; Z79.899 Other long term (current) drug therapy; Z90.49 Acquired absence of other specified parts of digestive tract; Z90.710 Acquired absence of both cervix and uterus; Z90.722 Acquired absence of ovaries, bilateral
CPT/HCPCS: 36415; 71045; 71275; 80053; 80061; 81001; 82306; 82607; 83036; 83540; 83550; 83735; 84436; 84439; 84443; 84480; 85007; 85025; 85379; 86592; 93005; Q9967; 97110; 97116; 97535; 99285-25

== ENCOUNTER 2019-09-28 15:22 | Inpatient (IN) | payer MEDICARE, OTHER ==
[~2019-09-28] VITALS: Ht 165.1 cm; Wt 47.6 kg
[~2019-09-28 15:22] MED LIST changes: +ACET500T68 PO; +MAG355OR11 PO; +METH28OI2 TP; +MIRT7.5T8 PO; +SERT50TA PO
[2019-09-28] MEDS ORDERED: ALBUTEROL SULFATE 2.5 MG/3 ML NEBU. NEB PRN (15:30)
[2019-09-28 15:35] VITALS: BP 169/82
[2019-09-28 15:39] LABS: BGAS PH 7.39 (7.35-7.45)
[2019-09-28] MEDS: IPRATRPIUM/ALBUTEROL 0.5/2.5MG 3 ML NEBU. NEB SCH ×2 (15:39→20:01)
[2019-09-28] MEDS ORDERED: SODIUM CHLORIDE 0.65% NASAL SPRAY 45ML BOTTLE. NS PRN (15:45)
[2019-09-28] MEDS ORDERED: MAG HYDROX/AL HYDROX/SIMETH 30 ML ORAL.SUSP PO PRN (15:45)
[2019-09-28] MEDS ORDERED: traZODone 50 MG TABLET. PO PRN (15:45)
[2019-09-28] MEDS ORDERED: MAGNESIUM HYDROXIDE 2,400 MG/30 ML ORAL.SUSP. PO PRN (15:45)
[2019-09-28] MEDS ORDERED: ACETAMINOPHEN 325 MG TABLET PO PRN (15:45)
[2019-09-28] MEDS ORDERED: ONDANSETRON ODT 4 MG TAB.RAPDIS PO PRN (16:00)
[2019-09-28] MEDS: METHYL SALICYLATE/MENTHOL TOPICAL OINTMENT 57GM TUBE. TP SCH ×2 (16:21→20:04)
[2019-09-28] MEDS: CARVEDILOL 6.25 MG TABLET PO SCH (16:34)
[2019-09-28] MEDS: ENOXAPARIN 30 MG/0.3 ML SYRINGE. SQ SCH (16:35)
[2019-09-28] MEDS: IV NORMAL SALINE 1,000ML 1,000 ML IV SCH (16:35)
[2019-09-28] MEDS: PIPERACILLIN/TAZOBACTAM 3.375 GM in IV NORMAL SALINE 50ML 50 ML IV SCH ×2 (16:35→22:08)
--- NOTE | 2019-09-28 17:06 | HP ---
ADMIT DATE: 09/28/2019 HISTORY OF PRESENT ILLNESS: The patient is a 74-year-old female patient, who was at [facility] for inpatient psychiatric stabilization. The nursing staff stated that she has been markedly hypoxic and short of breath. Her oxygen saturation was 76% and even with 3 liters of oxygen, she continued to be hypoxic at 85%. So, we did actually order lab work as well as the imaging studies. Her white cell count was slightly high at 10,600. Her chemistry showed that her BUN was slightly elevated, however, is generally unremarkable. Her D-dimer was high at 0.95. Urinalysis was essentially unremarkable. We did a CT angio of the chest. Her chest x-ray was read as remarkable. The cardiomediastinal silhouette is similar in appearance. Lungs are clear. Portion of the left hemithorax were excluded from the radiograph. There is resistant hyperexpansion of the lungs. However, given her hypoxia and elevated D-dimer and the fact that she has been nonweightbearing. Had a recent hip surgery. We did CT angiography of the chest, which basically showed no evidence of pulmonary embolism; however, she has patchy airspace opacities identified in the right middle lobe, right lower lobe, and left lower lobe of the lung, likely atelectasis or infiltrate. Followup the resolution. There is a filling and opacification of the right lower lobe bronchial branches and could be secondary to secretions. There is cortical step-off identified in the proximal sternum, probably due to motion artifact or sternal fracture. She has prominent nodule of her breast tissue identified in the right breast in the retroareolar region, measuring 2.2 cm. Recommend followup nonemergent mammogram and ultrasound. Given she has hypoxia and the finding of infiltrate in her right middle and lower lobe and left lower lobe, the patient was transferred to [address] [place] [address] with diagnosis of the healthcare-associated pneumonia, COPD exacerbation, and acute hypoxic respiratory failure, she was started on IV antibiotic in the form of vancomycin and Zosyn as well as Solu-Medrol and bronchodilator. PAST MEDICAL HISTORY: Significant for hypertension and chronic obstructive pulmonary disease. She also has hypothyroidism as well as anemia and dementia. PAST SURGICAL HISTORY: Significant for total abdominal hysterectomy, bilateral salpingo-oophorectomy, appendectomy, and tonsillectomy. She also has a history of esophagogastroduodenoscopy and colonoscopy and most recently fall with left hip fracture, status post the open reduction and internal fixation. She also has pancreatitis attributed to her dementia medication. ALLERGIES: She is allergic to ARICEPT and NAMENDA as well as the DEPAKOTE, as they have caused her pancreatitis, but she has no known drug allergy in the pure technical terms. FAMILY HISTORY: Noncontributory. SOCIAL HISTORY: She is and has 1 daughter. She does not smoke, drink alcohol, or use recreational drugs. MEDICATIONS: She is currently on following medications: She is on ferrous sulfate 325 mg twice a day, carvedilol 6.25 mg twice a day, amlodipine besylate 5 mg daily, aspirin 81 mg once a day, analgesic balm 1 gram topically 4 times a day, hydrocodone/APAP 5/325 one tablet every 6 hours, and acetaminophen 650 mg every 4 hours. She is on mirtazapine 7.5 mg at bedtime and sertraline 50 mg daily. She is on trazodone 50 mg at bedtime as needed. She is on olanzapine 2.5 mg every 2 hours as needed for anxiety and agitation and buspirone 10 mg twice a day. She is on Starke nasal spray one spray to each nostril every 4 hours, Maalox 15 mL after meals and as needed, milk of magnesia 30 mL p.o. daily p.r.n. for constipation, ondansetron 4 mg p.o. every 6 hours as needed, levothyroxine sodium 25 mcg once a day, vitamin B complex 1 tablet once a day, ascorbic acid 500 mg twice a day, multivitamin once a day, and melatonin 3 mg at bedtime. PHYSICAL EXAMINATION: GENERAL: When I examined her, the patient was sitting in her wheelchair, pale. No jaundice, cyanosis, or thyromegaly. No jugular venous distention. No limb edema. VITAL SIGNS: Her heart rate was 81, blood pressure was 157/89, temperature was 97.8, respiratory rate was 20, and oxygen saturation was 81% on 3 liters of oxygen, it was 98% on 12 liters by nonrebreather mask. HEAD, EYES, EARS, NOSE, AND THROAT: Showed normocephalic and atraumatic. NECK: Supple. HEART: Normal first and second heart sounds. There were no gallop or murmur. CHEST: Clear to auscultation. No crepitation. No rhonchi. Chest shows central trachea, equally reduced expansion, reduced air entry, vesicular sounds, bilateral basal crepitation. I could not appreciate any rhonchi. ABDOMEN: Distended, soft, and nontender. NEUROLOGIC: She is demented, but without any obvious lateralizing sign. She is mostly bedbound. She has been nonweightbearing, as she recently underwent the open reduction and internal fixation of her right hip fracture. LABORATORY WORK: Before she was transferred to [address] [place] [address], showed the white cell count of 10,600, hemoglobin 11.8, hematocrit 36, MCV at 98, and platelet count was 369,000. Her chemistry showed a serum sodium of 142, potassium 3.9, chloride 102, bicarbonate 29, an anion gap of 11, BUN 30, and creatinine 1.1. Estimated GFR was 48 mL per minute. Her glucose was 89 and calcium was 9.4. Total bilirubin, AST, and ALT were normal. Alkaline phosphatase was slightly elevated. Total protein was 8.1 and albumin was 3.4. Her vitamin B12 was 541 and 25-hydroxy vitamin D was 41. TSH was 1.29 and total T4 and total T3 are normal. Her blood gases showed a pH of 7.39, a pCO2 of 48, pO2 of 73, bicarbonate 29, oxygen saturation was 94 on FiO2 of 100%. Urinalysis was essentially unremarkable and her D-dimer was elevated at 0.95. CT angio of the chest showed that it was negative for pulmonary emboli; however, she has patchy airspace opacities identified in the right middle lobe, right lower lobe, and left lower lobe of the lung, likely atelectasis or infiltrate. She does have a cortical step-off identified in the proximal sternum, probably due to motion artifact versus sternal fracture and she has a prominent nodule or breast tissue identified in the right breast in the retroareolar region, measuring 2.2 cm. Recommended follow up with nonemergent mammogram and/or ultrasound. We will obviously continue with IV antibiotic, continue with IV Solu-Medrol, nebulized therapy, Mucinex, Singulair, and DVT prophylaxis with Lovenox. I will also continue with the normal saline at perhaps 75 mL, as she has had a CT angio and her BUN was slightly elevated as well as her creatinine. JEREMIE DONNELLY MD DR: Janett JOB#: [id number] / [id number]
[2019-09-28 19:25] VITALS: BP 153/82
[2019-09-28] MEDS: LACTOBACILLUS RHAMNOSUS GG 1 CAPSULE. PO SCH (20:03)
[2019-09-28] MEDS: ASCORBIC ACID 500 MG TABLET PO SCH (20:03)
[2019-09-28] MEDS: ASPIRIN ENTERIC COATED 81 MG TABLET.DR. PO SCH (20:03)
[2019-09-28] MEDS: FERROUS SULFATE 325 MG TABLET. PO SCH (20:03)
[2019-09-28] MEDS: MELATONIN 3 MG TABLET PO PRN (20:03)
[2019-09-28] MEDS: MONTELUKAST 10 MG TABLET. PO SCH (20:03)
[2019-09-28] MEDS: ACETAMINOPHEN 500 MG TABLET PO SCH (20:04)
[2019-09-28] MEDS ORDERED: busPIRone 10 MG TABLET. PO SCH (21:00)
[2019-09-28] MEDS ORDERED: MIRTAZAPINE 7.5 MG TABLET. PO SCH (21:00)
[2019-09-28] MEDS ORDERED: traZODone 50 MG TABLET. PO SCH (21:00)
[2019-09-28] MEDS: methylPREDNISolone SOD SUCC PF 40 MG/ML VIAL. IV SCH (22:09)
[2019-09-28 22:45] VITALS: BP 108/59
[2019-09-29] MEDS: IPRATRPIUM/ALBUTEROL 0.5/2.5MG 3 ML NEBU. NEB SCH ×4 (05:16→20:00)
[2019-09-29] MEDS: methylPREDNISolone SOD SUCC PF 40 MG/ML VIAL. IV SCH ×3 (05:53→21:44)
[2019-09-29] MEDS: LEVOTHYROXINE 25 MCG TABLET. PO SCH (05:53)
[2019-09-29] MEDS: IV NORMAL SALINE 1,000ML 1,000 ML IV SCH ×2 (05:53→20:11)
[2019-09-29] MEDS: PIPERACILLIN/TAZOBACTAM 3.375 GM in IV NORMAL SALINE 50ML 50 ML IV SCH ×3 (05:53→21:44)
[2019-09-29 06:05] VITALS: BP 108/68
[2019-09-29 06:43] LABS: HEMATOCRIT 30.8 % (36.0-47.0); HEMOGLOBIN 9.8 g/dL (12.0-15.5); RED BLOOD COUNT 3.14 x10^6/uL (3.50-5.40); RED CELL DISTRIBUTION WIDTH 13.5 % (11.5-14.5); WHITE BLOOD COUNT 14.4 x10^3/uL (4.0-11.0)
[2019-09-29 07:29] LABS: ALBUMIN 2.3 g/dL (3.4-5.0); ALBUMIN/GLOBULIN RATIO 0.6 (1.0-1.7); CALCIUM 8.1 mg/dL (8.5-10.1); CREATININE 1.3 mg/dL (0.6-1.0); POTASSIUM 3.9 mmol/L (3.5-5.1); TOTAL BILIRUBIN 0.7 mg/dL (0.2-1.0)
[2019-09-29] MEDS: VITAMIN B COMPLEX CAPSULE. PO SCH (08:29)
[2019-09-29] MEDS: LACTOBACILLUS RHAMNOSUS GG 1 CAPSULE. PO SCH ×2 (08:29→20:13)
[2019-09-29] MEDS: FERROUS SULFATE 325 MG TABLET. PO SCH ×2 (08:29→20:13)
[2019-09-29] MEDS: CARVEDILOL 6.25 MG TABLET PO SCH ×2 (08:29→17:00)
[2019-09-29] MEDS: ACETAMINOPHEN 500 MG TABLET PO SCH ×2 (08:30→20:13)
[2019-09-29] MEDS: amLODIPine BESYLATE 5 MG TABLET PO SCH (08:30)
[2019-09-29] MEDS: MULTIVITAMIN with MINERAL TABLET. PO SCH (08:30)
[2019-09-29] MEDS: METHYL SALICYLATE/MENTHOL TOPICAL OINTMENT 57GM TUBE. TP SCH ×2 (09:00→13:00)
[2019-09-29] MEDS ORDERED: SERTRALINE 50 MG TABLET. PO SCH (09:00)
[2019-09-29] MEDS: ASCORBIC ACID 500 MG TABLET PO SCH ×2 (09:10→20:12)
--- NOTE | 2019-09-29 11:28 | PN ---
DATE: 09/29/2019 SUBJECTIVE: The patient is resting slightly propped up in bed, in no apparent distress, awake, alert, continued to be confused, questioning her, denied any complaint. Nursing staff did not voice any concerns that she has an uneventful night. PHYSICAL EXAMINATION: GENERAL: When I examined her, she was pale, cachectic, no jaundice or cyanosis. No lymphadenopathy, no thyromegaly. No jugular venous distension. No lower limb edema. VITAL SIGNS: Her heart rate was 73, blood pressure was 108/68, temperature was 98, respiratory rate was 18 and oxygen saturation was 96% on 4 liters of oxygen. HEAD, EYES, EARS, NOSE AND THROAT: Showed normocephalic, atraumatic. NECK: Supple. HEART: Showed normal first and second heart sounds. No gallop or murmur. CHEST: Shows central trachea, equally reduced expansion, reduced air entry, vesicular sounds with crepitation mostly in the right side posteriorly and a very few scattered rhonchi. ABDOMEN: Scaphoid, soft, nontender. NEUROLOGICALLY: She is demented without any obvious lateralizing sign. Her intake over the last 24 hours and output incompletely recorded. LABORATORY DATA: Her lab work this morning showed a white cell count 14,400, hemoglobin 10, hematocrit 30, MCV 98 and platelet count 253,000. Serum sodium was 144, potassium 3.9, chloride 105, bicarbonate 29, anion gap of 10, BUN 26, creatinine 1.3, estimated GFR was 40 mL per minute. Her glucose was 135, calcium was 8.1. Total bilirubin, AST, ALT, alkaline phosphatase were normal. Total protein 6, albumin 2.3. Blood gases as of yesterday showed a pH of 7.39, pCO2 of 48, pO2 of 73, bicarbonate 29, oxygen saturation was 94%. ASSESSMENT: 1. Acute hypoxic respiratory failure. 2. Chronic obstructive pulmonary disease exacerbation. 3. Healthcare-associated pneumonia. 4. Hypertension. 5. Hypothyroidism. 6. Anemia. 7. Dementia. Plan is to continue with IV antibiotic, continue with IV Solu-Medrol, continue with bronchodilator, continue with DVT prophylaxis. JEREMIE DONNELLY MD DR: LILLY/papa JOB#: [id number] / [id number]
[2019-09-29] MEDS ORDERED: METHYL SALICYLATE/MENTHOL TOPICAL OINTMENT 57GM TUBE. TP PRN (14:00)
[2019-09-29 15:11] VITALS: BP 85/50
[2019-09-29] MEDS: ENOXAPARIN 30 MG/0.3 ML SYRINGE. SQ SCH (16:57)
[2019-09-29 19:00] VITALS: BP 101/62
[2019-09-29] MEDS: MONTELUKAST 10 MG TABLET. PO SCH (20:12)
[2019-09-29] MEDS: ASPIRIN ENTERIC COATED 81 MG TABLET.DR. PO SCH (20:13)
[2019-09-29] MEDS: MELATONIN 3 MG TABLET PO PRN (20:13)
[2019-09-29 22:36] VITALS: BP 95/59
[2019-09-30] MEDS: IPRATRPIUM/ALBUTEROL 0.5/2.5MG 3 ML NEBU. NEB SCH ×4 (05:20→21:35)
[2019-09-30 06:08] VITALS: BP 118/71
[2019-09-30] MEDS: methylPREDNISolone SOD SUCC PF 40 MG/ML VIAL. IV SCH ×3 (06:19→21:59)
[2019-09-30] MEDS: PIPERACILLIN/TAZOBACTAM 3.375 GM in IV NORMAL SALINE 50ML 50 ML IV SCH ×3 (06:19→21:59)
[2019-09-30] MEDS: LEVOTHYROXINE 25 MCG TABLET. PO SCH (06:20)
[2019-09-30] MEDS: MULTIVITAMIN with MINERAL TABLET. PO SCH (07:46)
[2019-09-30] MEDS: LACTOBACILLUS RHAMNOSUS GG 1 CAPSULE. PO SCH ×2 (07:46→21:58)
[2019-09-30] MEDS: ASCORBIC ACID 500 MG TABLET PO SCH ×2 (07:47→21:57)
[2019-09-30] MEDS: VITAMIN B COMPLEX CAPSULE. PO SCH (07:47)
[2019-09-30] MEDS: ACETAMINOPHEN 500 MG TABLET PO SCH ×2 (07:47→21:58)
[2019-09-30] MEDS: FERROUS SULFATE 325 MG TABLET. PO SCH ×2 (07:47→21:57)
[2019-09-30] MEDS: CARVEDILOL 6.25 MG TABLET PO SCH ×2 (08:00→17:00)
[2019-09-30] MEDS: amLODIPine BESYLATE 5 MG TABLET PO SCH (09:00)
[2019-09-30] MEDS: IV NORMAL SALINE 1,000ML 1,000 ML IV SCH ×2 (12:59→21:20)
[2019-09-30 16:00] VITALS: BP 128/71
[2019-09-30] MEDS: ENOXAPARIN 30 MG/0.3 ML SYRINGE. SQ SCH (17:05)
[2019-09-30 19:14] VITALS: BP 128/81
--- NOTE | 2019-09-30 20:51 | PDOC ---
Exam Note: Piyush Note: Please also refer to the separate dictated note~for this date of service dictated separately.~Patient seen individually. Discussed the patient with Nursing staff reviewed the chart.~Reviewed interim history and current functioning. Reviewed vital signs,~Labs/ Radiology~and current medications noted below. Continue current treatment with the changes noted in the dictated addendum note Assessment: Vital Signs/I&O: Vital Signs Date Time Temp Pulse Resp B/P (MAP) Pulse Ox O2 Delivery O2 Flow Rate FiO2 09/30/19 19:14 97.4 80 18 128/81 (97) 93 Nasal Cannula 3.5 I & O 09/29/19 09/29/19 09/30/19 15:00 23:00 07:00 Intake Total 1470 ml 733 ml Balance 1470 ml 733 ml Current Medications: I have reviewed the current psychotropics carefully including drug interactions. Risk benefit ratio favors no change other than as noted in my dictated progress note. Diagnosis: Problems: (1) Anxiety disorder (2) Dementia, vascular, with depression (3) Dementia, vascular, with delusions (4) Dementia in Alzheimer's disease with depression (5) Dementia in Alzheimer's disease with delusions (6) Impulse control disorder DEB BELL MD Sep 30, 2019 20:51
[2019-09-30] MEDS ORDERED: traZODone 50 MG TABLET. PO PRN ×2 (21:30)
[2019-09-30] MEDS: ASPIRIN ENTERIC COATED 81 MG TABLET.DR. PO SCH (21:57)
[2019-09-30] MEDS: traZODone 50 MG TABLET. PO PRN (21:58)
[2019-09-30] MEDS: MELATONIN 3 MG TABLET PO PRN (21:58)
[2019-09-30] MEDS: MONTELUKAST 10 MG TABLET. PO SCH (21:58)
--- NOTE | 2019-09-30 22:47 | PN ---
DATE: 09/30/2019 SUBJECTIVE: The patient is resting slightly propped up in bed, extremely confused, very forgetful; however, she denied any chest pain or shortness of breath, cough, phlegm. PHYSICAL EXAMINATION: GENERAL: When I examined her, she was resting slightly propped up in bed, in no apparent distress, pale, cachectic, but no jaundice, cyanosis, or thyromegaly. No jugular venous distension. No limb edema. VITAL SIGNS: Her heart rate was 81, blood pressure was 157/89, temperature was 97.8, respiratory rate 20, and oxygen saturation was 90%. HEAD, EYES, EARS, NOSE AND THROAT: Normocephalic, atraumatic. NECK: Supple. HEART: Showed normal first and second heart sounds. No gallop, rub or murmur. CHEST: Shows central trachea, equally reduced expansion, reduced air entry, vesicular sounds with crepitation mostly on the right side and to less extent to the left side posteriorly. I could not appreciate any rhonchi. ABDOMEN: Scaphoid, soft, nontender. NEUROLOGIC: She is demented, but without any obvious lateralizing sign. All her cranial nerves intact. She moves extremities without difficulty. Her intake and output incompletely recorded. LABORATORY DATA: Her most recent lab work showed her white cell count was 14,400, hemoglobin 10, hematocrit 30, MCV 98 and platelet count 253,000. Her serum sodium 144, potassium 3.9, chloride 105, bicarbonate 29, anion gap of 10, BUN 26, creatinine 1.3, estimated GFR was 40 mL per minute. Her glucose 135, calcium was 8.1. Total bilirubin, AST, ALT, alkaline phosphatase were normal. Total protein 6, albumin 2.3. Blood gases showed that her pH was normal at 7.39, pCO2 of 48, pO2 of 73, bicarbonate 29, oxygen saturation was 94% on FiO2 of 100%. ASSESSMENT: 1. Acute hypoxic respiratory failure. 2. Chronic obstructive pulmonary disease exacerbation. 3. Healthcare-associated pneumonia. 4. Hypertension. 5. Hypothyroidism. 6. Anemia. 7. Dementia. PLAN: To continue with IV antibiotic. Continue IV Solu-Medrol. Continue with bronchodilator. Continue with DVT prophylaxis. Continue with all other medications. I will add incentive spirometry and flutter valve if available. JEREMIE DONNELLY MD DR: LILLY/papa JOB#: [id number] / [id number]
[2019-09-30 22:52] VITALS: BP 101/66
--- NOTE | 2019-10-01 00:55 | PN ---
DATE: 09/29/2019 This late entry, 09/29, covers elements not covered in my initial note. SUBJECTIVE: I met with the patient evening of 09/29, room [address], [address] [place] [address]. I have been asked to follow the patient from a psychiatric standpoint at request of Dr. Spring after the patient was transferred to [address] [place] [address] Medical/Surgical floor from [facility] due to pneumonia. While on the unit, the patient remains confused, anxious, restless, forgetful, somewhat intrusive and I have been asked to consult to follow her and make suggestions for changes in her psychotropics. REVIEW OF SYSTEMS: No CV, , pulmonary, eye system symptoms on review. Gait unsteady. MENTAL STATUS EXAM: Oriented to herself. Insight, judgment, recent and remote memory, attention, concentration, fund of knowledge poor, consistent with her diagnosis. IMPRESSION: Major neurocognitive disorder, Alzheimer, vascular with delusion, depression, behavioral disturbance; anxiety disorder, unspecified; impulse control disorder, unspecified. Rest unchanged. PLAN: We will continue current psychotropics. We will make changes as clinically indicated. DEB BELL MD DR: DINORA/papa JOB#: [id number] / [id number]
[2019-10-01] MEDS: IPRATRPIUM/ALBUTEROL 0.5/2.5MG 3 ML NEBU. NEB SCH ×4 (05:13→23:14)
[2019-10-01 05:38] VITALS: BP 132/70
[2019-10-01] MEDS: PIPERACILLIN/TAZOBACTAM 3.375 GM in IV NORMAL SALINE 50ML 50 ML IV SCH ×3 (06:15→22:00)
[2019-10-01] MEDS: LEVOTHYROXINE 25 MCG TABLET. PO SCH (06:15)
[2019-10-01] MEDS: methylPREDNISolone SOD SUCC PF 40 MG/ML VIAL. IV SCH ×3 (06:15→16:49)
[2019-10-01] MEDS: IV NORMAL SALINE 1,000ML 1,000 ML IV SCH (06:33)
[2019-10-01 07:49] LABS: HEMATOCRIT 29.3 % (36.0-47.0); HEMOGLOBIN 9.6 g/dL (12.0-15.5); RED BLOOD COUNT 3.03 x10^6/uL (3.50-5.40); RED CELL DISTRIBUTION WIDTH 13.9 % (11.5-14.5)
[2019-10-01] MEDS: CARVEDILOL 6.25 MG TABLET PO SCH ×2 (08:00→17:00)
[2019-10-01 08:02] LABS: CALCIUM 8.2 mg/dL (8.5-10.1); CREATININE 1.4 mg/dL (0.6-1.0); GFR 36.8
[2019-10-01 08:15] LABS: POTASSIUM 2.7 mmol/L (3.5-5.1)
[2019-10-01] MEDS: ASCORBIC ACID 500 MG TABLET PO SCH ×2 (08:20→20:43)
[2019-10-01] MEDS: VITAMIN B COMPLEX CAPSULE. PO SCH (08:20)
[2019-10-01] MEDS: LACTOBACILLUS RHAMNOSUS GG 1 CAPSULE. PO SCH ×2 (08:20→20:42)
[2019-10-01] MEDS: FERROUS SULFATE 325 MG TABLET. PO SCH ×2 (08:20→20:42)
[2019-10-01] MEDS: amLODIPine BESYLATE 5 MG TABLET PO SCH (08:21)
[2019-10-01] MEDS: ACETAMINOPHEN 500 MG TABLET PO SCH ×2 (08:21→20:42)
[2019-10-01] MEDS: MULTIVITAMIN with MINERAL TABLET. PO SCH (08:21)
[2019-10-01] MEDS ORDERED: POTASSIUM CHLORIDE 10MEQ 100 ML IV SCH (08:30)
[2019-10-01] MEDS ORDERED: POTASSIUM CHLORIDE 20 MEQ TABLET.ER. PO ONE ×2 (09:45→18:45)
[2019-10-01 11:00] VITALS: BP 115/68
[2019-10-01 14:38] VITALS: BP 131/74
[2019-10-01] MEDS: ENOXAPARIN 30 MG/0.3 ML SYRINGE. SQ SCH (17:01)
[2019-10-01 17:50] LABS: CALCIUM 8.4 mg/dL (8.5-10.1); CREATININE 1.5 mg/dL (0.6-1.0); GFR 33.9
[2019-10-01 19:00] VITALS: BP 128/72
--- NOTE | 2019-10-01 20:14 | PN ---
DATE: 09/30/2019 PSYCHIATRIC PROGRESS NOTE SUBJECTIVE: The patient was seen on rounds evening of 09/30/2019. I met with her individually, discussed with nursing staff, reviewed the chart. Overall, per nursing staff, the patient remains confused, forgetful, anxious, unaware of where she is, but does redirect. She was quite repetitive as I met with her, wanting me to sit down with her as she had "many" things to talk about. REVIEW OF SYSTEMS: Ambulation impaired, some shortness of breath. No CV, GI, system symptoms on review. MENTAL STATUS EXAM: Oriented to herself. Insight, judgment, recent and remote memory, attention, concentration, fund of knowledge poor, consistent with her diagnosis mentioned in my initial note. PLAN: No change from initial note. MAN Clay BELL MD DR: DINORA/papa JOB#: [id number] / [id number]
[2019-10-01] MEDS: ASPIRIN ENTERIC COATED 81 MG TABLET.DR. PO SCH (20:42)
[2019-10-01] MEDS: MONTELUKAST 10 MG TABLET. PO SCH (20:43)
[2019-10-01] MEDS: traZODone 50 MG TABLET. PO PRN (20:43)
[2019-10-01] MEDS: MELATONIN 3 MG TABLET PO PRN (20:43)
--- NOTE | 2019-10-01 21:15 | PDOC ---
Exam Note: Piyush Note: Please also refer to the separate dictated note~for this date of service dictated separately.~Patient seen individually. Discussed the patient with Nursing staff reviewed the chart.~Reviewed interim history and current functioning. Reviewed vital signs,~Labs/ Radiology~and current medications noted below. Continue current treatment with the changes noted in the dictated addendum note Assessment: Vital Signs/I&O: Vital Signs Date Time Temp Pulse Resp B/P (MAP) Pulse Ox O2 Delivery O2 Flow Rate FiO2 10/01/19 17:00 67 131/74 10/01/19 16:01 Nasal Cannula 4.0 10/01/19 14:38 97.6 18 95 I & O 0 09/30/19 09/30/19 10/01/19 15:00 23:00 07:00 Intake Total 350 ml 470 ml 300 ml Balance 350 ml 470 ml 300 ml Labs: Laboratory Tests Test 10/01/19 06:37 10/01/19 17:20 White Blood Count 11.0 x10^3/uL (4.0-11.0) Red Blood Count 3.03 x10^6/uL (3.50-5.40) L Hemoglobin 9.6 g/dL (12.0-15.5) L Hematocrit 29.3 % (36.0-47.0) L Mean Corpuscular Volume 97 fL (79-100) Mean Corpuscular Hemoglobin 32 pg (25-35) Mean Corpuscular Hemoglobin Concent 33 g/dL (31-37) Red Cell Distribution Width 13.9 % (11.5-14.5) Platelet Count 326 x10^3/uL (140-400) Sodium Level 141 mmol/L (136-145) 141 mmol/L (136-145) Potassium Level 2.7 mmol/L (3.5-5.1) *L 3.0 mmol/L (3.5-5.1) L Chloride Level 106 mmol/L (98-107) 107 mmol/L (98-107) Carbon Dioxide Level 23 mmol/L (21-32) 23 mmol/L (21-32) Anion Gap 12 (6-14) 11 (6-14) Blood Urea Nitrogen 27 mg/dL (7-20) H 25 mg/dL (7-20) H Creatinine 1.4 mg/dL (0.6-1.0) H 1.5 mg/dL (0.6-1.0) H Estimated GFR (Cockcroft-Gault) 36.8 33.9 Glucose Level 110 mg/dL (70-99) H 140 mg/dL (70-99) H Calcium Level 8.2 mg/dL (8.5-10.1) L 8.4 mg/dL (8.5-10.1) L Current Medications: Meds: Current Medications Medications (Trade) Dose Ordered Sig/Judd Route PRN Reason Start Time Stop Time Status Last Admin Dose Admin Trazodone HCl (Desyrel) 50 mg PRN QHS PRN PO INSOMNIA, MAY REPEAT X1 09/30/19 21:30 10/01/19 20:43 Potassium Chloride (Klor-Con) 40 meq 1X ONCE PO 10/01/19 09:45 10/01/19 09:46 DC 10/01/19 09:44 Potassium Chloride (Klor-Con) 40 meq 1X ONCE PO 10/01/19 18:45 10/01/19 18:46 DC 10/01/19 20:42 I have reviewed the current psychotropics carefully including drug interactions. Risk benefit ratio favors no change other than as noted in my dictated progress note. Diagnosis: Problems: (1) Anxiety disorder (2) Dementia, vascular, with depression (3) Dementia, vascular, with delusions (4) Dementia in Alzheimer's disease with depression (5) Dementia in Alzheimer's disease with delusions (6) Impulse control disorder DEB BELL MD Oct 01, 2019 21:15
[2019-10-01 23:00] VITALS: BP 147/84
--- NOTE | 2019-10-02 00:12 | PN ---
DATE: SUBJECTIVE: The patient is resting slightly propped up in bed, in no apparent distress. She continued to be hypoxic on room air, requiring more than 4 liters to keep oxygen saturation more than 90%. She is very confused with very poor memory, but denied any chest pain, denied any cough, phlegm or hemoptysis. PHYSICAL EXAMINATION: GENERAL: When I examined her, she looked well and was clearly in no apparent respiratory distress. No pallor, jaundice, cyanosis or thyromegaly. No jugular venous distention. No limb edema. VITAL SIGNS: Her heart rate was 67, blood pressure was 131/74, temperature was 97.6, respiratory rate was 18 and oxygen saturation was 95% on 3.5 liters of oxygen. HEAD, EYES, EARS, NOSE AND THROAT: Showed normocephalic, atraumatic. NECK: Supple. HEART: Showed normal first and second heart sounds with no gallop, rub or murmur. CHEST: Clear to auscultation. No crepitation or rhonchi. ABDOMEN: Distended, soft, nontender. No guarding or rigidity. No organomegaly. All hernial orifice intact. Bowel sounds normal. NEUROLOGIC: She was demented, but without any obvious lateralizing sign. She moves extremities without difficulty. She ambulates with a walker. LABORATORY DATA: Her lab work this morning showed a white cell count of 11,000, hemoglobin 9.6, hematocrit 29, MCV 97, platelet count 326,000. Her chemistry showed a serum sodium 141, potassium 2.7, chloride 106, bicarbonate 23, anion gap of 12, BUN 27, creatinine 1.4, estimated GFR was 36.8. Blood glucose 110 and calcium was 8.2. ASSESSMENT: 1. Acute on chronic hypoxic respiratory failure. 2. Chronic obstructive pulmonary disease exacerbation. 3. Healthcare-associated pneumonia. 4. Hypertension. 5. Hypothyroidism. 6. Anemia. 7. Dementia. PLAN: My plan is to continue with antibiotics and steroids today. We will check her BMP this evening and hopefully tomorrow switch her to Augmentin and discharge her [facility]. JEREMIE DONNELLY MD DR: LILLY/papa JOB#: [id number] / [id number]
[2019-10-02] MEDS: IPRATRPIUM/ALBUTEROL 0.5/2.5MG 3 ML NEBU. NEB SCH ×2 (05:18→10:57)
[2019-10-02] MEDS: PIPERACILLIN/TAZOBACTAM 3.375 GM in IV NORMAL SALINE 50ML 50 ML IV SCH (05:39)
[2019-10-02] MEDS: LEVOTHYROXINE 25 MCG TABLET. PO SCH (05:39)
[2019-10-02 06:21] VITALS: BP 152/82
[2019-10-02 07:36] LABS: CALCIUM 8.2 mg/dL (8.5-10.1); CREATININE 1.4 mg/dL (0.6-1.0); GFR 36.8; POTASSIUM 3.3 mmol/L (3.5-5.1)
[2019-10-02] MEDS: ASCORBIC ACID 500 MG TABLET PO SCH (07:42)
[2019-10-02] MEDS: LACTOBACILLUS RHAMNOSUS GG 1 CAPSULE. PO SCH (07:42)
[2019-10-02] MEDS: MULTIVITAMIN with MINERAL TABLET. PO SCH (07:42)
[2019-10-02] MEDS: FERROUS SULFATE 325 MG TABLET. PO SCH (07:42)
[2019-10-02] MEDS: VITAMIN B COMPLEX CAPSULE. PO SCH (07:42)
[2019-10-02] MEDS: CARVEDILOL 6.25 MG TABLET PO SCH (07:43)
[2019-10-02] MEDS: amLODIPine BESYLATE 5 MG TABLET PO SCH (07:43)
[2019-10-02] MEDS: ACETAMINOPHEN 500 MG TABLET PO SCH (07:43)
[2019-10-02] MEDS ORDERED: POTASSIUM BICARB 20 MEQ EFFERVESCENT TABLET. FT ONE (08:00)
[2019-10-02] MEDS ORDERED: predniSONE 20 MG TABLET PO SCH (09:00)
[2019-10-02 10:05] VITALS: BP 119/78
[2019-10-02] MEDS ORDERED: AMOX1TAB58 PO (14:08)
[2019-10-02 14:23] VITALS: BP 160/91
--- NOTE | 2019-10-02 14:30 | DS ---
DATE OF DISCHARGE: 10/02/2019 HOSPITAL COURSE: The patient is a 74-year-old female patient who was transferred from [facility] on account of worsening hypoxia. We did actually CT angio of the chest, which showed no evidence of pulmonary emboli, but has bilateral infiltrate involving right middle, right lower lobe, and left lower lobe and therefore, she was transferred to [address] [place] [address] and was started on IV antibiotic for healthcare-associated pneumonia including both linezolid as well as Zosyn. She did actually very well. She remained afebrile throughout her stay here. Her white cell count remained normal. All her have not grown any organisms after 5 days and therefore, a decision was to switch to oral Augmentin to continue to complete the course of antibiotic therapy and was discharged to [facility] for continued inpatient psychiatric stabilization. PHYSICAL EXAMINATION: GENERAL: When I saw her today, she was sitting comfortably in her wheelchair, in no apparent distress. She continues obviously to be confused with very poor short-term memory,. She was pale, but no jaundice, cyanosis, or thyromegaly. No jugular venous distention or limb edema. VITAL SIGNS: Her heart rate was 63, blood pressure was 119/78, temperature was 97.5, respiratory rate was 20, and oxygen saturation was 96% on 3 liters of oxygen. HEAD, EYES, EARS, NOSE, AND THROAT: Showed normocephalic, atraumatic. NECK: Supple. HEART: Showed normal first and second heart sounds with no gallop, rub, or murmur. CHEST: Clear to auscultation. No crepitation or rhonchi. ABDOMEN: Distended, soft, nontender. No guarding or rigidity. No organomegaly. All hernial orifice intact. Bowel sounds normal. NEUROLOGIC: She is demented without any obvious lateralizing sign. All her cranial nerves intact. She moves extremities without difficulty; however, she is mostly bedbound, wheelchair-bound. She has recent left hip fracture and she continued to require more rehabilitation. Her intake over the last 24 hours was 1120, no output was recorded. LABORATORY DATA: Her lab work as of yesterday showed a white cell count of 11,000, hemoglobin 9.6, hematocrit 29, and platelet 326. Her chemistry showed a serum sodium 143, potassium 3.3, chloride 109, bicarbonate 24, anion gap of 10, BUN 23, creatinine 1.4, estimated GFR was 36 mL per minute. Her glucose was 97 and calcium was 8.2. DISCHARGE MEDICATIONS: She was [facility] to [facility] to continue on following medications: Augmentin 500/125 one tablet twice a day with food for 5 more days, prednisone taper, start at 40 mg once a day, trazodone 50 mg at bedtime, analgesic balm applied topically 4 times a day, vitamin B complex 1 capsule once a day, multivitamin 1 tablet once a day, amlodipine besylate 5 mg once a day, levothyroxine sodium 25 mcg daily, lactobacillus rhamnosus 1 capsule twice a day, ferrous sulfate 325 mg twice a day, aspirin 81 mg once a day, ascorbic acid 1000 mg twice a day, Tylenol 1000 mg twice a day, montelukast sodium 10 mg at bedtime, Mucinex 600 mg twice a day, carvedilol 6.25 mg twice a day, Lovenox 30 mg subcutaneously once a day, DuoNeb 3 mL by nebulizer 4 times a day, olanzapine 2.5 mg every 2 hours, melatonin 3 mg at bedtime. FINAL DISCHARGE DIAGNOSES: 1. [id number] hypoxic respiratory failure. 2. Chronic obstructive pulmonary disease exacerbation. 3. Healthcare-associated pneumonia. 4. Hypertension. 5. Hypothyroidism. 6. Anemia. 7. Dementia. 8. Hypokalemia. JEREMIE DONNELLY MD DR: LILLY/papa JOB#: [id number] / [id number]
[2019-10-02 15:11] VITALS: BP 160/83
[2019-10-02] MEDS ORDERED: POTASSIUM CHLORIDE 20 MEQ TABLET.ER. PO ONE (15:45)
[2019-10-02] MEDS ORDERED: ALBU2.5V14 NEB (16:45)
[2019-10-02] MEDS ORDERED: ENOX30DI3 SQ (16:45)
[2019-10-02] MEDS ORDERED: GUAI600T6 PO (16:45)
[2019-10-02] MEDS ORDERED: IPRA3AMP29 NEB (16:45)
[2019-10-02] MEDS ORDERED: LACT1CAP19 PO (16:45)
[2019-10-02] MEDS ORDERED: PRED20TA PO (16:45)
[2019-10-02] MEDS ORDERED: MONT10TA80 PO (16:45)
[2019-10-02] MEDS ORDERED: AMOXICILLIN/K CLAV 500/125MG TABLET. PO SCH (21:00)
--- NOTE | 2019-10-04 21:09 | PN ---
DATE: 10/01/2019 PSYCHIATRIC PROGRESS NOTE This late entry 10/01/2019 covers elements not covered in my initial note. SUBJECTIVE: Per nursing report, the patient remains confused, gets somewhat anxious, distractable, paranoid, but does redirect. She is still being treated for her pneumonia and we will have to see how her cognition and agitation does post-resolution of pneumonia. REVIEW OF SYSTEMS: Shortness of breath. No CV, GI, , eye system symptoms on review. Reliability poor. MENTAL STATUS EXAM: Oriented to herself. Insight, judgment, recent and remote memory, attention, concentration, fund of knowledge poor, consistent with her diagnosis mentioned in my initial note. PLAN: No change from initial note. MAN Clay BELL MD DR: DINORA/papa JOB#: [id number] / [id number]
== END 2019-10-02 15:55 | DRG 177 ==
LOC: 1 SOUTH 15:22
PROVIDERS: ADMIT Internal Medicine; ATTEND Internal Medicine
DX: J15.6 Pneumonia due to other Gram-negative bacteria (principal); J96.21 Acute and chronic respiratory failure with hypoxia; J44.0 Chronic obstructive pulmonary disease with (acute) lower respiratory infection; J44.1 Chronic obstructive pulmonary disease with (acute) exacerbation; J15.9 Unspecified bacterial pneumonia; D64.9 Anemia, unspecified; E03.9 Hypothyroidism, unspecified; E87.6 Hypokalemia; F01.50 Vascular dementia, unspecified severity, without behavioral disturbance, psychotic disturbance, mood disturbance, and anxiety; F02.80 Dementia in other diseases classified elsewhere, unspecified severity, without behavioral disturbance, psychotic disturbance, mood disturbance, and anxiety; F32.9 Major depressive disorder, single episode, unspecified; F41.9 Anxiety disorder, unspecified; F63.9 Impulse disorder, unspecified; G30.9 Alzheimer's disease, unspecified; I10 Essential (primary) hypertension; Y95 Nosocomial condition; Z90.710 Acquired absence of both cervix and uterus; Z88.8 Allergy status to other drugs, medicaments and biological substances
CPT/HCPCS: 36415; 80048; 80053; 82803; 85027; 94640; 94760; J1650; J2020; J2543; J2920; J7512; J7620; 97110; 97530; J7030

== ENCOUNTER 2019-10-02 15:35 | Inpatient (IN) | payer MEDICARE, OTHER ==
[~2019-10-02] VITALS: Ht 167.6 cm; Wt 47.8 kg
[~2019-10-02 15:35] MED LIST changes: +AMOX1TAB58 PO
[2019-10-02] MEDS ORDERED: GUAI600T6 PO (16:45)
[2019-10-02] MEDS ORDERED: ENOX30DI3 SQ (16:45)
[2019-10-02] MEDS ORDERED: IPRA3AMP29 NEB (16:45)
[2019-10-02] MEDS ORDERED: ALBU2.5V14 NEB (16:45)
[2019-10-02] MEDS ORDERED: PRED20TA PO (16:45)
[2019-10-02] MEDS ORDERED: MONT10TA80 PO (16:45)
[2019-10-02] MEDS ORDERED: LACT1CAP19 PO (16:45)
[2019-10-02] MEDS ORDERED: SODIUM CHLORIDE 0.65% NASAL SPRAY 45ML BOTTLE. NS PRN (17:00)
[2019-10-02] MEDS ORDERED: NON FORMULARY ITEM (Albuterol Sulfate (Albuterol Sulfate Conc Neb Soln) 2.5 MG) NEB PRN (17:00)
[2019-10-02] MEDS ORDERED: ACETAMINOPHEN 325 MG TABLET PO PRN (17:00)
[2019-10-02 17:43] VITALS: BP 160/93
[2019-10-02] MEDS ORDERED: MAGNESIUM HYDROXIDE 2,400 MG/30 ML ORAL.SUSP. PO PRN (17:45)
[2019-10-02] MEDS ORDERED: METHYL SALICYLATE/MENTHOL TOPICAL OINTMENT 57GM TUBE. TP PRN (17:45)
[2019-10-02] MEDS ORDERED: ALBUTEROL SULFATE 2.5 MG/3 ML NEBU. NEB PRN (17:45)
[2019-10-02] MEDS ORDERED: ONDANSETRON ODT 4 MG TAB.RAPDIS PO PRN (18:00)
[2019-10-02] MEDS ORDERED: ONDANSETRON ODT 4 MG TAB.RAPDIS PO SCH (18:00)
[2019-10-02] MEDS: CARVEDILOL 6.25 MG TABLET PO SCH (18:18)
[2019-10-02 19:12] VITALS: BP 164/107
[2019-10-02 19:30] VITALS: BP 165/100
[2019-10-02] MEDS: LACTOBACILLUS RHAMNOSUS GG 1 CAPSULE. PO SCH (19:55)
[2019-10-02] MEDS: ASPIRIN ENTERIC COATED 81 MG TABLET.DR. PO SCH (19:55)
[2019-10-02] MEDS: AMOXICILLIN/K CLAV 500/125MG TABLET. PO SCH (19:55)
[2019-10-02] MEDS: ASCORBIC ACID 500 MG TABLET PO SCH (19:56)
[2019-10-02] MEDS: MONTELUKAST 10 MG TABLET. PO SCH (19:56)
[2019-10-02] MEDS: ACETAMINOPHEN 500 MG TABLET PO SCH (19:56)
[2019-10-02] MEDS: FERROUS SULFATE 325 MG TABLET. PO SCH (19:56)
[2019-10-02] MEDS: IPRATRPIUM/ALBUTEROL 0.5/2.5MG 3 ML NEBU. NEB SCH (20:37)
[2019-10-02] MEDS: MELATONIN 3 MG TABLET PO PRN (22:46)
[2019-10-02] MEDS: traZODone 50 MG TABLET. PO PRN (22:46)
[2019-10-03] MEDS: LEVOTHYROXINE 25 MCG TABLET. PO SCH (04:39)
[2019-10-03] MEDS: IPRATRPIUM/ALBUTEROL 0.5/2.5MG 3 ML NEBU. NEB SCH ×4 (05:04→21:04)
[2019-10-03 05:34] VITALS: BP 144/83
[2019-10-03 08:18] LABS: BASO % 1 % (0-3); EOS # 0.1 x10^3/uL (0.0-0.7); EOS % 1 % (0-3); HEMATOCRIT 34.9 % (36.0-47.0); HEMOGLOBIN 11.2 g/dL (12.0-15.5); LYMPH # 1.1 x10^3/uL (1.0-4.8); LYMPH % 11 % (24-48); MEAN CORPUSCULAR HEMOGLOBIN 32 pg (25-35); MEAN CORPUSCULAR HGB CONC 32 g/dL (31-37); MEAN CORPUSCULAR VOLUME 99 fL (79-100); MONO # 0.3 x10^3/uL (0.0-1.1); MONO % 4 % (0-9); NEUT # 8.3 x10^3uL (1.8-7.7); NEUT % 85 % (31-73); PLATELET COUNT 405 x10^3/uL (140-400); RED BLOOD COUNT 3.54 x10^6/uL (3.50-5.40); RED CELL DISTRIBUTION WIDTH 14.1 % (11.5-14.5); WHITE BLOOD COUNT 9.8 x10^3/uL (4.0-11.0)
[2019-10-03 08:28] LABS: ALBUMIN 2.9 g/dL (3.4-5.0); ALBUMIN/GLOBULIN RATIO 0.7 (1.0-1.7); CALCIUM 8.9 mg/dL (8.5-10.1); CREATININE 1.2 mg/dL (0.6-1.0); GFR 43.9; POTASSIUM 3.6 mmol/L (3.5-5.1); TOTAL BILIRUBIN 0.5 mg/dL (0.2-1.0); TOTAL PROTEIN 6.9 g/dL (6.4-8.2)
[2019-10-03] MEDS: ACETAMINOPHEN 500 MG TABLET PO SCH ×2 (09:25→19:55)
[2019-10-03] MEDS: FERROUS SULFATE 325 MG TABLET. PO SCH ×2 (09:26→19:54)
[2019-10-03] MEDS: CARVEDILOL 6.25 MG TABLET PO SCH ×2 (09:26→17:49)
[2019-10-03] MEDS: LACTOBACILLUS RHAMNOSUS GG 1 CAPSULE. PO SCH ×2 (09:26→19:54)
[2019-10-03] MEDS: AMOXICILLIN/K CLAV 500/125MG TABLET. PO SCH ×2 (09:26→19:54)
[2019-10-03] MEDS: ASCORBIC ACID 500 MG TABLET PO SCH ×2 (09:26→19:54)
[2019-10-03] MEDS: MULTIVITAMIN I-VITE TABLET. PO SCH (09:26)
[2019-10-03] MEDS: VITAMIN B COMPLEX CAPSULE. PO SCH (09:26)
[2019-10-03] MEDS: predniSONE 20 MG TABLET PO SCH (09:27)
[2019-10-03] MEDS: ENOXAPARIN 30 MG/0.3 ML SYRINGE. SQ SCH (09:27)
[2019-10-03] MEDS: amLODIPine BESYLATE 5 MG TABLET PO SCH (09:30)
[2019-10-03 16:06] VITALS: BP 156/72
[2019-10-03] MEDS: ASPIRIN ENTERIC COATED 81 MG TABLET.DR. PO SCH (19:54)
[2019-10-03] MEDS: MONTELUKAST 10 MG TABLET. PO SCH (19:54)
[2019-10-03] MEDS: traZODone 50 MG TABLET. PO PRN (21:29)
[2019-10-03] MEDS: MELATONIN 3 MG TABLET PO PRN (21:29)
[2019-10-04] MEDS: IPRATRPIUM/ALBUTEROL 0.5/2.5MG 3 ML NEBU. NEB SCH ×4 (04:14→20:24)
[2019-10-04] MEDS: LEVOTHYROXINE 25 MCG TABLET. PO SCH (05:12)
[2019-10-04 05:46] VITALS: BP 162/88
[2019-10-04] MEDS: ASCORBIC ACID 500 MG TABLET PO SCH ×2 (08:39→19:54)
[2019-10-04] MEDS: predniSONE 20 MG TABLET PO SCH (08:39)
[2019-10-04] MEDS: VITAMIN B COMPLEX CAPSULE. PO SCH (08:39)
[2019-10-04] MEDS: FERROUS SULFATE 325 MG TABLET. PO SCH ×2 (08:40→19:54)
[2019-10-04] MEDS: MULTIVITAMIN I-VITE TABLET. PO SCH (08:40)
[2019-10-04] MEDS: AMOXICILLIN/K CLAV 500/125MG TABLET. PO SCH ×2 (08:40→19:54)
[2019-10-04] MEDS: amLODIPine BESYLATE 5 MG TABLET PO SCH (08:40)
[2019-10-04] MEDS: LACTOBACILLUS RHAMNOSUS GG 1 CAPSULE. PO SCH ×2 (08:40→19:54)
[2019-10-04] MEDS: CARVEDILOL 6.25 MG TABLET PO SCH ×2 (08:40→17:32)
[2019-10-04] MEDS: ACETAMINOPHEN 500 MG TABLET PO SCH ×2 (08:41→19:54)
[2019-10-04] MEDS: ENOXAPARIN 30 MG/0.3 ML SYRINGE. SQ SCH (08:41)
--- NOTE | 2019-10-04 11:32 | PSYEV ---
DATE OF SERVICE: 10/02/2019 REASON FOR ADMISSION: This 74-year-old female was readmitted to unit 6 from the medical floor at [place], [place] after treatment for pneumonia with antibiotics. The patient apparently was an inpatient on the [facility] from 11/16/2015 and discharged on 11/28/2015. HISTORY OF PRESENT ILLNESS: The patient has a long history of bipolar disorder with periods of depression and manic behaviors and was seen by Dr. Hutchison for several years and then she was transferred to the psychiatrist at [place] because of the distance involved traveling. The patient apparently did fairly well over a period of time. The patient was lately having increased behavior problems, manic behaviors and apparently she went to [facility] and referred to [facility]. The patient is beginning to show symptoms of dementia. The patient also has induction of impulsive behaviors, apparently took off in her sister's car to [place]. She was barefoot and was found in the store. The patient apparently lost a lot of weight, not sleeping. The patient apparently was maintained fairly well on Lamictal for a period of time and also she was on antipsychotic drugs. The patient also had multiple physical complaints in the past including eating disorder. The patient apparently had several hospitalizations to [facility] because of not eating and having abdominal discomfort and she was at one time diagnosed with ulcerative colitis. PAST PSYCHIATRIC HISTORY: The patient had been hospitalized to [facility] several years ago with the depression and the patient has been under psychiatric care for the past 15 years. CURRENT MEDICATIONS: Include Lamictal 50 mg at bedtime, Remeron 30 mg at bedtime as needed and Zyprexa 7.5 mg at bedtime and Lexapro 10 mg daily. PAST MEDICAL HISTORY: Abdominal hysterectomy, bilateral salpingo-oophorectomy, appendectomy and tonsillectomy. The patient apparently was seeing a ore dressing engineer for her abdominal problems. Apparently at one time, she was diagnosed with ulcerative colitis. Alcohol and substance abuse, denies. PSYCHOSOCIAL HISTORY: The patient is . is very supportive. SOCIAL HISTORY: The patient has one daughter. She is an ex-smoker. Denies of any alcohol or substance abuse. 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 FAMILY HISTORY: The patient has 1 brother and 3 sisters and both parents are . No history of bipolar disorder. MENTAL STATUS EXAMINATION: The patient appeared to be of her stated age, currently on wheelchair and also on oxygen. The patient apparently has lost a lot of weight. The patient is able to recognize the undersigned by the name. The patient admits that she has been having problems with memory fairly significant and she did know that she was in the hospital. The patient also is not sleeping well, decreased appetite. The patient's speech is clear, monotone, decreased rate and rhythm. Her affect and mood showed she is pleasant, not depressed. No manic symptoms. No evidence of any delusional thinking, but significant cognitive deficits. She is disoriented to her surroundings. Her memory is impaired for both past and present, but she is able to recall few things from the past. The patient's judgment is impaired. Insight limited. The patient appears to be functioning on an average level of intelligence. STRENGTHS: Fairly in good health for her age. Supportive family. WEAKNESSES: The patient apparently has been noncompliant with treatment in the past. There is lot of anxiety about taking medications, but she was able to stay on it fairly regularly in the past few years. DIAGNOSTIC IMPRESSION: AXIS I: 1. Bipolar disorder, in partial remission. 2. Major neurocognitive disorder, most likely vascular with confusion and behavior problems. 3. Generalized anxiety disorder. AXIS II: None. AXIS III: Hypertension, hypothyroidism, anemia, recent treatment for pneumonia, history of ulcerative colitis. INITIAL TREATMENT PLAN: The patient will be involved in the treatment program including individual therapy, group therapy, and activity therapy. CURRENT MEDICATIONS: Include prednisone 40 mg daily that she has been on for several years. The patient is also on Lovenox 30 mg daily, amlodipine 5 mg daily, levothyroxine 25 mcg daily, Singulair 10 mg at night, ferrous sulfate 325 mg b.i.d., aspirin 81 mg daily, trazodone 50 mg at bedtime p.r.n., Zyprexa 2.5 mg q. 2 hours p.r.n., melatonin 3 mg at night p.r.n., carvedilol 6.25 mg b.i.d. LENGTH OF STAY: 7-10 days. FLAVIA HUTCHISON MD DR: Fritz JOB#: [id number] / [id number]
[2019-10-04 15:48] VITALS: BP 140/90
[2019-10-04] MEDS: ASPIRIN ENTERIC COATED 81 MG TABLET.DR. PO SCH (19:54)
[2019-10-04] MEDS: MONTELUKAST 10 MG TABLET. PO SCH (19:54)
[2019-10-04] MEDS: OXYBUTYNIN CHLORIDE 5 MG TABLET PO SCH (19:54)
--- NOTE | 2019-10-04 21:05 | PDOC ---
Exam Note: Piyush Note: Please also refer to the separate dictated note~for this date of service dictated separately. Discussed the patient with Nursing staff reviewed the chart.~Reviewed interim history and current functioning. Reviewed vital signs,~Labs/ Radiology~and current medications noted below. Continue current treatment with the changes noted in the dictated addendum note Assessment: Vital Signs/I&O: Vital Signs Date Time Temp Pulse Resp B/P (MAP) Pulse Ox O2 Delivery O2 Flow Rate FiO2 10/04/19 20:25 98 Room Air 10/04/19 17:32 83 140/90 10/04/19 15:48 97.4 16 10/03/19 11:48 1.0 I & O 10/03/19 10/03/19 10/04/19 14:59 22:59 06:59 Intake Total 200 ml 240 ml 120 ml Balance 200 ml 240 ml 120 ml Current Medications: Meds: Current Medications Medications (Trade) Dose Ordered Sig/Judd Route PRN Reason Start Time Stop Time Status Last Admin Dose Admin Oxybutynin Chloride (Ditropan) 5 mg BID PO 10/04/19 21:00 10/04/19 19:54 I have reviewed the current psychotropics carefully including drug interactions. Risk benefit ratio favors no change other than as noted in my dictated progress note. Diagnosis: Problems: (1) Impulse control disorder (2) Dementia, vascular, with delusions (3) Dementia, vascular, with depression (4) Anxiety disorder (5) Dementia in Alzheimer's disease with depression DEB BELL MD Oct 04, 2019 21:05
[2019-10-04] MEDS: traZODone 50 MG TABLET. PO PRN ×2 (21:31→23:43)
[2019-10-04] MEDS: MELATONIN 3 MG TABLET PO PRN ×2 (21:31→23:43)
[2019-10-05] MEDS: IPRATRPIUM/ALBUTEROL 0.5/2.5MG 3 ML NEBU. NEB SCH ×4 (05:04→21:00)
[2019-10-05 05:12] VITALS: BP 165/91
[2019-10-05] MEDS: LEVOTHYROXINE 25 MCG TABLET. PO SCH (05:52)
[2019-10-05] MEDS: ENOXAPARIN 30 MG/0.3 ML SYRINGE. SQ SCH (08:31)
[2019-10-05] MEDS: MULTIVITAMIN I-VITE TABLET. PO SCH (08:32)
[2019-10-05] MEDS: predniSONE 20 MG TABLET PO SCH (08:32)
[2019-10-05] MEDS: amLODIPine BESYLATE 5 MG TABLET PO SCH (08:32)
[2019-10-05] MEDS: OXYBUTYNIN CHLORIDE 5 MG TABLET PO SCH ×2 (08:32→19:35)
[2019-10-05] MEDS: VITAMIN B COMPLEX CAPSULE. PO SCH (08:32)
[2019-10-05] MEDS: ASCORBIC ACID 500 MG TABLET PO SCH ×2 (08:32→19:37)
[2019-10-05] MEDS: LACTOBACILLUS RHAMNOSUS GG 1 CAPSULE. PO SCH ×2 (08:32→19:36)
[2019-10-05] MEDS: AMOXICILLIN/K CLAV 500/125MG TABLET. PO SCH ×2 (08:32→19:36)
[2019-10-05] MEDS: FERROUS SULFATE 325 MG TABLET. PO SCH ×2 (08:32→19:35)
[2019-10-05] MEDS: ACETAMINOPHEN 500 MG TABLET PO SCH ×2 (08:33→19:37)
[2019-10-05] MEDS: CARVEDILOL 6.25 MG TABLET PO SCH ×2 (08:33→16:29)
--- NOTE | 2019-10-05 14:51 | TX PLAN ---
Interdisciplinary Tx Plan Admission Information Oct 02, 2019 at 15:55 Legal Status (on Admission): Voluntary, DPOA DPOA/Guardian Name: Shiva Huffman, DPOA Contact or [phone] Verified Code Status: DNR Allergies: Coded Allergies: No Known Drug Allergies (Unverified , 11/16/15) Estimated Length of Stay: 10 Diagnoses Primary Diagnosis: Major Neurocognitive Disorder, Alzheimer Vascular with Delusions, Depression BD Reasons for Admission: Aggressive, Delusions, Agitated, Anxiety/Panic Problem in Patient's Words: Per pt. "You know I can't remember." "It's been while." Pt. then said something about her left foot. Pt. shared pt. had "pancreatitis" and was at "[facility]" for several days. When pt. returned home, she fell and broke her "left hip, left elbow, and left collar bone." Pt. then went to rehab where she "started getting a little manic." She "started going juan high." Problems Active Problems: Updated pt. intake, pt. had insomnia, visual hallucinations, resistive with cares, increased agitation, paranoia, and yelling out. Orginal intake, pt. was manic, agitated, delusional, thinks she needs to go home and call her mom, restless, anxious, exit seeking, accusing staff of stealing, and verbally aggressive. Inactive Problems: Pt. is compliant with medications but sometimes needs encouragement. Pt Strengths/Limitations Ability for Crisp: Poor Cognitive Functioning/Ability: Poor Communication Skills/Ability: Fair Financial Resources: Fair Insight/Judgement: Poor Intellectual Ability: Fair Physical Health: Poor Social Skills: Fair Stability in Family: Good Verbal Skills: Fair Discharge Criteria Discharge Criteria: Able meet basic life need, Able to meet health needs, OP monitor medical prob, Adequate arrangements @DC, Improved behavior, Improved mood/thought Preliminary Discharge Plan Preliminary DC Plan: Current Living Arrange. Special Precautions Special Precautions: Agitation/Assault Fall Risk: High Initial D/C Plan Pt. will either return to [facility] for rehab or home with . Identified Discharge Needs: Pt. may need home health if returning home. Currently Utilized Resources Currently Utilized Resources/P: PCP Jayro Atkinson Identified Problems/Hx/Goals Objectives/Short-Term Goals Short Term Goals: Dec. Aggression, Dec. Anxiety/Panic, Dec. Hallucination/Delus, Medication Stabilization, Monitor Med Effects, Promote Coping Skill Short Term Goals in Patient's: Per. pt., "To get out." "You wouldn't want to know them." Pt. stated, "I hope they get some good drugs in her" to help with her behaviors. He also hopes "physical therapy" can "get her to walk" "to get her home." Interventions/Frequency Staff Interventions/Frequency&: Psychatrist - Daily Nursing - Daily RT - 2 to 3 times weekly SW - 2 to 3 times weekly History Vocational History: Pt. shared, "I worked at [employer]." Pt. 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 graduated from high school. Community Follow-up Follow up with PCP and Jayro - Dr. Atkinson Treatment Plan Explained Patient/Histology Tech had this treatment plan explained to him/her as indicated by the signature below and has been given the opportunity to ask questions and make suggestions: Date: Patient/Histology Tech Signature: Patient/Histology Tech Decline: No Additional Comments Pt. , Shiva, would like to be contacted for treatment team. LISHA WREN Oct 05, 2019 14:51
[2019-10-05 16:09] VITALS: BP 136/82
[2019-10-05] MEDS: ASPIRIN ENTERIC COATED 81 MG TABLET.DR. PO SCH (19:35)
[2019-10-05] MEDS: MONTELUKAST 10 MG TABLET. PO SCH (19:36)
--- NOTE | 2019-10-05 21:24 | PDOC ---
Exam Note: Piyush Note: Please also refer to the separate dictated note~for this date of service dictated separately.~Patient seen individually. Discussed the patient with Nursing staff reviewed the chart.~Reviewed interim history and current functioning. Reviewed vital signs,~Labs/ Radiology~and current medications noted below. Continue current treatment with the changes noted in the dictated addendum note Assessment: Vital Signs/I&O: Vital Signs Date Time Temp Pulse Resp B/P (MAP) Pulse Ox O2 Delivery O2 Flow Rate FiO2 10/05/19 16:29 82 136/82 10/05/19 16:09 98.1 16 95 10/05/19 11:00 Room Air 10/03/19 11:48 1.0 I & O 10/04/19 10/04/19 10/05/19 15:00 23:00 07:00 Intake Total 300 ml 480 ml Balance 300 ml 480 ml Current Medications: I have reviewed the current psychotropics carefully including drug interactions. Risk benefit ratio favors no change other than as noted in my dictated progress note. Diagnosis: Problems: (1) Anxiety disorder (2) Dementia, vascular, with depression (3) Dementia, vascular, with delusions (4) Dementia in Alzheimer's disease with depression (5) Dementia in Alzheimer's disease with delusions (6) Impulse control disorder DEB BELL MD Oct 05, 2019 21:24
[2019-10-06 05:03] VITALS: BP 146/76
[2019-10-06] MEDS: IPRATRPIUM/ALBUTEROL 0.5/2.5MG 3 ML NEBU. NEB SCH ×4 (05:14→21:07)
[2019-10-06] MEDS: LEVOTHYROXINE 25 MCG TABLET. PO SCH (06:17)
[2019-10-06] MEDS: amLODIPine BESYLATE 5 MG TABLET PO SCH (08:13)
[2019-10-06] MEDS: LACTOBACILLUS RHAMNOSUS GG 1 CAPSULE. PO SCH ×2 (08:13→19:32)
[2019-10-06] MEDS: FERROUS SULFATE 325 MG TABLET. PO SCH ×2 (08:13→19:32)
[2019-10-06] MEDS: predniSONE 20 MG TABLET PO SCH (08:14)
[2019-10-06] MEDS: ASCORBIC ACID 500 MG TABLET PO SCH ×2 (08:14→19:32)
[2019-10-06] MEDS: MULTIVITAMIN I-VITE TABLET. PO SCH (08:14)
[2019-10-06] MEDS: AMOXICILLIN/K CLAV 500/125MG TABLET. PO SCH ×2 (08:15→19:33)
[2019-10-06] MEDS: VITAMIN B COMPLEX CAPSULE. PO SCH (08:15)
[2019-10-06] MEDS: CARVEDILOL 6.25 MG TABLET PO SCH ×2 (08:15→16:51)
[2019-10-06] MEDS: ACETAMINOPHEN 500 MG TABLET PO SCH ×2 (08:15→19:32)
[2019-10-06] MEDS: OXYBUTYNIN CHLORIDE 5 MG TABLET PO SCH ×2 (08:15→19:32)
[2019-10-06] MEDS: SERTRALINE 25 MG TABLET. PO SCH (08:16)
[2019-10-06] MEDS: ENOXAPARIN 30 MG/0.3 ML SYRINGE. SQ SCH (08:16)
[2019-10-06 15:36] VITALS: BP 137/82
[2019-10-06] MEDS: ASPIRIN ENTERIC COATED 81 MG TABLET.DR. PO SCH (19:31)
[2019-10-06] MEDS: MONTELUKAST 10 MG TABLET. PO SCH (19:32)
--- NOTE | 2019-10-06 20:46 | PDOC ---
Exam Note: Piyush Note: Please also refer to the separate dictated note~for this date of service dictated separately.~Patient seen individually. Discussed the patient with Nursing staff reviewed the chart.~Reviewed interim history and current functioning. Reviewed vital signs,~Labs/ Radiology~and current medications noted below. Continue current treatment with the changes noted in the dictated addendum note Assessment: Vital Signs/I&O: Vital Signs Date Time Temp Pulse Resp B/P (MAP) Pulse Ox O2 Delivery O2 Flow Rate FiO2 10/06/19 16:51 78 137/82 10/06/19 15:36 97.9 18 93 10/06/19 11:23 Room Air 10/03/19 11:48 1.0 I & O 10/05/19 10/05/19 10/06/19 14:59 22:59 06:59 Intake Total 480 ml 480 ml Balance 480 ml 480 ml Current Medications: Meds: Current Medications Medications (Trade) Dose Ordered Sig/Judd Route PRN Reason Start Time Stop Time Status Last Admin Dose Admin Sertraline HCl (Zoloft) 25 mg DAILY PO 10/06/19 09:00 10/09/19 08:59 10/06/19 08:16 I have reviewed the current psychotropics carefully including drug interactions. Risk benefit ratio favors no change other than as noted in my dictated progress note. Diagnosis: Problems: (1) Anxiety disorder (2) Dementia, vascular, with depression (3) Dementia, vascular, with delusions (4) Dementia in Alzheimer's disease with depression (5) Dementia in Alzheimer's disease with delusions (6) Impulse control disorder DEB BELL MD Oct 06, 2019 20:46
[2019-10-07] MEDS: MAG HYDROX/AL HYDROX/SIMETH 30 ML ORAL.SUSP PO PRN (04:20)
[2019-10-07] MEDS: IPRATRPIUM/ALBUTEROL 0.5/2.5MG 3 ML NEBU. NEB SCH ×4 (04:39→22:25)
[2019-10-07] MEDS: LEVOTHYROXINE 25 MCG TABLET. PO SCH (05:24)
[2019-10-07 05:31] VITALS: BP 142/85
[2019-10-07] MEDS: VITAMIN B COMPLEX CAPSULE. PO SCH (08:11)
[2019-10-07] MEDS: LACTOBACILLUS RHAMNOSUS GG 1 CAPSULE. PO SCH ×2 (08:11→19:50)
[2019-10-07] MEDS: SERTRALINE 25 MG TABLET. PO SCH (08:11)
[2019-10-07] MEDS: predniSONE 20 MG TABLET PO SCH (08:11)
[2019-10-07] MEDS: ASCORBIC ACID 500 MG TABLET PO SCH ×2 (08:11→19:50)
[2019-10-07] MEDS: MULTIVITAMIN I-VITE TABLET. PO SCH (08:11)
[2019-10-07] MEDS: amLODIPine BESYLATE 5 MG TABLET PO SCH (08:11)
[2019-10-07] MEDS: OXYBUTYNIN CHLORIDE 5 MG TABLET PO SCH ×3 (08:12→19:50)
[2019-10-07] MEDS: ACETAMINOPHEN 500 MG TABLET PO SCH ×2 (08:12→19:50)
[2019-10-07] MEDS: AMOXICILLIN/K CLAV 500/125MG TABLET. PO SCH (08:12)
[2019-10-07] MEDS: FERROUS SULFATE 325 MG TABLET. PO SCH ×2 (08:12→19:50)
[2019-10-07] MEDS: CARVEDILOL 6.25 MG TABLET PO SCH ×2 (08:12→16:43)
[2019-10-07 16:09] VITALS: BP 132/77
[2019-10-07] MEDS: MIRTAZAPINE 7.5 MG TABLET. PO SCH (19:50)
[2019-10-07] MEDS: MONTELUKAST 10 MG TABLET. PO SCH (19:50)
[2019-10-07] MEDS: ASPIRIN ENTERIC COATED 81 MG TABLET.DR. PO SCH (19:50)
--- NOTE | 2019-10-07 21:00 | CONS ---
DATE OF CONSULTATION: REASON FOR CONSULTATION: Medical management. HISTORY OF PRESENT ILLNESS: The patient is a 74-year-old female patient who was transferred from [facility] on 09/28/2019 as she was noted to be extremely hypoxic. Her oxygen saturation was only 76% on 3 liters of oxygen. She was extensively investigated and I was concerned mostly about the possibility of pulmonary embolism, as d-dimer was high at 0.[address] angio of the chest, which showed no evidence of pulmonary embolism; however, she has patchy airspace opacities identified in the right middle lobe, right lower lobe and left lower lobe consistent with atelectasis or infiltrate and therefore, the patient was transferred to [address] [place] [address] and started on healthcare-associated pneumonia protocol in the form of vancomycin and Zosyn and she did very well and eventually her oxygen requirement came down to about 3 liters of oxygen. She is known to have chronic obstructive pulmonary disease and she was transferred back to [facility] to continue inpatient psychiatric stabilization as she continued to be extremely restless, agitated, exit seeking. PAST MEDICAL HISTORY: Significant for hypertension, chronic obstructive pulmonary disease, hypothyroidism, anemia, and dementia. PAST SURGICAL HISTORY: Significant for total abdominal hysterectomy, bilateral salpingo-oophorectomy, appendectomy and tonsillectomy. She also has a history of esophagogastroduodenoscopy and colonoscopy and most recently fall with left hip fracture, status post open reduction and internal fixation. She also has pancreatitis attributed to her dementia medication. ALLERGIES: SHE IS ALLERGIC TO ARICEPT, NAMENDA AND DEPAKOTE. They have caused pancreatitis. She has no known drug allergies to any other medication. FAMILY HISTORY: Noncontributory. SOCIAL HISTORY: She is , has 1 daughter. She does not smoke, drink alcohol or use any recreational drugs. MEDICATIONS: As per EMR. PHYSICAL EXAMINATION: GENERAL: On examining her, she looked well and was clearly in no apparent respiratory distress. She was pale, cachectic, but no jaundice, cyanosis or thyromegaly. No jugular venous distention. No lower limb edema. VITAL SIGNS: Her heart rate was 73, blood pressure was 142/85, temperature 98.1, respiratory rate was 18 and oxygen saturation was 93% on room air. HEAD, EYES, EARS, NOSE AND THROAT: Showed normocephalic, atraumatic. NECK: Supple. HEART: Showed normal first and second heart sounds with no gallop, rub or murmur. CHEST: Clear to auscultation. No crepitation or rhonchi. ABDOMEN: Scaphoid, soft, nontender. NEUROLOGIC: She is awake, alert, but extremely confused. All her cranial nerves intact. She moves extremities without difficulty. She is able to ambulate with assistance, but mostly wheelchair bound. LABORATORY DATA: Her lab work showed a white cell count 9100, hemoglobin 11, hematocrit 34, MCV 99 and platelet count of 405,000. Her chemistry showed a BUN of 22, creatinine 1.2 with normal electrolytes and kidney function and liver enzymes. ASSESSMENT AND PLAN: In summary, this is a 74-year-old female patient who was stabilized and treated for healthcare-associated pneumonia and was read[facility] as she continued to have periods of depression and manic behavior. Medically, she is obviously stable, she was treated for her healthcare-associated pneumonia and chronic obstructive pulmonary disease exacerbation. PLAN: My plan is to continue with oral Augmentin for another 5 days to continue with the tapering course of steroids and nebulized treatment. I will follow her lab work and monitor her lab works that are still pending at the time of this dictation and make any necessary recommendation. Thank you, Dr. Alva for allowing me to participate in the care of this patient. JEREMIE DONNELLY MD DR: LILLY/papa JOB#: [id number] / [id number]
[2019-10-07] MEDS: MELATONIN 3 MG TABLET PO PRN (21:03)
[2019-10-07] MEDS: traZODone 50 MG TABLET. PO PRN (21:03)
--- NOTE | 2019-10-07 21:06 | PDOC ---
Exam Note: Piyush Note: Please also refer to the separate dictated note~for this date of service dictated separately.~Patient seen individually. Discussed the patient with Nursing staff reviewed the chart.~Reviewed interim history and current functioning. Reviewed vital signs,~Labs/ Radiology~and current medications noted below. Continue current treatment with the changes noted in the dictated addendum note Assessment: Vital Signs/I&O: Vital Signs Date Time Temp Pulse Resp B/P (MAP) Pulse Ox O2 Delivery O2 Flow Rate FiO2 10/07/19 16:43 72 132/77 10/07/19 16:09 97.6 16 95 Room Air 10/03/19 11:48 1.0 I & O 10/06/19 10/06/19 10/07/19 15:00 23:00 07:00 Intake Total 480 ml 240 ml 120 ml Balance 480 ml 240 ml 120 ml Current Medications: Meds: Current Medications Medications (Trade) Dose Ordered Sig/Judd Route PRN Reason Start Time Stop Time Status Last Admin Dose Admin Oxybutynin Chloride (Ditropan) 5 mg TID PO 10/07/19 18:15 10/07/19 19:50 Mirtazapine (Remeron) 7.5 mg QHS PO 10/07/19 21:00 10/07/19 19:50 I have reviewed the current psychotropics carefully including drug interactions. Risk benefit ratio favors no change other than as noted in my dictated progress note. Diagnosis: Problems: (1) Impulse control disorder (2) Dementia in Alzheimer's disease with delusions (3) Dementia, vascular, with delusions (4) Dementia, vascular, with depression (5) Dementia in Alzheimer's disease with depression (6) Anxiety disorder DEB BELL MD Oct 07, 2019 21:06
--- NOTE | 2019-10-08 00:46 | PN ---
DATE: 10/04/2019 PSYCHIATRIC PROGRESS NOTE This late entry 10/04/2019 covers elements not covered in my initial note. SUBJECTIVE: I met with the patient evening of 10/04/2019. Per GAURANG Cardenas, the patient slept 7 hours previous night. She has been anxious, restless, "on the go." She received trazodone and melatonin at night to help with her insomnia, has some complaints of urinary urgency, we will defer to Dr. Spring to consider Ditropan for it. Oxygen sats of 90%, frequently pulls off her oxygen. REVIEW OF SYSTEMS: Shortness of breath, impaired ambulation in wheelchair. No CV, GI, , eye system symptoms on review. Reliability poor. MENTAL STATUS EXAM: Oriented to herself. Insight, judgment, recent and remote memory, attention, concentration, fund of knowledge poor, consistent with her diagnosis mentioned in my initial note. PLAN: No change from initial note. Continue her current psychotropics, adjust further as clinically indicated. MAN Clay BELL MD DR: DINORA/papa JOB#: [id number] / [id number]
--- NOTE | 2019-10-08 01:18 | PN ---
DATE: 10/05/2019 PSYCHIATRIC PROGRESS NOTE This late entry 10/05/2019 covers elements not covered in my initial note. SUBJECTIVE: I met with the patient in the evening. Per GAURANG Vela, the patient slept 5 hours previous night. She was quite anxious, restless, agitated previous night and then doing better during the day on 10/05/2019. REVIEW OF SYSTEMS: Ambulation impaired, some shortness of breath on O2 supplement. She is in a wheelchair. No CV, , eye, ENT system symptoms on review. MENTAL STATUS EXAM: Oriented to herself. Insight, judgment, recent and remote memory, attention, concentration, fund of knowledge poor, consistent with her diagnosis mentioned in my initial note. PLAN: Start Zoloft 25 mg a day for 3 days and then 50 mg a day. Rest unchanged for now. MAN Clay BELL MD DR: DINORA/papa JOB#: [id number] / [id number]
--- NOTE | 2019-10-08 02:14 | PN ---
DATE: 10/06/2019 PSYCHIATRIC PROGRESS NOTE This late entry 10/06/2019 covers elements not covered in my initial note. SUBJECTIVE: I met with the patient evening of 10/06/2019. Per GAURANG Macdonald, the patient slept 6-3/4 hours previous night, takes her medications whole. REVIEW OF SYSTEMS: Ambulation impaired, in wheelchair, shortness of breath, on O2 supplements. No CV, , eye, ENT system symptoms on review. MENTAL STATUS EXAM: Oriented to herself. Insight, judgment, recent and remote memory, attention, concentration, fund of knowledge poor, consistent with her diagnosis. She is very pleasant, smiling, giving me high fives. LABORATORY DATA: Reviewed. IMPRESSION: Unchanged from initial note. PLAN: No change from initial note. MAN Clay BELL MD DR: DINORA/papa JOB#: [id number] / [id number]
[2019-10-08 04:45] VITALS: BP 149/77
[2019-10-08] MEDS: LEVOTHYROXINE 25 MCG TABLET. PO SCH (05:23)
[2019-10-08 05:34] LABS: BACTERIA,URINE FEW /HPF (0-FEW); BILIRUBIN,URINE NEG (NEG); CLARITY,URINE CLEAR; COLOR,URINE YELLOW; GLUCOSE,URINE NEG (NEG); NITRITE,URINE NEG (NEG); RBC,URINE OCC /HPF (0-2); SQUAMOUS EPITHELIAL CELL,UR FEW /LPF; UROBILINOGEN,URINE 0.2 mg/dL (0.2 mg/dL)
[2019-10-08] MEDS: VITAMIN B COMPLEX CAPSULE. PO SCH (07:47)
[2019-10-08] MEDS: LACTOBACILLUS RHAMNOSUS GG 1 CAPSULE. PO SCH ×2 (07:47→19:46)
[2019-10-08] MEDS: ASCORBIC ACID 500 MG TABLET PO SCH ×2 (07:48→19:47)
[2019-10-08] MEDS: MULTIVITAMIN I-VITE TABLET. PO SCH (07:48)
[2019-10-08] MEDS: amLODIPine BESYLATE 5 MG TABLET PO SCH (07:48)
[2019-10-08] MEDS: OXYBUTYNIN CHLORIDE 5 MG TABLET PO SCH ×3 (07:49→19:46)
[2019-10-08] MEDS: ACETAMINOPHEN 500 MG TABLET PO SCH ×2 (07:49→19:47)
[2019-10-08] MEDS: CARVEDILOL 6.25 MG TABLET PO SCH ×2 (07:49→16:11)
[2019-10-08] MEDS: FERROUS SULFATE 325 MG TABLET. PO SCH ×2 (07:49→19:46)
[2019-10-08] MEDS: predniSONE 20 MG TABLET PO SCH (07:49)
[2019-10-08] MEDS: SERTRALINE 25 MG TABLET. PO SCH (07:50)
[2019-10-08] MEDS: IPRATRPIUM/ALBUTEROL 0.5/2.5MG 3 ML NEBU. NEB SCH ×3 (13:00→21:14)
[2019-10-08 15:39] VITALS: BP 138/82
[2019-10-08] MEDS: MIRTAZAPINE 7.5 MG TABLET. PO SCH (19:46)
[2019-10-08] MEDS: ASPIRIN ENTERIC COATED 81 MG TABLET.DR. PO SCH (19:46)
[2019-10-08] MEDS: MONTELUKAST 10 MG TABLET. PO SCH (19:46)
--- NOTE | 2019-10-08 20:54 | PDOC ---
Exam Note: Piyush Note: Please also refer to the separate dictated note~for this date of service dictated separately.~Patient seen individually. Discussed the patient with Nursing staff reviewed the chart.~Reviewed interim history and current functioning. Reviewed vital signs,~Labs/ Radiology~and current medications noted below. Continue current treatment with the changes noted in the dictated addendum note Assessment: Vital Signs/I&O: Vital Signs Date Time Temp Pulse Resp B/P (MAP) Pulse Ox O2 Delivery O2 Flow Rate FiO2 10/08/19 16:11 80 138/82 10/08/19 15:39 97.2 16 93 10/08/19 13:52 Room Air 10/03/19 11:48 1.0 I & O 10/07/19 10/07/19 10/08/19 15:00 23:00 07:00 Intake Total 600 ml 340 ml Balance 600 ml 340 ml Labs: Laboratory Tests Test 10/08/19 05:10 Urine Collection Type Unknown Urine Color Yellow Urine Clarity Clear Urine pH 6.5 Urine Specific Brenham 1.015 Urine Protein Neg (NEG-TRACE) Urine Glucose (UA) Neg mg/dL (NEG) Urine Ketones (Stick) Neg mg/dL (NEG) Urine Blood Neg (NEG) Urine Nitrite Neg (NEG) Urine Bilirubin Neg (NEG) Urine Urobilinogen Dipstick 0.2 mg/dL (0.2 mg/dL) Urine Leukocyte Esterase Trace (NEG) Urine RBC Occ /HPF (0-2) Urine WBC 1-4 /HPF (0-4) Urine Squamous Epithelial Cells Few /LPF Urine Bacteria Few /HPF (0-FEW) Current Medications: Meds: Current Medications Medications (Trade) Dose Ordered Sig/Judd Route PRN Reason Start Time Stop Time Status Last Admin Dose Admin Mirtazapine (Remeron) 7.5 mg QHS PO 10/07/19 21:00 10/08/19 19:46 I have reviewed the current psychotropics carefully including drug interactions. Risk benefit ratio favors no change other than as noted in my dictated progress note. 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
[2019-10-09 04:50] VITALS: BP 140/87
[2019-10-09] MEDS: IPRATRPIUM/ALBUTEROL 0.5/2.5MG 3 ML NEBU. NEB SCH ×3 (04:55→16:46)
[2019-10-09] MEDS: LEVOTHYROXINE 25 MCG TABLET. PO SCH (05:50)
[2019-10-09] MEDS: SERTRALINE 50 MG TABLET. PO SCH (08:14)
[2019-10-09] MEDS: ASCORBIC ACID 500 MG TABLET PO SCH ×2 (08:14→20:45)
[2019-10-09] MEDS: predniSONE 20 MG TABLET PO SCH (08:15)
[2019-10-09] MEDS: ACETAMINOPHEN 500 MG TABLET PO SCH ×2 (08:15→20:45)
[2019-10-09] MEDS: amLODIPine BESYLATE 5 MG TABLET PO SCH (08:15)
[2019-10-09] MEDS: VITAMIN B COMPLEX CAPSULE. PO SCH (08:16)
[2019-10-09] MEDS: OXYBUTYNIN CHLORIDE 5 MG TABLET PO SCH ×3 (08:16→20:46)
[2019-10-09] MEDS: LACTOBACILLUS RHAMNOSUS GG 1 CAPSULE. PO SCH ×2 (08:16→20:45)
[2019-10-09] MEDS: MULTIVITAMIN I-VITE TABLET. PO SCH (08:16)
[2019-10-09] MEDS: FERROUS SULFATE 325 MG TABLET. PO SCH ×2 (08:16→20:46)
[2019-10-09] MEDS: CARVEDILOL 6.25 MG TABLET PO SCH ×2 (08:16→16:33)
[2019-10-09 08:39] LABS: BASO % 0 % (0-3); EOS % 0 % (0-3); HEMATOCRIT 26.8 % (36.0-47.0); HEMOGLOBIN 8.9 g/dL (12.0-15.5); LYMPH # 1.9 x10^3/uL (1.0-4.8); LYMPH % 24 % (24-48); MEAN CORPUSCULAR HEMOGLOBIN 33 pg (25-35); MEAN CORPUSCULAR HGB CONC 33 g/dL (31-37); MEAN CORPUSCULAR VOLUME 99 fL (79-100); MONO # 0.6 x10^3/uL (0.0-1.1); MONO % 7 % (0-9); NEUT # 5.5 x10^3uL (1.8-7.7); NEUT % 69 % (31-73); PLATELET COUNT 326 x10^3/uL (140-400); RED BLOOD COUNT 2.72 x10^6/uL (3.50-5.40); RED CELL DISTRIBUTION WIDTH 14.6 % (11.5-14.5)
[2019-10-09 08:47] LABS: ALBUMIN 2.3 g/dL (3.4-5.0); ALBUMIN/GLOBULIN RATIO 0.8 (1.0-1.7); CALCIUM 8.6 mg/dL (8.5-10.1); CREATININE 1.1 mg/dL (0.6-1.0); GFR 48.6; POTASSIUM 4.4 mmol/L (3.5-5.1); TOTAL BILIRUBIN 0.3 mg/dL (0.2-1.0); TOTAL PROTEIN 5.2 g/dL (6.4-8.2)
[2019-10-09 13:58] LABS: % LYMPHS 20 % (24-48); % MONOS 6 % (0-10); % SEGS 74 % (35-66)
[2019-10-09 14:03] LABS: PLATELET CLUMP PRESENT
[2019-10-09 14:05] LABS: PLT ESTIMATE ADEQUATE (ADEQUATE)
[2019-10-09 14:06] LABS: POLYCHROMASIA PRESENT
[2019-10-09 14:07] LABS: TOXIC GRANULATION PRESENT
[2019-10-09 16:31] VITALS: BP 127/79
[2019-10-09] MEDS ORDERED: IPRATRPIUM/ALBUTEROL 0.5/2.5MG 3 ML NEBU. NEB PRN (18:15)
[2019-10-09] MEDS: MONTELUKAST 10 MG TABLET. PO SCH (20:46)
[2019-10-09] MEDS: ASPIRIN ENTERIC COATED 81 MG TABLET.DR. PO SCH (20:46)
[2019-10-09] MEDS: MIRTAZAPINE 7.5 MG TABLET. PO SCH (20:46)
--- NOTE | 2019-10-09 21:18 | PDOC ---
Exam Note: Piyush Note: Please also refer to the separate dictated note~for this date of service dictated separately.~Patient seen individually. Discussed the patient with Nursing staff reviewed the chart.~Reviewed interim history and current functioning. Reviewed vital signs,~Labs/ Radiology~and current medications noted below. Continue current treatment with the changes noted in the dictated addendum note Assessment: Vital Signs/I&O: Vital Signs Date Time Temp Pulse Resp B/P (MAP) Pulse Ox O2 Delivery O2 Flow Rate FiO2 10/09/19 16:33 70 127/79 10/09/19 16:31 97.4 20 95 10/09/19 04:56 Room Air 10/03/19 11:48 1.0 I & O 10/08/19 10/08/19 10/09/19 15:00 23:00 07:00 Intake Total 600 ml 600 ml Balance 600 ml 600 ml Labs: Laboratory Tests Test 10/09/19 07:39 White Blood Count 8.0 x10^3/uL (4.0-11.0) Red Blood Count 2.72 x10^6/uL (3.50-5.40) L Hemoglobin 8.9 g/dL (12.0-15.5) L Hematocrit 26.8 % (36.0-47.0) L Mean Corpuscular Volume 99 fL (79-100) Mean Corpuscular Hemoglobin 33 pg (25-35) Mean Corpuscular Hemoglobin Concent 33 g/dL (31-37) Red Cell Distribution Width 14.6 % (11.5-14.5) H Platelet Count 326 x10^3/uL (140-400) Neutrophils (%) (Auto) 69 % (31-73) Lymphocytes (%) (Auto) 24 % (24-48) Monocytes (%) (Auto) 7 % (0-9) Eosinophils (%) (Auto) 0 % (0-3) Basophils (%) (Auto) 0 % (0-3) Neutrophils # (Auto) 5.5 x10^3uL (1.8-7.7) Lymphocytes # (Auto) 1.9 x10^3/uL (1.0-4.8) Monocytes # (Auto) 0.6 x10^3/uL (0.0-1.1) Eosinophils # (Auto) 0.0 x10^3/uL (0.0-0.7) Basophils # (Auto) 0.0 x10^3/uL (0.0-0.2) Segmented Neutrophils % 74 % (35-66) H Lymphocytes % 20 % (24-48) L Monocytes % 6 % (0-10) Toxic Granulation Present Dohle Bodies Present Platelet Estimate Adequate (ADEQUATE) Platelet Clumps, EDTA Present Polychromasia Present Basophilic Stippling Present Sodium Level 144 mmol/L (136-145) Potassium Level 4.4 mmol/L (3.5-5.1) Chloride Level 107 mmol/L (98-107) Carbon Dioxide Level 32 mmol/L (21-32) Anion Gap 5 (6-14) L Blood Urea Nitrogen 37 mg/dL (7-20) H Creatinine 1.1 mg/dL (0.6-1.0) H Estimated GFR (Cockcroft-Gault) 48.6 BUN/Creatinine Ratio 34 (6-20) H Glucose Level 79 mg/dL (70-99) Calcium Level 8.6 mg/dL (8.5-10.1) Total Bilirubin 0.3 mg/dL (0.2-1.0) Aspartate Amino Transferase (AST) 22 U/L (15-37) Alanine Aminotransferase (ALT) 32 U/L (14-59) Alkaline Phosphatase 97 U/L (46-116) Total Protein 5.2 g/dL (6.4-8.2) L Albumin 2.3 g/dL (3.4-5.0) L Albumin/Globulin Ratio 0.8 (1.0-1.7) L Current Medications: Meds: Current Medications Medications (Trade) Dose Ordered Sig/Judd Route PRN Reason Start Time Stop Time Status Last Admin Dose Admin Sertraline HCl (Zoloft) 50 mg DAILY PO 10/09/19 09:00 10/09/19 08:14 I have reviewed the current psychotropics carefully including drug interactions. Risk benefit ratio favors no change other than as noted in my dictated progress note. 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
[2019-10-10 04:53] VITALS: BP 153/87
[2019-10-10] MEDS: LEVOTHYROXINE 25 MCG TABLET. PO SCH (05:47)
[2019-10-10] MEDS: VITAMIN B COMPLEX CAPSULE. PO SCH (08:04)
[2019-10-10] MEDS: LACTOBACILLUS RHAMNOSUS GG 1 CAPSULE. PO SCH ×2 (08:04→20:31)
[2019-10-10] MEDS: MULTIVITAMIN I-VITE TABLET. PO SCH (08:04)
[2019-10-10] MEDS: amLODIPine BESYLATE 5 MG TABLET PO SCH (08:04)
[2019-10-10] MEDS: ASCORBIC ACID 500 MG TABLET PO SCH ×2 (08:04→20:32)
[2019-10-10] MEDS: SERTRALINE 50 MG TABLET. PO SCH (08:04)
[2019-10-10] MEDS: FERROUS SULFATE 325 MG TABLET. PO SCH ×2 (08:04→20:31)
[2019-10-10] MEDS: ACETAMINOPHEN 500 MG TABLET PO SCH ×2 (08:05→20:31)
[2019-10-10] MEDS: OXYBUTYNIN CHLORIDE 5 MG TABLET PO SCH ×3 (08:05→20:31)
[2019-10-10] MEDS: predniSONE 20 MG TABLET PO SCH (08:05)
[2019-10-10] MEDS: CARVEDILOL 6.25 MG TABLET PO SCH ×2 (08:05→17:00)
[2019-10-10 15:44] VITALS: BP 118/78
[2019-10-10] MEDS: MIRTAZAPINE 7.5 MG TABLET. PO SCH (20:31)
[2019-10-10] MEDS: MEGESTROL 40 MG TABLET. PO SCH (20:31)
[2019-10-10] MEDS: MONTELUKAST 10 MG TABLET. PO SCH (20:31)
[2019-10-10] MEDS: ASPIRIN ENTERIC COATED 81 MG TABLET.DR. PO SCH (20:32)
--- NOTE | 2019-10-10 20:39 | PDOC ---
Exam Note: Piyush Note: Please also refer to the separate dictated note~for this date of service dictated separately.~Patient seen individually. Discussed the patient with Nursing staff reviewed the chart.~Reviewed interim history and current functioning. Reviewed vital signs,~Labs/ Radiology~and current medications noted below. Continue current treatment with the changes noted in the dictated addendum note Assessment: Vital Signs/I&O: Vital Signs Date Time Temp Pulse Resp B/P (MAP) Pulse Ox O2 Delivery O2 Flow Rate FiO2 10/10/19 17:00 68 118/78 10/10/19 15:44 98.1 16 96 10/10/19 04:53 Room Air I & O 10/09/19 10/09/19 10/10/19 15:00 23:00 07:00 Intake Total 360 ml 600 ml Balance 360 ml 600 ml Current Medications: Meds: Current Medications Medications (Trade) Dose Ordered Sig/Judd Route PRN Reason Start Time Stop Time Status Last Admin Dose Admin Megestrol Acetate (Megace) 40 mg BID PO 10/10/19 21:00 10/10/19 20:31 I have reviewed the current psychotropics carefully including drug interactions. Risk benefit ratio favors no change other than as noted in my dictated progress note. 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
--- NOTE | 2019-10-10 23:41 | PN ---
DATE: 10/08/2019 PSYCHIATRIC PROGRESS NOTE This late entry 10/08/2019 covers elements not covered in my initial note. SUBJECTIVE: I met with the patient evening of 10/08/2019. The patient slept 7 hours previous night and seems to have responded to the Remeron 7.5 mg at bedtime initiated the night before. She was staffed at a treatment team meeting with the entire team and her , Shiva attended the conference. I met with her later in the evening. She walked with physical therapy, 50 feet, which is an improvement. She has had some urinary frequency. Urine has reflex to culture. REVIEW OF SYSTEMS: Ambulation impaired. Complains of shoulder pain. No CV, , pulmonary, eye system symptoms on review. MENTAL STATUS EXAMINATION: The patient is oriented to herself. Insight, judgment, recent and remote memory, attention, concentration, fund of knowledge poor, consistent with her diagnosis mentioned in my initial note. PLAN: No change from initial note. Treat the UTI if C and S positive. Rest unchanged. MAN Clay BELL MD DR: DINORA/papa JOB#: [id number] / [id number]
--- NOTE | 2019-10-10 23:43 | PN ---
DATE: 10/09/2019 PSYCHIATRIC PROGRESS NOTE This late entry 10/09/2019 covers elements not covered in my initial note. SUBJECTIVE: I met with the patient evening of 10/09/2019. The patient slept 7-1/4 hours previous night. She remains hard of hearing. Hemoglobin, hematocrit, RBCs are low and she will check stool for occult blood. Deferred to Dr. Spring. UA has reflux to culture. She has not been agitated, remains confused. REVIEW OF SYSTEMS: Ambulation impaired, in wheelchair. No CV, , pulmonary, eye system symptoms on review. She is very pleasant, holding my hand, animated, but confused. MENTAL STATUS EXAM: Oriented to herself. Insight, judgment, recent and remote memory, attention, concentration, fund of knowledge poor, consistent with her diagnosis mentioned in my initial note. PLAN: No change from initial note. Maintain trazodone, melatonin, Zyprexa p.r.n., Zoloft and Remeron for now. DEB BELL MD DR: DINORA/papa JOB#: [id number] / [id number]
[2019-10-11 05:51] VITALS: BP 146/86
[2019-10-11] MEDS: LEVOTHYROXINE 25 MCG TABLET. PO SCH (06:25)
[2019-10-11] MEDS: amLODIPine BESYLATE 5 MG TABLET PO SCH (08:10)
[2019-10-11] MEDS: LACTOBACILLUS RHAMNOSUS GG 1 CAPSULE. PO SCH ×2 (08:10→19:34)
[2019-10-11] MEDS: VITAMIN B COMPLEX CAPSULE. PO SCH (08:10)
[2019-10-11] MEDS: ACETAMINOPHEN 500 MG TABLET PO SCH ×2 (08:11→19:34)
[2019-10-11] MEDS: OXYBUTYNIN CHLORIDE 5 MG TABLET PO SCH ×3 (08:11→19:34)
[2019-10-11] MEDS: predniSONE 20 MG TABLET PO SCH (08:12)
[2019-10-11] MEDS: FERROUS SULFATE 325 MG TABLET. PO SCH ×2 (08:12→19:34)
[2019-10-11] MEDS: ASCORBIC ACID 500 MG TABLET PO SCH ×2 (08:12→19:34)
[2019-10-11] MEDS: MULTIVITAMIN I-VITE TABLET. PO SCH (08:13)
[2019-10-11] MEDS: CARVEDILOL 6.25 MG TABLET PO SCH ×2 (08:13→17:20)
[2019-10-11] MEDS: MEGESTROL 40 MG TABLET. PO SCH ×2 (08:14→19:34)
[2019-10-11] MEDS: SERTRALINE 50 MG TABLET. PO SCH (08:14)
--- NOTE | 2019-10-11 08:54 | PN ---
DATE: 10/10/2019 PSYCHIATRIC PROGRESS NOTE This late entry 10/10/2019 covers the elements not covered in my initial note. SUBJECTIVE: I met with the patient in the evening of 10/10/2019. The patient slept 3-3/4 hours previous night. She remains confused, forgetful, pleasant, and takes her medications whole and according to nursing staff is somewhat paranoid. REVIEW OF SYSTEMS: Ambulation impaired, in wheelchair. No CV, , pulmonary, eye, ENT system symptoms on review. Reliability poor. MENTAL STATUS EXAM: Oriented to herself. Insight, judgment, recent and remote memory, attention, concentration, fund of knowledge poor, consistent with her diagnosis mentioned in my initial note. PLAN: No change from initial note. MAN Clay BELL MD DR: DINORA/papa JOB#: [id number] / [id number]
[2019-10-11 15:48] VITALS: BP 115/75
[2019-10-11] MEDS: ASPIRIN ENTERIC COATED 81 MG TABLET.DR. PO SCH (19:33)
[2019-10-11] MEDS: MONTELUKAST 10 MG TABLET. PO SCH (19:34)
[2019-10-11] MEDS: MIRTAZAPINE 7.5 MG TABLET. PO SCH (19:34)
--- NOTE | 2019-10-11 20:43 | PDOC ---
Exam Note: Piyush Note: Please also refer to the separate dictated note~for this date of service dictated separately.~Patient seen individually. Discussed the patient with Nursing staff reviewed the chart.~Reviewed interim history and current functioning. Reviewed vital signs,~Labs/ Radiology~and current medications noted below. Continue current treatment with the changes noted in the dictated addendum note Assessment: Vital Signs/I&O: Vital Signs Date Time Temp Pulse Resp B/P (MAP) Pulse Ox O2 Delivery O2 Flow Rate FiO2 10/11/19 17:20 68 115/75 10/11/19 15:48 97.7 18 95 10/10/19 04:53 Room Air I & O 10/10/19 10/10/19 10/11/19 15:00 23:00 07:00 Intake Total 720 ml 840 ml Balance 720 ml 840 ml Current Medications: Meds: Current Medications Medications (Trade) Dose Ordered Sig/Judd Route PRN Reason Start Time Stop Time Status Last Admin Dose Admin Megestrol Acetate (Megace) 40 mg BID PO 10/10/19 21:00 10/11/19 19:34 I have reviewed the current psychotropics carefully including drug interactions. Risk benefit ratio favors no change other than as noted in my dictated progress note. 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
[2019-10-12 05:40] VITALS: BP 165/84
[2019-10-12] MEDS: LEVOTHYROXINE 25 MCG TABLET. PO SCH (06:00)
[2019-10-12] MEDS: ASCORBIC ACID 500 MG TABLET PO SCH ×2 (08:32→19:37)
[2019-10-12] MEDS: VITAMIN B COMPLEX CAPSULE. PO SCH (08:32)
[2019-10-12] MEDS: SERTRALINE 50 MG TABLET. PO SCH (08:32)
[2019-10-12] MEDS: LACTOBACILLUS RHAMNOSUS GG 1 CAPSULE. PO SCH ×2 (08:32→19:36)
[2019-10-12] MEDS: predniSONE 20 MG TABLET PO SCH (08:32)
[2019-10-12] MEDS: MEGESTROL 40 MG TABLET. PO SCH ×2 (08:33→19:36)
[2019-10-12] MEDS: OXYBUTYNIN CHLORIDE 5 MG TABLET PO SCH ×3 (08:33→19:36)
[2019-10-12] MEDS: MULTIVITAMIN I-VITE TABLET. PO SCH (08:33)
[2019-10-12] MEDS: amLODIPine BESYLATE 5 MG TABLET PO SCH (08:33)
[2019-10-12] MEDS: FERROUS SULFATE 325 MG TABLET. PO SCH ×2 (08:33→19:37)
[2019-10-12] MEDS: ACETAMINOPHEN 500 MG TABLET PO SCH ×2 (08:34→19:36)
[2019-10-12] MEDS: CARVEDILOL 6.25 MG TABLET PO SCH ×2 (08:34→17:51)
--- NOTE | 2019-10-12 13:24 | RAD ---
HIP LEFT 2V WITH PELVIS History: Follow-up recent left hip internal fixation Technique: AP view the pelvis and 2 additional views of the left hip. Comparison: August 20, 2019. Findings: Interval internal fixation left proximal femur fracture with intramedullary sukhdev and interlocking screws. No dislocation. Normal alignment. Mild heterotopic ossification adjacent to the left proximal femur. Impression: 1. Internal fixation left proximal femur healing fracture. Electronically signed by: Casper Wang DO (10/12/2019 1:21 PM) [id number]
--- NOTE | 2019-10-12 13:27 | RAD ---
CLAVICLE LEFT History: Fall. Left shoulder pain. Technique: 2 views left clavicle. Comparison: August 20, 2019. Findings: Healing left medial clavicle fracture not well seen due to overlying structures and positioning. Normal alignment of the left acromioclavicular joint. No new fracture. Impression: 1. Healing left medial clavicle fracture. Electronically signed by: Casper Wang DO (10/12/2019 1:23 PM) [id number]
[2019-10-12 15:03] LABS: FECAL OB PT NEGATIVE (NEG)
[2019-10-12 15:32] VITALS: BP 128/77
[2019-10-12] MEDS: levoFLOXacin 250 MG TABLET PO SCH (17:51)
[2019-10-12] MEDS: ASPIRIN ENTERIC COATED 81 MG TABLET.DR. PO SCH (19:36)
[2019-10-12] MEDS: MIRTAZAPINE 7.5 MG TABLET. PO SCH (19:36)
[2019-10-12] MEDS: MONTELUKAST 10 MG TABLET. PO SCH (19:37)
--- NOTE | 2019-10-12 20:58 | PDOC ---
Exam Note: Piyush Note: Please also refer to the separate dictated note~for this date of service dictated separately.~Patient seen individually. Discussed the patient with Nursing staff reviewed the chart.~Reviewed interim history and current functioning. Reviewed vital signs,~Labs/ Radiology~and current medications noted below. Continue current treatment with the changes noted in the dictated addendum note Assessment: Vital Signs/I&O: Vital Signs Date Time Temp Pulse Resp B/P (MAP) Pulse Ox O2 Delivery O2 Flow Rate FiO2 10/12/19 17:51 66 128/77 10/12/19 15:32 98.3 16 94 10/10/19 04:53 Room Air I & O 10/11/19 10/11/19 10/12/19 15:00 23:00 07:00 Intake Total 600 ml 480 ml Balance 600 ml 480 ml Labs: Laboratory Tests Test 10/12/19 14:15 Stool Occult Blood Negative (NEG) Current Medications: Meds: Current Medications Medications (Trade) Dose Ordered Sig/Judd Route PRN Reason Start Time Stop Time Status Last Admin Dose Admin Levofloxacin (Levaquin) 250 mg DAILY06 PO 10/12/19 16:45 10/17/19 21:00 10/12/19 17:51 I have reviewed the current psychotropics carefully including drug interactions. Risk benefit ratio favors no change other than as noted in my dictated progress note. 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
[2019-10-12] MEDS ORDERED: LACTOBACILLUS RHAMNOSUS GG 1 CAPSULE. PO SCH (21:00)
--- NOTE | 2019-10-12 22:18 | PN ---
DATE: 10/11/2019 PSYCHIATRIC PROGRESS NOTE This late entry 10/11/2019 covers elements not covered in my initial note. SUBJECTIVE: I met with the patient evening of 10/11/2019. Per GAURANG Alves, the patient slept 6-1/2 hours previous night. She has been less distractible and anxious, easier to redirect, takes medications whole, more pleasant, cooperative. REVIEW OF SYSTEMS: Ambulation impaired, in wheelchair. No CV, , PULMONARY, EYE, ENT system symptoms on review. She is very pleasant, verbal as I met with her, but quite confused. Dr. Spring is checking with Orthopedics regarding weight baring status. MENTAL STATUS EXAM: Oriented to herself. Insight, judgment, recent and remote memory, attention, concentration, fund of knowledge poor, consistent with her diagnosis mentioned in my initial note. PLAN: No change from initial note. MAN Clay BELL MD DR: DINORA/papa JOB#: [id number] / [id number]
[2019-10-13 05:57] VITALS: BP 144/84
[2019-10-13] MEDS: levoFLOXacin 250 MG TABLET PO SCH (06:00)
[2019-10-13] MEDS: LEVOTHYROXINE 25 MCG TABLET. PO SCH (06:10)
[2019-10-13] MEDS: CARVEDILOL 6.25 MG TABLET PO SCH ×2 (08:03→16:03)
[2019-10-13] MEDS: VITAMIN B COMPLEX CAPSULE. PO SCH (08:03)
[2019-10-13] MEDS: LACTOBACILLUS RHAMNOSUS GG 1 CAPSULE. PO SCH ×2 (08:03→19:48)
[2019-10-13] MEDS: FERROUS SULFATE 325 MG TABLET. PO SCH ×2 (08:04→19:48)
[2019-10-13] MEDS: MULTIVITAMIN I-VITE TABLET. PO SCH (08:04)
[2019-10-13] MEDS: MEGESTROL 40 MG TABLET. PO SCH ×2 (08:04→19:49)
[2019-10-13] MEDS: OXYBUTYNIN CHLORIDE 5 MG TABLET PO SCH ×3 (08:04→19:48)
[2019-10-13] MEDS: ACETAMINOPHEN 500 MG TABLET PO SCH ×2 (08:05→19:49)
[2019-10-13] MEDS: predniSONE 20 MG TABLET PO SCH (08:05)
[2019-10-13] MEDS: amLODIPine BESYLATE 5 MG TABLET PO SCH (08:05)
[2019-10-13] MEDS: ASCORBIC ACID 500 MG TABLET PO SCH ×2 (08:06→19:49)
[2019-10-13] MEDS: SERTRALINE 50 MG TABLET. PO SCH (08:06)
[2019-10-13 15:42] VITALS: BP 122/81
[2019-10-13] MEDS: ASPIRIN ENTERIC COATED 81 MG TABLET.DR. PO SCH (19:48)
[2019-10-13] MEDS: MIRTAZAPINE 7.5 MG TABLET. PO SCH (19:49)
[2019-10-13] MEDS: MONTELUKAST 10 MG TABLET. PO SCH (19:49)
--- NOTE | 2019-10-13 20:52 | PDOC ---
Exam Note: Piyush Note: Please also refer to the separate dictated note~for this date of service dictated separately.~Patient seen individually. Discussed the patient with Nursing staff reviewed the chart.~Reviewed interim history and current functioning. Reviewed vital signs,~Labs/ Radiology~and current medications noted below. Continue current treatment with the changes noted in the dictated addendum note Assessment: Vital Signs/I&O: Vital Signs Date Time Temp Pulse Resp B/P (MAP) Pulse Ox O2 Delivery O2 Flow Rate FiO2 10/13/19 16:03 72 122/81 10/13/19 15:42 98.5 16 95 Room Air I & O 10/12/19 10/12/19 10/13/19 15:00 23:00 07:00 Intake Total 840 ml 720 ml Balance 840 ml 720 ml Current Medications: I have reviewed the current psychotropics carefully including drug interactions. Risk benefit ratio favors no change other than as noted in my dictated progress note. 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
[2019-10-14] MEDS: traZODone 50 MG TABLET. PO PRN (00:38)
--- NOTE | 2019-10-14 02:55 | PN ---
DATE: 10/12/2019 PSYCHIATRIC PROGRESS NOTE This late entry 10/12/2019 covers elements not covered in my initial note. SUBJECTIVE: I met with the patient in the evening of 10/12/2019. Per GAURANG Cardenas, the patient slept 8-1/2 hours previous night and has had a "much better day." Per nursing report, the patient remains confused, anxious, but very redirectable. REVIEW OF SYSTEMS: Ambulation impaired, some shortness of breath. No CV, , GI system symptoms on review. MENTAL STATUS EXAM: Oriented to herself. Insight, judgment, recent and remote memory, attention, concentration, fund of knowledge poor, consistent with her diagnosis mentioned in my initial note. PLAN: No change from initial note. MAN Clay BELL MD DR: DINORA/papa JOB#: [id number] / [id number]
[2019-10-14] MEDS: LEVOTHYROXINE 25 MCG TABLET. PO SCH (04:51)
[2019-10-14] MEDS: levoFLOXacin 250 MG TABLET PO SCH (04:55)
[2019-10-14 05:43] VITALS: BP 169/97
[2019-10-14 07:13] LABS: BASO % 0 % (0-3); EOS % 0 % (0-3); HEMATOCRIT 28.4 % (36.0-47.0); HEMOGLOBIN 9.3 g/dL (12.0-15.5); LYMPH # 1.5 x10^3/uL (1.0-4.8); LYMPH % 17 % (24-48); MEAN CORPUSCULAR HEMOGLOBIN 32 pg (25-35); MEAN CORPUSCULAR HGB CONC 33 g/dL (31-37); MEAN CORPUSCULAR VOLUME 98 fL (79-100); MONO # 0.5 x10^3/uL (0.0-1.1); MONO % 5 % (0-9); NEUT % 78 % (31-73); PLATELET COUNT 273 x10^3/uL (140-400); RED CELL DISTRIBUTION WIDTH 16.4 % (11.5-14.5); WHITE BLOOD COUNT 9.1 x10^3/uL (4.0-11.0)
[2019-10-14 07:27] LABS: ALBUMIN 2.4 g/dL (3.4-5.0); ALBUMIN/GLOBULIN RATIO 0.8 (1.0-1.7); CALCIUM 8.4 mg/dL (8.5-10.1); CREATININE 1.2 mg/dL (0.6-1.0); GFR 43.9; POTASSIUM 4.8 mmol/L (3.5-5.1); TOTAL BILIRUBIN 0.4 mg/dL (0.2-1.0); TOTAL PROTEIN 5.3 g/dL (6.4-8.2)
[2019-10-14] MEDS: MEGESTROL 40 MG TABLET. PO SCH ×2 (08:10→19:50)
[2019-10-14] MEDS: MULTIVITAMIN I-VITE TABLET. PO SCH (08:11)
[2019-10-14] MEDS: amLODIPine BESYLATE 5 MG TABLET PO SCH (08:11)
[2019-10-14] MEDS: VITAMIN B COMPLEX CAPSULE. PO SCH (08:11)
[2019-10-14] MEDS: LACTOBACILLUS RHAMNOSUS GG 1 CAPSULE. PO SCH ×2 (08:11→19:49)
[2019-10-14] MEDS: SERTRALINE 50 MG TABLET. PO SCH (08:11)
[2019-10-14] MEDS: CARVEDILOL 6.25 MG TABLET PO SCH ×2 (08:11→16:58)
[2019-10-14] MEDS: ACETAMINOPHEN 500 MG TABLET PO SCH ×2 (08:11→19:50)
[2019-10-14] MEDS: FERROUS SULFATE 325 MG TABLET. PO SCH ×2 (08:12→19:50)
[2019-10-14] MEDS: OXYBUTYNIN CHLORIDE 5 MG TABLET PO SCH ×3 (08:12→19:50)
[2019-10-14] MEDS: predniSONE 20 MG TABLET PO SCH (08:12)
[2019-10-14] MEDS: ASCORBIC ACID 500 MG TABLET PO SCH ×2 (08:12→19:49)
[2019-10-14 15:21] VITALS: BP 113/74
[2019-10-14] MEDS: MONTELUKAST 10 MG TABLET. PO SCH (19:49)
[2019-10-14] MEDS: ASPIRIN ENTERIC COATED 81 MG TABLET.DR. PO SCH (19:49)
[2019-10-14] MEDS: MIRTAZAPINE 7.5 MG TABLET. PO SCH (19:50)
--- NOTE | 2019-10-14 20:59 | PDOC ---
Exam Note: Piyush Note: Please also refer to the separate dictated note~for this date of service dictated separately.~Patient seen individually. Discussed the patient with Nursing staff reviewed the chart.~Reviewed interim history and current functioning. Reviewed vital signs,~Labs/ Radiology~and current medications noted below. Continue current treatment with the changes noted in the dictated addendum note Assessment: Vital Signs/I&O: Vital Signs Date Time Temp Pulse Resp B/P (MAP) Pulse Ox O2 Delivery O2 Flow Rate FiO2 10/14/19 16:58 75 113/74 10/14/19 15:21 98.8 18 93 Room Air I & O 10/13/19 10/13/19 10/14/19 15:00 23:00 07:00 Intake Total 480 ml 360 ml Balance 480 ml 360 ml Labs: Laboratory Tests Test 10/14/19 06:50 White Blood Count 9.1 x10^3/uL (4.0-11.0) Red Blood Count 2.90 x10^6/uL (3.50-5.40) L Hemoglobin 9.3 g/dL (12.0-15.5) L Hematocrit 28.4 % (36.0-47.0) L Mean Corpuscular Volume 98 fL (79-100) Mean Corpuscular Hemoglobin 32 pg (25-35) Mean Corpuscular Hemoglobin Concent 33 g/dL (31-37) Red Cell Distribution Width 16.4 % (11.5-14.5) H Platelet Count 273 x10^3/uL (140-400) Neutrophils (%) (Auto) 78 % (31-73) H Lymphocytes (%) (Auto) 17 % (24-48) L Monocytes (%) (Auto) 5 % (0-9) Eosinophils (%) (Auto) 0 % (0-3) Basophils (%) (Auto) 0 % (0-3) Neutrophils # (Auto) 7.0 x10^3uL (1.8-7.7) Lymphocytes # (Auto) 1.5 x10^3/uL (1.0-4.8) Monocytes # (Auto) 0.5 x10^3/uL (0.0-1.1) Eosinophils # (Auto) 0.0 x10^3/uL (0.0-0.7) Basophils # (Auto) 0.0 x10^3/uL (0.0-0.2) Sodium Level 143 mmol/L (136-145) Potassium Level 4.8 mmol/L (3.5-5.1) Chloride Level 106 mmol/L (98-107) Carbon Dioxide Level 30 mmol/L (21-32) Anion Gap 7 (6-14) Blood Urea Nitrogen 41 mg/dL (7-20) H Creatinine 1.2 mg/dL (0.6-1.0) H Estimated GFR (Cockcroft-Gault) 43.9 BUN/Creatinine Ratio 34 (6-20) H Glucose Level 85 mg/dL (70-99) Calcium Level 8.4 mg/dL (8.5-10.1) L Total Bilirubin 0.4 mg/dL (0.2-1.0) Aspartate Amino Transferase (AST) 29 U/L (15-37) Alanine Aminotransferase (ALT) 69 U/L (14-59) H Alkaline Phosphatase 95 U/L (46-116) Total Protein 5.3 g/dL (6.4-8.2) L Albumin 2.4 g/dL (3.4-5.0) L Albumin/Globulin Ratio 0.8 (1.0-1.7) L Current Medications: I have reviewed the current psychotropics carefully including drug interactions. Risk benefit ratio favors no change other than as noted in my dictated progress note. Diagnosis: Problems: (1) Anxiety disorder (2) Dementia, vascular, with depression (3) Dementia, vascular, with delusions (4) Dementia in Alzheimer's disease with depression (5) Dementia in Alzheimer's disease with delusions (6) Impulse control disorder DEB BELL MD Oct 14, 2019 20:59
[2019-10-15] MEDS: MELATONIN 3 MG TABLET PO PRN (00:38)
[2019-10-15] MEDS: traZODone 50 MG TABLET. PO PRN ×2 (00:38→20:40)
[2019-10-15 05:40] VITALS: BP 143/85
[2019-10-15] MEDS: LEVOTHYROXINE 25 MCG TABLET. PO SCH (05:42)
[2019-10-15] MEDS: levoFLOXacin 250 MG TABLET PO SCH (05:42)
[2019-10-15] MEDS: ACETAMINOPHEN 500 MG TABLET PO SCH ×2 (08:10→19:58)
[2019-10-15] MEDS: VITAMIN B COMPLEX CAPSULE. PO SCH (08:10)
[2019-10-15] MEDS: FERROUS SULFATE 325 MG TABLET. PO SCH ×2 (08:10→19:58)
[2019-10-15] MEDS: ASCORBIC ACID 500 MG TABLET PO SCH ×2 (08:10→19:58)
[2019-10-15] MEDS: predniSONE 20 MG TABLET PO SCH (08:10)
[2019-10-15] MEDS: SERTRALINE 50 MG TABLET. PO SCH (08:11)
[2019-10-15] MEDS: LACTOBACILLUS RHAMNOSUS GG 1 CAPSULE. PO SCH ×2 (08:11→19:58)
[2019-10-15] MEDS: amLODIPine BESYLATE 5 MG TABLET PO SCH (08:11)
[2019-10-15] MEDS: MULTIVITAMIN I-VITE TABLET. PO SCH (08:11)
[2019-10-15] MEDS: OXYBUTYNIN CHLORIDE 5 MG TABLET PO SCH ×3 (08:11→19:58)
[2019-10-15] MEDS: MEGESTROL 40 MG TABLET. PO SCH ×2 (08:11→19:57)
[2019-10-15] MEDS: CARVEDILOL 6.25 MG TABLET PO SCH ×2 (08:12→17:22)
[2019-10-15 15:40] VITALS: BP 119/79
[2019-10-15] MEDS: MONTELUKAST 10 MG TABLET. PO SCH (19:58)
[2019-10-15] MEDS: MIRTAZAPINE 7.5 MG TABLET. PO SCH (19:58)
[2019-10-15] MEDS: ASPIRIN ENTERIC COATED 81 MG TABLET.DR. PO SCH (19:58)
[2019-10-15] MEDS: MAG HYDROX/AL HYDROX/SIMETH 30 ML ORAL.SUSP PO PRN (20:42)
--- NOTE | 2019-10-15 20:42 | PN ---
DATE: 10/13/2019 PSYCHIATRIC PROGRESS NOTE This late entry 10/13/2019 covers elements not covered in my initial note. SUBJECTIVE: I met with the patient evening of 10/13/2019. Per Danielle RN, patient slept 7-3/4 hours previous night. She remains confused, but pleasant, redirectable. REVIEW OF SYSTEMS: No CV, , pulmonary, eye, ENT system symptoms on review. Reliability poor. MENTAL STATUS EXAM: Oriented to herself. Insight, judgment, recent and remote memory, attention, concentration, fund of knowledge poor, consistent with her diagnosis mentioned in my initial note. PLAN: No change from initial note. MAN Clay BELL MD DR: DINORA/papa JOB#: [id number] / [id number]
--- NOTE | 2019-10-15 21:00 | PDOC ---
Exam Note: Piyush Note: Please also refer to the separate dictated note~for this date of service dictated separately.~Patient seen individually. Discussed the patient with Nursing staff reviewed the chart.~Reviewed interim history and current functioning. Reviewed vital signs,~Labs/ Radiology~and current medications noted below. Continue current treatment with the changes noted in the dictated addendum note Assessment: Vital Signs/I&O: Vital Signs Date Time Temp Pulse Resp B/P (MAP) Pulse Ox O2 Delivery O2 Flow Rate FiO2 10/15/19 17:22 71 119/79 10/15/19 15:40 97.4 18 93 10/14/19 15:21 Room Air I & O 10/14/19 10/14/19 10/15/19 15:00 23:00 07:00 Intake Total 720 ml 360 ml Balance 720 ml 360 ml Current Medications: I have reviewed the current psychotropics carefully including drug interactions. Risk benefit ratio favors no change other than as noted in my dictated progress note. Diagnosis: Problems: (1) Impulse control disorder (2) Dementia in Alzheimer's disease with delusions (3) Dementia in Alzheimer's disease with depression (4) Dementia, vascular, with delusions (5) Dementia, vascular, with depression (6) Anxiety disorder (7) COPD exacerbation (8) Acute and chronic respiratory failure with hypoxia DEB BELL MD Oct 15, 2019 21:00
--- NOTE | 2019-10-15 22:49 | PN ---
DATE: 10/14/2019 PSYCHIATRIC PROGRESS NOTE This late entry 10/14/2019 covers the elements not covered in my initial note. SUBJECTIVE: I met with the patient in the evening of 10/14/2019 and staffed at a treatment team meeting with the entire team in the morning and the patient's , Shiva, attended the conference. The patient is sleeping average 6 hours, appetite 75%, compliant with medications, assessment, much calmer with cares, confused. She has attended 7 groups per activity therapy report. REVIEW OF SYSTEMS: Ambulation impaired, in wheelchair. No CV, , pulmonary, eye, ENT system symptoms on review. Reliability is poor. MENTAL STATUS EXAM: Oriented to herself. Insight, judgment, recent and remote memory, attention, concentration, fund of knowledge poor, consistent with her diagnoses. IMPRESSION: Major neurocognitive disorder, Alzheimer, vascular with delusion, depression, behavioral disturbance; anxiety disorder, unspecified; impulse control disorder, unspecified. Rest unchanged. PLAN: Continue current psychotropics mentioned in my initial note. Adjust further as clinically indicated. MAN Clay BELL MD DR: DINORA/papa JOB#: [id number] / [id number]
[2019-10-16 05:13] VITALS: BP 133/82
[2019-10-16] MEDS: LEVOTHYROXINE 25 MCG TABLET. PO SCH (05:28)
[2019-10-16] MEDS: levoFLOXacin 250 MG TABLET PO SCH (05:28)
[2019-10-16] MEDS: ACETAMINOPHEN 500 MG TABLET PO SCH ×2 (08:10→20:20)
[2019-10-16] MEDS: ASCORBIC ACID 500 MG TABLET PO SCH ×2 (08:10→20:19)
[2019-10-16] MEDS: OXYBUTYNIN CHLORIDE 5 MG TABLET PO SCH ×3 (08:10→20:19)
[2019-10-16] MEDS: VITAMIN B COMPLEX CAPSULE. PO SCH (08:10)
[2019-10-16] MEDS: amLODIPine BESYLATE 5 MG TABLET PO SCH (08:10)
[2019-10-16] MEDS: SERTRALINE 50 MG TABLET. PO SCH (08:11)
[2019-10-16] MEDS: MEGESTROL 40 MG TABLET. PO SCH ×2 (08:11→20:19)
[2019-10-16] MEDS: FERROUS SULFATE 325 MG TABLET. PO SCH ×2 (08:11→20:20)
[2019-10-16] MEDS: MULTIVITAMIN I-VITE TABLET. PO SCH (08:11)
[2019-10-16] MEDS: predniSONE 20 MG TABLET PO SCH (08:11)
[2019-10-16] MEDS: CARVEDILOL 6.25 MG TABLET PO SCH ×2 (08:12→17:22)
[2019-10-16] MEDS: LACTOBACILLUS RHAMNOSUS GG 1 CAPSULE. PO SCH ×2 (08:12→20:19)
[2019-10-16 15:59] VITALS: BP 120/63
[2019-10-16] MEDS: MIRTAZAPINE 7.5 MG TABLET. PO SCH (20:19)
[2019-10-16] MEDS: ASPIRIN ENTERIC COATED 81 MG TABLET.DR. PO SCH (20:19)
[2019-10-16] MEDS: MONTELUKAST 10 MG TABLET. PO SCH (20:19)
--- NOTE | 2019-10-16 21:37 | PDOC ---
Exam Note: Piyush Note: Please also refer to the separate dictated note~for this date of service dictated separately.~Patient seen individually. Discussed the patient with Nursing staff reviewed the chart.~Reviewed interim history and current functioning. Reviewed vital signs,~Labs/ Radiology~and current medications noted below. Continue current treatment with the changes noted in the dictated addendum note Assessment: Vital Signs/I&O: Vital Signs Date Time Temp Pulse Resp B/P (MAP) Pulse Ox O2 Delivery O2 Flow Rate FiO2 10/16/19 17:22 65 120/63 10/16/19 15:59 98.0 16 97 10/14/19 15:21 Room Air I & O 10/15/19 10/15/19 10/16/19 15:00 23:00 07:00 Intake Total 600 ml 720 ml Balance 600 ml 720 ml Current Medications: I have reviewed the current psychotropics carefully including drug interactions. Risk benefit ratio favors no change other than as noted in my dictated progress note. Diagnosis: Problems: (1) Anxiety disorder (2) Dementia, vascular, with depression (3) Dementia, vascular, with delusions (4) Dementia in Alzheimer's disease with depression (5) Dementia in Alzheimer's disease with delusions (6) Impulse control disorder (7) Dementia DEB BELL MD Oct 16, 2019 21:37
[2019-10-16] MEDS: traZODone 50 MG TABLET. PO PRN (22:01)
[2019-10-17] VITALS (8 sets, daily range): BP systolic 135–176; BP diastolic 76–106
[2019-10-17] MEDS: levoFLOXacin 250 MG TABLET PO SCH (05:53)
[2019-10-17] MEDS: LEVOTHYROXINE 25 MCG TABLET. PO SCH (05:53)
[2019-10-17] MEDS: MULTIVITAMIN I-VITE TABLET. PO SCH (08:08)
[2019-10-17] MEDS: VITAMIN B COMPLEX CAPSULE. PO SCH (08:08)
[2019-10-17] MEDS: ASCORBIC ACID 500 MG TABLET PO SCH ×2 (08:09→19:58)
[2019-10-17] MEDS: FERROUS SULFATE 325 MG TABLET. PO SCH ×2 (08:09→19:58)
[2019-10-17] MEDS: LACTOBACILLUS RHAMNOSUS GG 1 CAPSULE. PO SCH ×2 (08:09→19:57)
[2019-10-17] MEDS: predniSONE 20 MG TABLET PO SCH (08:09)
[2019-10-17] MEDS: CARVEDILOL 6.25 MG TABLET PO SCH (08:10)
[2019-10-17] MEDS: ACETAMINOPHEN 500 MG TABLET PO SCH ×2 (08:10→19:58)
[2019-10-17] MEDS: MEGESTROL 40 MG TABLET. PO SCH ×2 (08:10→19:58)
[2019-10-17] MEDS: OXYBUTYNIN CHLORIDE 5 MG TABLET PO SCH ×3 (08:10→19:58)
[2019-10-17] MEDS: SERTRALINE 50 MG TABLET. PO SCH (08:10)
[2019-10-17] MEDS: amLODIPine BESYLATE 5 MG TABLET PO SCH (08:10)
[2019-10-17] MEDS: MAG HYDROX/AL HYDROX/SIMETH 30 ML ORAL.SUSP PO PRN (12:31)
[2019-10-17 13:19] LABS: HEMATOCRIT 32.8 % (36.0-47.0); HEMOGLOBIN 10.6 g/dL (12.0-15.5); RED BLOOD COUNT 3.29 x10^6/uL (3.50-5.40); RED CELL DISTRIBUTION WIDTH 18.6 % (11.5-14.5); WHITE BLOOD COUNT 10.2 x10^3/uL (4.0-11.0)
[2019-10-17 13:24] LABS: CALCIUM 8.8 mg/dL (8.5-10.1); CREATININE 1.3 mg/dL (0.6-1.0); POTASSIUM 4.8 mmol/L (3.5-5.1)
[2019-10-17 13:30] LABS: ALBUMIN 2.8 g/dL (3.4-5.0); ALBUMIN/GLOBULIN RATIO 0.9 (1.0-1.7); TOTAL BILIRUBIN 0.5 mg/dL (0.2-1.0)
[2019-10-17] MEDS: NITROGLYCERIN SUBLINGUAL 0.4 MG BOTTLE OF 25. SL PRN ×2 (13:55→17:31)
[2019-10-17] MEDS: IV NORMAL SALINE 1,000ML 1,000 ML IV SCH (14:45)
[2019-10-17] MEDS: CARVEDILOL 12.5 MG TABLET PO SCH (16:17)
--- NOTE | 2019-10-17 16:42 | PN ---
DATE: 10/16/2019 PSYCHIATRIC PROGRESS NOTE This late entry October 16 covers elements not covered in my initial note. SUBJECTIVE: I met with the patient on evening of October 16. The patient slept 6-3/4 hours previous night. Per GAURANG Daley, the patient has been confused, but cooperative. Ambulation impaired, in wheelchair. REVIEW OF SYSTEMS: No CV, , pulmonary, eye system symptoms on review. Reliability poor. MENTAL STATUS EXAM: Oriented to herself. Insight, judgment, recent and remote memory, attention, concentration, fund of knowledge poor, consistent with her diagnosis. She was very pleasant, smiling, holding my hand, asking me about the weather outside, interactive, confused. LABORATORY DATA: Reviewed. IMPRESSION: Major neurocognitive disorder, Alzheimer's, vascular with delusion, depression, behavioral disturbance; bipolar disorder, unspecified. Rest unchanged. PLAN: Maintain trazodone, melatonin, Zyprexa, Remeron, Zoloft at current dosage. MAN Clay BELL MD DR: DINORA/papa JOB#: [id number] / [id number]
[2019-10-17] MEDS ORDERED: ENOXAPARIN ** NOTE DOSE ** SYRINGE SQ SCH (17:00)
[2019-10-17] MEDS: ASPIRIN ENTERIC COATED 81 MG TABLET.DR. PO SCH (19:57)
[2019-10-17] MEDS: MONTELUKAST 10 MG TABLET. PO SCH (19:57)
[2019-10-17] MEDS: MIRTAZAPINE 7.5 MG TABLET. PO SCH (19:57)
--- NOTE | 2019-10-17 20:45 | PDOC ---
Exam Note: Piyush Note: Please also refer to the separate dictated note~for this date of service dictated separately.~Patient seen individually. Discussed the patient with Nursing staff reviewed the chart.~Reviewed interim history and current functioning. Reviewed vital signs,~Labs/ Radiology~and current medications noted below. Continue current treatment with the changes noted in the dictated addendum note Assessment: Vital Signs/I&O: Vital Signs Date Time Temp Pulse Resp B/P (MAP) Pulse Ox O2 Delivery O2 Flow Rate FiO2 10/17/19 17:40 79 145/88 (107) 10/17/19 15:43 97.4 20 95 10/17/19 12:55 2.0 10/14/19 15:21 Room Air I & O 10/16/19 10/16/19 10/17/19 15:00 23:00 07:00 Intake Total 720 ml 600 ml Balance 720 ml 600 ml Labs: Laboratory Tests Test 10/17/19 13:05 10/17/19 17:00 White Blood Count 10.2 x10^3/uL (4.0-11.0) Red Blood Count 3.29 x10^6/uL (3.50-5.40) L Hemoglobin 10.6 g/dL (12.0-15.5) L Hematocrit 32.8 % (36.0-47.0) L Mean Corpuscular Volume 100 fL (79-100) Mean Corpuscular Hemoglobin 32 pg (25-35) Mean Corpuscular Hemoglobin Concent 32 g/dL (31-37) Red Cell Distribution Width 18.6 % (11.5-14.5) H Platelet Count 298 x10^3/uL (140-400) Sodium Level 141 mmol/L (136-145) Potassium Level 4.8 mmol/L (3.5-5.1) Chloride Level 106 mmol/L (98-107) Carbon Dioxide Level 27 mmol/L (21-32) Anion Gap 8 (6-14) Blood Urea Nitrogen 42 mg/dL (7-20) H Creatinine 1.3 mg/dL (0.6-1.0) H Estimated GFR (Cockcroft-Gault) 40.0 BUN/Creatinine Ratio 32 (6-20) H Glucose Level 122 mg/dL (70-99) H Calcium Level 8.8 mg/dL (8.5-10.1) Total Bilirubin 0.5 mg/dL (0.2-1.0) Aspartate Amino Transferase (AST) 32 U/L (15-37) Alanine Aminotransferase (ALT) 80 U/L (14-59) H Alkaline Phosphatase 104 U/L (46-116) Troponin I Quantitative < 0.017 ng/mL (0-0.055) < 0.017 ng/mL (0-0.055) Total Protein 6.0 g/dL (6.4-8.2) L Albumin 2.8 g/dL (3.4-5.0) L Albumin/Globulin Ratio 0.9 (1.0-1.7) L Lipase 192 U/L (73-393) Current Medications: Meds: Current Medications Medications (Trade) Dose Ordered Sig/Judd Route PRN Reason Start Time Stop Time Status Last Admin Dose Admin Nitroglycerin (Nitrostat) 0.4 mg PRN Q5MIN PRN SL CHEST PAIN 10/17/19 13:00 10/17/19 17:31 Sodium Chloride 1,000 ml @ 75 mls/hr [id number] IV 10/17/19 14:45 10/17/19 14:45 Enoxaparin Sodium (Lovenox 60mg Syringe) 50 mg Q24H SQ 10/17/19 17:00 10/17/19 17:30 Carvedilol (Coreg) 12.5 mg BIDWMEALS PO 10/17/19 17:00 10/17/19 16:17 I have reviewed the current psychotropics carefully including drug interactions. Risk benefit ratio favors no change other than as noted in my dictated progress note. Diagnosis: Problems: (1) Anxiety disorder (2) Dementia, vascular, with depression (3) Dementia, vascular, with delusions (4) Dementia in Alzheimer's disease with depression (5) Dementia in Alzheimer's disease with delusions (6) Impulse control disorder DEB BELL MD Oct 17, 2019 20:45
[2019-10-17] MEDS ORDERED: amLODIPine BESYLATE 5 MG TABLET PO ONE (21:00)
[2019-10-18] MEDS: IV NORMAL SALINE 1,000ML 1,000 ML IV SCH (04:32)
[2019-10-18] MEDS: LEVOTHYROXINE 25 MCG TABLET. PO SCH (05:18)
[2019-10-18 05:49] VITALS: BP 175/87
[2019-10-18] MEDS: amLODIPine BESYLATE 10 MG TABLET PO SCH (08:13)
[2019-10-18] MEDS: MEGESTROL 40 MG TABLET. PO SCH ×2 (08:14→19:58)
[2019-10-18] MEDS: MULTIVITAMIN I-VITE TABLET. PO SCH (08:14)
[2019-10-18] MEDS: SERTRALINE 50 MG TABLET. PO SCH (08:14)
[2019-10-18] MEDS: FERROUS SULFATE 325 MG TABLET. PO SCH ×2 (08:14→19:58)
[2019-10-18] MEDS: CARVEDILOL 12.5 MG TABLET PO SCH ×2 (08:14→17:00)
[2019-10-18] MEDS: PANTOPRAZOLE 40 MG TABLET. PO SCH (08:15)
[2019-10-18] MEDS: ACETAMINOPHEN 500 MG TABLET PO SCH ×2 (08:15→19:59)
[2019-10-18] MEDS: LACTOBACILLUS RHAMNOSUS GG 1 CAPSULE. PO SCH ×2 (08:15→19:58)
[2019-10-18] MEDS: predniSONE 20 MG TABLET PO SCH (08:15)
[2019-10-18] MEDS: ASCORBIC ACID 500 MG TABLET PO SCH ×2 (08:15→19:59)
[2019-10-18] MEDS: OXYBUTYNIN CHLORIDE 5 MG TABLET PO SCH ×3 (08:15→19:58)
[2019-10-18] MEDS: VITAMIN B COMPLEX CAPSULE. PO SCH (08:15)
[2019-10-18 08:51] LABS: CALCIUM 8.4 mg/dL (8.5-10.1); CREATININE 1.1 mg/dL (0.6-1.0); GFR 48.6; POTASSIUM 4.2 mmol/L (3.5-5.1)
[2019-10-18 08:57] LABS: ALBUMIN/GLOBULIN RATIO 0.9 (1.0-1.7); TOTAL BILIRUBIN 0.7 mg/dL (0.2-1.0); TOTAL PROTEIN 6.3 g/dL (6.4-8.2)
[2019-10-18] MEDS ORDERED: IOHEXOL 350 MG/ML 100 ML VIAL. IV ONE (09:00)
--- NOTE | 2019-10-18 11:10 | RAD ---
EXAM: CT Pulmonary Angiogram INDICATION: Shortness of air. TECHNIQUE: Multi-detector row images were acquired from the thoracic inlet through the upper abdomen with the use of IV contrast. Sagittal and coronal images were acquired from the transaxial data. MIP images of the pulmonary arteries were obtained. All CT scans performed at this facility utilize dose optimization techniques as appropriate to the exam, including the following: Automated exposure control and adjustment of the mA and/or KV according to patient size (this includes techniques or standardized protocols for targeted exams where dose is indication/reason for exam). IV CONTRAST: Administered DLP 112.7 mGycm COMPARISON: Chest x-ray of September 28, 2019 FINDINGS: PULMONARY ARTERIES: No pulmonary emboli are identified. CARDIOVASCULAR: Unremarkable Aorta is normal caliber. MEDIASTINUM & KEYSHAWN: At least 3 dense solid intraluminal filling defects are present at the distal thoracic esophagus near the gastroesophageal junction. LUNGS: Mild centrilobular emphysema. No suspicious lung nodules or masses identified. There is minimal linear atelectasis or scarring in the posterior basal right lower lobe. PLEURAL SPACE: Trace bilateral pleural effusions, left greater than right. No pneumothorax. OSSEOUS & SOFT TISSUE: Unremarkable ABDOMEN: The visualized portions of the upper abdomen are unremarkable. IMPRESSION: 1. No pulmonary emboli. 2. Emphysema. 3. Minimal right basilar atelectasis and trace bilateral pleural effusions. 4. Possibly impacted ingested foreign bodies in the distal thoracic esophagus. Electronically signed by: Mandi Babcock MD (10/18/2019 11:07 AM) [facility]
[2019-10-18 15:46] VITALS: BP 106/70
--- NOTE | 2019-10-18 17:30 | RAD ---
INDICATION: Shortness of air with possible foreign body in esophagus COMPARISON: CT earlier same day FINDINGS: 2 view of chest obtained. Cardiac silhouette is unremarkable. Disorganization of the pulmonary markings bilaterally. Degenerative changes of spine. Nodular opacity right lower lung IMPRESSION: * Nodular opacity at the right lower lung which could be from round atelectasis or pneumonia. Given the nodular appearance it may be helpful to obtain a follow-up to ensure that this resolves and is not secondary to a persistent pulmonary nodule. * The possible foreign body within the esophagus seen on CT is not as well-seen on plain film. Electronically signed by: Salas Rogers MD (10/18/2019 5:27 PM) [facility]
[2019-10-18] MEDS: ASPIRIN ENTERIC COATED 81 MG TABLET.DR. PO SCH (19:58)
[2019-10-18] MEDS: MIRTAZAPINE 7.5 MG TABLET. PO SCH (19:59)
[2019-10-18] MEDS: MONTELUKAST 10 MG TABLET. PO SCH (19:59)
--- NOTE | 2019-10-18 21:06 | PDOC ---
Exam Note: Piyush Note: Please also refer to the separate dictated note~for this date of service dictated separately.~Patient seen individually. Discussed the patient with Nursing staff reviewed the chart.~Reviewed interim history and current functioning. Reviewed vital signs,~Labs/ Radiology~and current medications noted below. Continue current treatment with the changes noted in the dictated addendum note Assessment: Vital Signs/I&O: Vital Signs Date Time Temp Pulse Resp B/P (MAP) Pulse Ox O2 Delivery O2 Flow Rate FiO2 10/18/19 17:00 61 106/70 10/18/19 15:46 97.7 20 95 Room Air 10/17/19 12:55 2.0 I & O 10/17/19 10/17/19 10/18/19 15:00 23:00 07:00 Intake Total 480 ml 60 ml 950 ml Balance 480 ml 60 ml 950 ml Labs: Laboratory Tests Test 10/17/19 21:10 10/18/19 08:32 Troponin I Quantitative 0.028 ng/mL (0-0.055) Sodium Level 139 mmol/L (136-145) Potassium Level 4.2 mmol/L (3.5-5.1) Chloride Level 104 mmol/L (98-107) Carbon Dioxide Level 29 mmol/L (21-32) Anion Gap 6 (6-14) Blood Urea Nitrogen 30 mg/dL (7-20) H Creatinine 1.1 mg/dL (0.6-1.0) H Estimated GFR (Cockcroft-Gault) 48.6 BUN/Creatinine Ratio 27 (6-20) H Glucose Level 108 mg/dL (70-99) H Calcium Level 8.4 mg/dL (8.5-10.1) L Total Bilirubin 0.7 mg/dL (0.2-1.0) Aspartate Amino Transferase (AST) 28 U/L (15-37) Alanine Aminotransferase (ALT) 71 U/L (14-59) H Alkaline Phosphatase 103 U/L (46-116) Total Protein 6.3 g/dL (6.4-8.2) L Albumin 3.0 g/dL (3.4-5.0) L Albumin/Globulin Ratio 0.9 (1.0-1.7) L Current Medications: Meds: Current Medications Medications (Trade) Dose Ordered Sig/Judd Route PRN Reason Start Time Stop Time Status Last Admin Dose Admin Pantoprazole Sodium (Protonix) 40 mg DAILYAC PO 10/18/19 07:30 10/18/19 08:15 Amlodipine Besylate (Norvasc) 10 mg DAILY PO 10/18/19 09:00 10/18/19 08:13 Iohexol (Omnipaque 350 Mg/ml) 100 ml 1X ONCE IV 10/18/19 09:00 10/18/19 09:02 DC 10/18/19 09:09 I have reviewed the current psychotropics carefully including drug interactions. Risk benefit ratio favors no change other than as noted in my dictated progress note. Diagnosis: Problems: (1) Anxiety disorder (2) Dementia, vascular, with depression (3) Dementia, vascular, with delusions (4) Dementia in Alzheimer's disease with depression (5) Dementia in Alzheimer's disease with delusions (6) Impulse control disorder (7) COPD exacerbation DEB BELL MD Oct 18, 2019 21:06
--- NOTE | 2019-10-18 22:36 | PN ---
DATE: 10/17/2019 PSYCHIATRIC PROGRESS NOTE This late entry of 10/17/2019 covers the elements not covered in my initial note. SUBJECTIVE: I met with the patient in the evening of 10/17/2019. Per GAURANG Tirado, the patient slept 5-3/4 hours previous night. She has had some elevation of blood pressure, started on Lovenox; complaining of chest pain, troponin was negative. Received nitro x 2. She is going to have a CT angio in the morning of 10/18/2019. BUN was 42 and she is on IV fluids per Dr. Spring. Otherwise, cooperative. She does complain of weakness. REVIEW OF SYSTEMS: No CV, , pulmonary, eye system symptoms on review. Reliability varies. MENTAL STATUS EXAM: Oriented to herself. Insight, judgment, recent and remote memory, attention, concentration, fund of knowledge poor, consistent with her diagnosis mentioned in my initial note. PLAN: No change from initial note. DEB BELL MD DR: DINORA/papa JOB#: [id number] / [id number]
[2019-10-19] MEDS ORDERED: VIT1TABL8 PO (00:46)
[2019-10-19] MEDS ORDERED: MEGE40TA PO (00:48)
[2019-10-19] MEDS ORDERED: MIRT7.5T8 PO (00:49)
[2019-10-19] MEDS ORDERED: NITR0.4T24 SL (00:50)
[2019-10-19] MEDS ORDERED: OXYB5TAB10 PO (00:53)
[2019-10-19] MEDS ORDERED: SERT50TA PO (00:54)
[2019-10-19] MEDS ORDERED: PANT40TA3 PO (00:54)
[2019-10-19] MEDS: LEVOTHYROXINE 25 MCG TABLET. PO SCH (05:33)
[2019-10-19 05:36] VITALS: BP 158/88
[2019-10-19] MEDS: MULTIVITAMIN I-VITE TABLET. PO SCH (08:43)
[2019-10-19] MEDS: LACTOBACILLUS RHAMNOSUS GG 1 CAPSULE. PO SCH (08:43)
[2019-10-19] MEDS: PANTOPRAZOLE 40 MG TABLET. PO SCH (08:43)
[2019-10-19] MEDS: SERTRALINE 50 MG TABLET. PO SCH (08:43)
[2019-10-19] MEDS: VITAMIN B COMPLEX CAPSULE. PO SCH (08:43)
[2019-10-19] MEDS: OXYBUTYNIN CHLORIDE 5 MG TABLET PO SCH (08:43)
[2019-10-19] MEDS: ACETAMINOPHEN 500 MG TABLET PO SCH (08:43)
[2019-10-19 08:44] VITALS: BP 158/88
[2019-10-19] MEDS: CARVEDILOL 12.5 MG TABLET PO SCH (08:44)
[2019-10-19] MEDS: amLODIPine BESYLATE 10 MG TABLET PO SCH (08:44)
[2019-10-19] MEDS: FERROUS SULFATE 325 MG TABLET. PO SCH (08:44)
[2019-10-19] MEDS: predniSONE 20 MG TABLET PO SCH (08:44)
[2019-10-19] MEDS: MEGESTROL 40 MG TABLET. PO SCH (08:45)
[2019-10-19] MEDS: ASCORBIC ACID 500 MG TABLET PO SCH (08:45)
--- NOTE | 2019-10-19 09:14 | RAD ---
EXAM: CT Chest without IV contrast INDICATION: Radiopaque foreign body at the distal end of the esophagus. TECHNIQUE: Multi-detector row CT images were acquired from the thoracic inlet through the upper abdomen without the use of IV contrast. Sagittal and coronal images were acquired from the transaxial data. All CT scans performed at this facility utilize dose optimization techniques as appropriate to the exam, including the following: Automated exposure control and adjustment of the mA and/or KV according to patient size (this includes techniques or standardized protocols for targeted exams where dose is indication/reason for exam). DLP 127.8 mGycm COMPARISON: CT pulmonary angiogram of the previous day FINDINGS: The absence of IV contrast limits evaluation of soft tissue pathology. CARDIOVASCULAR: Unremarkable MEDIASTINUM & KEYSHAWN: The radiopaque foreign bodies identified in the distal thoracic esophagus on the previous day chest CT have since cleared. LUNGS: No interval change in centrilobular emphysema and minimal atelectasis or scarring in the posterior basal right lower lobe. 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 PLEURAL SPACE: No pleural effusions or pneumothorax. OSSEOUS & SOFT TISSUE: Unremarkable ABDOMEN: The visualized portions of the upper abdomen are unremarkable. IMPRESSION: 1. The foreign bodies in the distal thoracic esophagus have since cleared. Correlate with any history of medication ingestion. 2. Emphysema with nodular scarring in the posterior right lower lobe. Consider surveillance chest CT in 6 months. Electronically signed by: Mandi Babcock MD (10/19/2019 9:11 AM) [facility]
[2019-10-19] MEDS ORDERED: PRED20TA PO ×2 (10:56→10:57)
[2019-10-19] MEDS ORDERED: PRED-220 PO (10:58)
--- NOTE | 2019-10-19 10:59 | EKG ---
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
--- NOTE | 2019-10-19 21:08 | PDOC ---
Exam Note: Piyush Note: Please also refer to the separate dictated note~for this date of service dictated separately.~Patient seen individually. Discussed the patient with Nursing staff reviewed the chart.~Reviewed interim history and current functioning. Reviewed vital signs,~Labs/ Radiology~and current medications noted below. Continue current treatment with the changes noted in the dictated addendum note Assessment: Vital Signs/I&O: Vital Signs Date Time Temp Pulse Resp B/P (MAP) Pulse Ox O2 Delivery O2 Flow Rate FiO2 10/19/19 08:44 68 158/88 10/19/19 05:36 97.8 16 98 10/18/19 15:46 Room Air 10/17/19 12:55 2.0 I & O 10/18/19 10/18/19 10/19/19 14:59 22:59 06:59 Intake Total 240 ml 240 ml Balance 240 ml 240 ml Current Medications: I have reviewed the current psychotropics carefully including drug interactions. Risk benefit ratio favors no change other than as noted in my dictated progress note. Diagnosis: Problems: (1) Anxiety disorder (2) Dementia, vascular, with depression (3) Dementia, vascular, with delusions (4) Dementia in Alzheimer's disease with depression (5) Dementia in Alzheimer's disease with delusions (6) Impulse control disorder (7) COPD exacerbation DEB BELL MD Oct 19, 2019 21:08
--- NOTE | 2019-10-19 21:36 | PN ---
DATE: 10/18/2019 PSYCHIATRIC PROGRESS NOTE This late entry 10/18/2019 covers elements not covered in my initial note. SUBJECTIVE: I met with the patient evening of 10/18/2019. Per GAURANG Bah, the patient slept 5-1/4 hours previous night. She still remains on the IV fluids. We will defer to Dr. Spring. Lovenox has been stopped. She has an impacted foreign body, distal esophagus, will again defer to Dr. Spring. REVIEW OF SYSTEMS: Some shortness of breath, impaired ambulation. No CV, GI, , ENT system symptoms on review. Reliability poor. MENTAL STATUS EXAM: Oriented to herself. Insight, judgment, recent and remote memory, attention, concentration, fund of knowledge poor, consistent with her diagnosis mentioned in my initial note. She was very pleasant, smiling, holding my hand as I met with her. LABORATORY DATA: Reviewed. IMPRESSION: Unchanged from initial note. PLAN: No change from initial note. DEB BELL MD DR: DINORA/papa JOB#: [id number] / [id number]
--- NOTE | 2019-10-20 12:34 | DS ---
DATE OF DISCHARGE: 10/19/2019 DISCHARGE SUMMARY AND PSYCHIATRIC PROGRESS NOTE This late entry 10/19/2019 covers elements not covered in my initial note. I met with the patient individually. REASON FOR ADMISSION: Please refer to the admission history for details. Briefly, the patient is a 74-year-old female who returned back to us from [facility] where she was transitioned after she was medically stabilized on 1 . She was having active visual hallucinations, getting more confused, marked insomnia, refusing cares, and increased agitation. She had failed outpatient psychiatric interventions during the brief stay back at [place]. SIGNIFICANT FINDINGS AND CLINICAL COURSE: Following admission, the patient was seen individually by myself from a psychiatric standpoint, medical followup per Dr. Spring. The patient remained confused, anxious, restless, labile in her mood with active hallucinations. Adjustments were made in her psychotropics and she seemed to respond to a combination of Zoloft 50 mg a day, Remeron 7.5 mg at bedtime, trazodone was used 50 mg at bedtime p.r.n., may repeat times 1 for insomnia, together with melatonin 3 mg at bedtime p.r.n., may repeat times 1 and Zyprexa p.r.n. for psychosis. She did become dehydrated, received IV fluids a couple of days prior to her transition back to [place]. Gradually her mood appeared to improve. She remained forgetful with memory deficits, but was very manageable, compliant, pleasant, smiling as I met with her. REVIEW OF SYSTEMS: Prior to discharge on 10/19/2019, ambulation impaired, in wheelchair. No CV, , pulmonary, eye system symptoms on review. MENTAL STATUS EXAM: Oriented to herself. Insight, judgment, recent and remote memory, attention, concentration, fund of knowledge poor, consistent with her diagnosis mentioned in my initial note. CONDITION AT DISCHARGE: Improved. FINAL DIAGNOSES: Major neurocognitive disorder, Alzheimer, vascular with delusion, depression, behavioral disturbance; anxiety disorder, unspecified; impulse control disorder, unspecified; status post dehydration, status post femoral neck fracture, bipolar disorder, unspecified. Rest unchanged from admission. DISCHARGE MEDICATIONS: Please refer to the MRAD. DISCHARGE INSTRUCTIONS: Outpatient psychiatric and medical followup at the correction. MAN Clay BELL MD DR: DINORA/papa JOB#: [id number] / [id number]
== END 2019-10-19 13:22 | DRG 885 ==
LOC: GEROPSY 15:55
PROVIDERS: ADMIT Psychiatry & Neurology Psychiatry; ATTEND Psychiatry & Neurology Psychiatry
DX: F31.75 Bipolar disorder, in partial remission, most recent episode depressed (principal); F02.81 Dementia in other diseases classified elsewhere, unspecified severity, with behavioral disturbance; F01.50 Vascular dementia, unspecified severity, without behavioral disturbance, psychotic disturbance, mood disturbance, and anxiety; I10 Essential (primary) hypertension; E03.9 Hypothyroidism, unspecified; Z90.710 Acquired absence of both cervix and uterus; Z87.891 Personal history of nicotine dependence; Z82.49 Family history of ischemic heart disease and other diseases of the circulatory system; Z79.899 Other long term (current) drug therapy; Z86.59 Personal history of other mental and behavioral disorders; Z88.8 Allergy status to other drugs, medicaments and biological substances; J44.9 Chronic obstructive pulmonary disease, unspecified; G47.00 Insomnia, unspecified; E86.0 Dehydration; G30.9 Alzheimer's disease, unspecified; F41.9 Anxiety disorder, unspecified; F63.9 Impulse disorder, unspecified; H91.90 Unspecified hearing loss, unspecified ear
CPT/HCPCS: 36415; 71046; 71250; 71275; 73000; 73502; 80053; 81001; 82274; 83690; 84484; 85007; 85025; 85027; 87086; 87186; 87493; 93005; 94640; J1650; J7512; J7620; Q0162; Q9967; 97110; 97116; 97530; 97535; J7030

== ENCOUNTER 2020-05-18 19:31 | Inpatient (IN) | payer MEDICARE, OTHER ==
[~2020-05-18] VITALS: Ht 167.6 cm; Wt 44.5 kg
[~2020-05-18 19:31] MED LIST changes: +ALBU2.5V14 NEB; -ASCO500T2 PO; +ASCO500T4 PO; +ENOX30DI3 SQ; +GUAI600T6 PO; +IPRA3AMP29 NEB; +LACT1CAP19 PO; -MAGN2400 PO; +MAGN24003 PO; +MEGE40TA3 PO; +MELA3TAB4 PO; -MELA3TAB56 PO; +MONT10TA80 PO; +NITR0.4T24 SL; -OLAN5TAB5 PO; +OLAN5TAB99 PO; +OXYB5TAB10 PO; +PANT40TA3 PO; +PRED-220 PO; +PRED20TA PO; +VIT1TABL8 PO
[2020-05-18] MEDS ORDERED: IOHEXOL 350 MG/ML 100 ML VIAL. IV ONE (19:45)
--- NOTE | 2020-05-18 19:47 | PHYS DOC ---
Past History Past Medical History: Dementia, Hypertension Additional Past Medical Histor: Limited secondary to dementia, kidney disease, mi 2008 Past Surgical History: Appendectomy, Hysterectomy, Other Additional Past Surgical Histo: unknown Smoking: Non-smoker Alcohol Use: None Drug Use: None Adult General Chief Complaint Chief Complaint: SHORTNESS OF BREATH HPI HPI Patient is a 75-year-old female who presents via EMS for shortness of breath. Patient lives at local assisted living facility when staff reported increased dyspnea and self-reported feelings of shortness of breath. Vitals were obtained at facility and non-concerning; however, patient has a history of pulmonary embolism so decision was made to call EMS for transport to our facility for evaluation. In route, patient's vitals non-concerning, saturating greater than 90% on room air, nonlabored breathing per EMS. Per patient, she reports increased shortness of breath past baseline and mild substernal chest pressure, lower extremity edema that was noticed today by patient, and feelings that she cannot take a full breath. Symptoms have been constant since onset, no inciting event. History limited due to patient's underlying dementia. Per chart review, patient indeed has history of DVT and pulmonary embolism, currently on 81 mg aspirin daily. Per patient and EMS, she has been compliant with all medications. Review of Systems Review of Systems Fourteen body systems of review of systems have been reviewed. See HPI for pertinent positives and negative responses, other edouard all other systems are negative, non-pertinent or non-contributory Current Medications Current Medications Current Medications Medications (Trade) Dose Ordered Sig/Judd Start Time Stop Time Status Last Admin Dose Admin Iohexol (Omnipaque 350 Mg/ml) 100 ml 1X ONCE 05/18/20 19:45 05/18/20 19:46 UNV Allergies Allergies Allergies Coded Allergies Type Severity Reaction Last Updated Verified No Known Drug Allergies 11/16/15 No Physical Exam Physical Exam Constitutional: Well developed, well nourished, no acute distress, non-toxic appearance. [] HENT: Normocephalic, atraumatic, bilateral external ears normal, oropharynx moist, no oral exudates, nose normal. [] Eyes: PERRLA, EOMI, conjunctiva normal, no discharge. [] Neck: Normal range of motion, no tenderness, supple, no stridor. [] Cardiovascular:Heart rate regular rhythm, no murmur [] Lungs & Thorax: Bilateral breath sounds clear to auscultation [] Abdomen: Bowel sounds normal, soft, no tenderness, no masses, no pulsatile masses. [] Skin: Warm, dry, no erythema, no rash. [] Back: No tenderness, no CVA tenderness. [] Extremities: No tenderness, no cyanosis, no clubbing, ROM intact, no edema. [] Neurologic: Alert and oriented X 3, normal motor function, normal sensory function, no focal deficits noted. [] Psychologic: Affect normal, judgement normal, mood normal. [] Current Patient Data Vital Signs Vital Signs Date Time Temp Pulse Resp B/P (MAP) Pulse Ox O2 Delivery O2 Flow Rate FiO2 05/18/20 21:23 98.0 67 20 120/74 (89) 96 Lab Results Laboratory Tests Test 05/18/20 19:40 White Blood Count 7.3 x10^3/uL Red Blood Count 4.23 x10^6/uL Hemoglobin 12.6 g/dL Hematocrit 39.8 % Mean Corpuscular Volume 94 fL Mean Corpuscular Hemoglobin 30 pg Mean Corpuscular Hemoglobin Concent 32 g/dL Red Cell Distribution Width 14.8 % Platelet Count 210 x10^3/uL Neutrophils (%) (Auto) 63 % Lymphocytes (%) (Auto) 23 % Monocytes (%) (Auto) 10 % Eosinophils (%) (Auto) 3 % Basophils (%) (Auto) 1 % Neutrophils # (Auto) 4.6 x10^3uL Lymphocytes # (Auto) 1.7 x10^3/uL Monocytes # (Auto) 0.7 x10^3/uL Eosinophils # (Auto) 0.2 x10^3/uL Basophils # (Auto) 0.1 x10^3/uL Prothrombin Time 9.3 SEC Prothromb Time International Ratio 0.9 Activated Partial Thromboplast Time 23 SEC Sodium Level 143 mmol/L Potassium Level 3.9 mmol/L Chloride Level 108 mmol/L Carbon Dioxide Level 27 mmol/L Anion Gap 8 Blood Urea Nitrogen 20 mg/dL Creatinine 1.9 mg/dL Estimated GFR (Cockcroft-Gault) 25.8 BUN/Creatinine Ratio 11 Glucose Level 99 mg/dL Calcium Level 8.5 mg/dL Total Bilirubin 0.3 mg/dL Aspartate Amino Transf (AST/SGOT) 24 U/L Alanine Aminotransferase (ALT/SGPT) 34 U/L Alkaline Phosphatase 113 U/L Creatine Kinase 60 U/L Troponin I Quantitative < 0.017 ng/mL MW-Wbu-Q-Type Natriuretic Peptide 558 pg/mL Total Protein 6.7 g/dL Albumin 2.9 g/dL Albumin/Globulin Ratio 0.8 Current Medications Medications (Trade) Dose Ordered Sig/Judd Route PRN Reason Start Time Stop Time Status Last Admin Dose Admin Iohexol (Omnipaque 350 Mg/ml) 100 ml 1X ONCE IV 05/18/20 19:45 05/18/20 19:53 DC Sodium Chloride 1,000 ml @ 150 mls/hr 1X ONCE IV 05/18/20 20:30 05/19/20 03:09 EKG EKG EKG ordered and interpreted by myself at 1944 hrs. as normal sinus rhythm at 64 bpm, unremarkable intervals, no axis deviation, no ischemic findings, no STEMI. No concerning EKG findings indicating RV dysfunction Radiology/Procedures Radiology/Procedures PROCEDURE: PORTABLE CHEST 1V Exam: Chest one view INDICATION: Shortness of breath TECHNIQUE: Frontal view of the chest Comparisons: 10/18/2019 FINDINGS: The cardiomediastinal silhouette and pulmonary vessels are within normal limits. Strandy opacities at lung bases bilaterally. No pleural effusion. IMPRESSION: Emphysematous change without acute process identified. Electronically signed by: Yvette Maradiaga MD (05/18/2020 8:56 PM) [id number] PROCEDURE: CT CHEST WO CONTRAST Exam: CT of chest without contrast INDICATION: Shortness of breath TECHNIQUE: Sequential axial images through the chest obtained without IV contrast. Sagittal and coronal reformatted images were reconstructed from the axial data and reviewed. Comparisons: Chest x-ray same day FINDINGS: Visualized portions of the thyroid are unremarkable. No enlarged mediastinal lymph nodes are identified. Heart size is normal. No pericardial effusion. Mild coronary artery calcifications. Thoracic aorta has a normal course and caliber. Pulmonary artery is not enlarged. Airways are patent. Strandy opacities at dependent portion lungs appear representing atelectasis. Mild centrilobular emphysematous change at the upper lungs. No consolidation or pneumothorax. No suspicious lung nodules. No pleural effusion or thickening. Visualized upper abdomen is unremarkable. No suspicious osseous lesions or acute fractures. IMPRESSION: Strandy opacities at dependent portion the lungs bilaterally likely representing atelectasis. Exposure: One or more of the following in the visualized dose reduction techniques were utilized for this examination: 1. Automated exposure control 2. Adjustment of the MA and/or KV according to patient size 3. Use of iterative of reconstructive technique Electronically signed by: Yvette Maradiaga MD (05/18/2020 8:52 PM) [id number] Course & Med Decision Making Course & Med Decision Making Patient seen on immediate ER arrival via EMS Airway patent, breathing unlabored non-concerning vitals and IV access obtained History obtained though limited given patient's dementia. Comprehensive physical exam performed with subsequent ordering of pertinent laboratory and imaging tests Patient reevaluated numerous times by myself and other members of her healthcare team, relatively asymptomatic and continued to be well-appearing throughout her stay Nonetheless, patient has risk factors with heart score of 5 and concerning presenting symptoms despite no emergent causes of patient's symptomatology identified Discussed with patient and patient's daughter my recommendation for admission for continued medical observation and management, they both agreed On-call hospitalist, Dr. Spring, contacted and case discussed. He graciously accepted patient under his care All questions and concerns of patient addressed prior to ER departure for transport to [facility] for continued medical care Dragon Disclaimer Dragon Disclaimer This electronic medical record was generated, in whole or in part, using a voice recognition dictation system. The HEART Score for CP Pts HEART Score for Chest Pain: HEART Score for Chest Pain Response (Comments) Value History Moderately Suspicious 1 ECG Normal 0 Age > 65 2 Risk Factors >3 Risk Factors or Hx CAD 2 Troponin < Normal Limit 0 Total 5 Risk Factors: Risk Factors: DM, Current or recent (<one month) smoker, HTN, HLP, family history of CAD, obesity. Risk Scores: Score 0 - 3: 2.5% MACE over next 6 weeks - Discharge Home Score 4 - 6: 20.3% MACE over next 6 weeks - Admit for Clinical Observation Score 7 - 10: 72.7% MACE over next 6 weeks - Early Invasive Strategies Departure Departure: Impression: Primary Impression: Chest pain, rule out acute myocardial infarction Additional Impressions: Shortness of breath History of pulmonary embolism DNR (do not resuscitate) Disposition: 09 ADMITTED INPATIENT (observation under care of Dr. Spring) Admitting Physician: Salo Spring Condition: STABLE Referrals: BANDAR HORTON MD (PCP) Justification of Admission: Justification of Admission: Justification of Admission Dx: Yes (Heart score 5, dyspnea, history of blood clots, requires cardiac observation) Problem Qualifiers AYSE ZACARIAS DO May 18, 2020 19:47
[2020-05-18 20:01] LABS: BASO # 0.1 x10^3/uL (0.0-0.2); BASO % 1 % (0-3); EOS # 0.2 x10^3/uL (0.0-0.7); EOS % 3 % (0-3); HEMATOCRIT 39.8 % (36.0-47.0); HEMOGLOBIN 12.6 g/dL (12.0-15.5); LYMPH # 1.7 x10^3/uL (1.0-4.8); LYMPH % 23 % (24-48); MEAN CORPUSCULAR HEMOGLOBIN 30 pg (25-35); MEAN CORPUSCULAR HGB CONC 32 g/dL (31-37); MEAN CORPUSCULAR VOLUME 94 fL (79-100); MONO # 0.7 x10^3/uL (0.0-1.1); MONO % 10 % (0-9); NEUT # 4.6 x10^3uL (1.8-7.7); NEUT % 63 % (31-73); PLATELET COUNT 210 x10^3/uL (140-400); RED BLOOD COUNT 4.23 x10^6/uL (3.50-5.40); RED CELL DISTRIBUTION WIDTH 14.8 % (11.5-14.5); WHITE BLOOD COUNT 7.3 x10^3/uL (4.0-11.0)
[2020-05-18 20:09] LABS: CALCIUM 8.5 mg/dL (8.5-10.1); CREATININE 1.9 mg/dL (0.6-1.0); GFR 25.8; POTASSIUM 3.9 mmol/L (3.5-5.1)
[2020-05-18 20:21] LABS: ALBUMIN 2.9 g/dL (3.4-5.0); ALBUMIN/GLOBULIN RATIO 0.8 (1.0-1.7); TOTAL BILIRUBIN 0.3 mg/dL (0.2-1.0); TOTAL PROTEIN 6.7 g/dL (6.4-8.2)
[2020-05-18] MEDS ORDERED: IV NORMAL SALINE 1,000ML 1,000 ML IV ONE (20:30)
--- NOTE | 2020-05-18 20:55 | RAD ---
Exam: CT of chest without contrast INDICATION: Shortness of breath TECHNIQUE: Sequential axial images through the chest obtained without IV contrast. Sagittal and coronal reformatted images were reconstructed from the axial data and reviewed. Comparisons: Chest x-ray same day FINDINGS: Visualized portions of the thyroid are unremarkable. No enlarged mediastinal lymph nodes are identified. Heart size is normal. No pericardial effusion. Mild coronary artery calcifications. Thoracic aorta has a normal course and caliber. Pulmonary artery is not enlarged. Airways are patent. Strandy opacities at dependent portion lungs appear representing atelectasis. Mild centrilobular emphysematous change at the upper lungs. No consolidation or pneumothorax. No suspicious lung nodules. No pleural effusion or thickening. Visualized upper abdomen is unremarkable. No suspicious osseous lesions or acute fractures. IMPRESSION: Strandy opacities at dependent portion the lungs bilaterally likely representing atelectasis. Exposure: One or more of the following in the visualized dose reduction techniques were utilized for this examination: 1. Automated exposure control 2. Adjustment of the MA and/or KV according to patient size 3. Use of iterative of reconstructive technique Electronically signed by: Yvette Maradiaga MD (05/18/2020 8:52 PM) [email or web address]
--- NOTE | 2020-05-18 20:59 | RAD ---
Exam: Chest one view INDICATION: Shortness of breath TECHNIQUE: Frontal view of the chest Comparisons: 10/18/2019 FINDINGS: The cardiomediastinal silhouette and pulmonary vessels are within normal limits. Strandy opacities at lung bases bilaterally. No pleural effusion. IMPRESSION: Emphysematous change without acute process identified. Electronically signed by: Yvette Maradiaga MD (05/18/2020 8:56 PM) [id number]
[2020-05-18] MEDS ORDERED: NITROGLYCERIN SUBLINGUAL 0.4 MG BOTTLE OF 25. SL PRN (21:45)
[2020-05-18] MEDS ORDERED: ONDANSETRON PF 4 MG/2 ML VIAL. IVP PRN (21:45)
[2020-05-18 23:36] VITALS: BP 137/75
[2020-05-19] VITALS (7 sets, daily range): BP systolic 127–175; BP diastolic 74–88
[2020-05-19] MEDS ORDERED: ALLO100T PO (01:30)
--- NOTE | 2020-05-19 06:27 | EKG ---
[address] [address] Test Date: 2020-05-18 Test Time: 19:40:00 Pat Name: MAXIMUS OJEDA Department: Room: [facility] Gender: F Alarm Investigator: ARMIN : 1945 Requested By: AYSE ZACARIAS Order Number: [id number] Reading MD: Measurements Intervals [place] Rate: 64 P: 71 MA: 126 QRS: 85 QRSD: 72 T: 82 QT: 412 QTc: 429 Interpretive Statements SINUS RHYTHM NORMAL ECG RI6.02 No previous ECG available for comparison
[2020-05-19] MEDS ORDERED: ACETAMINOPHEN 325 MG TABLET PO PRN (17:15)
[2020-05-19] MEDS ORDERED: MELATONIN 3 MG TABLET PO PRN (17:15)
--- NOTE | 2020-05-19 17:34 | HP ---
ADMIT DATE: 05/18/2020 HISTORY OF PRESENT ILLNESS: The patient is a 75-year-old female patient, a resident at [facility], who was noted by the nursing staff to be extremely short of breath, hypoxic. Apparently, her oxygen saturation was down to 70%. Her legs are swollen and she had had history before of DVT and therefore, I recommended that the nursing staff to contact her family and transfer her to the hospital whether they want us to be aggressive and elucidate this problem further. The patient is demented and does not give useful information; however, she is known to have chronic obstructive pulmonary disease; however, she denied any chest pain, did complain of shortness of breath, but denied any chills, rigors or fever. She does have swelling of both lower extremities and therefore, she was sent to the Emergency Room for further evaluation where she has had lab work done showed her white cell count was normal at 7300 with normal hemoglobin, hematocrit and platelets. Her chemistry continued to show that she has chronic kidney disease with a creatinine of 1.9. Her beta natriuretic peptide was slightly elevated at 558. Her first set of troponin was less than 0.017 and the patient was admitted. She had also a CT scan of the chest, which basically showed heart size is normal, no pericardial effusion, mild coronary artery calcification of thoracic aorta, has a normal course and caliber. Pulmonary artery is not enlarged. Airways are patent, strandy opacities at the dependent portion of the lungs appears to represent atelectasis, mild centrilobular emphysematous changes at the upper lungs. No consolidation, no pneumothorax, no suspicious lung nodules. No pleural effusion or thickening. Visualized upper abdomen is unremarkable. No suspicious osseous lesion or acute fracture. Therefore, the patient was admitted with worsening shortness of breath, hypoxia and possible history of pulmonary embolism. Her code status is DNR/DNI. We will arrange for her to have V/Q scan as well as venous Doppler ultrasound. Meanwhile, we will continue with all her medication that include carvedilol 6.25 mg twice a day, amlodipine 5 mg once a day, aspirin 81 mg once a day, Tylenol 650 mg every 6 hours, mirtazapine 7.5 mg at bedtime, sertraline 50 mg daily, trazodone 50 mg at bedtime, olanzapine 2.5 mg twice a day, Protonix 40 mg once a day, prednisone 10 mg once a day, levothyroxine sodium 25 mcg once a day, vitamin B complex 1 tablet once a day, multivitamin with mineral 1 tablet once a day, allopurinol 100 mg daily and melatonin 3 mg at bedtime. PHYSICAL EXAMINATION: GENERAL: On arrival to the Emergency Room, she looked well, pale, extremely cachectic, but no jaundice, cyanosis or thyromegaly. No jugular venous distention, but bilateral lower limb edema. VITAL SIGNS: Her heart rate was 61, blood pressure was 137/75, temperature 98.2, respiratory rate was 18 and oxygen saturation was 94% on room air. HEAD, EYES, EARS, NOSE AND THROAT: Showed normocephalic, atraumatic. NECK: Supple. HEART: Showed normal first and second heart sounds. No gallop or murmur. CHEST: Shows central trachea, equally reduced expansion, reduced air entry, vesicular sounds. I could not appreciate any crepitation or rhonchi. ABDOMEN: Scaphoid, soft, nontender. NEUROLOGIC: She is demented, but without any obvious lateralizing sign. All cranial nerves intact. EXTREMITIES: She moves extremities without difficulty. She has marked muscle wasting and weakness. She had bilateral lower extremity edema. No clubbing or cyanosis. LABORATORY DATA: Her serum sodium was 143, potassium 3.9, chloride 108, bicarbonate 27, anion gap of 8, BUN 20, creatinine 1.9, estimated GFR was 25 mL per minute. Her glucose was 99, calcium was 8.5. Total bilirubin, AST, ALT, alkaline phosphatase were normal. Total protein was 6.7, albumin was 2.9.: Her white cell count was 7300, hemoglobin 12.6, hematocrit 39, MCV 94 and platelet count 310,000. Her prothrombin time, INR and aPTT were normal. IMPRESSION: In summary, this is a 75-year-old female patient who was admitted with shortness of breath, hypoxia and has swelling of both lower extremities and she has a history of deep venous thrombosis and therefore, the patient was admitted concerning for possibility of pulmonary emboli. We would continue her current medication. We will arrange for her to have V/Q scan as well as bilateral venous Doppler ultrasound. Meanwhile, I will start her on Lovenox and once we have ruled out all these, we can discontinue the Lovenox. JEREMIE DONNELLY MD DR: Janett JOB#: [id number] / [id number]
[2020-05-19] MEDS: ASPIRIN ENTERIC COATED 81 MG TABLET.DR. PO SCH (20:20)
[2020-05-19] MEDS: amLODIPine BESYLATE 5 MG TABLET PO SCH (20:20)
[2020-05-19] MEDS: APIXABAN 2.5 MG TABLET PO SCH (20:20)
[2020-05-19] MEDS: MIRTAZAPINE 7.5 MG TABLET. PO SCH (20:20)
--- NOTE | 2020-05-19 20:58 | RAD ---
INDICATION: Reason: worsening shortness of breath, hypoxia and swollen BLE / Spl. Instructions: / History: COMPARISON: None. TECHNIQUE: Grayscale, color and doppler ultrasound images were obtained of the bilateral lower extremity venous vasculature. RIGHT: No thrombus identified in the common femoral vein, femoral vein, popliteal vein or visualized calf veins. LEFT: No thrombus identified in the common femoral vein, femoral vein, popliteal vein or visualized calf veins. IMPRESSION: * No thrombus identified in deep venous system of bilateral lower extremities. Electronically signed by: Salas Rogers MD (05/19/2020 8:56 PM) [id number]
--- NOTE | 2020-05-19 21:12 | RAD ---
Indication: Reason: hypoxia and shortness of breath / Spl. Instructions: / History: Technique: Static images are obtained of both lungs following IV administration of 5.5 mCi of 99 M technetium MAA. Comparison: Chest x-ray from one day prior Findings: There are numerous bilateral perfusion defects identified with some of these appearing large. Impression: 1. Numerous bilateral perfusion defects are identified and more than typically seen. There is no ventilation images therefore cannot assess whether these are matched or mismatched defects. Overall the examination is therefore intermediate probability but given the degree of defects would suspect that this is intermediate range closer to the border with high rather than low probability. Electronically signed by: Salas Rogers MD (05/19/2020 9:09 PM) [id number]
[2020-05-20 05:05] VITALS: BP 160/90
[2020-05-20] MEDS ORDERED: LEVOTHYROXINE 25 MCG TABLET. PO SCH (07:30)
[2020-05-20] MEDS: CARVEDILOL 12.5 MG TABLET PO SCH ×2 (08:47→16:04)
[2020-05-20] MEDS: VITAMIN B COMPLEX CAPSULE. PO SCH (08:47)
[2020-05-20] MEDS: PANTOPRAZOLE 40 MG TABLET. PO SCH (08:47)
[2020-05-20] MEDS: amLODIPine BESYLATE 5 MG TABLET PO SCH ×2 (08:48→21:02)
[2020-05-20] MEDS: APIXABAN 2.5 MG TABLET PO SCH ×2 (08:48→20:57)
[2020-05-20] MEDS: ALLOPURINOL 100 MG TABLET. PO SCH (08:49)
[2020-05-20] MEDS: MULTIVITAMIN I-VITE TABLET. PO SCH (08:49)
[2020-05-20] MEDS: predniSONE 10 MG TABLET PO SCH (08:49)
[2020-05-20 10:00] VITALS: BP 106/65
--- NOTE | 2020-05-20 13:05 | PN ---
DATE: 05/20/2020 SUBJECTIVE: The patient is resting, slightly propped up in bed, in no apparent respiratory distress. She is awake, alert. Denied any complaint. The nursing staff did not voice any concern. PHYSICAL EXAMINATION: GENERAL: When I examined her, she looked pale, somewhat cachectic, but no jaundice, cyanosis or thyromegaly. No jugular venous distention. No limb edema. VITAL SIGNS: Her heart rate was 64, blood pressure was 106/65, temperature was 98.5, respiratory rate 20, and oxygen saturation was 94% on room air. HEAD, EYES, EARS, NOSE, THROAT: Showed normocephalic, atraumatic. NECK: Supple. HEART: Showed normal first and second heart sounds. No gallop, rub or murmur. CHEST: Clear to auscultation. No crepitation or rhonchi. ABDOMEN: Distended, soft, nontender. NEUROLOGIC: She is demented, but without any obvious lateralizing sign. All her cranial nerves are intact. She moves extremities without difficulty. She ambulates with a walker with standby assist. Her intake over the last 24 hours was 400, no output was recorded. LABORATORY DATA: No lab work was done this morning. As of yesterday, her white cell count was 7300, hemoglobin 12.6, hematocrit 39, MCV 94 and platelet count of 210,000. Her chemistry showed a serum sodium 143, potassium 3.9, chloride 108, bicarbonate 27, anion gap of 8, BUN 20, creatinine 1.9, estimated GFR was 26 mL per minute. Her glucose was 99, calcium was 8.5. Total bilirubin, AST, ALT, alkaline phosphatase were normal. Her total protein was 6.7, albumin 2.9. The patient has had venous Doppler ultrasound of both lower extremities; showed no thrombosis identified in the deep venous system of bilateral lower extremities. The patient did have pulmonary perfusion, which showed that the patient has numerous bilateral perfusion defects identified and more than typically seen. There is no ventilation image, therefore, cannot assess whether these are matched or mismatched. ASSESSMENT AND PLAN: Overall the examination is therefore intermediate probability, but given the degree of defects, we suspect that this is intermediate range closer to the border with high rather than lower probability. I did treat her with apixaban. However, given her falls and unsteady gait, I think the risk is much higher for her with the anticoagulation. I will arrange for her to have D-dimer and if it is low, I will discontinue apixaban altogether. I will discuss with the family after that the finding and my concern about her anticoagulation and our inability to confirm or refute the possibility of pulmonary emboli completely given her impaired kidney function and the COVID test that does not allow the ventilation part of the V/Q scan to be done. JEREMIE DONNELLY MD DR: LILLY/appa JOB#: [id number] / [id number]
[2020-05-20 14:20] LABS: HEMATOCRIT 37.7 % (36.0-47.0); HEMOGLOBIN 12.2 g/dL (12.0-15.5); RED BLOOD COUNT 4.03 x10^6/uL (3.50-5.40); RED CELL DISTRIBUTION WIDTH 14.4 % (11.5-14.5)
[2020-05-20 14:36] VITALS: BP 110/63
[2020-05-20 15:34] LABS: ALBUMIN 2.6 g/dL (3.4-5.0); ALBUMIN/GLOBULIN RATIO 0.7 (1.0-1.7); CALCIUM 8.6 mg/dL (8.5-10.1); CREATININE 1.8 mg/dL (0.6-1.0); GFR 27.4; POTASSIUM 4.4 mmol/L (3.5-5.1); TOTAL BILIRUBIN 0.3 mg/dL (0.2-1.0); TOTAL PROTEIN 6.3 g/dL (6.4-8.2)
[2020-05-20] MEDS: SERTRALINE 50 MG TABLET. PO SCH (16:03)
[2020-05-20 18:55] VITALS: BP 114/62
[2020-05-20] MEDS: ASPIRIN ENTERIC COATED 81 MG TABLET.DR. PO SCH (21:01)
[2020-05-20] MEDS: MIRTAZAPINE 7.5 MG TABLET. PO SCH (21:02)
[2020-05-20 22:30] VITALS: BP 110/60
[2020-05-20] MEDS: traZODone 50 MG TABLET. PO PRN (23:35)
[2020-05-21] MEDS: LEVOTHYROXINE 25 MCG TABLET. PO SCH (05:13)
[2020-05-21 05:47] VITALS: BP 166/86
[2020-05-21] MEDS: PANTOPRAZOLE 40 MG TABLET. PO SCH (08:35)
[2020-05-21] MEDS: VITAMIN B COMPLEX CAPSULE. PO SCH (08:35)
[2020-05-21] MEDS: ALLOPURINOL 100 MG TABLET. PO SCH (08:35)
[2020-05-21] MEDS: APIXABAN 2.5 MG TABLET PO SCH (08:36)
[2020-05-21] MEDS: predniSONE 10 MG TABLET PO SCH (08:36)
[2020-05-21] MEDS: CARVEDILOL 12.5 MG TABLET PO SCH ×2 (08:36→17:01)
[2020-05-21] MEDS: MULTIVITAMIN I-VITE TABLET. PO SCH (08:36)
[2020-05-21] MEDS: amLODIPine BESYLATE 5 MG TABLET PO SCH ×2 (08:36→21:05)
[2020-05-21 10:12] VITALS: BP 88/54
[2020-05-21 10:42] VITALS: BP 107/64
--- NOTE | 2020-05-21 11:42 | PN ---
DATE: 05/21/2020 SUBJECTIVE: The patient is resting, slightly propped up in bed, in no apparent respiratory distress. She is profoundly demented, but without any obvious lateralizing signs. On questioning her, she denied any complaint. The nursing staff did not voice any concern and stated that she has an uneventful night. PHYSICAL EXAMINATION: GENERAL: When I examined her, she looked pale, extremely cachectic, but no jaundice, cyanosis or thyromegaly. No jugular venous distention. No lower limb edema. VITAL SIGNS: Her heart rate was 62, blood pressure was 88/54, temperature was 98.4, respiratory rate was 18 and oxygen saturation was 95%. HEAD, EYES, EARS, NOSE AND THROAT: Normocephalic, atraumatic. NECK: Supple. HEART: Showed normal first and second heart sounds. No gallop or murmur. CHEST: Clear to auscultation. No crepitation or rhonchi. ABDOMEN: Distended, soft, nontender. NEUROLOGIC: She is demented, but without any obvious lateralizing sign. All cranial nerves are intact and moves extremities without difficulty. Her intake and output are incompletely recorded. LABORATORY DATA: As of yesterday, her D-dimer was slightly elevated at 0.65. However, the lower extremity venous Doppler ultrasound showed no evidence of deep vein thrombosis. The perfusion scan suggests multiple bilateral perfusion defects. However, no ventilation images done because of the COVID-19 and therefore this cannot be assessed whether they are matched or mismatched. Given that she is at much higher risk of falling and bleeding and I am not really convinced that she has DVT or PE, I will discontinue the apixaban. I would continue one-on-one sitter until the apixaban effect will disappear from her circulation and hopefully she can be discharged back to [place] once her COVID test becomes available. JEREMEI DONNELLY MD DR: LILLY/papa JOB#: [id number] / [id number]
[2020-05-21 14:38] VITALS: BP 134/77
[2020-05-21] MEDS: SERTRALINE 50 MG TABLET. PO SCH (17:01)
[2020-05-21 18:19] VITALS: BP 121/76
[2020-05-21] MEDS: ASPIRIN ENTERIC COATED 81 MG TABLET.DR. PO SCH (21:05)
[2020-05-21] MEDS: MIRTAZAPINE 7.5 MG TABLET. PO SCH (21:05)
[2020-05-21] MEDS: traZODone 50 MG TABLET. PO PRN (21:05)
[2020-05-21 23:00] VITALS: BP 118/78
[2020-05-22] MEDS: LEVOTHYROXINE 25 MCG TABLET. PO SCH (06:00)
[2020-05-22 06:24] VITALS: BP 160/80
[2020-05-22] MEDS: VITAMIN B COMPLEX CAPSULE. PO SCH (08:12)
[2020-05-22] MEDS: PANTOPRAZOLE 40 MG TABLET. PO SCH (08:12)
[2020-05-22] MEDS: ALLOPURINOL 100 MG TABLET. PO SCH (08:12)
[2020-05-22] MEDS: CARVEDILOL 12.5 MG TABLET PO SCH ×2 (08:13→16:49)
[2020-05-22] MEDS: predniSONE 10 MG TABLET PO SCH (08:13)
[2020-05-22] MEDS: MULTIVITAMIN I-VITE TABLET. PO SCH (08:13)
[2020-05-22] MEDS: amLODIPine BESYLATE 5 MG TABLET PO SCH ×2 (08:14→20:29)
[2020-05-22 10:54] VITALS: BP 106/65
[2020-05-22 10:57] VITALS: BP 169/83
--- NOTE | 2020-05-22 14:14 | PN ---
DATE: 05/22/2020 SUBJECTIVE: The patient is sitting at the edge of the bed, eating her lunch comfortably, in no apparent distress. On questioning her, denied any complaint and nursing staff did not voice any concern. In particular, she has no documented hypoxia. Denied any chest pain or shortness of breath. PHYSICAL EXAMINATION: GENERAL: When I examined her, she looked well. No pallor, jaundice, cyanosis or thyromegaly. No jugular venous distention. No limb edema. VITAL SIGNS: Her heart rate was 71, blood pressure was 169/83, temperature was 98, respiratory rate 20, and oxygen saturation was 94% on room air. HEENT: Showed normocephalic, atraumatic. NECK: Supple. HEART: Showed normal first and second heart sounds. No gallop or murmur. CHEST: Clear to auscultation. No crepitation or rhonchi. ABDOMEN: Distended, soft, nontender. No guarding or rigidity. No organomegaly. All hernial orifice intact. Bowel sounds normal. NEUROLOGIC: She was demented, but without any obvious lateralizing sign. She is able to ambulate with a walker with assistance. Her intake over the last 24 hours was 1440, no output was recorded. LABORATORY DATA: Showed her serum sodium 142, potassium 4.4, chloride 107, bicarbonate 26, anion gap of 9, BUN 16, creatinine 1.8, estimated GFR was 27, glucose 155, calcium was 8.6. Total bilirubin, AST, ALT, alkaline phosphatase were normal. Total protein was 6.3, albumin 2.6. ASSESSMENT: 1. Acute hypoxic respiratory failure, resolved. There is no evidence of DVT or PE. Her D-dimer was very slightly elevated at 0.65, however, the patient continued to maintain her oxygen saturation at 94% at rest and on exertion. 2. Chronic obstructive pulmonary disease. 3. Other medical problems include hypertension, hypothyroidism, anemia, hypokalemia, and dementia. JEREMIE DONNELLY MD DR: LILLY/papa JOB#: [id number] / [id number]
[2020-05-22 15:28] VITALS: BP 122/65
[2020-05-22] MEDS: SERTRALINE 50 MG TABLET. PO SCH (16:48)
[2020-05-22 19:45] VITALS: BP 121/63
[2020-05-22] MEDS: MIRTAZAPINE 7.5 MG TABLET. PO SCH (20:28)
[2020-05-22] MEDS: ASPIRIN ENTERIC COATED 81 MG TABLET.DR. PO SCH (20:29)
[2020-05-22] MEDS: traZODone 50 MG TABLET. PO PRN (20:36)
[2020-05-22 23:04] VITALS: BP 143/76
[2020-05-23] MEDS ORDERED: VIT1TABL8 PO (04:00)
[2020-05-23] MEDS: LEVOTHYROXINE 25 MCG TABLET. PO SCH (05:14)
[2020-05-23 06:32] VITALS: BP 163/94
[2020-05-23] MEDS: MULTIVITAMIN I-VITE TABLET. PO SCH (08:45)
[2020-05-23] MEDS: PANTOPRAZOLE 40 MG TABLET. PO SCH (08:45)
[2020-05-23] MEDS: ALLOPURINOL 100 MG TABLET. PO SCH (08:46)
[2020-05-23] MEDS: CARVEDILOL 12.5 MG TABLET PO SCH (08:46)
[2020-05-23] MEDS: predniSONE 10 MG TABLET PO SCH (08:46)
[2020-05-23] MEDS: amLODIPine BESYLATE 5 MG TABLET PO SCH (08:46)
[2020-05-23] MEDS: VITAMIN B COMPLEX CAPSULE. PO SCH (08:46)
[2020-05-23 12:55] VITALS: BP 116/61
--- NOTE | 2020-05-23 13:57 | DS ---
DATE OF DISCHARGE: 05/23/2020 HOSPITAL COURSE: The patient is a 75-year-old female patient, a resident at [facility], who was admitted with hypoxia and shortness of breath. We did extensively investigate her and we were concerned about possible pneumonia, pneumothorax, or PE. Her chest x-ray showed no abnormality and showed emphysematous changes without acute process identified. We did a CT scan of the chest without contrast given her impaired kidney function and again it showed strandy opacities at the dependent portion of the lungs bilaterally, likely representing atelectasis. We did venous Doppler ultrasound of both lower extremities that was negative for DVT. Unfortunately, we ordered a V/Q scan, but the only pulmonary perfusion was done because of the COVID-19. The ventilation part was not done and obviously makes the conclusion incomplete or the test is inconclusive; however, given her tendency to fall, I felt that without any firm evidence of DVT or PE, I would not really start her on any blood thinner. She remained throughout her stay stable. She has had no further episode of hypoxia and she has no cough, phlegm or hemoptysis. She remained throughout her stay here stable. We did actually even COVID test that was negative and once she is stable, a decision was made to discharge her back to [facility] to continue as she is in the long-term care side. PHYSICAL EXAMINATION: GENERAL: When I saw her today, she was pale, cachectic, but no jaundice, cyanosis or thyromegaly. No jugular venous distention. No limb edema. VITAL SIGNS: Her heart rate was 59, blood pressure was 116/61, temperature was 97.8, respiratory rate was 18 and oxygen saturation was 95%. HEAD, EYES, EARS, NOSE AND THROAT: Showed normocephalic, atraumatic. NECK: Supple. HEART: Showed normal first and second heart sounds. No gallop or murmur. CHEST: Clear to auscultation. No crepitation or rhonchi. ABDOMEN: Distended, soft, nontender. NEUROLOGIC: She was demented, but without any obvious lateralizing sign. She is able to ambulate with a walker. LABORATORY DATA: Her lab work showed a white cell count of 8000, hemoglobin 12, hematocrit 38, MCV 94 and platelet count of 190. Her chemistry showed a serum sodium 142, potassium 4.4, chloride 107, bicarbonate 26, anion gap of 9, BUN 16, creatinine 1.8, estimated GFR was 27 mL per minute. Her glucose 155, calcium was 8.6. Total bilirubin, AST, ALT, alkaline phosphatase were normal. Total protein was 6.3, albumin was 2.6. Her D-dimer was only 0.65. Her prothrombin time, INR and aPTT were normal. Her coronavirus by PCR was not detectable. DISCHARGE MEDICATIONS: She was discharged home to continue on acetaminophen 650 mg every 6 hours, allopurinol 100 mg once a day, amlodipine besylate 5 mg twice a day, aspirin 81 mg once a day, carvedilol 12.5 mg once a day, melatonin 3 mg at bedtime, mirtazapine 7.5 mg at bedtime, olanzapine 2.5 mg b.i.d., sertraline for Zoloft 50 mg daily, trazodone 50 mg p.o. at bedtime, vitamin A, C and E tablet was once a day, vitamin B complex 1 tablet once a day, levothyroxine sodium 25 mcg once a day, Protonix 20 mg once a day and prednisone 10 mg once a day. FINAL DISCHARGE DIAGNOSES: 1. Chronic hypoxic respiratory failure. 2. Chronic obstructive pulmonary disease. 3. Hypertension. 4. Gout, hypertension, anemia, dementia. JEREMIE DONNELLY MD DR: LILLY/papa JOB#: [id number] / [id number]
== END 2020-05-23 13:30 | DRG 189 ==
LOC: ER 19:31 → 1 SOUTH 21:37 → OBSVTOIN 05-19 22:54 → 1 SOUTH 05-21 14:46
PROVIDERS: ADMIT Internal Medicine; ATTEND Internal Medicine
DX: J96.21 Acute and chronic respiratory failure with hypoxia (principal); J98.11 Atelectasis; D64.9 Anemia, unspecified; E03.9 Hypothyroidism, unspecified; E87.6 Hypokalemia; F03.90 Unspecified dementia, unspecified severity, without behavioral disturbance, psychotic disturbance, mood disturbance, and anxiety; I12.9 Hypertensive chronic kidney disease with stage 1 through stage 4 chronic kidney disease, or unspecified chronic kidney disease; I25.2 Old myocardial infarction; J44.9 Chronic obstructive pulmonary disease, unspecified; M10.9 Gout, unspecified; Z20.828 Contact with and (suspected) exposure to other viral communicable diseases; N18.9 Chronic kidney disease, unspecified; R29.6 Repeated falls; Z66 Do not resuscitate; Z79.82 Long term (current) use of aspirin; Z79.890 Hormone replacement therapy; Z79.899 Other long term (current) drug therapy; Z86.711 Personal history of pulmonary embolism; Z86.718 Personal history of other venous thrombosis and embolism; Z90.49 Acquired absence of other specified parts of digestive tract; Z90.710 Acquired absence of both cervix and uterus
CPT/HCPCS: 36415; 71045; 71250; 78580; 80053; 82550; 83880; 84484; 85025; 85027; 85379; 85610; 85730; 87493; 93005; 93970; 96374; A9540; G0378; G0379; J7512; 99285-25; U0003-CS

== ENCOUNTER 2020-05-31 20:41 | Inpatient (IN) | payer MEDICARE, OTHER ==
[~2020-05-31] VITALS: Ht 167.6 cm; Wt 46.7 kg
[~2020-05-31 20:41] MED LIST changes: +ALLO100T PO
[2020-05-31] MEDS ORDERED: IV RINGERS SOLUTION,LACTATED 1,000 ML IV SCH (21:05)
[2020-05-31 21:24] LABS: BASO % 1 % (0-3); EOS # 0.3 x10^3/uL (0.0-0.7); EOS % 6 % (0-3); HEMATOCRIT 34.8 % (36.0-47.0); HEMOGLOBIN 11.5 g/dL (12.0-15.5); LYMPH # 0.5 x10^3/uL (1.0-4.8); LYMPH % 12 % (24-48); MEAN CORPUSCULAR HEMOGLOBIN 31 pg (25-35); MEAN CORPUSCULAR HGB CONC 33 g/dL (31-37); MEAN CORPUSCULAR VOLUME 92 fL (79-100); MONO # 0.4 x10^3/uL (0.0-1.1); MONO % 8 % (0-9); NEUT # 3.2 x10^3uL (1.8-7.7); NEUT % 73 % (31-73); PLATELET COUNT 167 x10^3/uL (140-400); RED BLOOD COUNT 3.76 x10^6/uL (3.50-5.40); RED CELL DISTRIBUTION WIDTH 13.9 % (11.5-14.5); WHITE BLOOD COUNT 4.4 x10^3/uL (4.0-11.0)
[2020-05-31 21:31] LABS: CALCIUM 8.7 mg/dL (8.5-10.1); GFR 24.3; POTASSIUM 3.2 mmol/L (3.5-5.1)
[2020-05-31 21:40] LABS: ALBUMIN 2.9 g/dL (3.4-5.0); DIRECT BILIRUBIN 0.1 mg/dL (0.0-0.2); MAGNESIUM 1.7 mg/dL (1.8-2.4); TOTAL BILIRUBIN 0.5 mg/dL (0.2-1.0); TOTAL PROTEIN 6.6 g/dL (6.4-8.2)
--- NOTE | 2020-05-31 22:19 | RAD ---
CHEST PA LATERAL History: Reason: Dyspnea / Spl. Instructions: / History: Comparison: May 18, 2020 Findings: Hyperinflation with emphysematous changes. Bilateral medial lung linear opacities, similar compared to prior. No new consolidation. No pleural effusion. Unchanged heart size. Impression: 1. Hyperinflation with emphysematous changes and scarring or atelectasis, unchanged. No new consolidation. Electronically signed by: Casper Wang DO (05/31/2020 10:16 PM) [facility]
[2020-05-31 23:07] LABS: % BANDS 2 % (0-9); % EOS 4 % (0-5); % LYMPHS 16 % (24-48); % MONOS 4 % (0-10); % SEGS 74 % (35-66); PLT ESTIMATE ADEQUATE (ADEQUATE)
[2020-05-31] MEDS ORDERED: AZITHROMYCIN 250 MG TABLET. PO ONE (23:45)
[2020-05-31] MEDS ORDERED: ENOXAPARIN 40 MG/0.4 ML SYRINGE. SQ ONE (23:45)
[2020-05-31 23:57] LABS: BGAS PH 7.33 (7.35-7.45)
--- NOTE | 2020-06-01 00:31 | PHYS DOC ---
Past History Past Medical History: Anemia, Angina, Anxiety, Arthritis, Bronchitis, CAD, COPD, Dementia, DVT, Hypertension, Hypothyroid, Pneumonia, Renal Disease, Other Additional Past Medical Histor: Limited secondary to dementia, kidney disease, mi 2008 Past Surgical History: Appendectomy, Hysterectomy, Other Additional Past Surgical Histo: unknown Smoking: Non-smoker Alcohol Use: None Drug Use: None General Adult EDM: Chief Complaint: SHORTNESS OF BREATH HPI: HPI: "..Annie been coughing a lot more.. can't seem to quit.....and having these fevers..they sent me here to get checked out...I am not usually on oxygen...they said I needed it..." Patient is a 75 year old female who presents with above hx and complaints of increase nonproductive cough, fever, chills, and hypoxia. Patient reportedly not normally on oxygen. [facility] No recent changes in medications. Has history of multiple medical issues including coronary artery disease, COPD, emphysema, Alzheimer's, hypertensive chronic kidney dis ease, bipolar, gout, degenerative joint changes, hypoxia, pulmonary embolisms, DVTs, unspecified psychosis, malnutrition, dementia, GERD, diverticulosis, hyperactive bladder, dysphagia, insomnia, hypothyroidism, and deconditioning. Patient normally follows with Dr. Spring at [facility]. Pt. does have DNR- both in and out hospital. Pt per Danielle Hi -daughter advised pt. has had increased leg pain the last couple days. Review of Systems: Review of Systems: Constitutional: Complains of fever or chills Eyes: Denies change in visual acuity HENT: Denies nasal congestion or sore throat Respiratory: Complains of cough and increased shortness of breath Cardiovascular: Denies chest pain or edema GI: Denies abdominal pain, nausea, vomiting, bloody stools or diarrhea : Denies dysuria Musculoskeletal: Complains of joint pain, low lumbar sacral pain and increased lower leg pain Integument: Denies rash Neurologic: Denies headache, focal weakness or sensory changes Endocrine: Denies polyuria or polydipsia Lymphatic: Denies swollen glands Psychiatric: Denies depression or anxiety Heart Score: HEART Score for Chest Pain: HEART Score for Chest Pain Response (Comments) Value History Slighlty/Non-Suspicious 0 ECG Normal 0 Age > 65 2 Risk Factors 1 or 2 Risk Factors 1 Troponin < Normal Limit 0 Total 3 Risk Factors: Risk Factors: DM, Current or recent (<one month) smoker, HTN, HLP, family history of CAD, obesity. Risk Scores: Score 0 - 3: 2.5% MACE over next 6 weeks - Discharge Home Score 4 - 6: 20.3% MACE over next 6 weeks - Admit for Clinical Observation Score 7 - 10: 72.7% MACE over next 6 weeks - Early Invasive Strategies Family History: Family History: Noncontributory to presentation Current Medications: Current Meds: Current Medications Medications (Trade) Dose Ordered Sig/Judd Start Time Stop Time Status Last Admin Dose Admin Azithromycin (Zithromax) 500 mg 1X ONCE 05/31/20 23:45 05/31/20 23:46 DC Ceftriaxone Sodium 1 gm/ Sodium Chloride 50 ml @ 100 mls/hr 1X ONCE 06/01/20 01:00 06/01/20 01:29 Enoxaparin Sodium (Lovenox 40mg Syringe) 40 mg 1X ONCE 05/31/20 23:45 05/31/20 23:46 DC Lactated Ringer's 1,000 ml @ 100 mls/hr Q10H 05/31/20 21:05 06/01/20 07:04 05/31/20 21:05 100 MLS/HR Allergies: Allergies: Allergies Coded Allergies Type Severity Reaction Last Updated Verified No Known Drug Allergies 11/16/15 No Physical Exam: PE: Constitutional: Moderate acute distress, non-toxic appearance. [] HENT: Normocephalic, atraumatic, bilateral external ears normal, oropharynx moist, no oral exudates, nose normal. [] Eyes: PERRLA, EOMI, conjunctiva pale , no discharge. [] Neck: Normal range of motion, no tenderness, supple, no stridor. [] Cardiovascular:Bradycardia Heart rate regular rhythm, no murmur [] Lungs & Thorax: Bilateral breath sounds equal at apex with scattered wheezes on auscultation [] Abdomen: Bowel sounds decreased, soft, no tenderness, no masses, no pulsatile masses. [] Skin: Warm, dry, no erythema, no rash. Poor turgor. Back: Lumbar sacral tenderness, no CVA tenderness. [] Extremities: Bilateral leg tenderness, no cyanosis, no clubbing, ROM intact, no edema. Arthritic changes Neurologic: Alert and oriented X 3, moves all extremities on request, does have distal sensory, no focal deficits noted. [] Psychologic: Affect anxious, some memory issues noted, mood normal. [] Current Patient Data: Labs: Laboratory Tests Test 05/31/20 20:55 05/31/20 21:05 05/31/20 21:50 White Blood Count 4.4 x10^3/uL (4.0-11.0) Red Blood Count 3.76 x10^6/uL (3.50-5.40) Hemoglobin 11.5 g/dL (12.0-15.5) L Hematocrit 34.8 % (36.0-47.0) L Mean Corpuscular Volume 92 fL (79-100) Mean Corpuscular Hemoglobin 31 pg (25-35) Mean Corpuscular Hemoglobin Concent 33 g/dL (31-37) Red Cell Distribution Width 13.9 % (11.5-14.5) Platelet Count 167 x10^3/uL (140-400) Neutrophils (%) (Auto) 73 % (31-73) Lymphocytes (%) (Auto) 12 % (24-48) L Monocytes (%) (Auto) 8 % (0-9) Eosinophils (%) (Auto) 6 % (0-3) H Basophils (%) (Auto) 1 % (0-3) Neutrophils # (Auto) 3.2 x10^3uL (1.8-7.7) Lymphocytes # (Auto) 0.5 x10^3/uL (1.0-4.8) L Monocytes # (Auto) 0.4 x10^3/uL (0.0-1.1) Eosinophils # (Auto) 0.3 x10^3/uL (0.0-0.7) Basophils # (Auto) 0.0 x10^3/uL (0.0-0.2) Segmented Neutrophils % 74 % (35-66) H Band Neutrophils % 2 % (0-9) Lymphocytes % 16 % (24-48) L Monocytes % 4 % (0-10) Eosinophils % 4 % (0-5) Platelet Estimate Adequate (ADEQUATE) Prothrombin Time 9.6 SEC (9.4-11.4) Prothrombin Time INR 0.9 (0.9-1.1) Activated Partial Thromboplast Time 21 SEC (23-33) L D-Dimer (Grace) 1.67 mg/L (0.00-0.50) H Sodium Level 135 mmol/L (136-145) L Potassium Level 3.2 mmol/L (3.5-5.1) L Chloride Level 103 mmol/L (98-107) Carbon Dioxide Level 22 mmol/L (21-32) Anion Gap 10 (6-14) Blood Urea Nitrogen 16 mg/dL (7-20) Creatinine 2.0 mg/dL (0.6-1.0) H Estimated GFR (Cockcroft-Gault) 24.3 Glucose Level 115 mg/dL (70-99) H Lactic Acid Level 0.6 mmol/L (0.4-2.0) Calcium Level 8.7 mg/dL (8.5-10.1) Magnesium Level 1.7 mg/dL (1.8-2.4) L Total Bilirubin 0.5 mg/dL (0.2-1.0) Direct Bilirubin 0.1 mg/dL (0.0-0.2) Aspartate Amino Transferase (AST) 23 U/L (15-37) Alanine Aminotransferase (ALT) 24 U/L (14-59) Alkaline Phosphatase 105 U/L (46-116) Creatine Kinase 53 U/L (26-192) Troponin I Quantitative < 0.017 ng/mL (0-0.055) WS-Mwq-G-Type Natriuretic Peptide 626 pg/mL (0-449) H Total Protein 6.6 g/dL (6.4-8.2) Albumin 2.9 g/dL (3.4-5.0) L Lipase 178 U/L (73-393) Blood pH 7.33 (7.35-7.45) L Blood Gas PCO2 39 mmHg (35-45) Blood Gas PO2 144 mmHg (71-100) H Blood Gas HCO3 20 mmol/L (22-26) L Arterial Bld O2 Saturation (Calc) 99 % (92-99) FiO2 28 % Group A Streptococcus Rapid Negative (NEGATIVE) Vital Signs: Vital Signs Date Time Temp Pulse Resp B/P (MAP) Pulse Ox O2 Delivery O2 Flow Rate FiO2 05/31/20 20:41 100.3 64 16 110/64 (79) 92 Room Air EKG: EKG: My interpretation EKG shows a sinus rhythm at 64 bpm. No acute morphology appreciated [] Radiology/Procedures: Radiology/Procedures: [][address], [place] [address] IMAGING REPORT Signed PATIENT: MAXIMUS OJEDACOUNT: [id number] : 1945 LOCATION: ER AGE: 75 SEX: F EXAM STATUS: PRE ER ORD. PHYSICIAN: RODY GORDON MD REASON: Dyspnea PROCEDURE: CHEST PA & LATERAL CHEST PA LATERAL History: Reason: Dyspnea / Spl. Instructions: / History: Comparison: May 18, 2020 Findings: Hyperinflation with emphysematous changes. Bilateral medial lung linear opacities, similar compared to prior. No new consolidation. No pleural effusion. Unchanged heart size. Impression: 1. Hyperinflation with emphysematous changes and scarring or atelectasis, unchanged. No new consolidation. Electronically signed by: Casper Wang DO (05/31/2020 10:16 PM) [facility] DICTATED AND SIGNED BY: CASPER WANG DO DATE: 05/31/202215 CC: RODY GORDON MD; BANDAR HORTON MD ~ Course & Med Decision Making: Course & Med Decision Making Pertinent Labs and Imaging studies reviewed. (See chart for details) Discussed presentation, testing and tx. with Dr. Spring, will admit for further eval and tx. . Will cover for DVT, not currently on Eliquis, previously on it. Impression: 1. Fever 2. COPD/emphysema exacerbation 3. Hyponatremia 135 4. Hypokalemia 3.2 5. Anemia hemoglobin 11.5 6. Hypo-magnesium 1.7 7. Coughing 8. Elevated D-dimer 1.67 9. Dementia 10. Creat. 2.0 Hx. Chronic Renal Dz Covid Pending. [] Dragon Disclaimer: Dragon Disclaimer: This electronic medical record was generated, in whole or in part, using a voice recognition dictation system. Departure Departure: Disposition: HOME/RESIDENCE PRIOR TO ADM Condition: STABLE Referrals: JEREMIE SPRING MD (PCP) Justification of Admission: Justification of Admission: Justification of Admission Dx: Yes Acute COPD Exacerbation: Acute COPD Exacerbation Dragon Disclaimer This chart was dictated in whole or in part using Voice Recognition software in a busy, high-work load, and often noisy Emergency Department environment. It may contain unintended and wholly unrecognized errors or omissions. RODY GORDON MD Jun 01, 2020 00:31
[2020-06-01] MEDS ORDERED: ONDANSETRON PF 4 MG/2 ML VIAL. IVP PRN (00:45)
[2020-06-01] MEDS ORDERED: ACETAMINOPHEN 325 MG TABLET PO PRN (00:45)
[2020-06-01] MEDS ORDERED: methylPREDNISolone SOD SUCC PF 125 MG/2 ML VIAL. IV ONE (01:00)
[2020-06-01] MEDS ORDERED: IV NORMAL SALINE 50ML 50 ML ONE (01:06)
[2020-06-01] MEDS ORDERED: cefTRIAXone SODIUM 1 GM VIAL ONE (01:07)
[2020-06-01 01:11] LABS: BARBITURATES NEG (NEG); BENZODIAZEPINES NEG (NEG); CANNABINOIDS NEG (NEG); COCAINE NEG (NEG); METHADONE NEG (NEG); OPIATES NEG (NEG); PHENCYCLIDINE NEG (NEG)
[2020-06-01 01:12] LABS: AMPHETAMINE/METHAMPHETAMINE NEG (NEG)
[2020-06-01 01:27] LABS: BACTERIA,URINE MANY /HPF (0-FEW); BILIRUBIN,URINE NEG (NEG); CLARITY,URINE CLEAR; COLOR,URINE YELLOW; GLUCOSE,URINE NEG (NEG); NITRITE,URINE POS (NEG); RBC,URINE 0 /HPF (0-2); SQUAMOUS EPITHELIAL CELL,UR OCC /LPF; UROBILINOGEN,URINE 0.2 mg/dL (0.2 mg/dL)
--- NOTE | 2020-06-01 02:15 | NUR ---
Admission: The patient, MAXIMUS OJEDA, 75 y/o, F admitted by JEREMIE DONNELLY MD, was given written information regarding hospital policies, unit procedures and contact persons. Pt arrived to room 124 via gurney, accompanied by [facility] and nursing sup. Pt here for reports of SOA and fever that began at 1900 last evening. Pt is a resident at [facility], EMS was called and pt was reportedly 87% on RA and sats improved to 96% with application of O2 at 4L via NC. Pt now sating upper 90's on 2L, no signs of distress. Pt is A/Ox1, repetitive. PMH and home meds obtained from [facility] records. Pt is COVID PUI, placed in airborne and contact precautions per protocol. Pt assisted x1 to bathroom to void, stress incontinence noted. Brief changed. Pt cooperative with cares. Pt returned to bed, alarmed for safety. Call light in reach. Valuables were checked and logged. Left in room with pt.
[2020-06-01] MEDS ORDERED: MAGNESIUM SULFATE 2GM 50 ML IV ONE (02:30)
[2020-06-01] MEDS ORDERED: POTASSIUM CHLORIDE 20 MEQ TABLET.ER. PO ONE (02:30)
[2020-06-01 02:46] VITALS: BP 106/60
[2020-06-01] MEDS ORDERED: IPRATRPIUM/ALBUTEROL 0.5/2.5MG 3 ML NEBU. ONE (05:13)
[2020-06-01] MEDS ORDERED: GABA-585 PO (05:23)
[2020-06-01 06:47] VITALS: BP 109/73
[2020-06-01] MEDS ORDERED: IPRATRPIUM/ALBUTEROL 0.5/2.5MG 3 ML NEBU. NEB SCH (08:00)
[2020-06-01] MEDS: MULTIVITAMIN I-VITE TABLET. PO SCH (08:20)
[2020-06-01] MEDS: GABAPENTIN 100 MG CAPSULE. PO SCH ×3 (08:20→20:45)
[2020-06-01] MEDS: PANTOPRAZOLE 40 MG TABLET. PO SCH (08:20)
[2020-06-01] MEDS: CARVEDILOL 12.5 MG TABLET PO SCH ×2 (08:21→17:09)
[2020-06-01] MEDS: AZITHROMYCIN 250 MG TABLET. PO SCH (08:21)
[2020-06-01] MEDS: ALLOPURINOL 100 MG TABLET. PO SCH (08:21)
[2020-06-01] MEDS: VITAMIN B COMPLEX CAPSULE. PO SCH (08:21)
[2020-06-01] MEDS: amLODIPine BESYLATE 5 MG TABLET PO SCH ×2 (08:22→20:45)
[2020-06-01] MEDS: LEVOTHYROXINE 25 MCG TABLET. PO SCH (10:07)
[2020-06-01 10:39] VITALS: BP 127/78
[2020-06-01] MEDS ORDERED: IPRATROPIUM/ALBUTEROL 20/100mcg/INH INHALER. INH SCH (12:00)
--- NOTE | 2020-06-01 13:35 | HP ---
ADMIT DATE: 06/01/2020 HISTORY OF PRESENT ILLNESS: The patient is a 75-year-old female patient, who was brought to the Emergency Room last night. As the nursing staff contacted me, stated that she is febrile and hypoxic. She also had a cough that was nonproductive. The nursing staff when they called me said that her oxygen saturation was only 75% and I recommended the patient be transferred and therefore, the patient was evaluated in the Emergency Room, was extensively investigated. She has had lab work, which showed her white cell count was actually normal at 4400, hemoglobin 11.5, hematocrit 34.8, MCV 92, and platelet count of 167,000. She has also had blood gases. Her chemistry showed that she has hypokalemia and she has also chronic kidney disease and her chest x-ray showed that she has hyperinflation with emphysematous changes and scarring atelectasis unchanged. No new consolidation. In fact, when she arrived to the Emergency Room, her temperature was 100.3 and in the senior living, it was 101 and therefore, her blood and urine were sent for culture and sensitivity. She was swabbed also for novel coronavirus, nucleic acid amplification test and was admitted, continued on ceftriaxone, Zithromax as well as Lovenox. PAST MEDICAL HISTORY: Significant for hypertension, chronic obstructive pulmonary disease, hypothyroidism, anemia, profound dementia, has also osteoporosis and gout. PAST SURGICAL HISTORY: Significant for total abdominal hysterectomy, bilateral salpingo-oophorectomy, appendectomy, tonsillectomy. She also has a history of esophagogastroduodenoscopy and colonoscopy and most recently fall with left hip fracture, status post open reduction and internal fixation. She also has pancreatitis attributed to her dementia medicine. ALLERGIES: She is allergic to ARICEPT, NAMENDA and DEPAKOTE, they have caused pancreatitis. She has no known drug allergies to any other medication. FAMILY HISTORY: Noncontributory. SOCIAL HISTORY: She is , has 1 daughter. She does not smoke, drink alcohol or use any recreational drugs. She is currently a resident at [facility]. MEDICATIONS: She is currently on following medications: Carvedilol 12.5 mg twice a day, amlodipine besylate 5 mg twice a day, aspirin 81 mg once a day, acetaminophen 650 mg every 6 hours, gabapentin 100 mg 3 times a day, mirtazapine 7.5 mg at bedtime, sertraline for Zoloft 50 mg daily, trazodone 50 mg p.o. at bedtime as needed, olanzapine 2.5 mg twice a day, Protonix 20 mg daily, levothyroxine sodium 25 mcg once a day, vitamin B complex 1 tablet once a day, allopurinol 100 mg once a day, melatonin 3 mg at bedtime. REVIEW OF SYSTEMS: As per history of present illness. PHYSICAL EXAMINATION: GENERAL: On arrival to the Emergency Room, she looked well and was clearly in no apparent respiratory distress. She is pale, cachectic, but no jaundice, cyanosis or thyromegaly. No jugular venous distention. No limb edema. VITAL SIGNS: Her heart rate was 64, blood pressure was 110/64, temperature was 100.3, respiratory rate was 16, and oxygen saturation was 92%. HEAD, EYES, EARS, NOSE AND THROAT: Normocephalic, atraumatic. NECK: Supple. HEART: Showed normal first and second heart sounds with no gallop or murmur. CHEST: Clear to auscultation. No crepitation or rhonchi. ABDOMEN: Distended, soft, nontender. NEUROLOGIC: She was awake, alert, responding appropriately. All cranial nerves intact. EXTREMITIES: She moves extremities without difficulty. LABORATORY DATA: Her lab work on admission showed a white cell count of 4400, hemoglobin 11.5, hematocrit 34.8, MCV 92, and platelet count of 167,000. Her chemistry showed a serum sodium 135, potassium 3.2, chloride 103, bicarbonate 22, anion gap of 10, BUN 16, creatinine 2, estimated GFR was 24 mL per minute. Her glucose was 115. Lactic acid was 0.6, calcium was 8.7, magnesium 1.7. Total bilirubin, AST, ALT, alkaline phosphatase were normal. CK was 53. Beta-natriuretic peptide was 626. Total protein 6.6, albumin 2.9. Blood gases showed a pH of 7.33, a pCO2 of 39, a pO2 of 144, bicarbonate 20, and oxygen saturation was 99% on FiO2 of 28%. Her prothrombin time was 9.6, INR of 0.9, aPTT was 21. D-dimer was high at 1.67. Urinalysis is essentially unremarkable. Toxic screen was negative. Group A streptococcus rapid test was negative. Her chest x-ray showed that the patient has hyperinflation with emphysematous changes. She has bilateral medial lung linear opacities similar compared to prior. No new consolidation, no pleural effusion, unchanged heart size. ASSESSMENT AND PLAN: The patient was admitted with chronic obstructive pulmonary disease exacerbation, hyponatremia, hypokalemia, anemia, hypomagnesemia, elevated D-dimer, chronic kidney disease, dementia. The patient was started on Rocephin and Zithromax as well as Solu-Medrol. We will continue with all her other medications. She was swabbed for COVID, so I will wait for the result. She has had venous Doppler ultrasound only recently, specifically on 05/19/2020, at that time showed no thrombus identified in the common femoral vein, superficial femoral vein, popliteal vein, visualized calves veins in both sides. As the patient under investigation, I will hold on the Doppler ultrasound. Continue with subcutaneous Lovenox for now. Once her COVID-19 test becomes available and it is negative, we will order another venous Doppler ultrasound. JEREMIE DONNELLY MD DR: LILLY/papa JOB#: [id number] / [id number]
[2020-06-01] MEDS: IPRATROPIUM/ALBUTEROL 20/100mcg/INH INHALER. INH SCH ×3 (14:27→20:44)
[2020-06-01 15:22] VITALS: BP 113/73
--- NOTE | 2020-06-01 16:59 | NUR ---
PATIENT IS NICE AND PLEASANT THIS SHIFT, CALM AND COOPERATIVE UPON ASSESSMENT AND MEDS ADMINISTRATION. PATIENT HAS BEEN AFEBRILE THIS SHIFT, PATIENT HAS O2 AT 95% ON RA. PATIENT IS RESTING COMFORTABLY AT THIS MOMENT IN HER BED. WILL CONTINUE TO MONITOR.
[2020-06-01] MEDS: SERTRALINE 50 MG TABLET. PO SCH (17:09)
[2020-06-01 19:42] VITALS: BP 88/55
[2020-06-01] MEDS: ENOXAPARIN 30 MG/0.3 ML SYRINGE. SQ SCH (20:44)
[2020-06-01] MEDS: ASPIRIN ENTERIC COATED 81 MG TABLET.DR. PO SCH (20:45)
[2020-06-01] MEDS: traZODone 50 MG TABLET. PO PRN (20:46)
[2020-06-01] MEDS: MIRTAZAPINE 7.5 MG TABLET. PO SCH (21:22)
--- NOTE | 2020-06-01 21:53 | NUR ---
Pt. was sitting up at bedside when approached for assessment. Pt was orientated to self only. Pt is pleasantly confused and cooperated well w/ assessment. Pt BP at 1900 was 88/55. Pt Norvasc held when HS medication where given. Pt does not appear to be symptomatic. Will continue to monitor.
[2020-06-01 22:24] VITALS: BP 87/57
[2020-06-02] MEDS: LEVOTHYROXINE 25 MCG TABLET. PO SCH (05:29)
[2020-06-02 05:51] LABS: BASO % 0 % (0-3); EOS # 0.4 x10^3/uL (0.0-0.7); EOS % 7 % (0-3); HEMATOCRIT 33.4 % (36.0-47.0); HEMOGLOBIN 10.8 g/dL (12.0-15.5); LYMPH # 0.8 x10^3/uL (1.0-4.8); LYMPH % 14 % (24-48); MEAN CORPUSCULAR HEMOGLOBIN 30 pg (25-35); MEAN CORPUSCULAR HGB CONC 32 g/dL (31-37); MEAN CORPUSCULAR VOLUME 94 fL (79-100); MONO # 0.5 x10^3/uL (0.0-1.1); MONO % 8 % (0-9); NEUT # 4.2 x10^3uL (1.8-7.7); NEUT % 71 % (31-73); PLATELET COUNT 179 x10^3/uL (140-400); RED BLOOD COUNT 3.55 x10^6/uL (3.50-5.40); RED CELL DISTRIBUTION WIDTH 14.7 % (11.5-14.5); WHITE BLOOD COUNT 5.9 x10^3/uL (4.0-11.0)
[2020-06-02 05:55] LABS: CALCIUM 8.7 mg/dL (8.5-10.1); CREATININE 2.3 mg/dL (0.6-1.0); GFR 20.7
[2020-06-02 06:18] VITALS: BP 120/68
[2020-06-02] MEDS: VITAMIN B COMPLEX CAPSULE. PO SCH (08:54)
[2020-06-02] MEDS: GABAPENTIN 100 MG CAPSULE. PO SCH ×3 (08:54→21:17)
[2020-06-02] MEDS: IPRATROPIUM/ALBUTEROL 20/100mcg/INH INHALER. INH SCH ×5 (08:55→21:16)
[2020-06-02] MEDS: PANTOPRAZOLE 40 MG TABLET. PO SCH (08:55)
[2020-06-02] MEDS: AZITHROMYCIN 250 MG TABLET. PO SCH (08:55)
[2020-06-02] MEDS: ALLOPURINOL 100 MG TABLET. PO SCH (08:55)
[2020-06-02] MEDS: amLODIPine BESYLATE 5 MG TABLET PO SCH ×3 (08:55→21:16)
[2020-06-02] MEDS: MULTIVITAMIN I-VITE TABLET. PO SCH (08:55)
[2020-06-02] MEDS: CARVEDILOL 12.5 MG TABLET PO SCH ×2 (08:55→17:20)
[2020-06-02 10:05] VITALS: BP 109/64
[2020-06-02 14:10] VITALS: BP 103/62
[2020-06-02] MEDS: IV NORMAL SALINE 1,000ML 1,000 ML IV SCH (15:05)
[2020-06-02] MEDS: SERTRALINE 50 MG TABLET. PO SCH (16:38)
[2020-06-02 21:12] VITALS: BP 99/69
[2020-06-02] MEDS: MELATONIN 3 MG TABLET PO PRN (21:16)
[2020-06-02] MEDS: ENOXAPARIN 30 MG/0.3 ML SYRINGE. SQ SCH (21:17)
[2020-06-02] MEDS: ASPIRIN ENTERIC COATED 81 MG TABLET.DR. PO SCH (21:17)
[2020-06-02] MEDS: MIRTAZAPINE 7.5 MG TABLET. PO SCH (21:17)
[2020-06-02 23:13] VITALS: BP 120/68
--- NOTE | 2020-06-03 01:14 | PN ---
DATE: 06/02/2020 SUBJECTIVE: The patient is resting, slightly propped up in bed, in no apparent distress. On questioning her, did complain of some shortness of breath. Denied any cough, phlegm or hemoptysis. Denied any chills, rigors or fever. Nursing staff did not voice any concerns that she has an uneventful night. When I examined her, she was pale, cachectic, no jaundice, cyanosis or thyromegaly. No jugular venous distention. ASSESSMENT: 1. Acute chronic obstructive pulmonary disease exacerbation. 2. Mild hyponatremia, hypokalemia and she has also acute on chronic kidney injury. Her creatinine is somewhat rising. PLAN: My plan is to continue with IV antibiotic in the form of Rocephin and Zithromax. Continue with dexamethasone. I will start her on some IV fluid. She seemed to be slightly dehydrated and we will continue obviously with the physical and occupational therapy and tomorrow if she remains stable and negative for COVID, she can be transferred back to ____. JEREMIE DONNELLY MD DR: LILLY/papa JOB#: [id number] / [id number]
[2020-06-03] MEDS: LEVOTHYROXINE 25 MCG TABLET. PO SCH (05:08)
[2020-06-03 05:37] VITALS: BP 136/80
[2020-06-03] MEDS: IV NORMAL SALINE 1,000ML 1,000 ML IV SCH ×2 (06:34→21:27)
[2020-06-03] MEDS: AZITHROMYCIN 250 MG TABLET. PO SCH (08:17)
[2020-06-03] MEDS: PANTOPRAZOLE 40 MG TABLET. PO SCH (08:17)
[2020-06-03] MEDS: CARVEDILOL 12.5 MG TABLET PO SCH ×2 (08:17→17:40)
[2020-06-03] MEDS: LACTOBACILLUS RHAMNOSUS GG 1 CAPSULE. PO SCH ×2 (08:17→21:27)
[2020-06-03] MEDS: GABAPENTIN 100 MG CAPSULE. PO SCH ×3 (08:17→21:27)
[2020-06-03] MEDS: ALLOPURINOL 100 MG TABLET. PO SCH (08:17)
[2020-06-03] MEDS: MULTIVITAMIN I-VITE TABLET. PO SCH (08:17)
[2020-06-03] MEDS: VITAMIN B COMPLEX CAPSULE. PO SCH (08:18)
[2020-06-03] MEDS: amLODIPine BESYLATE 5 MG TABLET PO SCH ×2 (08:18→21:27)
[2020-06-03 11:00] VITALS: BP 129/75
[2020-06-03 11:30] LABS: CALCIUM 8.6 mg/dL (8.5-10.1); CREATININE 1.9 mg/dL (0.6-1.0); GFR 25.8; POTASSIUM 3.8 mmol/L (3.5-5.1)
[2020-06-03] MEDS: IPRATROPIUM/ALBUTEROL 20/100mcg/INH INHALER. INH SCH ×3 (12:00→21:28)
--- NOTE | 2020-06-03 12:54 | PN ---
DATE: 06/03/2020 SUBJECTIVE: The patient is sitting comfortably in her chair, in no apparent respiratory distress. On questioning her, she did complain of shortness of breath, cough with scanty whitish sputum. Denied any chest pain. Denied any chills, rigors or fever. PHYSICAL EXAMINATION: GENERAL: When I examined her, she looked pale, cachectic, but no jaundice, cyanosis or thyromegaly. No jugular venous distention. No limb edema. VITAL SIGNS: Her heart rate was 70, blood pressure was 136/80, temperature 99.1, respiratory rate was 18 and oxygen saturation was 93% on 2 liters of oxygen. HEAD, EYES, EARS, NOSE, AND THROAT: Showed normocephalic and atraumatic. NECK: Supple. HEART: Showed normal first and second heart sounds. No gallop, rub or murmur. CHEST: Clear to auscultation. No crepitation or rhonchi. ABDOMEN: Distended, soft, nontender. NEUROLOGIC: She is demented, but without any obvious lateralizing sign. Her intake over the last 24-hours was 1100, no output was recorded. LABORATORY DATA: This morning labs are still pending at the time of this dictation. Her coronavirus by PCR was not detected. ASSESSMENT: 1. Acute chronic obstructive pulmonary disease exacerbation. 2. Acute on chronic hypoxic respiratory failure. 3. Mild hyponatremia. 4. Mild hypokalemia. 5. Acute on chronic kidney injury. 6. Elevated D-dimer. PLAN: My plan is to continue with IV ceftriaxone and Zithromax. Continue with dexamethasone. I ordered a Doppler venous ultrasound of both lower extremities. She is now coronavirus negative and also her BMP this morning and if the creatinine normalized to her baseline, we can discontinue IV fluid. JEREMIE DONNELLY MD DR: LILLY/papa JOB#: [id number] / [id number]
--- NOTE | 2020-06-03 13:11 | RAD ---
Bilateral lower extremity venous doppler ultrasound History: Hypoxia, elevated d-dimer Comparison: None Findings: Multiple grayscale, color, and duplex spectral analysis sonographic images were acquired of the bilateral lower extremity veins to evaluate for the presence of DVT. There is normal phasicity. Normal compression, color-flow, and augmentation is demonstrated from the bilateral common femoral to the popliteal veins. There is normal color flow of the proximal greater saphenous and profunda femoris veins. There is normal color flow of segments of the calf veins. Impression: 1. There is no evidence of deep venous thrombosis from the bilateral common femoral to the popliteal veins. Electronically signed by: Shawn Gerardo MD (06/03/2020 1:08 PM) [id number]
[2020-06-03] MEDS: SERTRALINE 50 MG TABLET. PO SCH (13:57)
[2020-06-03 15:55] VITALS: BP 130/89
[2020-06-03 20:12] VITALS: BP 149/98
[2020-06-03] MEDS ORDERED: ACETAMINOPHEN 325 MG TABLET PO PRN (20:15)
[2020-06-03] MEDS: traZODone 50 MG TABLET. PO PRN (21:27)
[2020-06-03] MEDS: MELATONIN 3 MG TABLET PO PRN (21:27)
[2020-06-03] MEDS: MIRTAZAPINE 7.5 MG TABLET. PO SCH (21:28)
[2020-06-03] MEDS: ENOXAPARIN 30 MG/0.3 ML SYRINGE. SQ SCH (21:28)
[2020-06-03] MEDS: ASPIRIN ENTERIC COATED 81 MG TABLET.DR. PO SCH (21:28)
[2020-06-03 23:05] VITALS: BP 93/61
[2020-06-04] MEDS: LEVOTHYROXINE 25 MCG TABLET. PO SCH (06:07)
[2020-06-04 06:20] VITALS: BP 103/60
[2020-06-04] MEDS: amLODIPine BESYLATE 5 MG TABLET PO SCH ×2 (09:00→21:00)
[2020-06-04] MEDS: AZITHROMYCIN 250 MG TABLET. PO SCH (11:34)
[2020-06-04] MEDS: LACTOBACILLUS RHAMNOSUS GG 1 CAPSULE. PO SCH ×2 (11:34→20:40)
[2020-06-04] MEDS: VITAMIN B COMPLEX CAPSULE. PO SCH (11:35)
[2020-06-04] MEDS: GABAPENTIN 100 MG CAPSULE. PO SCH ×3 (11:35→20:40)
[2020-06-04] MEDS: MULTIVITAMIN I-VITE TABLET. PO SCH (11:35)
[2020-06-04] MEDS: ALLOPURINOL 100 MG TABLET. PO SCH (11:35)
[2020-06-04] MEDS: PANTOPRAZOLE 40 MG TABLET. PO SCH (11:35)
[2020-06-04] MEDS: CARVEDILOL 12.5 MG TABLET PO SCH ×2 (11:35→17:00)
[2020-06-04] MEDS: IV NORMAL SALINE 1,000ML 1,000 ML IV SCH (11:36)
[2020-06-04] MEDS: IPRATROPIUM/ALBUTEROL 20/100mcg/INH INHALER. INH SCH ×4 (11:38→20:00)
[2020-06-04 11:49] VITALS: BP 111/69
--- NOTE | 2020-06-04 12:57 | PN ---
DATE: 06/04/2020 SUBJECTIVE: The patient is sitting comfortably in her chair, in no apparent distress. On questioning her, she denied any complaint. The nursing staff did not voice any concern. She generally has an uneventful night; however, she did have a spike temperature up to 101.1. PHYSICAL EXAMINATION: GENERAL: When I saw her this morning, she looked pale, cachectic, but no jaundice, cyanosis or thyromegaly. No jugular venous distention or limb edema. VITAL SIGNS: Her heart rate was 60, blood pressure was 103/60, temperature 98.5, respiratory rate was 18 and oxygen saturation was 98% on 2 liters of oxygen. HEENT: Showed normocephalic, atraumatic. NECK: Supple. HEART: Normal first and second heart sounds. No gallop, rub or murmur. CHEST: Shows central trachea, equally reduced expansion, reduced air entry, vesicular breath sounds. I could not really appreciate any crepitation or rhonchi. ABDOMEN: Distended, soft, nontender. No guarding or rigidity. No organomegaly. All hernial orifices intact. Bowel sounds normal. NEUROLOGICALLY: She is demented, but without any obvious lateralizing sign. She has marked muscle wasting and weakness. Her intake was 1240. No output was recorded. LABORATORY DATA: As of this morning, her most recent white cell count was 5900, hemoglobin 10.8, hematocrit 33, MCV 94 and platelet count of 179,000. Her chemistry yesterday showed a serum sodium of 142, potassium 3.8, chloride 109, bicarbonate 24, anion gap of 9, BUN 22, creatinine 1.9, estimated GFR was 26, glucose 118, calcium was 8.6. TSH was within normal range. ASSESSMENT: 1. Chronic obstructive pulmonary disease exacerbation. 2. Acute on chronic hypoxic respiratory failure. 3. Mild hypernatremia, resolved. 4. Mild hypokalemia, resolved. 5. Acute on chronic kidney injury, resolving. 6. Elevated D-dimer with negative bilateral lower extremity venous Doppler ultrasound, inconclusive V/Q scan and we are unable to do the CT chest angiography. PLAN: My plan is to continue today with the IV antibiotic and probably discharge her back to [facility] tomorrow. I have a lengthy discussion with her daughter and my plan is to arrange for her to have an IVC filter placed as an outpatient at [facility]. JEREMIE DONNELLY MD DR: LILLY/papa JOB#: [id number] / [id number]
[2020-06-04 16:29] VITALS: BP 128/69
[2020-06-04] MEDS: SERTRALINE 50 MG TABLET. PO SCH (17:04)
[2020-06-04 19:45] VITALS: BP 128/78
[2020-06-04] MEDS: MIRTAZAPINE 7.5 MG TABLET. PO SCH (20:40)
[2020-06-04] MEDS: ASPIRIN ENTERIC COATED 81 MG TABLET.DR. PO SCH (20:40)
[2020-06-04] MEDS: MELATONIN 3 MG TABLET PO PRN (20:40)
[2020-06-04] MEDS: ENOXAPARIN 30 MG/0.3 ML SYRINGE. SQ SCH (20:41)
[2020-06-05] MEDS: IV NORMAL SALINE 1,000ML 1,000 ML IV SCH (00:05)
[2020-06-05] MEDS: LEVOTHYROXINE 25 MCG TABLET. PO SCH (05:49)
[2020-06-05 06:33] VITALS: BP 190/78
[2020-06-05 06:33] LABS: HEMATOCRIT 32.4 % (36.0-47.0); HEMOGLOBIN 10.5 g/dL (12.0-15.5); RED BLOOD COUNT 3.44 x10^6/uL (3.50-5.40); RED CELL DISTRIBUTION WIDTH 14.8 % (11.5-14.5); WHITE BLOOD COUNT 4.4 x10^3/uL (4.0-11.0)
[2020-06-05 06:34] VITALS: BP 120/75
[2020-06-05 06:42] LABS: ALBUMIN 2.3 g/dL (3.4-5.0); ALBUMIN/GLOBULIN RATIO 0.6 (1.0-1.7); CALCIUM 8.3 mg/dL (8.5-10.1); POTASSIUM 3.6 mmol/L (3.5-5.1); TOTAL BILIRUBIN 0.1 mg/dL (0.2-1.0); TOTAL PROTEIN 5.9 g/dL (6.4-8.2)
[2020-06-05 06:51] LABS: CREATININE 1.7 mg/dL (0.6-1.0); GFR 29.3
[2020-06-05] MEDS: GABAPENTIN 100 MG CAPSULE. PO SCH (07:56)
[2020-06-05] MEDS: LACTOBACILLUS RHAMNOSUS GG 1 CAPSULE. PO SCH (07:56)
[2020-06-05] MEDS: AZITHROMYCIN 250 MG TABLET. PO SCH (07:56)
[2020-06-05] MEDS: CARVEDILOL 12.5 MG TABLET PO SCH (07:56)
[2020-06-05] MEDS: MULTIVITAMIN I-VITE TABLET. PO SCH (07:56)
[2020-06-05] MEDS: PANTOPRAZOLE 40 MG TABLET. PO SCH (07:56)
[2020-06-05] MEDS: VITAMIN B COMPLEX CAPSULE. PO SCH (07:56)
[2020-06-05] MEDS: amLODIPine BESYLATE 5 MG TABLET PO SCH (07:57)
[2020-06-05] MEDS: IPRATROPIUM/ALBUTEROL 20/100mcg/INH INHALER. INH SCH (08:00)
[2020-06-05] MEDS: ALLOPURINOL 100 MG TABLET. PO SCH (08:25)
[2020-06-05 11:08] VITALS: BP 111/61
[2020-06-05] MEDS ORDERED: CEFD300C PO (12:33)
[2020-06-05] MEDS ORDERED: AZIT250T PO (12:33)
--- NOTE | 2020-06-05 12:37 | DISCH ---
DISCHARGE ORDERS CONDITION AT DISCHARGE: Stable Code Status: DNR/DNI SNF STAY <30 DAYS: Yes POST DISCHARGE ORDERS: ACTIVITY ORDERS: Activity as tolerated WEIGHT BEARING STATUS: As tolerated DIET AFTER DISCHARGE: Regular WOUND/INCISION CARE: No wound care needed CHECKS AFTER DISCHARGE: CHECKS AFTER DISCHARGE: Check blood press - daily, Check your Temp as needed, Weigh Yourself Daily FOLLOW-UP: FFOLLOW-UP WITH: PCP within one week TREATMENT/EQUIPMENT ORDERS: ADAPTIVE EQUIPMENT NEEDED: None RESPIRATORY EQUIPMENT: Oxygen DISCHARGE MEDICATIONS: Home Meds Active Scripts Azithromycin (ZITHROMAX) 250 Mg Tablet, 250 MG PO DAILY for ANTI-BIOTIC for 2 Days, #2 TAB 0 Refills Prov:JEREMIE DONNELLY MD 06/05/20 Cefdinir (CEFDINIR) 300 Mg Capsule, 300 MG PO DAILY for PNEUMONIA for 7 Days, #7 CAP Prov:JEREMIE DONNELLY MD 06/05/20 Reported Medications Gabapentin (GABAPENTIN ) 100 Mg Capsule, 100 MG PO TID for neuropathy, CAP 06/01/20 Allopurinol (ALLOPURINOL) 100 Mg Tablet, 1 TAB PO DAILY for gout, #30 TAB 5 Refills 05/19/20 Sertraline Hcl (ZOLOFT) 50 Mg Tablet, 50 MG PO DAILY16 for ANTI-DEPRESSANT 10/19/19 Pantoprazole Sodium (PROTONIX) 40 Mg Tablet.dr, 20 MG PO DAILYAC for GI Health 10/19/19 Mirtazapine (MIRTAZAPINE) 7.5 Mg Tablet, 7.5 MG PO QHS for mood 10/19/19 Vit A,C & E/Lutein/Minerals (I-SUMA TABLET) 1 Each Tablet, 1 EACH PO DAILY for supplement 10/19/19 Trazodone Hcl (TRAZODONE HCL) 50 Mg Tablet, 50 MG PO QHS PRN for INSOMNIA, MAY REPEAT X1 09/28/19 Olanzapine (ZYPREXA ZYDIS) 5 Mg Tab.rapdis, 2.5 MG PO BID PRN for ANXIETY / AGITATION, TAB 09/28/19 Melatonin (MELATONIN) 3 Mg Tablet, 3 MG PO PRN QHS PRN for INSOMNIA, FEBRUARY REPEAT X1 09/20/19 Carvedilol (CARVEDILOL ) 6.25 Mg Tablet, 12.5 MG PO BIDWMEALS for CARDIAC, TAB 08/14/19 Levothyroxine Sodium (SYNTHROID) 25 Mcg Tablet, 25 MCG PO DAILYAC for thyroid 11/27/15 Acetaminophen (TYLENOL) 325 Mg Tablet, 650 MG PO PRN Q6HRS PRN for PAIN / TEMP 11/27/15 Aspirin (ASPIR-LOW) 81 Mg Tablet.dr, 81 MG PO QHS for Heart Health 11/16/15 Amlodipine Besylate (NORVASC) 5 Mg Tablet, 5 MG PO BID for HTN 11/16/15 Vitamin B Complex (VITAMIN B COMPLEX) 1 Each Tablet, 1 TAB PO DAILY for Sup plement 11/16/15 Discontinued Reported Medications Prednisone (PREDNISONE) 10 Mg Tablet, 10 MG PO DAILY for PREDNISONE TAPER, #3 TAB 0 Refills 30mg PO daily for 3 days (10/20-10/22) 20mg PO Daily for 3 days (10/23-10/25) 10mg PO Daily for 3 days (10/26-10/28) 10/19/19 JEREMIE DONNELLY MD Jun 05, 2020 12:36
--- NOTE | 2020-06-05 14:07 | NUR ---
PT DISCHARGED BACK TO [facility]. REPORT CALLED AND GIVEN TO NURSE. MEDICATIONS REVIEWED AND FOLLOW UP APPOINTMENT AT [facility] FOR IVC FILTER REPORTED TO NURSE. PT WHEELED TO [facility] AND ASSISTED INTO VEHICLE. ALL BELONGINGS GIVEN TO PT AND STAFF AND SENT WITH PT ON DISCHARGE. PERIPHERAL IV DISCONTINUED. ALL QUESTIONS ANSWERED WHEN CALLED REPORT TO [facility].
--- NOTE | 2020-06-05 14:20 | DS ---
DATE OF DISCHARGE: 06/05/2020 HOSPITAL COURSE: The patient is resting, slightly propped up in bed, in no apparent respiratory distress. She is awake, alert. Denied any complaint. The nursing staff did not voice any concerns and she had an uneventful night. PHYSICAL EXAMINATION: GENERAL: When I examined her, she looked pale, cachectic, but no jaundice, cyanosis or thyromegaly. No jugular venous distention. No lower limb edema. VITAL SIGNS: Her heart rate was 58, blood pressure was 111/61, temperature 97.7, respiratory rate was 18 and oxygen saturation was 94% on room air. HEAD, EYES, EARS, NOSE AND THROAT: Showed normocephalic, atraumatic. NECK: Supple. HEART: Showed normal first and second heart sounds. No gallop or murmur. CHEST: Clear to auscultation. No crepitation or rhonchi. ABDOMEN: Scaphoid, soft, nontender. NEUROLOGIC: She is demented, but without any obvious lateralizing sign. Her intake over the last 24 hours was 1717, no output was recorded. LABORATORY DATA: As of this morning, her white cell count was 4400, hemoglobin 10.5, hematocrit 32, MCV 94 and platelet count of 160,000. Her chemistry showed a serum sodium of 145, potassium 3.6, chloride 112, bicarbonate 23, anion gap of 10, BUN 21, creatinine 1.7, estimated GFR was 29 mL per minute. Her glucose was 83, calcium was 8.3. Total bilirubin, AST, ALT, alkaline phosphatase were normal. Total protein 5.9, albumin was 2.3. Her blood gases showed a pH of 7.33, her pCO2 of 39, pO2 of 144, bicarbonate 20, and oxygen saturation was 99% on FiO2 of 28%. Her D-dimer was slightly high at 1.67. Urinalysis was essentially unremarkable. Toxic screen was negative. Her coronavirus-2 PCR was negative. Her urine culture showed no growth and again her blood cultures showed no growth after 4 days. DISCHARGE MEDICATIONS: The patient was discharged to [facility] to continue azithromycin 250 mg once a day for 2 days, cefdinir 300 mg once a day for 7 more days, continue with acetaminophen 650 mg every 6 hours, allopurinol 100 mg once a day, amlodipine besylate 5 mg twice a day, aspirin 81 mg once a day, carvedilol 12.5 mg twice a day, gabapentin 100 mg 3 times a day, levothyroxine 25 mcg once a day, melatonin 3 mg once a day, mirtazapine 7.5 mg at bedtime, olanzapine for Zyprexa 2.5 mg twice a day, Protonix 20 mg daily, sertraline for Zoloft 50 mg daily, trazodone 50 mg daily, vitamin A and C once a day, vitamin B complex 1 tablet once a day. FINAL DISCHARGE DIAGNOSES: 1. Chronic obstructive pulmonary disease exacerbation. 2. Pfzzf-yc-mjktpmk hypoxic respiratory failure. 3. Healthcare-associated pneumonia. 4. Mild hypernatremia, resolved. 5. Mild hypokalemia, resolved. 6. Jscii-ua-opveikr kidney injury, resolved. 7. Elevated D-dimer with negative bilateral lower extremity venous Doppler ultrasound, inconclusive V/Q scan. We are unable to do the CT chest angiography. PLAN: My plan is to discharge her to [facility] to continue with oral antibiotic. Continue with Lovenox for now. I will arrange for her to have an IVC filter as an outpatient at [facility]. JEREMIE DONNELLY MD DR: LILLY/papa JOB#: [id number] / [id number]
== END 2020-06-05 14:05 | DRG 177 ==
LOC: ER 20:41 → 1 SOUTH 06-01 00:15
PROVIDERS: ADMIT Internal Medicine; ATTEND Internal Medicine
DX: J15.6 Pneumonia due to other Gram-negative bacteria (principal); J96.21 Acute and chronic respiratory failure with hypoxia; N17.9 Acute kidney failure, unspecified; E87.0 Hyperosmolality and hypernatremia; E87.1 Hypo-osmolality and hyponatremia; J98.11 Atelectasis; R64 Cachexia; J15.9 Unspecified bacterial pneumonia; D64.9 Anemia, unspecified; E03.9 Hypothyroidism, unspecified; E83.42 Hypomagnesemia; E87.6 Hypokalemia; F02.80 Dementia in other diseases classified elsewhere, unspecified severity, without behavioral disturbance, psychotic disturbance, mood disturbance, and anxiety; G30.9 Alzheimer's disease, unspecified; I12.9 Hypertensive chronic kidney disease with stage 1 through stage 4 chronic kidney disease, or unspecified chronic kidney disease; I25.10 Atherosclerotic heart disease of native coronary artery without angina pectoris; I25.2 Old myocardial infarction; J43.9 Emphysema, unspecified; M81.0 Age-related osteoporosis without current pathological fracture; N18.9 Chronic kidney disease, unspecified; N32.81 Overactive bladder; Y95 Nosocomial condition; Z66 Do not resuscitate; Z86.711 Personal history of pulmonary embolism; Z90.49 Acquired absence of other specified parts of digestive tract; Z90.710 Acquired absence of both cervix and uterus; F41.9 Anxiety disorder, unspecified; G47.00 Insomnia, unspecified; K21.9 Gastro-esophageal reflux disease without esophagitis; K57.90 Diverticulosis of intestine, part unspecified, without perforation or abscess without bleeding; M10.9 Gout, unspecified; M19.90 Unspecified osteoarthritis, unspecified site; Z20.828 Contact with and (suspected) exposure to other viral communicable diseases; Z90.722 Acquired absence of ovaries, bilateral; Z88.8 Allergy status to other drugs, medicaments and biological substances
CPT/HCPCS: 36415; 36600; 71046; 80048; 80053; 80076; 80307; 81001; 82550; 82803; 83605; 83690; 83735; 83880; 84443; 84484; 85007; 85025; 85027; 85379; 85610; 85730; 87040; 87070; 87086; 87880; 93005; 93970; 94640; 96361; 96365; 96372; 96375; J0456; J0696; J1650; J2930; J3475; J7120; 99285-25; J7030; U0003-CS

== ENCOUNTER 2021-06-17 14:14 | Inpatient (IN) | payer MEDICARE, OTHER ==
[~2021-06-17] VITALS: Ht 167.6 cm; Wt 54.7 kg
[~2021-06-17 14:14] MED LIST changes: +AZIT250T PO; +CEFD300C PO; +GABA-585 PO; +MIRT-37 PO; +MIRT-8 PO; -MIRT15TA PO; -MIRT30TA3 PO
[2021-06-17] MEDS ORDERED: ACETAMINOPHEN 325 MG TABLET PO ONE (14:45)
--- NOTE | 2021-06-17 14:46 | PHYS DOC ---
Past History Past Medical History: Anemia, Angina, Anxiety, Arthritis, Bronchitis, CAD, COPD, Dementia, DVT, Hypertension, Hypothyroid, Pneumonia, Renal Disease, Other Additional Past Medical Histor: Limited secondary to dementia, kidney disease, mi 2008 (PATRIC FORREST DO) Past Medical History: Anxiety, Arthritis, Dementia, Hypertension (RODY GORDON MD) Past Surgical History: Appendectomy, Hysterectomy, Other Additional Past Surgical Histo: unknown (PATRIC FORREST DO) Smoking: Non-smoker Alcohol Use: None Drug Use: None (PATRIC FORREST DO) General Adult EDM: Chief Complaint: KNEE INJURY HPI: HPI: 76 yo F COPD, dementia, and CKD [facility] [place] with c/o right knee pain, concern for inability to ambulate. Pt was h/o dementia and hx/ros are provided by ems. Daughter present in ed hours after pt arrival and reports pt is no longer weight bearing for the past 2 days 2/2 right knee pain. Daughter is concerned for swelling to pts' left anterior neck adn asks if there's a problem with the carotid artery. (PATRIC FORREST DO) Review of Systems: Review of Systems: ROS: Unobtainable due to dementia (PATRIC FORREST DO) Current Medications: Current Meds: Current Medications Medications (Trade) Dose Ordered Sig/Judd Start Time Stop Time Status Last Admin Dose Admin Acetaminophen (Tylenol) 650 mg 1X ONCE 06/17/21 14:45 06/17/21 14:46 UNV (PATRIC FORREST DO) Allergies: Allergies: Allergies Coded Allergies Type Severity Reaction Last Updated Verified No Known Drug Allergies 11/16/15 No (PATRIC FORREST DO) Physical Exam: PE: Constitutional: Nontoxic appearing, no distress at rest, afebrile HENT: Normocephalic, atraumatic, Eyes: PERRLA EOMI, conjunctiva normal, no discharge. Neck: Normal range of motion, supple, no midline posterior neck pain, moves head to both sides, left sternocleidomastoid and anterior scalene slightly more hypertrophied than right Cardiovascular: S1/2 present, regular rhythm Lungs & Thorax: Speaking in full sentences, bilateral equal chest rise, no tachypnea or increased work of breathing Abdomen: soft, no tenderness, Skin: Warm, dry, no erythema, no rash. [] Extremities: bends and straightens warm right knee which is slightly more swollen than left knee, right dp/pt pulses intact, moves both Neurologic: Alert, normal motor function, no gross focal deficits noted. [] Psychologic: Smiling, gracious, normal affect, calm mood (PATRIC FORREST DO) EKG: EKG: [] (PATRIC FORREST DO) Radiology/Procedures: Radiology/Procedures: []IMAGING REPORT Signed PATIENT: MAXIMUS OJEDA RACCOUNT: [id number] : 1945 LOCATION: ER AGE: 76 SEX: F EXAM STATUS: REG ER ORD. PHYSICIAN: PATRIC FORREST DO REASON: fall, right knee pain PROCEDURE: CT HEAD AND CERVICAL SPINE WO CT HEAD AND C-SPINE WO dated 06/17/2021 3:23 PM Indication:Reason: fall, right knee pain / Spl. Instructions: / History: Comparison: CT head 08/20/2019. Technique: Noncontrast images were performed. Sagittal and coronal reconstructions of the cervical spine were obtained. One or more of the following individualized dose reduction techniques were utilized for this examination: 1. Automated exposure control 2. Adjustment of the mA and/or kV according to patient size 3. Use of iterative reconstruction technique Findings: CT head: There appears to be subtle motion artifact. There is no apparent intracranial hemorrhage or abnormal extra-axial fluid collection. There is patchy low attenuation in the cerebral white matter. This is consistent with chronic small vessel ischemic injury and appears similar to the prior exam. There is relatively poor definition of the smith-white matter differentiation in the right posterior frontal and parietal region. This is favored to relate to the subtle motion, although mild edema from ischemia could have a similar appearance. No other area of abnormal density is seen. The ventricles and basilar cisterns are normally positioned. Bone windows show no apparent fracture of the skull or abnormal sinus or mastoid opacification. CT cervical spine: There is mild reversal of the usual lordotic curvature. Alignment is otherwise normal. There is suggestion of subtle motion artifact. There is no apparent loss of vertebral body height or prevertebral soft tissue swelling. No fracture line is seen. There is disc narrowing at C4-5, C5-6 and C6-7. Evaluation of the soft tissue components of the canal is limited without intrathecal contrast. No destructive process is seen. IMPRESSION: Evaluation is somewhat limited by motion. CT head shows no evidence of hemorrhage. There is poor definition of smith-white matter differentiation in the right posterior frontal and parietal area that is thought most likely artifactual, although recent ischemic change could have a similar appearance, correlation with physical findings will be useful. CT cervical spine shows degenerative changes but no apparent acute abnormality, allowing for the diffuse motion artifact. Electronically signed by: Nirmal Marie Jr., MD (06/17/2021 3:53 PM) [id number] IMAGING REPORT Signed PATIENT: MAXIMUS OJEDAUNT: [id number] : 1945 LOCATION: ER AGE: 76 SEX: F EXAM STATUS: REG ER ORD. PHYSICIAN: PATRIC FORREST DO REASON: rihgt knee pain PROCEDURE: KNEE RIGHT 3V XR KNEE 3 VIEWS_RT Clinical indications: Reason: right knee pain Findings: No acute fracture or dislocation or osteolytic process is evident. No knee joint effusion is seen. There is degenerative chondrocalcinosis of the medial and lateral meniscus and there is mild joint space narrowing of the medial and lateral tibiofemoral joint compartments consistent with mild degenerative osteoarthritis. IMPRESSION: No acute osseous abnormality is evident. Electronically signed by: Ayush Connelly MD (06/17/2021 3:02 PM) [id number] DICTATED AND SIGNED BY: AYUSH CONNELLY MD DATE: 06/17/21 1500 CC: JEREMIE SPRING MD; PATRIC FORREST DO ~MTH0 0 DICTATED AND SIGNED BY: NIRMAL MARIE Jr, MD DATE: 06/17/21 1541 CC: JEREMIE SPRING MD; PATRIC FORREST DO ~MTH0 0 IMAGING REPORT Signed PATIENT: MAXIMUS OJEDAUNT: [id number] : 1945 LOCATION: ER AGE: 76 SEX: F EXAM STATUS: REG ER ORD. PHYSICIAN: PATRIC FORREST DO REASON: fall PROCEDURE: HIP BILATERAL WITH PELVIS XR HIP (WITH OR WITHOUT PELVIS) 1 VIEW Clinical indications: Reason: fall and pain. Findings: Intramedullary sukhdev with 2 interlocking compression screws is seen within the proximal left femur. No acute fracture or dislocation or osteolytic process is evident. IMPRESSION: No acute osseous abnormality is evident. Electronically signed by: Ayush Connelly MD (06/17/2021 3:45 PM) [id number] DICTATED AND SIGNED BY: AYUSH CONNELLY MD DATE: 06/17/21 154 CC: JEREMIE SPRING MD; PATRIC FORREST DO ~MTH0 0 (PATRIC FORREST DO) Heart Score: C/O Chest Pain: No Risk Factors: Risk Factors: DM, Current or recent (<one month) smoker, HTN, HLP, family history of CAD, obesity. Risk Scores: Score 0 - 3: 2.5% MACE over next 6 weeks - Discharge Home Score 4 - 6: 20.3% MACE over next 6 weeks - Admit for Clinical Observation Score 7 - 10: 72.7% MACE over next 6 weeks - Early Invasive Strategies (PATRIC FORREST DO) Course & Med Decision Making: Course & Med Decision Making Pertinent Labs and Imaging studies reviewed. (See chart for details) Patient presented to the ED with concern for right knee pain and failure to thrive, no longer ambulatory. X-ray with no effusion. Patient with uncontrolled hypertension unsure related to pain. Analgesia given in ED and labs are pending to evaluate for endorgan damage, pt w/history of CKD. Patient will need blood pressure rechecked, suspect low threshold for admission. Due to shift change patient was signed out to oncoming physician Dr. Kathleen for further medical management disposition. (PATRIC FORREST DO) Course & Med Decision Making See Dr. Forrest chart for details prior shift change. Discussed presentation, testing and tx. plan with Dr. Spring at 1900- Admit for further Eval. and Tx. Impression: 1. Accelerated hypertension 2. Falls 3. Right knee right elbow and hip contusions 4. Dementia 5. Anemia hemoglobin 11.7 6. Renal insufficiency BUN 22 creatinine 1.8 7. Diabetes glucose 128 (RODY GORDON MD) Dragon Disclaimer: Dragon Disclaimer: This electronic medical record was generated, in whole or in part, using a voice recognition dictation system. (PATRIC FORREST DO) Departure Departure: Referrals: JEREMIE SPRING MD (PCP) Benedicto Disclaimer This chart was dictated in whole or in part using Voice Recognition software in a busy, high-work load, and often noisy Emergency Department environment. It may contain unintended and wholly unrecognized errors or omissions. (RODY GORDON MD) Dragon Disclaimer This chart was dictated in whole or in part using Voice Recognition software in a busy, high-work load, and often noisy Emergency Department environment. It may contain unintended and wholly unrecognized errors or omissions. (PATRIC FORREST DO) PATRIC FORREST DO Jun 17, 2021 14:46 RODY GORDON MD Jun 17, 2021 18:46
--- NOTE | 2021-06-17 15:04 | RAD ---
XR KNEE 3 VIEWS_RT Clinical indications: Reason: right knee pain Findings: No acute fracture or dislocation or osteolytic process is evident. No knee joint effusion is seen. There is degenerative chondrocalcinosis of the medial and lateral meniscus and there is mild joint space narrowing of the medial and lateral tibiofemoral joint compartments consistent with mild degenerative osteoarthritis. IMPRESSION: No acute osseous abnormality is evident. Electronically signed by: Joe Connelly MD (06/17/2021 3:02 PM) [id number]
--- NOTE | 2021-06-17 15:47 | RAD ---
XR HIP (WITH OR WITHOUT PELVIS) 1 VIEW Clinical indications: Reason: fall and pain. Findings: Intramedullary sukhdev with 2 interlocking compression screws is seen within the proximal left femur. No acute fracture or dislocation or osteolytic process is evident. IMPRESSION: No acute osseous abnormality is evident. Electronically signed by: oJe Connelly MD (06/17/2021 3:45 PM) [id number]
--- NOTE | 2021-06-17 15:56 | RAD ---
CT HEAD AND C-SPINE WO dated 06/17/2021 3:23 PM Indication:Reason: fall, right knee pain / Spl. Instructions: / History: Comparison: CT head 08/20/2019. Technique: Noncontrast images were performed. Sagittal and coronal reconstructions of the cervical sp ine were obtained. One or more of the following individualized dose reduction techniques were utilized for this examinat ion: 1. Automated exposure control 2. Adjustment of the mA and/or kV according to patient size 3. Use of iterative reconstruction technique Findings: CT head: There appears to be subtle motion artifact. There is no apparent intracranial hemorrhage or abnormal extra-axial fluid collection. There is patchy low attenuation in the cerebral white matter. This is consistent with chronic small vessel ischemic injury and appears similar to the prior exam. T here is relatively poor definition of the smith-white matter differentiation in the right posterior fr ontal and parietal region. This is favored to relate to the subtle motion, although mild edema from i schemia could have a similar appearance. No other area of abnormal density is seen. The ventricles an d basilar cisterns are normally positioned. Bone windows show no apparent fracture of the skull or ab normal sinus or mastoid opacification. CT cervical spine: There is mild reversal of the usual lordotic curvature. Alignment is otherwise nor mal. There is suggestion of subtle motion artifact. There is no apparent loss of vertebral body heigh t or prevertebral soft tissue swelling. No fracture line is seen. There is disc narrowing at C4-5, C5 -6 and C6-7. Evaluation of the soft tissue components of the canal is limited without intrathecal con trast. No destructive process is seen. IMPRESSION: Evaluation is somewhat limited by motion. CT head shows no evidence of hemorrhage. There is poor defi nition of smith-white matter differentiation in the right posterior frontal and parietal area that is thought most likely artifactual, although recent ischemic change could have a similar appearance, cor relation with physical findings will be useful. CT cervical spine shows degenerative changes but no apparent acute abnormality, allowing for the diff use motion artifact. Electronically signed by: Juan Carlos Marie Jr., MD (06/17/2021 3:53 PM) [id number]
[2021-06-17] MEDS ORDERED: HYDROcodone/APAP 5/325MG 1 TAB TABLET ONE (18:07)
[2021-06-17 18:14] LABS: BASO % 1 % (0-3); EOS # 0.4 x10^3/uL (0.0-0.7); EOS % 5 % (0-3); HEMATOCRIT 36.7 % (36.0-47.0); HEMOGLOBIN 11.7 g/dL (12.0-15.5); LYMPH # 1.7 x10^3/uL (1.0-4.8); LYMPH % 24 % (24-48); MEAN CORPUSCULAR HEMOGLOBIN 30 pg (25-35); MEAN CORPUSCULAR HGB CONC 32 g/dL (31-37); MEAN CORPUSCULAR VOLUME 94 fL (79-100); MONO # 0.7 x10^3/uL (0.0-1.1); MONO % 10 % (0-9); NEUT # 4.2 x10^3uL (1.8-7.7); NEUT % 60 % (31-73); PLATELET COUNT 175 x10^3/uL (140-400); RED CELL DISTRIBUTION WIDTH 14.7 % (11.5-14.5)
[2021-06-17 18:29] LABS: CREATININE 1.4 mg/dL (0.6-1.0); GFR 36.6; POTASSIUM 4.5 mmol/L (3.5-5.1)
[2021-06-17 18:35] LABS: ALBUMIN/GLOBULIN RATIO 0.8 (1.0-1.7); TOTAL BILIRUBIN 0.4 mg/dL (0.2-1.0); TOTAL PROTEIN 6.6 g/dL (6.4-8.2)
[2021-06-17] MEDS ORDERED: ONDANSETRON PF 4 MG/2 ML VIAL. IVP PRN (19:00)
[2021-06-17] MEDS ORDERED: ACETAMINOPHEN 325 MG TABLET PO PRN (19:00)
[2021-06-17 19:20] LABS: BACTERIA,URINE FEW /HPF (0-FEW); BILIRUBIN,URINE NEG (NEG); CLARITY,URINE CLEAR; COLOR,URINE YELLOW; GLUCOSE,URINE NEG (NEG); NITRITE,URINE NEG (NEG); UROBILINOGEN,URINE 0.2 mg/dL (0.2 mg/dL)
[2021-06-17] MEDS ORDERED: cloNIDine HCL 0.1 MG TABLET PO ONE (19:30)
[2021-06-17] MEDS ORDERED: cloNIDine TTS-2 1 PATCH PATCH TD ONE (19:30)
[2021-06-17] MEDS ORDERED: IPRATRPIUM/ALBUTEROL 0.5/2.5MG 3 ML NEBU. NEB SCH (20:00)
[2021-06-17 20:40] VITALS: BP 184/101
--- NOTE | 2021-06-17 20:40 | NUR ---
The patient, MAXIMUS OJEDA, 76 y/o, F admitted by JEREMIE DONNELLY MD, was given written information regarding hospital policies, unit procedures and contact persons. Pt arrived to room 107 via gurney, accompanied by [facility] and ED staff. Pt here for HTN, falling, and c/o worsening Rt. hip/knee pain x 3 days. Pt is currently residing at [facility] for rehab after recent stay here for CAP on 06/01/21. Discussed POC and oriented pt to room, will require reinforcement. Bed in lowest position with call light in reach. Bed alarmed for safety. Valuables were checked and logged. Left in room with pt. Addendum: 06/17/21 at 2248 by JIM FARRAR RN Amendment: Pt's last stay was actually 06/01/20. Per GAURANG Gill at [place], pt is on the LTC side--not rehab.
--- NOTE | 2021-06-17 20:56 | NUR ---
Pt is pleasantly confused, A/O self only. Unable to recall PMH or home meds. Contacted [facility] to request information, GAURANG Gill will fax.
--- NOTE | 2021-06-17 21:52 | EKG ---
[address] [address] Test Date: 2021-06-17 Test Time: 18:58:09 Pat Name: MAXIMUS OJEDA Department: Room: [facility] A Gender: F Rod Drawer: : 1945 Requested By: RODY GORDON Order Number: [id number] Reading MD: Lawrence Louis Measurements Intervals [place] Rate: 63 P: 69 RI: 144 QRS: 80 QRSD: 74 T: 62 QT: 412 QTc: 425 Interpretive Statements SINUS RHYTHM NORMAL ECG RI6.02 Compared to ECG 05/31/2020 21:53:23 No significant changes Electronically Signed On 06-19-2021 13:21:42 CDT by Lawrence Louis
[2021-06-17 22:15] VITALS: BP 94/58
[2021-06-17] MEDS ORDERED: CARV25TA PO (23:18)
[2021-06-17] MEDS ORDERED: LEVO50TA5 PO (23:18)
[2021-06-17] MEDS ORDERED: OLAN5TAB3 PO (23:18)
[2021-06-17] MEDS ORDERED: HYDR30CR74 TP (23:18)
[2021-06-17] MEDS ORDERED: MAGN400O7 PO (23:18)
[2021-06-17] MEDS ORDERED: LORA10TA68 PO (23:18)
[2021-06-17] MEDS ORDERED: IPRA4AER INH (23:18)
[2021-06-17] MEDS ORDERED: AMMO225L5 TP (23:18)
[2021-06-17] MEDS ORDERED: FAMO10TA26 PO (23:18)
[2021-06-17] MEDS ORDERED: MULT-114 PO (23:18)
[2021-06-17] MEDS ORDERED: HYDROCORTISONE 2.5% RECTAL CREAM 30GM TUBE. RC PRN (23:30)
[2021-06-17] MEDS ORDERED: MAGNESIUM HYDROXIDE 2,400 MG/30 ML ORAL.SUSP. PO PRN (23:30)
[2021-06-17] MEDS ORDERED: FAMOTIDINE 20 MG TABLET PO PRN (23:45)
[2021-06-17] MEDS: MELATONIN 3 MG TABLET PO SCH (23:46)
[2021-06-17] MEDS: OLANZapine 5 MG TABLET PO SCH (23:46)
[2021-06-17] MEDS: GABAPENTIN 100 MG CAPSULE. PO SCH (23:46)
[2021-06-17] MEDS: MIRTAZAPINE 7.5 MG TABLET. PO SCH (23:46)
[2021-06-18] MEDS: LEVOTHYROXINE 50 MCG TABLET PO SCH (06:23)
[2021-06-18 06:28] VITALS: BP 131/80
[2021-06-18 06:53] LABS: BASO % 1 % (0-3); CREATININE 1.3 mg/dL (0.6-1.0); EOS # 0.3 x10^3/uL (0.0-0.7); EOS % 8 % (0-3); GFR 39.8; HEMATOCRIT 32.5 % (36.0-47.0); HEMOGLOBIN 10.3 g/dL (12.0-15.5); LYMPH # 1.5 x10^3/uL (1.0-4.8); LYMPH % 37 % (24-48); MEAN CORPUSCULAR HEMOGLOBIN 30 pg (25-35); MEAN CORPUSCULAR HGB CONC 32 g/dL (31-37); MEAN CORPUSCULAR VOLUME 95 fL (79-100); MONO # 0.4 x10^3/uL (0.0-1.1); MONO % 11 % (0-9); NEUT # 1.7 x10^3uL (1.8-7.7); NEUT % 44 % (31-73); PLATELET COUNT 144 x10^3/uL (140-400); POTASSIUM 4.6 mmol/L (3.5-5.1); RED BLOOD COUNT 3.42 x10^6/uL (3.50-5.40); RED CELL DISTRIBUTION WIDTH 14.5 % (11.5-14.5)
[2021-06-18] MEDS: CETIRIZINE HCL 10 MG TABLET PO SCH (07:59)
[2021-06-18] MEDS: MULTIVITAMIN with MINERAL TABLET. PO SCH (07:59)
[2021-06-18] MEDS: GABAPENTIN 100 MG CAPSULE. PO SCH ×3 (07:59→19:58)
[2021-06-18] MEDS: VITAMIN B COMPLEX CAPSULE. PO SCH (07:59)
[2021-06-18] MEDS: ALLOPURINOL 100 MG TABLET. PO SCH (07:59)
[2021-06-18] MEDS ORDERED: IPRATRPIUM/ALBUTEROL 0.5/2.5MG 3 ML NEBU. NEB SCH (08:00)
[2021-06-18] MEDS: CARVEDILOL 12.5 MG TABLET PO SCH ×2 (08:00→15:45)
[2021-06-18] MEDS: AMMONIUM LACTATE 12% TOPICAL LOTION 226GM BOTTLE. TP SCH ×2 (09:11→19:58)
[2021-06-18] MEDS ORDERED: IPRATRPIUM/ALBUTEROL 0.5/2.5MG 3 ML NEBU. NEB PRN (10:45)
[2021-06-18 10:49] VITALS: BP 96/65
--- NOTE | 2021-06-18 14:38 | HP ---
ADMIT DATE: 06/17/2021 HISTORY OF PRESENT ILLNESS: The patient is a 76-year-old female patient, a resident at a [facility], who was brought to the Emergency Room with a complaint of pain in her right knee and with concern for inability to ambulate. The patient has dementia and history was provided by the emergency medical personnel. Her daughter came to the Emergency Department hours after the patient arrived and reports that the patient is no longer weightbearing for the last 2 days secondary to right knee pain. She is also concerned about the swelling in the patient's left anterior neck and was asking if there is any problem with the carotid artery. The patient was extensively investigated in the Emergency Room, has had lab work and imaging studies. Her lab works were mostly unremarkable except for stable chronic kidney disease. Her imaging studies of the head and cervical spine was basically unremarkable. The CT scan of the cervical spine showed degenerative changes, but no apparent acute abnormality. The X-ray of the hip and pelvis showed that patient has an intramedullary sukhdev with 2 interlocking compression screws seen within the proximal left femur. No acute fracture or dislocation or osteolytic process is evident. However, x-ray of the right knee showed that the patient has no acute fracture or dislocation or osteolytic process evident. No knee joint effusion is seen. There is degenerative chondrocalcinosis of the medial and lateral meniscus and there is mild joint space narrowing of the medial and lateral tibiofemoral joint compartment consistent with mild degenerative osteoarthritis and there are no acute abnormalities evident. The patient was admitted with right knee pain and inability to walk. She was also found to have accelerated hypertension, anemia, chronic renal insufficiency. The patient herself is very demented and does not give any useful information. PAST MEDICAL HISTORY: Significant for hypertension, chronic obstructive pulmonary disease, hypothyroidism, anemia, and profound dementia. She also has osteoporosis and gout. PAST SURGICAL HISTORY: Significant for total abdominal hysterectomy, bilateral salpingo-oophorectomy, appendectomy, tonsillectomy. She also has a history of esophagogastroduodenoscopy and colonoscopy and most recently fall with left hip fracture status post open reduction internal fixation. She also had pancreatitis attributed to her dementia medicine. ALLERGIES: SHE IS ALLERGIC TO ARICEPT, NAMENDA, DEPAKOTE, THEY ALL CAUSED PANCREATITIS. She has no known drug allergies to any other medication. FAMILY HISTORY: Noncontributory. SOCIAL HISTORY: She is , has 1 daughter. She does not smoke, drink alcohol or use recreational drugs. She is currently a resident at [facility]. REVIEW OF SYSTEMS: As per history of present illness. MEDICATIONS: She is currently on following medication: She is on loratadine 10 mg once a day, ipratropium bromide, albuterol sulfate 1 puff 4 times a day, carvedilol 25 mg twice a day with meals, aspirin 81 mg once a day, acetaminophen 650 mg every 6 hours, gabapentin 100 mg 3 times a day, mirtazapine 7.5 mg at bedtime, sertraline 50 mg daily, olanzapine 5 mg at bedtime, milk of magnesia 30 mL p.o. daily p.r.n. for constipation. She is also on famotidine 10 mg once a day, levothyroxine sodium 50 mcg once a day and hydrocortisone cream applied topically twice a day, vitamin B complex 1 tablet once a day, multivitamin with mineral 1 tablet once a day, allopurinol 100 mg daily, and melatonin 3 mg at bedtime. PHYSICAL EXAMINATION: GENERAL: On examining her, the patient was pale, cachectic, with a body mass index only 19.5 kilograms/square meter. There is no jaundice or cyanosis or thyromegaly. No jugular venous distention. No limb edema. VITAL SIGNS: Her heart rate was 79, blood pressure was high at 207/108, temperature was 98.2, respiratory rate was 18 and oxygen saturation was 95% on room air. HEAD, EYES, EARS, NOSE, THROAT: Shows normocephalic, atraumatic. NECK: Supple. HEART: Showed normal first and second heart sounds, no gallop, rub or murmur. CHEST: Clear to auscultation, no crepitation or rhonchi. ABDOMEN: Scaphoid, soft, nontender. NEUROLOGIC: She is demented without any obvious lateralizing sign. All cranial nerves intact. She moves her upper extremities and left lower extremity without difficulty. She is definitely having severe pain, difficulty moving actively or passively her left knee joint. This definitely seems to be more swollen, although there is no evidence of overlying erythema. LABORATORY DATA: Her lab work on arrival showed a white cell count of 7000, hemoglobin 11, hematocrit 36, MCV 94 and platelet count of 175,000 with a manual differential showed 60% polymorphs, 24% lymphocytes and 10% monocytes. Her chemistry showed a serum sodium 145, potassium 4.5, chloride 108, bicarbonate 34, anion gap of 3, BUN 22, creatinine 1.4. Estimated GFR was 36 mL per minute. Her glucose was 88. Her calcium was 9. Total bilirubin, AST, ALT were normal. Alkaline phosphatase slightly elevated. Total protein 6.6, albumin was 3. Urinalysis essentially unremarkable and her coronavirus by rapid testing was negative. Her CT scans of the head and cervical spine were unremarkable. X-ray of the hip and pelvis showed no acute osseous abnormalities evident. However, x-ray of her right knee showed that she has degenerative chondrocalcinosis of the medial and lateral meniscus and mild joint space narrowing of the medial and lateral tibiofemoral joint compartment consistent with mild degenerative osteoarthritis. ASSESSMENT AND PLAN: The patient was admitted and continued on all her medications. I will check her inflammatory markers as well as uric acid and given the chondrocalcinosis, probably steroid injection will be an option or oral steroid treatment. I will discuss that with her daughter. LILLY/ISSA DR: LILLY/papa TID: [id number]
[2021-06-18 14:51] VITALS: BP 145/81
[2021-06-18] MEDS ORDERED: SERTRALINE 50 MG TABLET. PO SCH (16:00)
--- NOTE | 2021-06-18 17:12 | RAD ---
EXAM: Carotid Doppler sonogram. HISTORY: Left neck edema. Fall. Strokelike symptoms. Atherosclerosis. TECHNIQUE: York scale and color Doppler sonographic evaluation of the neck with spectral waveform loraine lysis was performed and static images are submitted for review. FINDINGS: There is moderate atherosclerotic plaque throughout the carotid bifurcations. The peak systolic velocity within the right common carotid artery is 59 cm/sec. The peak systolic elie ocity within the right internal carotid artery is 122 cm/sec and the end diastolic velocity within th e right internal carotid artery is 37 cm/sec. The peak systolic velocity within the left common carotid artery is 68 cm/sec. The peak systolic [place] within the left internal carotid artery is 76 cm/sec and the end diastolic velocity within the l eft internal carotid artery is 31 cm/sec. There is normal antegrade flow within both vertebral arteries. IMPRESSION: 1. Doppler findings consistent with less than 50 percent stenosis involving the internal carotid michael yeimi. 2. Moderate atherosclerotic plaque involving the carotid bifurcations. PQRS Compliance Statement - Stenosis calculations for CT, MR and conventional angiography are based u marya measurement of the distal ICA diameter in accordance with the NASCET methodology. Stenosis calcu lations for carotid ultrasound studies are derived from validated velocity criteria which are known t o correlate with the NASCET methodology. Electronically signed by: Екатерина Buchanan MD (06/18/2021 5:09 PM) [id number]
--- NOTE | 2021-06-18 17:20 | NUR ---
PT GOT A CAROTID DOPPLER DONE AND MODERATE PLAQUE WAS SHOWN. PT RECEIVING PREDNISONE TODAY. PT DID NOT COMPLAIN OF ANY PAIN AND HYPERTENSION SEEMED TO BE RESOLVED TODAY. PT SATTING WELL ON 1.5L. PT TO RECEIVE SOLU-MEDROL TO THE KNEE TOMORROW BY DR. DONNELLY. PT TO RECEIVE CHEST X-RAY. ALL OTHER IMAGING HAS BEEN NEGATIVE.
[2021-06-18] MEDS ORDERED: predniSONE 20 MG TABLET PO ONE (17:45)
[2021-06-18 18:46] VITALS: BP 154/90
[2021-06-18] MEDS: OLANZapine 5 MG TABLET PO SCH (19:58)
[2021-06-18] MEDS: MIRTAZAPINE 7.5 MG TABLET. PO SCH (19:58)
[2021-06-18] MEDS: MELATONIN 3 MG TABLET PO SCH (19:58)
[2021-06-18] MEDS ORDERED: ASPIRIN ENTERIC COATED 81 MG TABLET.DR. PO SCH (21:00)
--- NOTE | 2021-06-18 21:00 | NUR ---
Pt's daughter Danielle called to check on pt, update given. Informed dtr the CXR has not resulted yet, will call back in AM to check in. Pt has been ambulating with SBA and walker in room, tolerating well and denies any current pain to RLE. Took HS pills whole without difficulty. Pt laid down to try and sleep, tab alarm in place and bed in lowest position for safety.
--- NOTE | 2021-06-18 22:06 | RAD ---
XR CHEST 1V INDICATION: Reason: shortness of breath / Spl. Instructions: / History: . COMPARISON STUDY: 05/31/2020. FINDINGS: Lungs: Hyperexpanded lung volume. No pulmonary mass or consolidation. The tracheobronchial tree and h ilar structures are normal. Pleura: No pleural effusion or pneumothorax. Heart and Mediastinum: The cardiomediastinal silhouette is normal. Atherosclerosis of the thoracic ao rta. IMPRESSION: No acute cardiopulmonary process. Electronically signed by: Shawn Silverman MD (06/18/2021 10:03 PM) [facility]
--- NOTE | 2021-06-18 23:05 | PN ---
DATE: 06/18/2021 SUBJECTIVE: The patient is resting flat in bed, in no apparent distress. She continued to complain of pain in her right knee joint, although the nursing staff stated that she managed to walk with physical therapy. Denied any other complaint. PHYSICAL EXAMINATION: GENERAL: When I examined her, she looked well and was clearly in no apparent respiratory distress. She was pale, cachectic, but no jaundice, cyanosis or thyromegaly. No jugular venous distention. No limb edema. VITAL SIGNS: Her heart rate was 57, blood pressure was 96/65, temperature 97.9, respiratory rate 20, and oxygen saturation was 92% on 2 liters of oxygen. HEAD, EYES, EARS, NOSE AND THROAT: Normocephalic, atraumatic. NECK: Supple. HEART: Showed normal first and second heart sounds, no gallop, rub or murmur. CHEST: Clear to auscultation, no crepitation or rhonchi. ABDOMEN: Scaphoid, soft, nontender. NEUROLOGIC: She was demented, but without any obvious lateralizing sign. She is definitely unable to move her right knee joint and both passive and active movement induces severe pain. Her x-ray of the right knee joint showed that she has degenerative chondrocalcinosis of both medial and lateral meniscus. LABORATORY DATA: This morning showed a white cell count of 4000, hemoglobin 10, hematocrit 32, MCV 95 and platelet count of 144,000. Her chemistry showed a serum sodium 144, potassium 4.6, chloride 108, bicarbonate 31, anion gap of 5, BUN of 22, creatinine 1.3. Estimated GFR was 39 mL per minute. Her glucose was 86, calcium was 9. ASSESSMENT: Acute monoarthritis likely due to pseudogout. She has evidence of degenerative chondrocalcinosis of the right knee joint, that is made her main complaint. There is no evidence of fracture. She has multiple other medical problems including chronic obstructive pulmonary disease. She has gout, hypertension, hypothyroidism. PLAN: My plan is to arrange for steroids, intra-articular injection after contacting her daughter and we will continue with physical and occupational therapy. JAMES DR: Janett TID: [id number]
[2021-06-18 23:33] VITALS: BP 142/78
[2021-06-19] MEDS: LEVOTHYROXINE 50 MCG TABLET PO SCH (05:28)
[2021-06-19 05:45] VITALS: BP 166/93
[2021-06-19 06:23] LABS: HEMOGLOBIN 11.6 g/dL (12.0-15.5); RED BLOOD COUNT 3.81 x10^6/uL (3.50-5.40); WHITE BLOOD COUNT 3.8 x10^3/uL (4.0-11.0)
[2021-06-19 06:42] LABS: ALBUMIN 2.9 g/dL (3.4-5.0); ALBUMIN/GLOBULIN RATIO 0.8 (1.0-1.7); C REACTIVE PROTEIN 40.4 mg/L (0-3.3); CALCIUM 9.2 mg/dL (8.5-10.1); CREATININE 1.3 mg/dL (0.6-1.0); GFR 39.8; POTASSIUM 5.2 mmol/L (3.5-5.1); TOTAL BILIRUBIN 0.4 mg/dL (0.2-1.0); TOTAL PROTEIN 6.7 g/dL (6.4-8.2); URIC ACID 6.4 mg/dL (2.6-6.0)
[2021-06-19] MEDS ORDERED: predniSONE 10 MG TABLET. PO SCH (09:00)
[2021-06-19] MEDS: AMMONIUM LACTATE 12% TOPICAL LOTION 226GM BOTTLE. TP SCH (09:00)
[2021-06-19] MEDS: MULTIVITAMIN with MINERAL TABLET. PO SCH (09:08)
[2021-06-19] MEDS: CETIRIZINE HCL 10 MG TABLET PO SCH (09:08)
[2021-06-19] MEDS: GABAPENTIN 100 MG CAPSULE. PO SCH ×2 (09:08→13:58)
[2021-06-19] MEDS: VITAMIN B COMPLEX CAPSULE. PO SCH (09:08)
[2021-06-19] MEDS: ALLOPURINOL 100 MG TABLET. PO SCH (09:08)
[2021-06-19] MEDS: CARVEDILOL 12.5 MG TABLET PO SCH (09:09)
[2021-06-19 11:16] VITALS: BP 140/77
[2021-06-19] MEDS ORDERED: LIDOCAINE 1% Multi-Dose 20 ML VIAL. IJ ONE (11:45)
[2021-06-19] MEDS ORDERED: methylPREDNISolone ACETATE 40 MG/ML VIAL. INT ART ONE (11:45)
[2021-06-19] MEDS ORDERED: LIDOCAINE 1% PF 30 ML VIAL. ID ONE (11:45)
[2021-06-19] MEDS ORDERED: methylPREDNISolone SOD SUCC PF 40 MG/ML VIAL. IV ONE (11:45)
[2021-06-19 15:19] VITALS: BP 115/68
--- NOTE | 2021-06-19 15:20 | DISCH ---
DISCHARGE ORDERS DISCHARGE DATE: Jun 19, 2021 FINAL DIAGNOSIS DIFFICULTY WALKONG Right knee chondrocalcinosis COPD CONDITION AT DISCHARGE: Stable Code Status: DNR/DNI SNF STAY <30 DAYS: Yes POST DISCHARGE ORDERS: ACTIVITY ORDERS: Activity as tolerated WEIGHT BEARING STATUS: As tolerated DIET AFTER DISCHARGE: Regular WOUND/INCISION CARE: No wound care needed CHECKS AFTER DISCHARGE: CHECKS AFTER DISCHARGE: Check blood press - daily, Check your Temp as needed, Weigh Yourself Daily TREATMENT/EQUIPMENT ORDERS: ADAPTIVE EQUIPMENT NEEDED: None RESPIRATORY EQUIPMENT: Oxygen DISCHARGE MEDICATIONS: Home Meds Reported Medications Olanzapine (ZYPREXA) 5 Mg Tablet, 5 MG PO HS for Bipolar & Insomnia LAST DOSE GIVEN: DATE: TIME: NEXT DOSE DUE: DATE: TIME: 06/17/21 Famotidine (PEPCID AC) 10 Mg Tablet, 10 MG PO PRN DAILY PRN for GERD LAST DOSE GIVEN: DATE: TIME: NEXT DOSE DUE: DATE: TIME: 06/17/21 Multivitamin With Minerals (MULTIVITAMINS WITH MINERALS) 1 Each Tablet, 1 TAB PO DAILY for Supplement LAST DOSE GIVEN: DATE: TIME: NEXT DOSE DUE: DATE: TIME: 06/17/21 Magnesium Hydroxide (MILK OF MAGNESIA) 400 Mg/5 Ml Oral.susp, 30 ML PO PRN Q12HR PRN for CONSTIPATION LAST DOSE GIVEN: DATE: TIME: NEXT DOSE DUE: DATE: TIME: 06/17/21 Levothyroxine Sodium (LEVOTHYROXINE SODIUM) 50 Mcg Tablet, 50 MCG PO DAILYAC for THYROID SUPPLEMENT LAST DOSE GIVEN: DATE: TIME: NEXT DOSE DUE: DATE: TIME: 06/17/21 Ammonium Lactate (Ammonium Lactate) 226 Gm Lotion, 1 MICHELLE TP BID for Apply to BLE for Dry skin LAST DOSE GIVEN: DATE: TIME: NEXT DOSE DUE: DATE: TIME: 06/17/21 Hydrocortisone (Hydrocortisone) 30 Gm Cream.appl, 1 MICHELLE TP BID for Allergic Dermatitis LAST DOSE GIVEN: DATE: TIME: NEXT DOSE DUE: DATE: TIME: 06/17/21 Carvedilol (COREG) 25 Mg Tablet, 25 MG PO BIDWMEALS for CARDIAC LAST DOSE GIVEN: DATE: TIME: NEXT DOSE DUE: DATE: TIME: 06/17/21 Ipratropium/Albuterol Sulfate (COMBIVENT RESPIMAT INHAL) 4 Gm Aer.w.adap, 1 PUFF INH QID for COPD LAST DOSE GIVEN: DATE: TIME: NEXT DOSE DUE: DATE: TIME: 06/17/21 Loratadine (CLARITIN) 10 Mg Tablet, 10 MG PO DAILY for Allergies LAST DOSE GIVEN: DATE: TIME: NEXT DOSE DUE: DATE: TIME: 06/17/21 Gabapentin (GABAPENTIN ) 100 Mg Capsule, 100 MG PO TID for neuropathy LAST DOSE GIVEN: DATE: TIME: NEXT DOSE DUE: DATE: TIME: 06/01/20 Allopurinol (ALLOPURINOL) 100 Mg Tablet, 100 MG PO DAILY for Gout LAST DOSE GIVEN: DATE: TIME: NEXT DOSE DUE: DATE: TIME: 05/19/20 Sertraline Hcl (ZOLOFT) 50 Mg Tablet, 50 MG PO DAILY16 for ANTI-DEPRESSANT LAST DOSE GIVEN: DATE: TIME: NEXT DOSE DUE: DATE: TIME: 10/19/19 Mirtazapine (MIRTAZAPINE) 7.5 Mg Tablet, 7.5 MG PO QHS for Modd/Depression LAST DOSE GIVEN: DATE: TIME: NEXT DOSE DUE: DATE: TIME: 10/19/19 Melatonin (MELATONIN) 3 Mg Tablet, 3 MG PO QHS for Insomnia LAST DOSE GIVEN: DATE: TIME: NEXT DOSE DUE: DATE: TIME: 09/20/19 Acetaminophen (TYLENOL) 325 Mg Tablet, 650 MG PO PRN Q6HRS PRN for PAIN / TEMP LAST DOSE GIVEN: DATE: TIME: NEXT DOSE DUE: DATE: TIME: 11/27/15 Aspirin (ASPIR-LOW) 81 Mg Tablet.dr, 81 MG PO QHS for Heart Health LAST DOSE GIVEN: DATE: TIME: NEXT DOSE DUE: DATE: TIME: 11/16/15 Vitamin B Complex (VITAMIN B COMPLEX) 1 Each Tablet, 1 TAB PO DAILY for Supplement LAST DOSE GIVEN: DATE: TIME: NEXT DOSE DUE: DATE: TIME: 11/16/15 JEREMIE DONNELLY MD Jun 19, 2021 15:20
--- NOTE | 2021-06-19 16:25 | NUR ---
PATIENT IS DISCHARGED TO [facility]. REPORT GIVEN TO STAFF NURSE RADHA. PATIENT LEFT ROOM VOA W/C ACCOMP BY THIS RN. PATIENT TAKEN HOME VIA TRANSPORTATION PROVIDED BY [facility].
--- NOTE | 2021-06-19 20:38 | PN ---
DATE: 06/19/2021 SUBJECTIVE: The patient is sitting at the edge of the bed comfortably, in no apparent distress, continue to be very confused; however, she consistently continue to complain of pain in her right knee joint. Her x-rays show that she has chondrocalcinosis of her right knee joint, which is clinically definitely more swollen and has degenerative chondrocalcinosis of the medial and lateral meniscus and there is also mild joint space narrowing of the medial and lateral tibiofemoral joint compartment, consistent with mild degenerative osteoarthritis. PHYSICAL EXAMINATION: GENERAL: When I examined her, she was pale, but no jaundice, cyanosis. No lymphadenopathy, no thyromegaly, no jugular venous distention. No lower limb edema. VITAL SIGNS: Her heart rate was 58, blood pressure was 140/77, temperature 97.8, respiratory rate was 16 and oxygen saturation was 97% on 2 liters of oxygen. HEAD, EYES, EARS, NOSE, AND THROAT: Normocephalic, atraumatic. NECK: Supple. HEART: Normal first and second heart sounds. No gallop, rub or murmur. CHEST: Clear to auscultation. Showed central trachea, equally reduced expansion, reduced air entry, vesicular breath sounds. No crepitation or rhonchi. ABDOMEN: Scaphoid, soft, nontender. NEUROLOGIC: She is demented without any obvious lateralizing sign. EXTREMITIES: Her right knee is definitely more swollen compared to the left, although there is no overlying redness. LABORATORY DATA: Her lab work this morning showed a white cell count of 3800, hemoglobin 11.6, hematocrit 36, MCV 94 and platelet count of 150,000. Her sedimentation rate was 5.5 mm per hour. Her serum sodium was 140, potassium 5.2, chloride 105, bicarbonate 29, anion gap of 6, BUN of 26, creatinine 1.3. Estimated GFR was 39 mL per minute. Her glucose 122, uric acid was 6.4, calcium was 9.2. Total bilirubin, AST, ALT were normal. Alkaline phosphatase slightly elevated. C-reactive protein was 40 mg per liter, total protein 6.7, albumin was 2.9. ASSESSMENT: 1. Acute monoarthritis, likely due to pseudogout, involving her right knee joint. The patient has obviously multiple other medical problems including: A. Chronic obstructive pulmonary disease. B. Hypertension. C. Hypothyroidism. D. Gout. PLAN: To inject her knee with steroids and continue with the tapering course of steroids as she is not a candidate for nonsteroidal anti-inflammatory medication or colchicine given her impaired kidney function. ROSE DR: Janett TID: [id number]
--- NOTE | 2021-06-19 22:45 | PN ---
DATE: 06/19/2021 SUBJECTIVE: This is a 76-year-old female patient, resident at [facility] who was brought in because of pain in her right knee joint. Has had x-rays done showed no evidence of fracture, although it did show that she has chondrocalcinosis. Given that she has also impaired kidney function, she is not a candidate for treatment with nonsteroidal anti-inflammatory medication and colchicine; and therefore, a decision was made to treat it with intra-articular steroid in the form of Depo-Medrol 40 mg in 10 mL of 1% lidocaine. Under strict aseptic technique and after cleaning the skin with Betadine, a mixture of 40 mg of Depo-Medrol plus 10 mL of 1% lidocaine were injected intraarticularly into her right knee joint without difficulty. The patient tolerated the procedure very well. The patient is obviously demented; however, the nursing staff were instructed that if the patient has developed more pain or redness or swelling or develop the fever, I should be actually contacted immediately. PLAN: We will continue obviously with physical and occupational therapy. I will also continue with tapering course of steroids in the form of Medrol Dosepak once she goes back to [facility] and continue with physical and occupational therapy there. LILLY/RAE/TEE DR: Janett TID: [id number]
== END 2021-06-19 16:15 | DRG 554 ==
LOC: ER 14:14 → 1 SOUTH 20:04
PROVIDERS: ADMIT Internal Medicine; ATTEND Internal Medicine
PROC: 3E0U33Z Introduction of Anti-inflammatory into Joints, Percutaneous Approach (ICD-10-PCS; principal; 2021-06-19)
PROC: 3E0U3BZ Introduction of Anesthetic Agent into Joints, Percutaneous Approach (ICD-10-PCS; 2021-06-19)
DX: M11.261 Other chondrocalcinosis, right knee (principal); F03.90 Unspecified dementia, unspecified severity, without behavioral disturbance, psychotic disturbance, mood disturbance, and anxiety; M10.9 Gout, unspecified; I12.9 Hypertensive chronic kidney disease with stage 1 through stage 4 chronic kidney disease, or unspecified chronic kidney disease; N18.9 Chronic kidney disease, unspecified; E03.9 Hypothyroidism, unspecified; I25.10 Atherosclerotic heart disease of native coronary artery without angina pectoris; S70.01XA Contusion of right hip, initial encounter; M81.0 Age-related osteoporosis without current pathological fracture; R26.2 Difficulty in walking, not elsewhere classified; S80.01XA Contusion of right knee, initial encounter; S50.01XA Contusion of right elbow, initial encounter; Z66 Do not resuscitate; K59.00 Constipation, unspecified; J44.9 Chronic obstructive pulmonary disease, unspecified; E11.22 Type 2 diabetes mellitus with diabetic chronic kidney disease; D64.9 Anemia, unspecified; M13.10 Monoarthritis, not elsewhere classified, unspecified site; F41.9 Anxiety disorder, unspecified; Z20.822 Contact with and (suspected) exposure to COVID-19; Z90.49 Acquired absence of other specified parts of digestive tract; Z90.710 Acquired absence of both cervix and uterus; I25.2 Old myocardial infarction; Z90.722 Acquired absence of ovaries, bilateral; Z88.8 Allergy status to other drugs, medicaments and biological substances; Z79.899 Other long term (current) drug therapy
CPT/HCPCS: 36415; 70450; 71045; 72125; 73521; 73562; 80048; 80053; 81001; 84550; 85025; 85027; 85651; 86140; 87077; 87086; 87186; 87426; 93005; 93880; J1030; J7512; U0003; 97530; 97535; 99285-25

== ENCOUNTER 2021-10-31 20:29 | Emergency (ER) | payer MEDICARE, OTHER, MEDICAID ==
[~2021-10-31] VITALS: Ht 167.6 cm; Wt 54.7 kg
[~2021-10-31 20:29] MED LIST changes: +AMMO225L5 TP; +CARV25TA PO; +FAMO10TA26 PO; -GUAI600T6 PO; +GUAI600T93 PO; +HYDR30CR74 TP; +IPRA4AER INH; +LEVO50TA5 PO; +LORA10TA68 PO; +MAGN400O7 PO; +MULT-114 PO; +OLAN5TAB3 PO
--- NOTE | 2021-10-31 20:46 | RAD ---
STUDY: CT head without contrast INDICATION: Code stroke. Lethargic. Unresponsive. COMPARISON: 06/17/2021 TECHNIQUE: Axial CT imaging through the head without the use of intravenous contrast. Sagittal and co robbie reformats were obtained. One or more of the following individualized dose reduction techniques were utilized for this examinat ion: 1. Automated exposure control 2. Adjustment of the mA and/or kV according to patient size 3. Use of iterative reconstruction technique. FINDINGS: No acute intracranial hemorrhage. No mass effect or midline shift. No large area of smith-white matter differentiation loss. Parenchymal volume loss with ex vacuo ventriculomegaly. Intracranial vascular calcifications. Finding s involving the bihemispheric subcortical/periventricular white matter most commonly seen in the sett ing of chronic microvascular ischemic change. No newly seen abnormality of the calvarium. The partially assessed paranasal sinuses are well aerated as are the mastoid air cells. IMPRESSION: No acute intracranial hemorrhage or CT evidence for an acute cortical infarction. No significant hurst ge from the 06/17/2021 comparison. FOR INTERNAL CODING PURPOSES Critical result: Findings discussed with STEFANIE ARNOLD MD on 10/31/2021 at 8:41 PM. RESULT CODE: (C) Electronically signed by: JAQUAN MOLINA MD (10/31/2021 8:44 PM) [facility]
[2021-10-31] MEDS ORDERED: IV RINGERS SOLUTION,LACTATED 1,000 ML IV ONE (21:00)
--- NOTE | 2021-10-31 21:09 | PHYS DOC ---
Past History Past Medical History: Anxiety, Arthritis, Dementia, Hypertension Additional Past Medical Histor: Limited secondary to dementia, kidney disease, mi 2008 Past Surgical History: No Surgical History Additional Past Surgical Histo: unknown Smoking: Non-smoker Alcohol Use: None Drug Use: None Adult General HPI HPI Patient is a 76-year-old female with a past medical history significant for dementia, hypothyroidism, and hypertension who presents from her [facility] with a chief complaint of worsening mental status and concern for stroke. Per [facility] and facility, patient began leaning to the right and had decreased mental status over baseline which started this morning. Facility denies any recent falls that they are aware of, illnesses, fevers, nausea, vomiting, diarrhea. Patient is DNR with no chest compressions, shocks or ET tube but medical management/comfort management acceptable. Review of Systems Review of Systems Review of systems otherwise unremarkable except noted in HPI Allergies Allergies Allergies Coded Allergies Type Severity Reaction Last Updated Verified No Known Drug Allergies 11/16/15 No Physical Exam Physical Exam Constitutional: Well developed, cachectic, HENT: Normocephalic, atraumatic, bilateral external ears normal, oropharynx moist, no oral exudates, nose normal. [] Eyes: PERRLA, EOMI, conjunctiva normal, no discharge. [] Neck: Normal range of motion, no tenderness, supple, no stridor. [] Cardiovascular: Sinus bradycardia Lungs & Thorax: Mild bilateral congestion/rhonchi with no increased work of breathing Abdomen: soft, no tenderness, no masses, no pulsatile masses. [] Skin: Warm, dry, no erythema, no rash. [] Back: No tenderness, no CVA tenderness. [] Extremities: No tenderness, no cyanosis, no clubbing, ROM intact, no edema. [] Neurologic: GCS of 12, E3, V4, and 5, advanced dementia at baseline, moving extremities in response to touch on extremities Current Patient Data Lab Results Laboratory Tests Test 10/31/21 20:33 Glucose (Fingerstick) 111 mg/dL (70-99) H EKG EKG [] Radiology/Procedures Radiology/Procedures [] Heart Score C/O Chest Pain: N/A Risk Factors: Risk Factors: DM, Current or recent (<one month) smoker, HTN, HLP, family history of CAD, obesity. Risk Scores: Risk Factors: DM, Current or recent (<one month) smoker, HTN, HLP, family history of CAD, obesity. Course & Med Decision Making Course & Med Decision Making Patient is a 76-year-old female with dementia who presents from her [facility] with worsening mental status, and concern for stroke since this morning Vital signs notable for sinus bradycardia. Physical exam noted above. Patient placed on the monitor with IV access established. Started on IV fluid. Blood cultures obtained. Started on antibiotics given infection/sepsis on patient's differential. Martinez placed. CT and CTA of the head not suggestive of CVA. CT of the chest abdomen pelvis with no acute findings. EKG with a rate of 58, QRS of 76, QTc of 432, no STEMI. Troponin not concerning. Lab analysis notable for urinary tract infection, VIRY and elevated lactate. Discussed findings with patient's daughter. Recommended admission for continued evaluation and treatment of urinary tract infection, dehydration, altered mental status/worsening symptoms of dementia. Family grateful, verbalized understanding and agreed with plan of transfer and admission. [] Dragon Disclaimer Dragon Disclaimer This electronic medical record was generated, in whole or in part, using a voice recognition dictation system. Departure Departure: Impression: Primary Impression: Dementia in Alzheimer's disease with depression Additional Impressions: Urinary tract infection VIRY (acute kidney injury) Sepsis Hypothyroidism Disposition: 02 [facility]ORT TERM [facility]OS[facility] Condition: STABLE Referrals: JEREMIE DONNELLY MD (PCP) Problem Qualifiers STEFANIE ARNOLD MD Oct 31, 2021 21:09
[2021-10-31] MEDS ORDERED: CONTRAST GIVEN. MC PRN (21:15)
[2021-10-31] MEDS ORDERED: IOHEXOL 350 MG/ML 100 ML VIAL. IV ONE (21:15)
[2021-10-31 21:20] LABS: BASO % 1 % (0-3); EOS # 0.1 x10^3/uL (0.0-0.7); EOS % 1 % (0-3); HEMATOCRIT 32.8 % (36.0-47.0); HEMOGLOBIN 10.7 g/dL (12.0-15.5); LYMPH # 1.4 x10^3/uL (1.0-4.8); LYMPH % 25 % (24-48); MEAN CORPUSCULAR HEMOGLOBIN 31 pg (25-35); MEAN CORPUSCULAR HGB CONC 33 g/dL (31-37); MEAN CORPUSCULAR VOLUME 94 fL (79-100); MONO # 0.6 x10^3/uL (0.0-1.1); MONO % 10 % (0-9); NEUT # 3.6 x10^3uL (1.8-7.7); NEUT % 63 % (31-73); PLATELET COUNT 165 x10^3/uL (140-400); RED BLOOD COUNT 3.49 x10^6/uL (3.50-5.40); RED CELL DISTRIBUTION WIDTH 13.8 % (11.5-14.5); WHITE BLOOD COUNT 5.8 x10^3/uL (4.0-11.0)
[2021-10-31 21:28] LABS: CREATININE 1.4 mg/dL (0.6-1.0); GFR 36.6; POTASSIUM 4.6 mmol/L (3.5-5.1)
[2021-10-31 21:34] LABS: ALBUMIN 3.3 g/dL (3.4-5.0); TOTAL BILIRUBIN 0.4 mg/dL (0.2-1.0); TOTAL PROTEIN 6.6 g/dL (6.4-8.2)
--- NOTE | 2021-10-31 22:21 | RAD ---
CTA HEAD AND NECK W/WO CONTRAST History: Altered mental status, slurred speech. Rule out stroke. Technique: After bolus of intravenous contrast, volumetric CT data acquisition was acquired of the he ad and neck. Multiplanar reconstruction images to include MIP and 3-D reconstruction images are submi tted. Any determination of stenosis is based on NASCET criteria. Comparison: CT head 10/31/2021. Findings: Angiogram neck: Aortic arch: Normal caliber three-vessel arch. Common carotid arteries: No stenosis, occlusion or dissection. Internal carotid arteries: Proximal right internal carotid plaque narrows the lumen to 1.8 mm, approx imately 50 percent stenosis. Calcified plaque at the proximal left internal carotid without significa nt stenosis. External carotid arteries: Patent Vertebral arteries: No stenosis, occlusion or dissection. Angiogram head: ICA: No stenosis, occlusion or aneurysm. MCA: No stenosis, occlusion or aneurysm. MIKI: No stenosis, occlusion or aneurysm. LEVELER: No stenosis, occlusion or aneurysm. Basilar artery: No stenosis, occlusion or aneurysm. Distal vertebral arteries: No stenosis, occlusion or aneurysm. Other: Moderate upper lung emphysema. Soft tissues appear normal. No pathologic osseous lesions. Multilevel cervical spondylosis. Impression: 1. Approximately 50 percent stenosis at the proximal right internal carotid artery. 2. No significant arterial stenosis, occlusion or aneurysm within the head. 3. Upper lobe emphysema. Findings discussed with STEFANIE ARNOLD MD at 10/31/2021 10:18 PM. FOR INTERNAL CODING PURPOSES RESULT CODE: (C) Exposure: One or more of the following individualized dose reduction techniques were utilized for thi s examination: 1. Automated exposure control 2. Adjustment of the mA and/or kV according to patient size 3. Use of iterative reconstruction technique. Electronically signed by: Henok Clark MD (10/31/2021 10:19 PM) [facility]
--- NOTE | 2021-10-31 22:41 | RAD ---
CT CHEST_ABDOMEN_ AND PELVIS WITHOUT CONTRAST History: Altered mental status. Short of air, weakness, slurred speech. Comparison: CT chest 05/18/2020. Technique: CT of the chest, abdomen and pelvis without contrast. Findings: Chest: Pulmonary arteries: Normal caliber. Aorta and great vessels: No aneurysm of the aortic arch or thoracic aorta is seen. Mild atherosclerot ic calcification. Heart: The heart is normal in size. There is no pericardial effusion. Mild coronary artery calcificat ion. Thyroid: No significant abnormalities. Mediastinum and brenda: No mediastinal masses or adenopathy is seen. Esophagus: The visualized esophagus is normal. Airways, Lungs, Pleura: Mild bronchial wall thickening. Moderate diffuse emphysematous change. Linear atelectasis/scarring in the lung bases, similar to prior exam. No pleural effusion or pneumothorax. Soft tissue and osseous: Decreased osseous mineralization in the spine. There is posterior discal klaudia cification at T11-T12 which narrows the spinal canal to approximately 8 mm, similar to comparison exa m. No suspicious osseous lytic or blastic lesion. No acute findings. Abdomen/Pelvis: General abdomen: No ascites. No free air. Liver : Normal in size and attenuation. No masses seen. Gallbladder/Biliary Tree: A few small dependent stones in the gallbladder fundus. No intrahepatic or extrahepatic biliary ductal dilatation. Pancreas: Normal. Spleen: Normal in size and attenuation. Adrenal glands: Normal. Kidneys: Bilateral renal cortical atrophy. No hydronephrosis. Punctate calcification in the right int erpolar kidney may represent vascular calcification or nephrolithiasis. No renal masses identified. Gastrointestinal: Decompressed stomach. Nondistended small bowel. No appendicitis. No colonic wall th ickening or pericolonic inflammatory changes. Lymph nodes: No lymphadenopathy. Vessels: Mild infrarenal aortic ectasia measuring 2.4 cm diameter. Heavy aortoiliac calcification. Pe rmanent infrarenal IVC filter. Pelvic Organs: Status post hysterectomy. The bladder is unremarkable. Soft tissues: Unremarkable. Bones: Left proximal femur ORIF. No acute findings. Impression: 1. No acute findings in the chest, abdomen and pelvis. 2. Moderate emphysematous change. 3. Cholelithiasis without evidence of acute cholecystitis. ------ Exposure: One or more of the following individualized dose reduction techniques were utilized for thi s examination: 1. Automated exposure control 2. Adjustment of the mA and/or kV according to patient size 3. Use of iterative reconstruction technique. Electronically signed by: Henok Clark MD (10/31/2021 10:39 PM) [facility]
[2021-10-31] MEDS ORDERED: LEVOTHYROXINE SODIUM 100 MCG VIAL. IVP ONE (22:45)
[2021-10-31] MEDS ORDERED: methylPREDNISolone SOD SUCC PF 125 MG/2 ML VIAL. IV ONE (23:00)
[2021-10-31] MEDS ORDERED: AZITHROMYCIN 500 MG in IV NORMAL SALINE 250ML 250 ML IV ONE (23:00)
[2021-11-01] MEDS ORDERED: MIDAZOLAM HCL PF 5 MG/5 ML VIAL. IV ONE
[2021-11-01] MEDS ORDERED: IV NORMAL SALINE 250ML 250 ML ONE (00:08)
[2021-11-01] MEDS ORDERED: IV NORMAL SALINE 50ML 50 ML ONE ×2 (00:08→00:46)
[2021-11-01] MEDS ORDERED: cefTRIAXone SODIUM 1 GM VIAL ONE ×2 (00:08→00:46)
[2021-11-01] MEDS ORDERED: AZITHROMYCIN 500 MG VIAL. IV ONE (00:08)
[2021-11-01 00:55] LABS: INFLUENZA A PATIENT NEGATIVE (NEGATIVE); INFLUENZA B PATIENT NEGATIVE (NEGATIVE)
[2021-11-01 01:08] LABS: BACTERIA,URINE MOD /HPF (0-FEW); BILIRUBIN,URINE NEG (NEG); CLARITY,URINE HAZY; COLOR,URINE YELLOW; GLUCOSE,URINE NEG (NEG); NITRITE,URINE POS (NEG); RBC,URINE 0 /HPF (0-2); UROBILINOGEN,URINE 0.2 mg/dL (0.2 mg/dL)
[2021-11-01] MEDS ORDERED: IV RINGERS SOLUTION,LACTATED 1,000 ML IV ONE (02:00)
[2021-11-01 02:30] VITALS: BP 126/86
[2021-11-01] MEDS ORDERED: FLUMAZENIL 0.5 MG/5 ML VIAL. IV ONE (02:30)
--- NOTE | 2021-11-01 06:13 | EKG ---
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
== END 2021-11-01 03:57 | disposition short-term general hospital (02) ==
LOC: ER 20:29
DX: A41.9 Sepsis, unspecified organism (principal); N17.9 Acute kidney failure, unspecified; G30.9 Alzheimer's disease, unspecified; F02.80 Dementia in other diseases classified elsewhere, unspecified severity, without behavioral disturbance, psychotic disturbance, mood disturbance, and anxiety; N39.0 Urinary tract infection, site not specified; E03.9 Hypothyroidism, unspecified; I10 Essential (primary) hypertension; Z20.822 Contact with and (suspected) exposure to COVID-19
CPT/HCPCS: 36415; 51702; 70450; 70496; 70498; 71250; 74176; 80053; 81001; 82947; 83605; 83735; 84443; 84484; 85025; 85610; 85730; 87040; 87086; 87186; 87428; 93005; 96361; 96365; 96367; 96375; 99285; C9803; J0456; J0696; J2250; J2930; J3490; J7050; J7120; Q9967; U0003